=== PATIENT | female | born 1945 | race Caucasian/White ===

== ENCOUNTER 2016-10-13 15:09 | Outpatient (CLI) | payer MEDICARE, OTHER | END 2016-10-13 15:10 | disposition home or self-care (01) | DX: I71.4 Abdominal aortic aneurysm, without rupture (principal) ==

== ENCOUNTER 2017-02-21 06:29 | Outpatient (CLI) | payer MEDICARE, OTHER ==
[2017-02-21 19:03] LABS: EOSINOPHILS # (AUTO) 0.1 10^3/uL (0.0-0.7); EOSINOPHILS % (AUTO) 2.8 %; HCT - HEMATOCRIT 43.4 % (37.0-47.0); HGB - HEMOGLOBIN 14.2 g/dL (12.0-16.0); LYMPHOCYTES # (AUTO) 1.5 10^3/uL (1.5-3.5); LYMPHOCYTES % (AUTO) 31.5 %; MEAN CORPUSCULAR HEMOGLOBIN 29.9 pg (27.0-31.0); MEAN CORPUSCULAR HGB CONC 32.8 g/dL (32.0-36.0); MEAN CORPUSCULAR VOLUME 91.3 fL (81.0-99.0); MEAN PLATELET VOLUME 7.8 fL (7.9-10.8); MONOCYTES # (AUTO) 0.5 10^3/uL (0.0-1.0); MONOCYTES % (AUTO) 9.6 %; NEUTROPHILS # (AUTO) 2.7 10^3/uL (1.5-6.6); NEUTROPHILS % (AUTO) 55.1 %; RED BLOOD COUNT 4.75 10^6/uL (4.20-5.40); RED CELL DISTRIBUTION WIDTH 15.7 % (12.0-15.0); UNCORRECTED WHITE BLOOD COUNT 4.9 x10^3/uL; WHITE BLOOD COUNT 4.9 x10^3/uL (4.8-10.8)
[2017-02-21 19:32] LABS: ALBUMIN/GLOBULIN RATIO 1.6 (1.0-2.2); BILIRUBIN,TOTAL 0.6 mg/dL (0.2-1.0); BUN - BLOOD UREA NITROGEN 17 mg/dL (6-20); CALCIUM 9.2 mg/dL (8.5-10.3); CARBON DIOXIDE - CO2 28 mmol/L (21-32); CHLORIDE 107 mmol/L (101-111); CHOL/HDL RATIO 4.1 (<4.4); CHOLESTEROL 253 mg/dL; CREATININE 0.8 mg/dL (0.4-1.0); GFR - MDRD 71 (>89); GLUCOSE 91 mg/dL (70-100); HDL CHOLESTEROL 61 mg/dL; LDL/HDL RATIO 2.6 (<4.4); POTASSIUM 4.2 mmol/L (3.5-5.0); SODIUM 142 mmol/L (135-145); TOTAL PROTEIN 7.6 g/dL (6.7-8.2); TRIGLYCERIDES 168 mg/dL; VLDL CHOLESTEROL 34 mg/dL
[2017-02-21 19:41] LABS: HEMOGLOBIN A1C 0.55 g/dL
== END 2017-02-21 06:30 | disposition home or self-care (01) ==
LOC: LAB.WCP 06:29
PROVIDERS: ATTEND Family Medicine
DX: Z79.899 Other long term (current) drug therapy (principal); E78.5 Hyperlipidemia, unspecified; R73.01 Impaired fasting glucose
CPT/HCPCS: 36415; 80053; 80061; 83036; 85025

== ENCOUNTER 2017-07-06 13:09 | Outpatient (CLI) | payer MEDICARE, OTHER | END 2017-07-06 13:10 | disposition home or self-care (01) | LOC: LAB.WCP 13:09 | PROVIDERS: ATTEND Family Medicine | DX: G25.81 Restless legs syndrome (principal) | CPT/HCPCS: 36415; 82728 ==

== ENCOUNTER 2017-08-02 11:22 | Outpatient (CLI) | payer MEDICARE, OTHER | END 2017-08-02 11:23 | disposition home or self-care (01) | LOC: LAB 11:22 | PROVIDERS: ATTEND Family Medicine | DX: R22.0 Localized swelling, mass and lump, head (principal) | CPT/HCPCS: 36415; 86161 ==

== ENCOUNTER 2017-09-21 12:08 | Outpatient (CLI) | payer MEDICARE, OTHER ==
[2017-09-21 12:30] LABS: CALCIUM 9.1 mg/dL (8.5-10.3); CREATININE 0.9 mg/dL (0.4-1.0)
[2017-09-21] MEDS ORDERED: IOPAMIDOL-300 100 ML VIAL ONE (13:35)
--- NOTE | 2017-09-22 11:48 | CT Report ---
DATE OF SERVICE: 09/21/2017 CT OF CHEST: 09/21/2017 COMPARISON: CT 01/31/2016. INDICATION: COPD, dyspnea, and hypoxia. TECHNIQUE: Timed bolus imaging of the pulmonary arteries was performed using 70 mL Isovue 300. Imaging was performed through the chest with coronal and sagittal reformats. FINDINGS There is dependent bibasilar atelectasis. There is scattered random ground glass opacity of the lungs, a nonspecific finding. No focal consolidation is seen. There is no evidence of pulmonary embolism. There is an abdominal aortic aneurysm. It measures 3.3 cm AP x 3.5 cm transverse. It was not imaged on the previous CT. No mediastinal or hilar adenopathy is seen. There are calcifications at the coronary arteries. No pericardial effusion. No bone lesions. Soft tissues appear unremarkable. Cholecystectomy is noted. IMPRESSION: 1. NO EVIDENCE OF PULMONARY EMBOLISM. 2. THERE ARE SCATTERED GROUND GLASS OPACITIES AT THE LUNGS WHICH ARE NONSPECIFIC. FINDINGS COULD REPRESENT EDEMA, INFECTION, OR OTHER INFLAMMATORY PROCESS. FOLLOWUP IS AVAILABLE. In accordance with CT protocol optimization, one or more of the following dose reduction techniques were utilized for this exam: automated exposure control, adjustment of mA and/or KV based on patient size, or use of iterative reconstructive technique. TD: 09/21/2017 16:17 ADAL
[2017-09-26] MEDS ORDERED: IOPAMIDOL-300 100 ML VIAL IVP ONE (07:31)
== END 2017-09-21 12:09 | disposition home or self-care (01) ==
LOC: LAB 12:08 → DI 12:09
PROVIDERS: ATTEND Family Medicine
DX: R91.8 Other nonspecific abnormal finding of lung field (principal)
CPT/HCPCS: 36415; 71275; 80048; Q9967

== ENCOUNTER 2017-10-03 08:04 | Outpatient (CLI) | payer MEDICARE, OTHER ==
--- NOTE | 2017-10-03 15:46 | Ultrasound Report ---
DATE OF SERVICE: 10/03/2017 LIMITED RETROPERITONEAL ULTRASOUND: 10/03/2017 CLINICAL INDICATION: Followup aneurysm. COMPARISON: 10/13/2016. TECHNIQUE: Real-time sonographic vascular imaging was performed by the weigher and crusher through the aorta utilizing both color-flow and Doppler spectral analysis. Multiple customer account representative static images were saved for review. FINDINGS: The abdominal aorta measures 2.7 cm proximally, and 2.6 cm in the mid portion. Distal aneurysmal dilatation is again seen, now measuring 3.7 x 3.3 cm. The iliacs remain normal in caliber. No free fluid is present. IMPRESSION: SLIGHT INTERVAL INCREASE IN SIZE OF DISTAL ABDOMINAL AORTIC ANEURYSM, NOW MEASURING 3.7 X 3.3 CM. TD: 10/03/2017 16:45
== END 2017-10-03 08:05 | disposition home or self-care (01) ==
LOC: DI 08:04
PROVIDERS: ATTEND Family Medicine
DX: I71.4 Abdominal aortic aneurysm, without rupture (principal)
CPT/HCPCS: 76775

== ENCOUNTER 2017-10-06 12:01 | Outpatient (CLI) | payer MEDICARE, OTHER ==
[2017-10-06 19:53] LABS: BUN - BLOOD UREA NITROGEN 18 mg/dL (6-20); CALCIUM 8.6 mg/dL (8.5-10.3); CARBON DIOXIDE - CO2 27 mmol/L (21-32); CHLORIDE 106 mmol/L (101-111); CHOL/HDL RATIO 3.5 (<4.4); CHOLESTEROL 260 mg/dL; CREATININE 0.9 mg/dL (0.4-1.0); GFR - MDRD 61 (>89); GLUCOSE 91 mg/dL (70-100); HDL CHOLESTEROL 75 mg/dL; LDL CHOLESTEROL,CALCULATED 155 mg/dL; LDL/HDL RATIO 2.1 (<4.4); SODIUM 138 mmol/L (135-145); VLDL CHOLESTEROL 30 mg/dL
== END 2017-10-06 12:02 | disposition home or self-care (01) ==
LOC: LAB.WCP 12:01
PROVIDERS: ATTEND Family Medicine
DX: R06.00 Dyspnea, unspecified (principal); E78.5 Hyperlipidemia, unspecified; J44.1 Chronic obstructive pulmonary disease with (acute) exacerbation
CPT/HCPCS: 36415; 80048; 80061; 83721

== ENCOUNTER 2018-04-17 15:35 | Emergency (ER) | payer MEDICARE, OTHER ==
[2018-04-17 16:33] LABS: BASOPHILS % (AUTO) 0.6 %; EOSINOPHILS # (AUTO) 0.2 10^3/uL (0.0-0.7); EOSINOPHILS % (AUTO) 2.9 %; HGB - HEMOGLOBIN 14.9 g/dL (12.0-16.0); LYMPHOCYTES # (AUTO) 1.8 10^3/uL (1.5-3.5); LYMPHOCYTES % (AUTO) 30.3 %; MEAN CORPUSCULAR HEMOGLOBIN 33.3 pg (27.0-31.0); MEAN CORPUSCULAR HGB CONC 34.2 g/dL (32.0-36.0); MEAN CORPUSCULAR VOLUME 97.5 fL (81.0-99.0); MEAN PLATELET VOLUME 6.6 fL (7.9-10.8); MONOCYTES # (AUTO) 0.7 10^3/uL (0.0-1.0); MONOCYTES % (AUTO) 11.4 %; NEUTROPHILS # (AUTO) 3.3 10^3/uL (1.5-6.6); NEUTROPHILS % (AUTO) 54.8 %; PLT - PLATELET COUNT 181 10^3/uL (130-450); RED BLOOD COUNT 4.45 10^6/uL (4.20-5.40); RED CELL DISTRIBUTION WIDTH 13.6 % (12.0-15.0)
[2018-04-17 16:47] LABS: ALBUMIN 4.2 g/dL (3.2-5.5); ALBUMIN/GLOBULIN RATIO 1.3 (1.0-2.2); CALCIUM 9.4 mg/dL (8.5-10.3); CREATININE 0.7 mg/dL (0.4-1.0); TOTAL PROTEIN 7.5 g/dL (6.7-8.2)
[2018-04-17 17:23] VITALS: BP 115/75
--- NOTE | 2018-04-17 17:40 | ED Physician Documentation ---
History of Present Illness - Stated complaint Stated Complaint: RT SIDE PX - Chief complaint Chief Complaint: Abd Pain - History obtained from History obtained from: Patient, Family - History of Present Illness Timing: Today Pain level max: 7 Pain level now: 6 Improved by: nothing Worsened by: palpation - Additonal information Additional information: Patient is a 72-year-old female who complains of a burning sensation to the right upper quadrant and right back starting today. Does not recall having similar symptoms in the past. Has had a cholecystectomy in the past. No fevers. No vomiting. No diarrhea. Review of Systems Ten Systems: 10 systems reviewed and negative Constitutional: denies: Fever, Chills Ears: denies: Ear pain Nose: denies: Rhinorrhea / runny nose, Congestion Throat: denies: Sore throat Cardiac: denies: Chest pain / pressure Respiratory: denies: Cough, Wheezing GI: denies: Nausea, Vomiting, Diarrhea : denies: Dysuria Skin: denies: Rash Musculoskeletal: denies: Neck pain, Back pain Neurologic: denies: Focal weakness, Numbness, Confused PD PAST MEDICAL HISTORY - Past Medical History Past Medical History: Yes Cardiovascular: None Respiratory: COPD, Other Neuro: None Endocrine/Autoimmune: None GI: GERD 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) : Other HEENT: Other Psych: None Musculoskeletal: Osteoarthritis Derm: Herpes zoster Other Past Medical History: Amnioitc membranes R eye x2 - Past Surgical History Past Surgical History: Yes General: Cholecystectomy, Appendectomy, EGD Ortho: Knee replacement, Rotator cuff repair /ANALYTIC PROGRAMMER: Hysterectomy HEENT: Cataracts - Present Medications Home Medications: Ambulatory Orders Medication Instructions Recorded Confirmed Acyclovir 200 mg PO BID 11/19/13 01/30/16 Albuterol [Ventolin Hfa] 1 inhaler INH Q6HR PRN 11/19/13 01/30/16 traZODone [Desyrel] 100 mg PO HS 11/19/13 01/12/15 Sertraline [Zoloft] 50 mg PO DAILY 11/20/13 04/17/18 prednisoLONE 1% OPHTH DROPS [Pred 1 drops OPTH QID 11/20/13 01/12/15 Forte] Omeprazole [Prilosec] 40 mg PO BID 02/27/14 01/12/15 Cholecalciferol (Vitamin D3) 1,000 unit PO BID 02/28/14 01/12/15 [Vitamin D] Antibiotic 01/30/16 Albuterol Sulfate [Proair Hfa PRN PRN 04/17/18 Inhaler] Oxycodone HCl/Acetaminophen 1 - 2 each PO Q6H PRN #14 tablet 04/17/18 [Percocet 5-325 mg Tablet] Ropinirole HCl 04/17/18 Valacyclovir HCl [Valtrex] 1,000 mg PO TID #21 tablet 04/17/18 - Allergies Allergies/Adverse Reactions: Allergies Allergy/AdvReac Type Severity Reaction Status Date / Time Sulfa (Sulfonamide Allergy Mild Rash Verified 04/17/18 15:58 Antibiotics) - Social History Does the pt smoke?: No Smoking Status: Former smoker Does the pt drink ETOH?: No Does the pt have substance abuse?: No - Immunizations Immunizations are current?: Yes - POLST Patient has POLST: No PD ED PE NORMAL - Vitals Vital signs reviewed: Yes - General General: Alert and oriented X 3, No acute distress - HEENT HEENT: Moist mucous membranes - Neck Neck: Supple, no meningeal sign - Cardiac Cardiac: RRR - Respiratory Respiratory: No respiratory distress, Clear bilaterally - Abdomen Abdomen: Soft, Non tender, Non distended - Back Back: No CVA TTP - Derm Derm: Warm and dry, Other (Rash on the dermal tunnel distribution from approximately T10. This is erythematous and mildly raised. Tender to palpation. No vesicles or pustules) - Neuro Neuro: Alert and oriented X 3 Results - Vitals Vitals: Vital Signs - 24 hr 04/17/18 04/17/18 15:41 17:22 Temperature 36.9 C 36.4 C L Heart Rate 73 67 Respiratory 18 16 Rate Blood Pressure 133/81 H 115/75 O2 Saturation 94 97 Oxygen O2 Source [With Activity] Nasal cannula O2 Source Room air - Labs Labs: Laboratory Tests 04/17/18 04/17/18 16:15 16:15 WBC 6.0 RBC 4.45 Hgb 14.9 Hct 43.4 MCV 97.5 MCH 33.3 H MCHC 34.2 RDW 13.6 Plt Count 181 MPV 6.6 L Neut # (Auto) 3.3 Lymph # (Auto) 1.8 [place] # (Auto) 0.7 Eos # (Auto) 0.2 Baso # (Auto) 0.0 Absolute Nucleated RBC 0.00 Nucleated RBC % 0.0 Sodium 137 Potassium 3.9 Chloride 101 Carbon Dioxide 29 Anion Gap 7.0 BUN 18 Creatinine 0.7 Estimated GFR (MDRD) 82 L Glucose 99 Calcium 9.4 Total Bilirubin 1.0 AST 31 ALT 33 Alkaline Phosphatase 92 Total Protein 7.5 Albumin 4.2 Globulin 3.3 Albumin/Globulin Ratio 1.3 Lipase 28 PD MEDICAL DECISION MAKING - ED course Complexity details: considered differential, d/w patient, d/w family ED course: Patient is a 72-year-old female who presents to the emergency department with what appears to be shingles. Has a burning sensation across her skin has been now followed by the appearance of a rash. Will place on valacyclovir and follow -up with her doctor for further care. Patient counseled regarding signs and symptoms for which I believe and urgent re-evaluation would be necessary. Patient with good understanding of and agreement to plan and is comfortable going home at this time This document was made in part using voice recognition software. While efforts are made to proofread this document, sound alike and grammatical errors may occur. - Sepsis Event Vital Signs: Vital Signs - 24 hr 04/17/18 04/17/18 15:41 17:22 Temperature 36.9 C 36.4 C L Heart Rate 73 67 Respiratory 18 16 Rate Blood Pressure 133/81 H 115/75 O2 Saturation 94 97 Oxygen O2 Source [With Activity] Nasal cannula O2 Source Room air Departure - Departure Disposition: 01 Home, Self Care Clinical Impression: Shingles Qualifiers: Herpes zoster complications: without complications Qualified Code(s): B02.9 - Zoster without complications Condition: Good Instructions: ED Shingles Follow-Up: Janis Burns MD [Primary Care Provider] - Within 1 week Prescriptions: Oxycodone HCl/Acetaminophen [Percocet 5-325 mg Tablet] 1 - 2 each PO Q6H PRN # 14 tablet PRN Reason: pain Valacyclovir HCl [Valtrex] 1,000 mg PO TID #21 tablet Comments: Take the medications as prescribed. Return if you worsen. Do not drink alcohol or drive while on narcotic pain medicine. Note that many narcotic pain relievers also contain tylenol/acetaminophen. Please ensure that your total dose of acetaminophen from all sources does not exceed 3 grams (3000mg) per day. You may constipated on this medication, take a stool softener such as "Colace" twice a day while you are on it. Also recommend a eueg-[id number] laxative such as senna or MiraLAX any day that you do not have a bowel movement. If you received narcotic pain medication in the emergency department, do not drive or operate machinery for the next 24 hours. Discharge Date/Time: 04/17/18 17:52
== END 2018-04-17 17:52 | disposition home or self-care (01) ==
LOC: ED 15:35
DX: B02.9 Zoster without complications (principal); Z87.891 Personal history of nicotine dependence
CPT/HCPCS: 36415; 80053; 83690; 85025; 99283

== ENCOUNTER 2018-06-08 10:03 | Outpatient (CLI) | payer MEDICARE, OTHER ==
[2018-06-08 13:05] LABS: BASOPHILS % (AUTO) 0.7 %; EOSINOPHILS # (AUTO) 0.3 10^3/uL (0.0-0.7); EOSINOPHILS % (AUTO) 4.5 %; HGB - HEMOGLOBIN 14.8 g/dL (12.0-16.0); LYMPHOCYTES # (AUTO) 1.7 10^3/uL (1.5-3.5); LYMPHOCYTES % (AUTO) 28.8 %; MEAN CORPUSCULAR HEMOGLOBIN 33.7 pg (27.0-31.0); MEAN CORPUSCULAR HGB CONC 34.3 g/dL (32.0-36.0); MEAN CORPUSCULAR VOLUME 98.4 fL (81.0-99.0); MEAN PLATELET VOLUME 7.3 fL (7.9-10.8); MONOCYTES # (AUTO) 0.6 10^3/uL (0.0-1.0); MONOCYTES % (AUTO) 9.6 %; NEUTROPHILS # (AUTO) 3.3 10^3/uL (1.5-6.6); NEUTROPHILS % (AUTO) 56.4 %; PLT - PLATELET COUNT 185 10^3/uL (130-450); RED BLOOD COUNT 4.39 10^6/uL (4.20-5.40); RED CELL DISTRIBUTION WIDTH 14.2 % (12.0-15.0); WHITE BLOOD COUNT 5.8 x10^3/uL (4.8-10.8)
[2018-06-08 13:22] LABS: ALBUMIN 4.4 g/dL (3.2-5.5); ALBUMIN/GLOBULIN RATIO 1.5 (1.0-2.2); ALKALINE PHOSPHATASE 100 IU/L (42-121); ALT ALANINE AMINOTRANSFERASE 34 IU/L (10-60); AST ASPARTATE AMINOTRANSFERASE 31 IU/L (10-42); BILIRUBIN,TOTAL 0.8 mg/dL (0.2-1.0); BUN - BLOOD UREA NITROGEN 21 mg/dL (6-20); CALCIUM 9.3 mg/dL (8.5-10.3); CARBON DIOXIDE - CO2 25 mmol/L (21-32); CHLORIDE 106 mmol/L (101-111); CHOL/HDL RATIO 3.7 (<4.4); CHOLESTEROL 221 mg/dL; CREATININE 0.8 mg/dL (0.4-1.0); GFR - MDRD 70 (>89); GLUCOSE 94 mg/dL (70-100); HDL CHOLESTEROL 59 mg/dL; LDL CHOLESTEROL,CALCULATED 130 mg/dL; LDL/HDL RATIO 2.2 (<4.4); SODIUM 139 mmol/L (135-145); TOTAL PROTEIN 7.4 g/dL (6.7-8.2); VLDL CHOLESTEROL 32 mg/dL
[2018-06-08 14:01] LABS: HB2 TOTAL 15.7 g/dL; HEMOGLOBIN A1C 0.56 g/dL; HEMOGLOBIN A1C % 5.4 % (4.6-6.2)
== END 2018-06-08 10:04 | disposition home or self-care (01) ==
LOC: LAB.WCP 10:03
PROVIDERS: ATTEND Family Medicine
DX: E78.5 Hyperlipidemia, unspecified (principal); R73.01 Impaired fasting glucose; R03.0 Elevated blood-pressure reading, without diagnosis of hypertension; K21.9 Gastro-esophageal reflux disease without esophagitis; M35.00 Sjogren syndrome, unspecified; J44.9 Chronic obstructive pulmonary disease, unspecified; I73.9 Peripheral vascular disease, unspecified; F32.9 Major depressive disorder, single episode, unspecified; G47.00 Insomnia, unspecified
CPT/HCPCS: 36415; 80053; 80061; 83036; 83721; 84443; 85025

== ENCOUNTER 2018-10-07 08:38 | Outpatient (CLI) | payer MEDICARE, OTHER ==
--- NOTE | 2018-10-07 23:06 | CT Report ---
Reason: SYNCOPE,MEMORY LOSS Procedure Date: 10/07/2018 Accession Number: [id number] / [id number] Procedure: CT - Head W/O CPT Code: FULL RESULT: EXAM: CT HEAD EXAM DATE: 10/07/2018 08:53 AM. CLINICAL HISTORY: Syncope, memory loss. COMPARISON: HEAD W/O 07/22/2017 1:35 PM. TECHNIQUE: Multiaxial CT images were obtained from the foramen magnum to the vertex. Reformats: Sagittal and coronal. IV contrast: None. In accordance with CT protocol optimization, one or more of the following dose reduction techniques were utilized for this exam: automated exposure control, adjustment of mA and/or KV based on patient size, or use of iterative reconstructive technique. FINDINGS: Parenchyma: No intraparenchymal hemorrhage. No evidence of mass, midline shift or CT findings of acute infarction. Joaquin-white differentiation is distinct. No significant chronic microangiopathic white matter changes are evident. Extraaxial Spaces: Normal for age. No subdural or epidural collections identified. Ventricles: The ventricles and cortical sulci are enlarged, consistent with age-related tissue loss. Sinuses: Imaged paranasal sinuses, orbits, and mastoids show no significant abnormality. Bones: No evidence of fracture or calvarial defect. Other: None. IMPRESSION: Stable exam without evidence of acute intracranial abnormality. RADIA
== END 2018-10-07 08:39 | disposition home or self-care (01) ==
LOC: DI 08:38
PROVIDERS: ATTEND Family Medicine
DX: R55 Syncope and collapse (principal); R41.3 Other amnesia
CPT/HCPCS: 70450

== ENCOUNTER 2018-10-17 19:57 | Outpatient (CLI) | payer MEDICARE, OTHER ==
--- NOTE | 2018-10-17 22:18 | Ultrasound Report ---
Reason: SYNCOPE,MEMORY LOSS Procedure Date: 10/17/2018 Accession Number: [id number] / [id number] Procedure: US - Carotid Doppler Complete CPT Code: FULL RESULT: EXAM: BILATERAL CAROTID AND VERTEBRAL ARTERY DUPLEX DOPPLER ULTRASOUND: EXAM DATE: 10/17/2018 08:25 PM CLINICAL HISTORY: SYNCOPE,MEMORY LOSS. COMPARISON: None. TECHNIQUE: Grayscale imaging, color Doppler, and duplex spectral Doppler were used to evaluate the carotid and vertebral arteries bilaterally. Static images were obtained. FINDINGS: Minimal calcified plaque of the bilateral carotid bulbs. Normal antegrade flow is present in bilateral vertebral arteries. VELOCITIES (cm/sec): Right CCA mid: PSV 56.2 cm/sec CCA dist: PSV 49.1 cm/sec ICA prox: PSV 43.6 cm/sec ICA mid: PSV 48.1 cm/sec ICA dist: PSV 40.2 cm/sec ECA: PSV 93.2 cm/sec Vert: PSV 33.5 cm/sec ICA/CCA: 0.86 Left CCA mid: PSV 48.4 cm/sec CCA dist: PSV 50.6 cm/sec ICA prox: PSV 41.9 cm/sec ICA mid: PSV 43.1 cm/sec ICA dist: PSV 41.5 cm/sec ECA: PSV 76.2 cm/sec Vert: PSV 17.1 cm/sec ICA/CCA: 0.85 ICA diameter stenosis: Right: <50% by velocity and <70% by NASCET criteria. Left: <50% by velocity and <70% by NASCET criteria. IMPRESSION: No evidence for 50% or greater stenosis. General Recommendations: Stenosis =50% ICA - Follow-up ultrasound 6-12 months Stenosis <50% ICA - High Risk Patient with plaque - Follow-up ultrasound 1-2 years Normal Study but High Risk Patient - Follow-up ultrasound 3-5 years Management recommendations and diagnostic criteria are based on current IAC endorsed standards in Carotid Artery Stenosis: Grayscale and Doppler Ultrasound Diagnosis. Validated velocity measurements with angiographic measurements and velocity criteria are extrapolated from diameter data as defined by the Society of Radiologists in Ultrasound Consensus Conference Radiology 2003; 229;340-346. RADIA
== END 2018-10-17 19:58 | disposition home or self-care (01) ==
LOC: DI 19:57
PROVIDERS: ATTEND Family Medicine
DX: R55 Syncope and collapse (principal); R41.3 Other amnesia
CPT/HCPCS: 93880

== ENCOUNTER 2018-10-20 08:00 | Outpatient (CLI) | payer MEDICARE, OTHER ==
[2018-10-22 16:17] LABS: B. PARAPERTUSSIS DNA NOT DETECTED; B. PERTUSSIS DNA NOT DETECTED; SOURCE SWAB
== END 2018-10-20 23:59 | disposition home or self-care (01) ==
LOC: LAB.R 08:00
PROVIDERS: ATTEND Nurse Practitioner
DX: R05 Cough (principal)
CPT/HCPCS: 87801

== ENCOUNTER 2018-11-03 16:39 | Outpatient (CLI) | payer MEDICARE, OTHER | END 2018-11-03 23:59 | disposition home or self-care (01) | LOC: LAB.R 16:39 | PROVIDERS: ATTEND Family Medicine | DX: R31.9 Hematuria, unspecified (principal) | CPT/HCPCS: 87077; 87086; 87181 ==

== ENCOUNTER 2018-11-16 11:25 | Outpatient (CLI) | payer MEDICARE, OTHER ==
--- NOTE | 2018-11-16 13:44 | Ultrasound Report ---
Reason: POSTMENOPAUSAL BLEEDING Procedure Date: 11/16/2018 Accession Number: [id number] / [id number] Procedure: US - Pelvic w/Transvaginal CPT Code: FULL RESULT: EXAM: PELVIC ULTRASOUND EXAM DATE: 11/16/2018 11:36 AM. CLINICAL HISTORY: Postmenopausal bleeding. COMPARISON: None. TECHNIQUE: Realtime transabdominal pelvic scan performed to identify the uterus and adnexa and as an overview of other pelvic structures, followed by transvaginal scan to provide greater detail of the uterus and adnexa, with static image documentation. FINDINGS: Uterus: Not seen, reportedly surgically absent. The upper vaginal cuff is normal in appearance by transvaginal examination. Right Ovary: Not seen. Left Ovary: Not seen. Free Fluid: None. Other: None. IMPRESSION: Status post hysterectomy with no overt mass seen near the distal vaginal canal. RADIA
== END 2018-11-16 11:26 | disposition home or self-care (01) ==
LOC: DI 11:25
PROVIDERS: ATTEND Family Medicine
DX: N95.0 Postmenopausal bleeding (principal); Z90.710 Acquired absence of both cervix and uterus
CPT/HCPCS: 76830; 76856

== ENCOUNTER 2018-11-24 15:16 | Outpatient (CLI) | payer MEDICARE, OTHER | END 2018-11-24 15:17 | disposition critical access hospital (66) | LOC: EMS 15:16 | PROVIDERS: ATTEND Surgery | DX: R06.02 Shortness of breath (principal); R05 Cough; R68.83 Chills (without fever); R07.9 Chest pain, unspecified | CPT/HCPCS: A0425; A0427 ==

== ENCOUNTER 2018-11-24 15:28 | Emergency (ER) | payer MEDICARE, OTHER ==
[2018-11-24] MEDS ORDERED: IPRATROPIUM/ALBUTEROL 3 ML NEB INH STA (15:41)
[2018-11-24] MEDS ORDERED: LEVALBUTEROL 1.25 MG/3 ML NEB INH STA (15:44)
[2018-11-24 16:03] LABS: BASOPHILS % (AUTO) 0.6 %; HGB - HEMOGLOBIN 13.9 g/dL (12.0-16.0); LYMPHOCYTES # (AUTO) 0.8 10^3/uL (1.5-3.5); MEAN CORPUSCULAR HEMOGLOBIN 32.6 pg (27.0-31.0); MEAN CORPUSCULAR HGB CONC 33.6 g/dL (32.0-36.0); MEAN CORPUSCULAR VOLUME 97.1 fL (81.0-99.0); MEAN PLATELET VOLUME 6.8 fL (7.9-10.8); MONOCYTES # (AUTO) 0.7 10^3/uL (0.0-1.0); MONOCYTES % (AUTO) 15.5 %; NEUTROPHILS % (AUTO) 64.9 %; PLT - PLATELET COUNT 154 10^3/uL (130-450); RED BLOOD COUNT 4.27 10^6/uL (4.20-5.40); RED CELL DISTRIBUTION WIDTH 13.7 % (12.0-15.0); WHITE BLOOD COUNT 4.6 x10^3/uL (4.8-10.8)
[2018-11-24 16:16] LABS: ALBUMIN 4.4 g/dL (3.2-5.5); ALBUMIN/GLOBULIN RATIO 1.6 (1.0-2.2); BILIRUBIN,TOTAL 0.6 mg/dL (0.2-1.0); CALCIUM 9.1 mg/dL (8.5-10.3); TOTAL PROTEIN 7.2 g/dL (6.7-8.2)
--- NOTE | 2018-11-24 16:31 | XRAY Report ---
Reason: dyspnea Procedure Date: 11/24/2018 Accession Number: [id number] / [id number] Procedure: XR - Chest 1 View X-Ray CPT Code: 63470 FULL RESULT: EXAM: CHEST RADIOGRAPHY EXAM DATE: 11/24/2018 04:17 PM. CLINICAL HISTORY: Dyspnea. COMPARISON: CHEST 2 VIEW PA/LAT 10/16/2018 11:02 AM. TECHNIQUE: 1 view. FINDINGS: Lungs/Pleura: No focal opacities evident. No pleural effusion. No pneumothorax. There is relative right hemidiaphragm elevation. Mediastinum: Borderline cardiomegaly. There is thoracic aortic calcification. Other: There is bilateral shoulder degenerative disease. IMPRESSION: No acute intrathoracic plain film abnormality. RADIA
--- NOTE | 2018-11-24 16:45 | ED Physician Documentation ---
PD HPI DYSPNEA - Stated complaint Stated Complaint: SOA - Chief complaint Chief Complaint: Resp - History obtained from History obtained from: Patient - History of Present Illness Timing - onset: Last night Timing - details: Still present Associated symptoms: Cough Similar symptoms before: Diagnosis (copd) - Treatment prior to arrival Treatment prior to arrival: DuoNeb - Additional information Additional information: The patient is a 73-year-old female with history of COPD, who presents via ambulance with dyspnea. She began with cough last night, and has become short of breath with coughing today. She has used her nebulizer twice at home, and once enroute by medics, without relief. She denies chest pain or fever. She does have soreness in her throat with coughing. She denies headache, nausea, vomiting, or dysuria. 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 HEENT: Other Psych: None Musculoskeletal: Osteoarthritis Derm: Herpes zoster - Past Surgical History Past Surgical History: Yes General: Cholecystectomy, Appendectomy, EGD Ortho: Knee replacement, Rotator cuff repair /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 HEENT: Cataracts - Present Medications Home Medications: Ambulatory Orders Medication Instructions Recorded Confirmed Acyclovir 200 mg PO BID 11/19/13 01/30/16 Albuterol [Ventolin Hfa] 1 inhaler INH Q6HR PRN 11/19/13 01/30/16 traZODone [Desyrel] 100 mg PO HS 11/19/13 01/12/15 Sertraline [Zoloft] 50 mg PO DAILY 11/20/13 04/17/18 prednisoLONE 1% OPHTH DROPS [Pred 1 drops OPTH QID 11/20/13 01/12/15 Forte] Omeprazole [Prilosec] 40 mg PO BID 02/27/14 01/12/15 Cholecalciferol (Vitamin D3) 1,000 unit PO BID 02/28/14 01/12/15 [Vitamin D] Albuterol Sulfate [Proair Hfa PRN PRN 04/17/18 Inhaler] Ropinirole HCl 04/17/18 Benzonatate [Tessalon Perle] 100 - 200 mg PO TID PRN #30 capsule 11/24/18 Felodipine [Felodipine ER] 0 mg 11/24/18 Gemfibrozil 0 mg 11/24/18 Levalbuterol [Xopenex] 1.25 mg INH RTQ4H #30 neb 11/24/18 Losartan [Cozaar] 0 mg 11/24/18 predniSONE [Prednisone] 40 mg PO DAILY #10 tablet 11/24/18 - Allergies Allergies/Adverse Reactions: Allergies Allergy/AdvReac Type Severity Reaction Status Date / Time Sulfa (Sulfonamide Allergy Mild Rash Verified 04/17/18 15:58 Antibiotics) doxycycline Allergy Unknown Verified 11/24/18 15:51 - Social History Does the pt smoke?: No Smoking Status: Never smoker Does the pt drink ETOH?: No Does the pt have substance abuse?: No - Immunizations Immunizations are current?: Yes - POLST Patient has POLST: No PD ED PE NORMAL - Vitals Vital signs reviewed: Yes (borderline systolic hypertension initially) - General General: Alert and oriented X 3, Well developed/nourished, Other (Appears in respiratory distress, coughing and speaking in bursts of 2-3 words.) - HEENT HEENT: Atraumatic, Pharynx benign - Neck Neck: Supple, no meningeal sign, No adenopathy, No JVD - Cardiac Cardiac: RRR - Respiratory Respiratory: Other (Faint expiratory wheezing bilaterally.) - Abdomen Abdomen: Soft, Non tender, Other (Rotund abdomen.) - Back Back: No CVA TTP - Derm Derm: No rash - Extremities Extremities: No edema, No calf tenderness / cord - Neuro Neuro: Alert and oriented X 3, No motor deficit, No sensory deficit Results - Vitals Vitals: Oxygen O2 Source [] Nasal cannula O2 Source Room air Oxygen Flow Rate 2 - EKG (time done) 16:44 Rate: Rate (enter#) (87) Rhythm: NSR [place]: Normal Intervals: Normal IA QRS: Normal Ischemia: Normal ST segments Compare to prior EKG: Unchanged from prior EKG Computer interpretation: Agree with computer - Labs Labs: Laboratory Tests 11/24/18 11/24/18 11/24/18 15:56 15:56 15:56 WBC 4.6 L RBC 4.27 Hgb 13.9 Hct 41.5 MCV 97.1 MCH 32.6 H MCHC 33.6 RDW 13.7 Plt Count 154 MPV 6.8 L Neut # (Auto) 3.0 Lymph # (Auto) 0.8 L [place] # (Auto) 0.7 Eos # (Auto) 0.0 Baso # (Auto) 0.0 Absolute Nucleated RBC 0.00 Nucleated RBC % 0.1 Sodium 139 Potassium 3.6 Chloride 103 Carbon Dioxide 22 Anion Gap 14.0 H BUN 19 Creatinine 1.0 Estimated GFR (MDRD) 54 L Glucose 97 Calcium 9.1 Total Bilirubin 0.6 AST 49 H ALT 46 Alkaline Phosphatase 86 Troponin I < 0.04 B-Natriuretic Peptide Total Protein 7.2 Albumin 4.4 Globulin 2.8 Albumin/Globulin Ratio 1.6 Lipase 26 11/24/18 16:00 WBC RBC Hgb Hct MCV MCH MCHC RDW Plt Count MPV Neut # (Auto) Lymph # (Auto) [place] # (Auto) Eos # (Auto) Baso # (Auto) Absolute Nucleated RBC Nucleated RBC % Sodium Potassium Chloride Carbon Dioxide Anion Gap BUN Creatinine Estimated GFR (MDRD) Glucose Calcium Total Bilirubin AST ALT Alkaline Phosphatase Troponin I B-Natriuretic Peptide 14 Total Protein Albumin Globulin Albumin/Globulin Ratio Lipase - Rads (name of study) 1-view C Radiology: Prelim report reviewed, EMP read contemporaneously, See rad report (No acute intrathoracic plain film abnormality.) PD MEDICAL DECISION MAKING - ED course Complexity details: reviewed old records, reviewed results, re-evaluated patient, considered differential, d/w patient, d/w family ED course: The patient's presentation is most consistent with acute exacerbation of COPD. Her dyspnea seems to be associated with coughing. There is no evidence of pneumonia, with no fever, normal white blood cell count of 4.6, and negative chest x-ray. Her presentation does not suggest congestive heart failure, with no pulmonary edema on chest x-ray, and a normal BNP. Electrocardiogram does not reveal evidence of ischemic changes. Her troponin is negative. Treatment in the emergency department included administration of Xopenex nebulizer and dexamethasone 10 mg orally. Her coughing and shortness of breath improved with this treatment. Tessalon 100 mg is administered orally. She is being discharged with prescriptions for Xopenex nebulizer solution, prednisone, and Tessalon Perles. I discussed with her and her daughter the diagnosis, outpatient treatment and follow-up, as well as potentially worrisome signs or symptoms that should prompt reevaluation in the emergency department. Departure - Departure Disposition: 01 Home, Self Care Clinical Impression: COPD exacerbation Condition: Stable Instructions: ED COPD Flare Follow-Up: Janis Burns MD [Primary Care Provider] - Prescriptions: Benzonatate [Tessalon Perle] 100 - 200 mg PO TID PRN #30 capsule PRN Reason: Cough Levalbuterol [Xopenex] 1.25 mg INH RTQ4H #30 neb predniSONE [Prednisone] 40 mg PO DAILY #10 tablet Comments: Continue albuterol as previously prescribed. Take prednisone daily as prescribed. You can use Xopenex if albuterol is not resulting in improved breathing. Follow-up with your primary physician within 1 week. Call to schedule appointment. Return to the emergency department if you develop increasing difficulty breathing, or otherwise worsening symptoms. Discharge Date/Time: 11/24/18 18:34
[2018-11-24] MEDS ORDERED: DEXAMETHASONE 10 MG/ML VIAL PO STA (17:07)
[2018-11-24] MEDS ORDERED: BENZONATATE 100 MG CAPSULE PO STA (18:19)
[2018-11-24 18:36] VITALS: BP 121/97
== END 2018-11-24 18:34 | disposition home or self-care (01) ==
LOC: EDUNIT# → ED 15:28
DX: J44.1 Chronic obstructive pulmonary disease with (acute) exacerbation (principal); Z96.659 Presence of unspecified artificial knee joint
CPT/HCPCS: 36415; 71045; 80053; 83690; 83880; 84484; 85025; 93005; 94640; 99283; 99284; A9270

== ENCOUNTER 2018-12-04 10:01 | Outpatient (CLI) | payer MEDICARE, OTHER ==
--- NOTE | 2018-12-04 13:03 | XRAY Report ---
Reason: COPD, ACUTE EXACERBATION/COUGH Procedure Date: 12/04/2018 Accession Number: [id number] / [id number] Procedure: WCP - Chest 2 View X-Ray CPT Code: 61188 FULL RESULT: EXAM: CHEST RADIOGRAPHY EXAM DATE: 12/04/2018 10:20 AM. CLINICAL HISTORY: COPD, acute exacerbation/cough. COMPARISON: CHEST 1 VIEW 11/24/2018 3:59 PM. CHEST 2 VIEW PA/LAT 10/16/2018 11:02 AM. TECHNIQUE: 2 views. FINDINGS: Lungs/Pleura: Since the most recent exam of 10 days ago, patient has developed a 2.5 cm triangular opacity/contour prominence overlying the region of the right azygous vein. Presumably this represents subsegmental atelectasis. Short interval follow-up in 4 weeks is recommended to ensure resolution. Remaining lungs are clear. No effusion or extra ventilatory air. Mediastinum: Heart size is normal. Hilar contours are within normal limits. Other: None. IMPRESSION: New 2.5 cm contour prominence overlies the right mediastinum likely indicating focal subsegmental atelectasis. Recommend follow-up in 4 weeks to ensure expected resolution. If finding persists, would then proceed with CT to look for causes of postobstructive atelectasis. RADIA
== END 2018-12-04 10:02 | disposition home or self-care (01) ==
LOC: DI.WCP 10:01
PROVIDERS: ATTEND Physician Assistant
DX: J44.1 Chronic obstructive pulmonary disease with (acute) exacerbation (principal); R05 Cough
CPT/HCPCS: 71046

== ENCOUNTER 2018-12-07 11:35 | Outpatient (CLI) | payer MEDICARE, OTHER ==
[2018-12-07 18:49] LABS: BASOPHILS % (AUTO) 0.2 %; EOSINOPHILS # (AUTO) 0.1 10^3/uL (0.0-0.7); EOSINOPHILS % (AUTO) 1.3 %; HGB - HEMOGLOBIN 14.7 g/dL (12.0-16.0); LYMPHOCYTES # (AUTO) 3.9 10^3/uL (1.5-3.5); LYMPHOCYTES % (AUTO) 34.8 %; MEAN CORPUSCULAR HGB CONC 32.2 g/dL (32.0-36.0); MEAN CORPUSCULAR VOLUME 99.3 fL (81.0-99.0); MONOCYTES # (AUTO) 0.8 10^3/uL (0.0-1.0); NEUTROPHILS # (AUTO) 6.4 10^3/uL (1.5-6.6); NEUTROPHILS % (AUTO) 56.7 %; PLT - PLATELET COUNT 209 10^3/uL (130-450); RED BLOOD COUNT 4.61 10^6/uL (4.20-5.40); RED CELL DISTRIBUTION WIDTH 14.1 % (12.0-15.0); WHITE BLOOD COUNT 11.3 x10^3/uL (4.8-10.8)
[2018-12-07 19:17] LABS: ALBUMIN 4.1 g/dL (3.2-5.5); ALBUMIN/GLOBULIN RATIO 1.4 (1.0-2.2); BILIRUBIN,TOTAL 0.6 mg/dL (0.2-1.0); CALCIUM 9.1 mg/dL (8.5-10.3); CREATININE 0.9 mg/dL (0.4-1.0)
== END 2018-12-07 11:36 | disposition home or self-care (01) ==
LOC: LAB.WCP 11:35
PROVIDERS: ATTEND Nurse Practitioner
DX: J18.9 Pneumonia, unspecified organism (principal)
CPT/HCPCS: 36415; 80053; 85025

== ENCOUNTER 2018-12-13 13:21 | Outpatient (CLI) | payer MEDICARE, OTHER ==
[2018-12-13] MEDS ORDERED: IOPAMIDOL-300 100 ML VIAL ONE (13:40)
[2018-12-13] MEDS ORDERED: IOPAMIDOL-300 100 ML VIAL IVP ONE (15:40)
--- NOTE | 2018-12-13 16:15 | CT Report ---
Reason: PNEUMONIA,COUGH,COPD,ACUTE EXACERBATION Procedure Date: 12/13/2018 Accession Number: [id number] / [id number] Procedure: CT - CHEST W CPT Code: FULL RESULT: EXAM: CT CHEST EXAM DATE: 12/13/2018 01:58 PM. CLINICAL HISTORY: PNEUMONIA, COUGH, COPD, ACUTE EXACERBATION. COMPARISONS: CHEST ANGIO 09/21/2017 2:39 PM. TECHNIQUE: Routine helical CT imaging was performed through the chest. IV contrast: 80 mL Isovue-300. Reconstructions: Coronal and sagittal. In accordance with CT protocol optimization, one or more of the following dose reduction techniques were utilized for this exam: automated exposure control, adjustment of mA and/or KV based on patient size, or use of iterative reconstructive technique. FINDINGS: Lungs/Pleura: There is a small amount of right basilar consolidation. Previously seen scattered groundglass is no longer appreciated. There are no suspicious pulmonary nodules. No pleural effusion or pneumothorax. Mediastinum: The coronary arteries as well as the aorta are at least moderately calcified. No lymphadenopathy is detected. Right pulmonary artery measures up to 2.1 cm and left pulmonary artery measures up to 2.5 cm, suggestive of the possibility of pulmonary hypertension. Bones: No aggressive osseous lesions detected. Visualized Abdomen: Status post cholecystectomy and hypodense liver suggestive of steatosis. Mild splenomegaly. Known infrarenal abdominal aortic aneurysm measures up to 3.5 cm, similar to prior. Other: None. IMPRESSION: Small amount of right basilar consolidation, similar to the previous examination. Intra-abdominal findings including aortic aneurysm as described above. RADIA
== END 2018-12-13 13:22 | disposition home or self-care (01) ==
LOC: DI 13:21
PROVIDERS: ATTEND Family Medicine
DX: J18.9 Pneumonia, unspecified organism (principal); J44.1 Chronic obstructive pulmonary disease with (acute) exacerbation; I71.4 Abdominal aortic aneurysm, without rupture
CPT/HCPCS: 71260; Q9967

== ENCOUNTER 2019-01-09 12:13 | Day surgery (SDC) | payer MEDICARE, OTHER ==
[2019-01-09] MEDS ORDERED: LACTATED RINGERS 1,000 ML IV ONE ×2 (12:29→14:05)
--- NOTE | 2019-01-09 13:40 | ANESTHESIA ---
Pre-Anesthesia VS, & Labs - Diagnosis rectal bleeding, screening exam - Procedure colonoscopy with possible biopsies/polypectomy Vital Signs: Temp Pulse Resp BP Pulse Ox 36.6 C 75 16 153/80 H 93 01/09/19 12:29 01/09/19 12:29 01/09/19 12:29 01/09/19 12:29 01/09/19 12:29 Height 5 ft 3 in Weight (kg) 86.18 kg Body Mass Index 33.6 - NPO >8 hours - Is Patient ?: No Home Medications and Allergies Home Medications: Ambulatory Orders Benzonatate [Tessalon Perle] 100 mg PO TID PRN 12/28/18 Ferrous Sulfate 325 mg PO ONCE 12/28/18 Fluticasone/Salmeterol [Advair 250-50 Diskus] 1 each IH BID 12/28/18 Genteal Pm 1 applic TP QPM 12/28/18 Hydrocortisone Valerate 1 applic TP DAILY 12/28/18 Ibuprofen 800 mg PO DAILY 12/28/18 Magnesium 250 mg PO DAILY 12/28/18 Nystatin 5 ml PO QID 12/28/18 [place]-3/Dha/Epa/Fish Oil [Fish Oil 1,000 mg Softgel] 1 each PO DAILY 12/28/18 Tiotropium [place] [Spiriva] 1 cap IH DAILY 12/28/18 Acyclovir 200 mg PO BID 11/19/13 Albuterol [Ventolin Hfa] 2 inhaler INH Q4HR PRN 11/19/13 traZODone [Desyrel] 3 - 4 tab PO HS 11/19/13 Sertraline [Zoloft] 50 - 100 mg PO DAILY 11/20/13 prednisoLONE 1% OPHTH DROPS [Pred Forte] 1 drops OPTH QID 11/20/13 Omeprazole [Prilosec] 40 mg PO BID 02/27/14 Ropinirole HCl 3 mg PO QPM 04/17/18 Benzonatate [Tessalon Perle] 100 mg PO TID PRN 12/28/18 Ferrous Sulfate 325 mg PO ONCE 12/28/18 Fluticasone/Salmeterol [Advair 250-50 Diskus] 1 each IH BID 12/28/18 Genteal Pm 1 applic TP QPM 12/28/18 Hydrocortisone Valerate 1 applic TP DAILY 12/28/18 Ibuprofen 800 mg PO DAILY 12/28/18 Magnesium 250 mg PO DAILY 12/28/18 Nystatin 5 ml PO QID 12/28/18 [place]-3/Dha/Epa/Fish Oil [Fish Oil 1,000 mg Softgel] 1 each PO DAILY 12/28/18 Tiotropium [place] [Spiriva] 1 cap IH DAILY 12/28/18 Allergies/Adverse Reactions: Allergies Allergy/AdvReac Type Severity Reaction Status Date / Time Sulfa (Sulfonamide Allergy Mild Rash Verified 01/09/19 12:44 Antibiotics) diphenhydramine Allergy has no Verified 01/09/19 12:44 [From Benadryl] effect doxycycline Allergy Unknown Verified 01/09/19 12:44 Anes History & Medical History - Anesthetic History Anesthesia Complications: reports: No previous complications - Medical History Cardiovascular: reports: Other (history of AAA) Pulmonary: reports: COPD, Pneumonia, Shortness of breath, Other Gastrointestinal: reports: GERD, Other Urinary: reports: Incontinence Neuro: reports: None Musculoskeletal: reports: Osteoarthritis Endocrine/Autoimmune: reports: None Blood Disorders: reports: None Skin: reports: Herpes zoster, Other Smoking Status: Never smoker Psychosocial: reports: No issues indicated - Surgical History General: Cholecystectomy, Appendectomy, EGD Eyes Ears Nose Throat (EENT): Cataracts Gynecologic: Hysterectomy Orthopedic: Knee replacement, Rotator cuff repair Exam General: Alert, Oriented x3, Cooperative, No acute distress Dental: WNL Mouth Openin Fingerbreadth Neck Mobility: Normal Mallampati classification: II Thyromental Distance: 4-6 cm Respiratory: Lungs clear, Normal breath sounds, No respiratory distress, No accessory muscle use Cardiovascular: Regular rate, Normal S1, Normal S2, No murmurs Mental/Cognitive Status: Alert/Oriented X3, Normal for patient Plan Anesthesia Type: MAC Consent for Procedure(s) Verified and Reviewed: Yes Code Status: Attempt Resuscitation ASA classification: 3-Severe systemic disease Is this case an emergency?: No
[2019-01-09] MEDS ORDERED: MIDAZOLAM 2 MG/2 ML VIAL IVP ONE (14:37)
[2019-01-09] MEDS ORDERED: PROPOFOL 200 MG/20 ML VIAL IVP ONE (14:37)
[2019-01-09] MEDS ORDERED: fentaNYL 100 MCG/2 ML VIAL IVP ONE (14:37)
[2019-01-09 15:11] VITALS: BP 143/75
--- NOTE | 2019-01-09 16:08 | PROCEDURE REPORT ---
DATE OF SERVICE: 01/09/2019 Physician: Lit Bee MD PREOPERATIVE DIAGNOSIS: Bright red blood per rectum. 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 INDICATIONS FOR PROCEDURE: Patient is a 73-year-old woman with extensive medical problems who noticed bright red blood per rectum. Additionally, it had been 12 years since her last colonoscopy, requesting screening. PROCEDURE IN DETAIL: The risks and benefits were explained to patient. She agreed to the procedure. She was taken to the operating room, given sedation. A well-lubricated colonoscope was advanced through the anus to the cecum without much difficulty. Prep was marginal, but adequate. The ileocecal valve and appendiceal orifice were identified. The cecum was distended with carbon dioxide and scope slowly withdrawn. What appeared to be small vascular ectasia was seen and a photograph was taken in the cecum. There was no active bleeding from it at this time. The scope was withdrawn further and a small hyperplastic- type polyp was seen in the cecum, and that was removed with cold forceps with no residual bleeding. The scope was then withdrawn further. Portions of the colon had a somewhat nodular appearance; however, there were no further polyps seen or masses. Pictures were taken of a couple of the nodules seen, but altogether they had a benign appearance. The scope was then completely withdrawn with retroflexion at the anal verge with no further abnormalities, except for scattered diverticula throughout the colon. The procedure was then terminated. Patient was taken to recovery in stable condition. COMPLICATIONS: None. SPECIMEN: Cecal polyp. PLAN: Call her with pathology results. TD: 01/09/2019 14:46 [email or web address]
== END 2019-01-09 12:14 | disposition home or self-care (01) ==
LOC: SDS 12:13
PROVIDERS: ATTEND Surgery
PROC: 0DBH8ZZ Excision of Cecum, Via Natural or Artificial Opening Endoscopic (ICD-10-PCS; principal; 2019-01-09 13:45)
DX: D12.0 Benign neoplasm of cecum (principal); K57.30 Diverticulosis of large intestine without perforation or abscess without bleeding; J44.9 Chronic obstructive pulmonary disease, unspecified; J45.909 Unspecified asthma, uncomplicated; K21.9 Gastro-esophageal reflux disease without esophagitis; R32 Unspecified urinary incontinence; M19.90 Unspecified osteoarthritis, unspecified site; Z79.51 Long term (current) use of inhaled steroids; Z79.1 Long term (current) use of non-steroidal anti-inflammatories (NSAID); Z87.01 Personal history of pneumonia (recurrent)
CPT/HCPCS: 45380; J7120

== ENCOUNTER 2019-01-15 11:57 | Outpatient (CLI) | payer MEDICARE, OTHER ==
[2019-01-15 18:36] LABS: BASOPHILS % (AUTO) 0.6 %; EOSINOPHILS # (AUTO) 0.2 10^3/uL (0.0-0.7); EOSINOPHILS % (AUTO) 3.9 %; HGB - HEMOGLOBIN 14.7 g/dL (12.0-16.0); LYMPHOCYTES # (AUTO) 1.7 10^3/uL (1.5-3.5); LYMPHOCYTES % (AUTO) 35.9 %; MEAN CORPUSCULAR HGB CONC 33.3 g/dL (32.0-36.0); MEAN CORPUSCULAR VOLUME 99.1 fL (81.0-99.0); MEAN PLATELET VOLUME 7.4 fL (7.9-10.8); MONOCYTES # (AUTO) 0.4 10^3/uL (0.0-1.0); MONOCYTES % (AUTO) 9.3 %; NEUTROPHILS # (AUTO) 2.4 10^3/uL (1.5-6.6); NEUTROPHILS % (AUTO) 50.3 %; PLT - PLATELET COUNT 169 10^3/uL (130-450); RED BLOOD COUNT 4.45 10^6/uL (4.20-5.40); RED CELL DISTRIBUTION WIDTH 14.9 % (12.0-15.0); WHITE BLOOD COUNT 4.8 x10^3/uL (4.8-10.8)
== END 2019-01-15 23:59 | disposition home or self-care (01) ==
LOC: LAB.WCP 11:57
PROVIDERS: ATTEND Family Medicine
DX: R61 Generalized hyperhidrosis (principal)
CPT/HCPCS: 36415; 84443; 85025

== ENCOUNTER 2019-04-20 12:37 | Emergency (ER) | payer MEDICARE, OTHER ==
[2019-04-20] MEDS ORDERED: ACETAMINOPHEN 325 MG TABLET PO STA (13:20)
[2019-04-20 13:50] LABS: BASOPHILS % (AUTO) 0.6 %; EOSINOPHILS # (AUTO) 0.2 10^3/uL (0.0-0.7); EOSINOPHILS % (AUTO) 2.7 %; HGB - HEMOGLOBIN 14.9 g/dL (12.0-16.0); LYMPHOCYTES # (AUTO) 1.4 10^3/uL (1.5-3.5); LYMPHOCYTES % (AUTO) 21.3 %; MEAN CORPUSCULAR HEMOGLOBIN 32.9 pg (27.0-31.0); MEAN CORPUSCULAR VOLUME 99.8 fL (81.0-99.0); MEAN PLATELET VOLUME 8.9 fL (7.9-10.8); MONOCYTES # (AUTO) 0.6 10^3/uL (0.0-1.0); MONOCYTES % (AUTO) 9.1 %; NEUTROPHILS # (AUTO) 4.3 10^3/uL (1.5-6.6); NEUTROPHILS % (AUTO) 65.7 %; PLT - PLATELET COUNT 156 10^3/uL (130-450); RED BLOOD COUNT 4.53 10^6/uL (4.20-5.40); RED CELL DISTRIBUTION WIDTH 12.7 % (12.0-15.0); WHITE BLOOD COUNT 6.6 x10^3/uL (4.8-10.8)
[2019-04-20 14:00] LABS: ALBUMIN 4.4 g/dL (3.2-5.5); ALBUMIN/GLOBULIN RATIO 1.6 (1.0-2.2); BILIRUBIN,TOTAL 0.8 mg/dL (0.2-1.0); CALCIUM 9.5 mg/dL (8.5-10.3); CREATININE 0.8 mg/dL (0.4-1.0); TOTAL PROTEIN 7.2 g/dL (6.7-8.2)
--- NOTE | 2019-04-20 14:05 | CT Report ---
Reason: fell in shower; struck head; not on blood thinners Procedure Date: 04/20/2019 Accession Number: [id number] / [id number] Procedure: CT - HEAD WO CPT Code: FULL RESULT: EXAM: HEAD WO EXAM DATE: 04/20/2019 01:56 PM CLINICAL HISTORY: Fell in shower; struck head; not on blood thinners. COMPARISON: HEAD W/O 10/07/2018 8:44 AM. TECHNIQUE: Multiaxial CT images were obtained from the foramen magnum to the vertex. Reformats: Sagittal and coronal. IV contrast: None. In accordance with CT protocol optimization, one or more of the following dose reduction techniques were utilized for this exam: automated exposure control, adjustment of mA and/or KV based on patient size, or use of iterative reconstructive technique. FINDINGS: Parenchyma: No acute intraparenchymal hemorrhage. No evidence of mass, midline shift. Joaquin-white differentiation is distinct. Extraaxial Spaces: Basal cisterns are preserved. No subdural or epidural collections identified. Ventricles: Normal in size and position. Sinuses and Orbits: Imaged paranasal sinuses, orbits, and mastoids show no significant abnormality. Bones: No evidence of fracture or calvarial defect. Other: None. IMPRESSION: No acute intracranial abnormality. RADIA
[2019-04-20 15:29] LABS: BILIRUBIN,URINE NEGATIVE (NEGATIVE); GLUCOSE, URINE (UA) NEGATIVE (NEGATIVE); KETONES,URINE (UA) NEGATIVE (NEGATIVE); LEUKOCYTE ESTERASE, URINE NEGATIVE (NEGATIVE); NITRITE,URINE POSITIVE (NEGATIVE); OCCULT BLOOD,URINE NEGATIVE (NEGATIVE); PROTEIN,URINE NEGATIVE (NEGATIVE); UROBILINOGEN,URINE 0.2 (NORMAL) E.U./dL (NORMAL)
--- NOTE | 2019-04-20 15:29 | ED Physician Documentation ---
History of Present Illness - Stated complaint Stated Complaint: GLF - Chief complaint Chief Complaint: Trauma Ch/Bk - History obtained from History obtained from: Patient, Family - History of Present Illness Timing: Today - Additonal information Additional information: This is a 73-year-old female With a history of HSV, asthma, depression, Sjogren's disease, Chronic incontinence with InterStim icon implant, who presents after a fall in the shower. Patient states that she was about step into the shower today and she does not remember exactly what happened but she thinks she tripped. She woke up after falling and she did hit the front right of her head as well as her right flank. She has a implant for incontinence control over her right flank where she fell and she feels like it is possibly out of place or damaged and she has some bruising over the area. She states that the implant has not been functioning for 5 years and in fact that she is scheduled to get it taken out relatively soon with Dr. Jensen in [place]. She denies any chest pain, shortness of breath, fever. She does have urinary frequency and urgency, but states that this is chronic for her. Pain over her right flank is 7 out of 10 at rest, 10 out of 10 with palpation. 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 HEENT: Other Psych: None Musculoskeletal: Osteoarthritis Derm: Herpes zoster - Past Surgical History Past Surgical History: Yes General: Cholecystectomy, Appendectomy, EGD 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: Knee replacement, 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 HEENT: Cataracts - Present Medications Home Medications: Ambulatory Orders Medication Instructions Recorded Confirmed Acyclovir 200 mg PO BID 11/19/13 01/09/19 Albuterol [Ventolin Hfa] 2 inhaler INH Q4HR PRN 11/19/13 01/09/19 traZODone [Desyrel] 3 - 4 tab PO HS 11/19/13 01/09/19 Sertraline [Zoloft] 50 - 100 mg PO DAILY 11/20/13 01/09/19 prednisoLONE 1% OPHTH DROPS [Pred 1 drops OPTH QID 11/20/13 01/09/19 Forte] Omeprazole [Prilosec] 40 mg PO BID 02/27/14 01/09/19 Ropinirole HCl 3 mg PO QPM 04/17/18 01/09/19 Benzonatate [Tessalon Perle] 100 mg PO TID PRN 12/28/18 01/09/19 Ferrous Sulfate 325 mg PO ONCE 12/28/18 01/09/19 Fluticasone/Salmeterol [Advair 1 each IH BID 12/28/18 01/09/19 250-50 Diskus] Genteal Pm 1 applic TP QPM 12/28/18 01/09/19 Hydrocortisone Valerate 1 applic TP DAILY 12/28/18 01/09/19 Ibuprofen 800 mg PO DAILY 12/28/18 01/09/19 Magnesium 250 mg PO DAILY 12/28/18 01/09/19 Nystatin 5 ml PO QID 12/28/18 01/09/19 [place]-3/Dha/Epa/Fish Oil [Fish Oil 1 each PO DAILY 12/28/18 01/09/19 1,000 mg Softgel] Tiotropium [place] [Spiriva] 1 cap IH DAILY 12/28/18 01/09/19 Acetaminophen [Tylenol] 650 mg PO Q6H PRN #30 tablet 04/20/19 Nitrofurantoin Monohyd/M-Cryst 100 mg PO BID #10 capsule 04/20/19 [Macrobid 100 mg Capsule] - Allergies Allergies/Adverse Reactions: Allergies Allergy/AdvReac Type Severity Reaction Status Date / Time Sulfa (Sulfonamide Allergy Mild Rash Verified 04/20/19 12:44 Antibiotics) diphenhydramine Allergy has no Verified 04/20/19 12:44 [From Benadryl] effect doxycycline Allergy Unknown Verified 04/20/19 12:44 - Social History Does the pt smoke?: No Smoking Status: Never smoker Does the pt drink ETOH?: No Does the pt have substance abuse?: No - Immunizations Immunizations are current?: Yes - POLST Patient has POLST: No PD ED PE NORMAL - Vitals Vital signs reviewed: Yes - General General: Alert and oriented X 3, No acute distress - HEENT HEENT: PERRL, Other (Contusion to right frontal scalp, no laceration) - Neck Neck: Other (No midline tenderness, atraumic) - Cardiac Cardiac: RRR - Respiratory Respiratory: Clear bilaterally - Abdomen Abdomen: Soft, Non tender, Non distended - Derm Derm: Warm and dry - Extremities Extremities: No deformity - Neuro Neuro: Alert and oriented X 3, syrup maker 2-12 intact, No motor deficit, No sensory deficit, Normal speech - Psych Psych: Normal mood, Normal affect Results - Vitals Vitals: Oxygen O2 Source [] Nasal cannula O2 Source Room air - EKG (time done) 16:31 Other comments: Other comments (EKG, my interpretation: Time 16: 31, rhythm sinus, there is a prolonged GA interval. No ST segment elevation or depression. QTc 412.) - Labs Labs: Laboratory Tests 04/20/19 04/20/19 04/20/19 13:42 13:42 15:24 WBC 6.6 RBC 4.53 Hgb 14.9 Hct 45.2 MCV 99.8 H MCH 32.9 H MCHC 33.0 RDW 12.7 Plt Count 156 MPV 8.9 Neut # (Auto) 4.3 Lymph # (Auto) 1.4 L [place] # (Auto) 0.6 Eos # (Auto) 0.2 Baso # (Auto) 0.0 Absolute Nucleated RBC 0.00 Nucleated RBC % 0.0 Sodium 143 Potassium 4.2 Chloride 106 Carbon Dioxide 26 Anion Gap 11.0 BUN 15 Creatinine 0.8 Estimated GFR (MDRD) 70 L Glucose 97 Calcium 9.5 Total Bilirubin 0.8 AST 33 ALT 37 Alkaline Phosphatase 113 Total Protein 7.2 Albumin 4.4 Globulin 2.8 Albumin/Globulin Ratio 1.6 Lipase 26 Urine Color YELLOW Urine Clarity HAZY Urine pH 7.0 Ur Specific [place] 1.020 Urine Protein NEGATIVE Urine Glucose (UA) NEGATIVE Urine Ketones NEGATIVE Urine Occult Blood NEGATIVE Urine Nitrite POSITIVE H Urine Bilirubin NEGATIVE Urine Urobilinogen 0.2 (NORMAL) Ur Leukocyte Esterase NEGATIVE Urine RBC None Seen Urine WBC 0-3 Ur Squamous Epith Cells MOD Squamous H Urine Bacteria Many H Ur Microscopic Review INDICATED Urine Culture Comments NOT INDICATED - Rads (name of study) CT HEAD Radiology: Final report received (No acute intracranial abnormality) PD MEDICAL DECISION MAKING - ED course Complexity details: considered differential (Concussion, head injury, intracranial bleed, fracture, dysrhythmia, electrolyte abnormality, syncope, implanted device malfunction, contusion.) ED course: On exam patient is in no acute distress, and is neurologically intact. She does have a contusion over her right scalp, CT of the head was obtained and shows no acute intracranial abnormality. CBC is unremarkable with no anemia or leukocytosis, CMP unremarkable. Urinalysis is negative for infection. Patient denies any chest pain, abdominal pain, shortness of breath. Her EKG shows no signs of dysrhythmia or ischemia, I highly doubt a cardiac cause of her fall. It sounds like she most likely tripped and hit her head, losing consciousness. Regarding the bruising over the area of Implanted incontinence control device, this area is tender, but there is no bony tenderness/hip or pelvis pain. There is no laceration. She states the device has not worked in years and she is going to get it removed shortly. I called the urologist on-call for the group of Dr. Jensen, and discussed the case with him, he stated that There is no specific work-up he recommends supportive care and she will have the device removed in the future. Patient has ambulatory, tolerating p.o., feels well, and has unremarkable vital signs. I discussed the results of our work-up and recommend that she follow-up closely with her primary care provider. Also recommend that she return to emergency department if she has any syncope, chest pain, shortness of breath, or any other concerning symptoms. Patient agrees with this plan and was discharged home in the care of family. Departure - Departure Disposition: 01 Home, Self Care Clinical Impression: Head contusion Qualifiers: Encounter type: initial encounter Contusion of head detail: scalp Qualified Code(s): S00.03XA - Contusion of scalp, initial encounter UTI (urinary tract infection) Qualifiers: Urinary tract infection type: acute cystitis Hematuria presence: without hematuria Qualified Code(s): N30.00 - Acute cystitis without hematuria Condition: Good Instructions: ED Head Injury Closed Follow-Up: Janis Burns MD [Primary Care Provider] - Within 1 week (For follow up on falls and hematoma) Prescriptions: Acetaminophen [Tylenol] 650 mg PO Q6H PRN #30 tablet PRN Reason: PRN PAIN &/OR FEVER Nitrofurantoin Monohyd/M-Cryst [Macrobid 100 mg Capsule] 100 mg PO BID #10 capsule Comments: You were seen today for a fall,We do not see signs of a bleed within your head, or other serious injury at this time. Please ice sore areas of your body, take Tylenol for pain, and return to the emergency department if you have confusion, weakness, or worsening pain. Follow Up with your urologist for removal of your InterStim implant device Discharge Date/Time: 04/20/19 18:28
[2019-04-20 15:30] LABS: CLARITY,URINE HAZY (CLEAR)
[2019-04-20 15:46] LABS: BACTERIA,URINE Many /HPF (None Seen); RBC,URINE None Seen /HPF (0-5); SQUAMOUS EPITHELIAL CELL,UR MOD Squamous (<= Few)
[2019-04-20 18:24] VITALS: BP 159/83
== END 2019-04-20 18:28 | disposition home or self-care (01) ==
LOC: ED 12:37
DX: S00.03XA Contusion of scalp, initial encounter (principal); S30.1XXA Contusion of abdominal wall, initial encounter; W18.30XA Fall on same level, unspecified, initial encounter; Y93.E1 Activity, personal bathing and showering; Y92.002 Bathroom of unspecified non-institutional (private) residence as the place of occurrence of the external cause; N30.00 Acute cystitis without hematuria; Z96.0 Presence of urogenital implants
CPT/HCPCS: 36415; 70450; 80053; 81001; 83690; 85025; 93005; 99284; A9270; 81003; 87086

== ENCOUNTER 2019-05-17 08:00 | Outpatient (CLI) | payer MEDICARE, OTHER ==
[2019-05-17 19:51] LABS: THYROID STIMULATING HORMONE 3.51 uIU/mL (0.34-5.60)
[2019-05-17 20:19] LABS: FOLLICLE STIMULATING HORMONE 60.66 mIU/mL
[2019-05-17 20:20] LABS: LUTEINIZING HORMONE 25.66 mIU/mL
== END 2019-05-17 23:59 | disposition home or self-care (01) ==
LOC: LAB.WCP 08:00
PROVIDERS: ATTEND Family Medicine
DX: N95.8 Other specified menopausal and perimenopausal disorders (principal); R41.3 Other amnesia
CPT/HCPCS: 36415; 82670; 83001; 83002; 84443

== ENCOUNTER 2019-07-24 10:20 | Outpatient (CLI) | payer MEDICARE, OTHER ==
--- NOTE | 2019-07-25 08:48 | XRAY Report ---
Reason: RIGHT 5TH FINGER PAIN Procedure Date: 07/24/2019 Accession Number: [id number] / [id number] Procedure: WCP - Finger(s) RT CPT Code: Final Report FULL RESULT: EXAM: RIGHT FIFTH DIGIT RADIOGRAPHY EXAM DATE: 07/24/2019 10:20 AM. CLINICAL HISTORY: Right 5th finger pain. Pain for 1 week. No known injury. COMPARISON: Fifth. TECHNIQUE: 3 views. FINDINGS: Bones: Normal. No fracture or bone lesion. Joints: Degenerative disease demonstrated. There is mild to moderate involvement of the fifth digit PIP joint and very mild involvement of the DIP joint. Osteoarthritis demonstrated elsewhere within the visualized hand and wrist, most severe at the first carpometacarpal joint. Soft Tissues: Normal. No soft tissue swelling. IMPRESSION: 1. No acute abnormality. 2. Degenerative disease. RADIA
== END 2019-07-24 23:59 | disposition home or self-care (01) ==
LOC: DI.WCP 10:20
PROVIDERS: ATTEND Physician Assistant
DX: M19.041 Primary osteoarthritis, right hand (principal)
CPT/HCPCS: 73140

== ENCOUNTER 2019-08-02 18:05 | Outpatient (CLI) | payer MEDICARE, OTHER ==
--- NOTE | 2019-08-03 08:58 | MRI Report ---
Reason: OSTEOARTHRITIS LUMBAR, LOW BACK PAIN Procedure Date: 08/02/2019 Accession Number: [id number] / [id number] Procedure: MRI - Lumbar Spine W/O CPT Code: Final Report FULL RESULT: EXAM: MRI LUMBAR SPINE WITHOUT CONTRAST EXAM DATE: 08/02/2019 07:00 PM. CLINICAL HISTORY: Osteoarthritis lumbar, low back pain. COMPARISON: ABDOMEN/PELVIS W/ 01/31/2016 12:47 AM. TECHNIQUE: Multiplanar, multisequence T1-weighted and fluid-sensitive sequences of the lumbar spine from T12 to S1 without contrast. Other: None. FINDINGS: The images are degraded by motion. There is a mild degree of straightening of the normal lumbar lordosis. There is a grade 1 anterolisthesis of L4 on L5. There is desiccation of the disk spaces throughout the lumbar spine. There is dilatation of the abdominal aorta from approximately the L2-L3 levels measuring 3.3 x 3.3 x 7.1 cm (3, 301). This would be consistent with a small abdominal aortic aneurysm. This has minimally progressed when compared to the 2016 CT of the abdomen and pelvis which at that time the anterior to posterior and transverse dimensions of the abdominal aorta measured approximately 3.0 cm. There is no significant atrophy of the paraspinal musculature or the psoas musculature. The kidneys are without evidence of hydronephrosis. The images of the liver and the spleen that are within the provided field of view exhibit normal signal intensities. There is a mild to moderate decrease in the height of the disk at T10-T11, moderate at T11-T12, mild at T12-L1, mild at L2-L3, mild to moderate at L3-L4, L4-L5, and L5-S1. T10-T11: There is a small disk bulge with superimposed central protrusion of the disk producing a mild central canal stenosis. There is no significant foraminal stenosis. T11-T12: There is a small disk osteophyte complex with superimposed central extrusion of the disk producing a mild to moderate central canal stenosis. There is mild right foraminal stenosis. T12-L1: There is a small disk bulge producing a minimal central canal stenosis. There is no significant foraminal stenosis. There is mild to moderate right facet arthropathy. There is mild ligamentum flavum hypertrophy. L1-L2: There is no significant disk bulge, central or foraminal stenosis. The facets are normal. L2-L3: There is mild ligamentum flavum hypertrophy. There is no significant disk bulge or central canal stenosis. There is mild to moderate right and left foraminal stenoses. There is minimal left facet arthropathy. L3-L4: There is a broad-based disk bulge producing a mild central canal stenosis. There is mild to moderate narrowing of the bilateral neural foramina. There is mild to moderate ligamentum flavum hypertrophy. There is moderate left facet arthropathy. L4-L5: There is a grade 1 anterolisthesis of L4 on L5. There is a small disk bulge abutting the sac without significant central canal stenosis. There is severe left and right facet arthropathy. There is mild ligamentum flavum hypertrophy. There is no significant central canal stenosis. There is mild to moderate narrowing of the neural foramina bilaterally. L5-S1: There is a small disk bulge producing minimal central canal stenosis. There is mild to moderate bilateral facet arthropathy. There is mild to moderate right and left foraminal stenoses. IMPRESSION: 1. The images are degraded by motion. 2. There is a mild to moderate central canal stenosis from a small disk osteophyte complex at T11-T12. 3. There is a broad-based disk bulge producing a mild central canal stenosis at L3-L4. There is mild to moderate bilateral foraminal stenoses. 4. There is a grade 1 anterolisthesis of L4 on L5. There is a small disk bulge without significant central canal stenosis. There is severe bilateral facet arthropathy. There is mild to moderate bilateral foraminal stenoses. 5. There is a mild central canal stenosis at T10-T11 from small disk bulge. 6. There has been slight progression of the patient's small abdominal aortic aneurysm which now measures 3.3 x 3.3 x 7.1 cm. Previously measured up to 3.0 cm and the anterior to posterior and transverse dimensions. Comment: The following findings are so common in adults without low back pain that while we report their presence, they must be interpreted with caution and in the context of the clinical situation. (Reference Félix et al, Spine 2001) Prevalence of findings in patients without low back pain: Disk degeneration (any evidence): 92% Disk desiccation/T2 signal loss: 83% Disk height loss: 56% Disk bulge: 64% Disk protrusion: 32% Annular tear/high intensity zone: 38% RADIA
== END 2019-08-02 18:06 | disposition home or self-care (01) ==
LOC: DI 18:05
PROVIDERS: ATTEND Physician Assistant
DX: M51.36 Other intervertebral disc degeneration, lumbar region (principal); M48.061 Spinal stenosis, lumbar region without neurogenic claudication; M51.24 Other intervertebral disc displacement, thoracic region; M51.34 Other intervertebral disc degeneration, thoracic region; M48.04 Spinal stenosis, thoracic region; M47.816 Spondylosis without myelopathy or radiculopathy, lumbar region; M43.16 Spondylolisthesis, lumbar region; M47.817 Spondylosis without myelopathy or radiculopathy, lumbosacral region; M48.07 Spinal stenosis, lumbosacral region; I71.4 Abdominal aortic aneurysm, without rupture
CPT/HCPCS: 72148

== ENCOUNTER 2019-09-07 12:02 | Outpatient (CLI) | payer MEDICARE, OTHER ==
--- NOTE | 2019-09-08 09:27 | XRAY Report ---
Reason: RESPIRATORY CRACKLES Procedure Date: 09/07/2019 Accession Number: [id number] / [id number] Procedure: WCP - Chest 2 View X-Ray CPT Code: 88862 Final Report FULL RESULT: EXAM: CHEST RADIOGRAPHY EXAM DATE: 09/07/2019 12:02 PM HISTORY: RESPIRATORY CRACKLES COMPARISON: CHEST 2 VIEW 12/04/2018 10:00 AM TECHNIQUE: Two Views FINDINGS: Lungs/Pleura: The previously seen curvilinear opacity over the right hilar region has resolved, likely a focus of subsegmental atelectasis. There appears to be some minimal scarring at the lingula. No new pulmonary abnormality. No acute consolidation, edema or pleural effusion. Cardiomediastinal silhouette: Unremarkable accounting for technique. Other: Moderate osteophytosis of the thoracic spine. IMPRESSION: No acute disease. RADIA
== END 2019-09-07 23:59 | disposition home or self-care (01) ==
LOC: DI.WCP 12:02
PROVIDERS: ATTEND Nurse Practitioner Family
DX: R09.89 Other specified symptoms and signs involving the circulatory and respiratory systems (principal)
CPT/HCPCS: 71046

== ENCOUNTER 2019-09-17 07:00 | Outpatient (CLI) | payer MEDICARE, OTHER | END 2019-09-17 23:59 | disposition home or self-care (01) | LOC: LAB.R 07:00 | PROVIDERS: ATTEND Nurse Practitioner Family | DX: R50.9 Fever, unspecified (principal) | CPT/HCPCS: 87275; 87276 ==

== ENCOUNTER 2019-09-17 17:20 | Outpatient (CLI) | payer MEDICARE, OTHER ==
--- NOTE | 2019-09-18 09:50 | XRAY Report ---
Reason: COUGH Procedure Date: 09/17/2019 Accession Number: [id number] / [id number] Procedure: XR - Chest 2 View X-Ray CPT Code: 12660 Final Report FULL RESULT: EXAM: CHEST RADIOGRAPHY EXAM DATE: 09/17/2019 05:31 PM. CLINICAL HISTORY: Cough. COMPARISON: CHEST 2 VIEW 09/07/2019 11:41 AM. TECHNIQUE: 2 views. FINDINGS: Lungs/Pleura: No focal opacities evident. No pleural effusion. No pneumothorax. Normal volumes. Mediastinum: Mild elevation right hemidiaphragm, stable. Cardiomediastinal silhouette otherwise unremarkable. Other: Chronic elevated right humeral head consistent with rotator cuff atrophy. Old distal right clavicle resection, stable. IMPRESSION: 1. Lungs clear. Stable elevated right hemidiaphragm. RADIA
== END 2019-09-17 17:21 | disposition home or self-care (01) ==
LOC: DI 17:20
PROVIDERS: ATTEND Nurse Practitioner Family
DX: R05 Cough (principal); J98.6 Disorders of diaphragm
CPT/HCPCS: 71046; 87275; 87276

== ENCOUNTER 2019-10-03 12:30 | Outpatient (CLI) | payer MEDICARE, OTHER ==
--- NOTE | 2019-10-03 15:35 | XRAY Report ---
Reason: COUGH Procedure Date: 10/03/2019 Accession Number: [id number] / [id number] Procedure: XR - Chest 2 View X-Ray CPT Code: 88985 Final Report FULL RESULT: EXAM: CHEST RADIOGRAPHY EXAM DATE: 10/03/2019 01:16 PM. CLINICAL HISTORY: Cough. COMPARISON: CHEST 2 VIEW 09/17/2019 5:25 PM. TECHNIQUE: 2 views. FINDINGS: Lungs/Pleura: No focal opacities evident. No pleural effusion. No pneumothorax. Normal volumes. Mediastinum: Stable cardiomediastinal silhouette including calcifications of the aortic arch, not enlarged. Other: None. IMPRESSION: No acute cardiopulmonary abnormality. RADIA
== END 2019-10-03 12:31 | disposition home or self-care (01) ==
LOC: LAB 12:30
PROVIDERS: ATTEND Physician Assistant
DX: R04.2 Hemoptysis (principal)
CPT/HCPCS: 36415; 71046; 85379

== ENCOUNTER 2020-01-15 12:33 | Outpatient (CLI) | payer MEDICARE, OTHER ==
[2020-01-15 12:56] LABS: CREATININE 0.9 mg/dL (0.4-1.0)
[2020-01-15] MEDS ORDERED: IOVERSOL 320 100 ML VIAL IVP ONE ×2 (13:13→15:23)
--- NOTE | 2020-01-15 20:47 | CT Report ---
Reason: CERVICAL LYMPHADENOPATHY Procedure Date: 01/15/2020 Accession Number: [id number] / [id number] Procedure: CT - SOFT TISSUE NECK W CPT Code: Final Report FULL RESULT: EXAM: CT SOFT TISSUE NECK WITH CONTRAST. EXAM DATE: 01/15/2020 01:51 PM. HISTORY: Cervical lymphadenopathy. COMPARISONS: HEAD W/O 04/20/2019 1:49 PM. TECHNIQUE: Routine soft tissue neck CT protocol with contrast. Reconstructions: Coronal and sagittal. IV contrast: 80 cc Optiray 320. In accordance with CT protocol optimization, one or more of the following dose reduction techniques were utilized for this exam: automated exposure control, adjustment of mA and/or KV based on patient size, or use of iterative reconstructive technique. FINDINGS: Visualized Intracranial Contents: Unremarkable. Orbits: Unremarkable. Note is made of bilateral lens removal. Sinuses: Visualized paranasal sinuses and mastoid air cells are clear. Oral cavity: Mild metallic artifact is seen partially obscuring the oral cavity. The floor of the mouth is symmetric. Pharynx: Pharyngeal mucosa is unremarkable. The education rn spaces and pterygopalatine fossa are unremarkable. The infratemporal fossa, parapharyngeal spaces, and retropharyngeal space are unremarkable. The base of the tongue is symmetric and unremarkable. The airway is patent. Larynx: Larynx and supraglottic airway are patent without mass lesion. Vocal cords are symmetric. The visualized trachea is unremarkable. Parotid and Submandibular Glands: Symmetric and unremarkable. Note is made of a few scattered punctate calcifications in the superficial lobe of the right parotid gland. There are also a few punctate calcifications inferiorly in the superficial lobe of the left parotid gland. No abnormal ductal dilatation. Lymph Nodes: No enlarged lymph nodes are identified in the cervical, supraclavicular, and visualized superior mediastinal regions. Soft tissues: Soft tissues are unremarkable. No mass lesion or abnormal enhancement. Vascular Structures: Patent and unremarkable. Mild to moderate atherosclerotic calcifications are seen at the aortic arch and great vessels off the arch. Atherosclerotic calcification is seen at the carotid bifurcation in the neck bilaterally. Thyroid Gland: Normal. Lung: Mild interstitial prominence is seen in the lung apices. No consolidation. Mild gaseous distention of the mid thoracic esophagus is evident. Bones: Straightening of the cervical spine is noted. Spondylosis is present. C2-C3: Marked right-sided hypertrophic degenerative facet change. C3-C4: Marked right-sided hypertrophic degenerative facet change. Mild left-sided degenerative facet change. Mild spondylolisthesis. Spondylosis with osteophyte formation is seen from C5-C6 through the visualized upper thoracic spine at T3-T4. Other: None. IMPRESSION: 1. Unremarkable CT scan of the neck. No mass or adenopathy. No abnormal inflammation or fluid collection. 2. Spondylosis noted throughout the visualized cervical and upper thoracic spine. RADIA
== END 2020-01-15 12:34 | disposition home or self-care (01) ==
LOC: LAB 12:33
PROVIDERS: ATTEND Family Medicine
DX: R59.0 Localized enlarged lymph nodes (principal)
CPT/HCPCS: 36415; 70491; 82565; Q9967

== ENCOUNTER 2020-01-24 07:14 | Outpatient (CLI) | payer MEDICARE, OTHER ==
--- NOTE | 2020-01-24 09:25 | MRI Report ---
Reason: GAIT ABNORMALITY Procedure Date: 01/24/2020 Accession Number: [id number] / [id number] Procedure: MRI - Brain W/O CPT Code: Final Report FULL RESULT: EXAM: MRI BRAIN WITHOUT CONTRAST EXAM DATE: 01/24/2020 08:18 AM. CLINICAL HISTORY: Gait abnormality. Symptoms have been present since last summer after hitting her head. COMPARISON: HEAD W/O 04/20/2019 1:49 PM HEAD W/O 10/07/2018 8:44 AM. TECHNIQUE: Multiplanar, multisequence T1-weighted and fluid-sensitive MR sequences of the brain were performed. Sequences optimized for routine evaluation. Other: None. IV Contrast: None. FINDINGS: Brain Volume: Mild age-related volume loss. Parenchyma/Dura: No definite mass, acute infarct or hemorrhage. There are several scattered foci of subcortical white matter T2/FLAIR bright signal with T1 hypointense signal seen peripherally in the cerebral hemispheres. This involves peripheral frontal and parietal convexities bilaterally, slightly greater on the left. Additionally, there are a few punctate foci of deep white matter T2/FLAIR bright signal seen in the centrum semiovale. Ventricles/Cisterns: No hydrocephalus. No abnormal extra-axial fluid collection or hemorrhage. Orbits: Unremarkable. Note is made of bilateral lens removal. Sella Turc[place]: The pituitary gland, cavernous sinuses, suprasellar cistern and optic chiasm are unremarkable. IAC: Symmetric and unremarkable. Vasculature: Normal signal flow void is seen in the major arterial structures at the skull base. The vertebrobasilar system is small in caliber. There is origin or near origin of bilateral RADIOLOGY TECHNICIAN as continuation of the P-comm. Sinuses: No acute appearing sinus disease. Bones: No focal pathologic appearing marrow signal changes. Other: The visualized nasopharynx and infratemporal fossa are unremarkable. IMPRESSION: 1. Unusual appearance of multiple peripheral/subcortical foci of white matter signal abnormalities scattered throughout the cerebral hemispheres bilaterally. Findings are not typical for small vessel ischemic change. Further evaluation with postcontrast MRI of the brain would be of value to assess for abnormal enhancement. Inflammatory or less likely neoplastic process is not excludable. Vasculopathy including CADASIL (cerebral autosomal dominant arteriopathy with subcortical infarcts and leukoencephalopathy) would be a consideration but typically presents in patients of age in the early 50s. RADIA
== END 2020-01-24 07:15 | disposition home or self-care (01) ==
LOC: DI 07:14
PROVIDERS: ATTEND Psychiatry & Neurology Neurology
DX: R26.9 Unspecified abnormalities of gait and mobility (principal)
CPT/HCPCS: 70551

== ENCOUNTER 2020-02-22 07:00 | Outpatient (CLI) | payer MEDICARE, OTHER ==
[2020-02-22 15:15] LABS: BASOPHILS % (AUTO) 0.7 %; EOSINOPHILS # (AUTO) 0.2 10^3/uL (0.0-0.7); EOSINOPHILS % (AUTO) 3.7 %; HGB - HEMOGLOBIN 15.4 g/dL (12.0-16.0); LYMPHOCYTES % (AUTO) 34.6 %; MEAN CORPUSCULAR HEMOGLOBIN 33.2 pg (27.0-31.0); MEAN CORPUSCULAR VOLUME 100.6 fL (81.0-99.0); MEAN PLATELET VOLUME 9.2 fL (7.9-10.8); MONOCYTES # (AUTO) 0.6 10^3/uL (0.0-1.0); MONOCYTES % (AUTO) 9.9 %; NEUTROPHILS # (AUTO) 2.9 10^3/uL (1.5-6.6); NEUTROPHILS % (AUTO) 50.6 %; PLT - PLATELET COUNT 166 10^3/uL (130-450); RED BLOOD COUNT 4.64 10^6/uL (4.20-5.40); RED CELL DISTRIBUTION WIDTH 12.4 % (12.0-15.0); WHITE BLOOD COUNT 5.6 x10^3/uL (4.8-10.8)
== END 2020-02-22 23:59 | disposition home or self-care (01) ==
LOC: LAB.S 07:00
PROVIDERS: ATTEND Physician Assistant Medical
DX: R59.0 Localized enlarged lymph nodes (principal)
CPT/HCPCS: 36415; 85025; 85651

== ENCOUNTER 2020-02-26 10:03 | Outpatient (CLI) | payer MEDICARE, OTHER | END 2020-02-26 23:59 | disposition home or self-care (01) | LOC: LAB.WCP 10:03 | PROVIDERS: ATTEND Family Medicine | DX: K11.9 Disease of salivary gland, unspecified (principal) | CPT/HCPCS: 36415; 81599 ==

== ENCOUNTER 2020-02-26 17:58 | Outpatient (CLI) | payer MEDICARE, OTHER ==
[2020-02-26] MEDS ORDERED: IOVERSOL 320 100 ML VIAL IVP ONE ×2 (18:17→19:38)
[2020-02-26 18:39] LABS: CREATININE 0.7 mg/dL (0.4-1.0)
--- NOTE | 2020-02-26 20:13 | CT Report ---
Reason: NECK SWELLING Procedure Date: 02/26/2020 Accession Number: [id number] / [id number] Procedure: CT - SOFT TISSUE NECK W CPT Code: Final Report FULL RESULT: PROCEDURE: SOFT TISSUE NECK W INDICATIONS: NECK SWELLING CONTRAST: IV CONTRAST: Optiray 320 ml: 100 PO CONTRAST: *NO PO CONTRAST TECHNIQUE: After the administration of intravenous contrast, 3.0 mm axial sections acquired from the sella to the aortic arch. Additional oblique axial 3.0 mm sections acquired through the pharynx. 3 mm thick coronal reformats were generated. For radiation dose reduction, the following was used: automated exposure control, adjustment of mA and/or kV according to patient size. COMPARISON: 01/15/2020. FINDINGS: Image quality: Excellent. Lymph nodes: No enlarged lymph nodes seen throughout the neck. Vessels: Visualized vasculature appears patent. There are scattered atherosclerotic calcifications of the visualized neck carotid vasculature without high-grade stenosis identified. No evidence for dissection. Neck spaces: The oropharynx, nasopharynx, and pharynx demonstrate no mucosal lesions. The vocal cords, false vocal cords, pyriform sinuses, epiglottis, vallecula, and tongue base all appear normal. Extramucosal spaces appear unremarkable. Glands: The parotid and submandibular glands appear unremarkable with scattered punctate calcifications in the bilateral parotid glands. These are likely related to prior infection/inflammation. The thyroid is normal in size. Miscellaneous: Visualized brain and orbits appear normal. Lung apices appear clear. Superficial soft tissues appear normal. Bones: No suspicious bony lesions. No acute compression fractures of the cervical spine. Straightening of cervical lordosis likely related to positioning and/or concur muscle spasms. Moderate multilevel cervical spondylitic changes are again seen most pronounced from C5-6 through C7-T1. There are variable degrees of moderate to severe neural foraminal narrowing of the cervical spine as well as mild spinal stenosis at these levels. Visualized sinuses and mastoids appear unremarkable. IMPRESSION: 1. CT soft tissue neck without acute abnormalities. No acute fracture or malalignment. No suspicious mass lesions, adenopathy, or fluid collection. No significant change since December 2019 CT. 2. Moderate multilevel cervical spondylosis most pronounced from C5-6 through C7-T1. 3. Scattered atherosclerotic vascular disease without evidence for high-grade stenosis. Reviewed by: Mat Narayan MD on 02/26/2020 8:12 PM PDT Approved by: Mat Narayan MD on 02/26/2020 8:12 PM PDT Station ID: [id number]
== END 2020-02-26 17:59 | disposition home or self-care (01) ==
LOC: LAB 17:58
PROVIDERS: ATTEND Dentist Oral and Maxillofacial Surgery
DX: R22.1 Localized swelling, mass and lump, neck (principal); M47.812 Spondylosis without myelopathy or radiculopathy, cervical region; I70.90 Unspecified atherosclerosis
CPT/HCPCS: 36415; 70491; 82565; 86235; Q9967; 81599

== ENCOUNTER 2020-03-13 17:47 | Outpatient (CLI) | payer MEDICARE, OTHER ==
[2020-03-13 18:06] LABS: BASOPHILS # (AUTO) 0.1 10^3/uL (0.0-0.1); BASOPHILS % (AUTO) 0.8 %; EOSINOPHILS # (AUTO) 0.3 10^3/uL (0.0-0.7); EOSINOPHILS % (AUTO) 3.9 %; HGB - HEMOGLOBIN 15.7 g/dL (12.0-16.0); LYMPHOCYTES # (AUTO) 2.7 10^3/uL (1.5-3.5); LYMPHOCYTES % (AUTO) 36.5 %; MEAN CORPUSCULAR HGB CONC 32.9 g/dL (32.0-36.0); MEAN CORPUSCULAR VOLUME 100.2 fL (81.0-99.0); MEAN PLATELET VOLUME 8.3 fL (7.9-10.8); MONOCYTES # (AUTO) 0.5 10^3/uL (0.0-1.0); MONOCYTES % (AUTO) 6.6 %; NEUTROPHILS # (AUTO) 3.8 10^3/uL (1.5-6.6); NEUTROPHILS % (AUTO) 51.5 %; PLT - PLATELET COUNT 142 10^3/uL (130-450); RED BLOOD COUNT 4.76 10^6/uL (4.20-5.40); RED CELL DISTRIBUTION WIDTH 12.7 % (12.0-15.0); WHITE BLOOD COUNT 7.4 x10^3/uL (4.8-10.8)
== END 2020-03-13 17:48 | disposition home or self-care (01) ==
LOC: LAB 17:47
PROVIDERS: ATTEND Internal Medicine Pulmonary Disease
DX: J84.9 Interstitial pulmonary disease, unspecified (principal)
CPT/HCPCS: 36415; 82784; 82785; 85025; 85651; 86140

== ENCOUNTER 2020-03-24 13:32 | Emergency (ER) | payer MEDICARE, OTHER ==
--- NOTE | 2020-03-24 15:20 | ED Physician Documentation ---
PD HPI SKIN - Stated complaint Stated Complaint: LT LEG WOUND - BIOPSY SITE - Chief complaint Chief Complaint: General - History obtained from History obtained from: Patient - History of Present Illness Timing - onset: How many days ago (had skin biopsies on gluteal, thigh and lower leg 2 weeks ago and noted lower leg wound open with some drainage and redness a few days ago. Tried to get into Derm office today, but they are not there, and PCP would not take care of it since Derm office had done biopsy. 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) : Other HEENT: Other Psych: None Musculoskeletal: Osteoarthritis Derm: Herpes zoster - Past Surgical History Past Surgical History: Yes General: Cholecystectomy, Appendectomy, EGD Ortho: Knee replacement, Rotator cuff repair /MACHINE HOSE CUTTER: Hysterectomy HEENT: Cataracts - Present Medications Home Medications: Ambulatory Orders Medication Instructions Recorded Confirmed Acyclovir 200 mg PO BID 11/19/13 01/09/19 Albuterol [Ventolin Hfa] 2 inhaler INH Q4HR PRN 11/19/13 01/09/19 traZODone [Desyrel] 3 - 4 tab PO HS 11/19/13 01/09/19 Sertraline [Zoloft] 50 - 100 mg PO DAILY 11/20/13 01/09/19 prednisoLONE 1% OPHTH DROPS [Pred 1 drops OPTH QID 11/20/13 01/09/19 Forte] Omeprazole [Prilosec] 40 mg PO BID 02/27/14 01/09/19 Ropinirole HCl 3 mg PO QPM 04/17/18 01/09/19 Benzonatate [Tessalon Perle] 100 mg PO TID PRN 12/28/18 01/09/19 Ferrous Sulfate 325 mg PO ONCE 12/28/18 01/09/19 Fluticasone/Salmeterol [Advair 1 each IH BID 12/28/18 01/09/19 250-50 Diskus] Genteal Pm 1 applic TP QPM 12/28/18 01/09/19 Hydrocortisone Valerate 1 applic TP DAILY 12/28/18 01/09/19 Ibuprofen 800 mg PO DAILY 12/28/18 01/09/19 Magnesium 250 mg PO DAILY 12/28/18 01/09/19 Nystatin 5 ml PO QID 12/28/18 01/09/19 [place]-3/Dha/Epa/Fish Oil [Fish Oil 1 each PO DAILY 12/28/18 01/09/19 1,000 mg Softgel] Tiotropium [place] [Spiriva] 1 cap IH DAILY 12/28/18 01/09/19 Acetaminophen [Tylenol] 650 mg PO Q6H PRN #30 tablet 04/20/19 Nitrofurantoin Monohyd/M-Cryst 100 mg PO BID #10 capsule 04/20/19 [Macrobid 100 mg Capsule] Clindamycin HCl [Clindamycin 300MG 300 mg PO TID #15 capsule 03/24/20 CAP] - Allergies Allergies/Adverse Reactions: Allergies Allergy/AdvReac Type Severity Reaction Status Date / Time Sulfa (Sulfonamide Allergy Mild Rash Verified 03/24/20 13:39 Antibiotics) diphenhydramine Allergy has no Verified 03/24/20 13:39 [From Benadryl] effect doxycycline Allergy Unknown Verified 03/24/20 13:39 - Social History Does the pt smoke?: No Smoking Status: Never smoker Does the pt drink ETOH?: No Does the pt have substance abuse?: No - Immunizations Immunizations are current?: Yes - POLST Patient has POLST: No PD ED PE NORMAL - Vitals Vital signs reviewed: Yes - General General: Alert and oriented X 3, No acute distress, Well developed/nourished - Derm Derm: Normal color, Warm and dry - Extremities Extremities: Other (sutured biopsy sites on thigh and gluteal are okay without signs of infection. Left lower leg with 1 cm open wound (appears dehisced) with sutures still attached on one side of edge, with surrounding redness. Faint discharge at surface. No fluctuance underneath. ) Results - Vitals Vitals: Vital Signs - 24 hr 03/24/20 03/24/20 13:34 15:49 Temperature 36.8 C 36.8 C Heart Rate 92 88 Respiratory 18 16 Rate Blood Pressure 134/80 H 130/80 O2 Saturation 95 96 Oxygen O2 Source [With Activity] Nasal cannula O2 Source Room air - Labs Labs: Microbiology 03/24/20 15:37 Wound Culture - Preliminary Leg - Left PD MEDICAL DECISION MAKING - ED course Complexity details: considered differential (sutures removed at that site, and culture from moist fluid at surface, but will treat for likely staph. ), d/w patient Departure - Departure Disposition: 01 Home, Self Care Clinical Impression: Wound infection following procedure Condition: Stable Record reviewed to determine appropriate education?: Yes Follow-Up: Yumiko Farris DO [Primary Care Provider] - Bladimir Luo PA-C [Physician No Access] - Prescriptions: Clindamycin HCl [Clindamycin 300MG CAP] 300 mg PO TID #15 capsule Comments: Clean the area 3-4 times a day with soap and water and apply ointment. Clindamycin as directed for wound infection. Follow-up with your grease packer in a couple of days for reevaluation. Discharge Date/Time: 03/24/20 15:51
[2020-03-24] MEDS ORDERED: CLINDAMYCIN 150 MG CAPSULE PO STA (15:41)
[2020-03-24 15:50] VITALS: BP 130/80
== END 2020-03-24 15:51 | disposition home or self-care (01) ==
LOC: ED 13:32
DX: T81.41XA Infection following a procedure, superficial incisional surgical site, initial encounter (principal); L08.9 Local infection of the skin and subcutaneous tissue, unspecified; S81.802A Unspecified open wound, left lower leg, initial encounter; Y83.8 Other surgical procedures as the cause of abnormal reaction of the patient, or of later complication, without mention of misadventure at the time of the procedure
CPT/HCPCS: 87070; 87077; 87181; 87205; 99283; A9270

== ENCOUNTER 2020-04-07 11:54 | Emergency (ER) | payer MEDICARE, OTHER ==
--- NOTE | 2020-04-07 13:10 | ED Physician Documentation ---
PD HPI SKIN - Stated complaint Stated Complaint: LT LEG REDNESS/SWELLING AT BIOPSY SITE - Chief complaint Chief Complaint: Wound - History obtained from History obtained from: Patient - Additional information Additional information: She had a biopsy of the left leg a few weeks ago at a item repair manager office. Subsequently developed an infection. Was seen here and put on clindamycin but switched to levofloxacin after culture results showed Stenotrophomonas maltophilia. She finished the course of levofloxacin but still has some persistent redness and drainage around the wound. No fevers or chills. No systemic symptoms. 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) : Other HEENT: Other Psych: None Musculoskeletal: Osteoarthritis Derm: Herpes zoster - Past Surgical History Past Surgical History: Yes General: Cholecystectomy, Appendectomy, EGD Ortho: Knee replacement, Rotator cuff repair /MANUFACTURER'S REPRESENTATIVE: Hysterectomy HEENT: Cataracts - Present Medications Home Medications: Ambulatory Orders Medication Instructions Recorded Confirmed Acyclovir 200 mg PO BID 11/19/13 01/09/19 Albuterol [Ventolin Hfa] 2 inhaler INH Q4HR PRN 11/19/13 01/09/19 traZODone [Desyrel] 3 - 4 tab PO HS 11/19/13 01/09/19 Sertraline [Zoloft] 50 - 100 mg PO DAILY 11/20/13 01/09/19 prednisoLONE 1% OPHTH DROPS [Pred 1 drops OPTH QID 11/20/13 01/09/19 Forte] Omeprazole [Prilosec] 40 mg PO BID 02/27/14 01/09/19 Ropinirole HCl 3 mg PO QPM 04/17/18 01/09/19 Benzonatate [Tessalon Perle] 100 mg PO TID PRN 12/28/18 01/09/19 Ferrous Sulfate 325 mg PO ONCE 12/28/18 01/09/19 Fluticasone/Salmeterol [Advair 1 each IH BID 12/28/18 01/09/19 250-50 Diskus] Genteal Pm 1 applic TP QPM 12/28/18 01/09/19 Hydrocortisone Valerate 1 applic TP DAILY 12/28/18 01/09/19 Ibuprofen 800 mg PO DAILY 12/28/18 01/09/19 Magnesium 250 mg PO DAILY 12/28/18 01/09/19 Nystatin 5 ml PO QID 12/28/18 01/09/19 [place]-3/Dha/Epa/Fish Oil [Fish Oil 1 each PO DAILY 12/28/18 01/09/19 1,000 mg Softgel] Tiotropium [place] [Spiriva] 1 cap IH DAILY 12/28/18 01/09/19 Acetaminophen [Tylenol] 650 mg PO Q6H PRN #30 tablet 04/20/19 Nitrofurantoin Monohyd/M-Cryst 100 mg PO BID #10 capsule 04/20/19 [Macrobid 100 mg Capsule] Clindamycin HCl [Clindamycin 300MG 300 mg PO TID #15 capsule 03/24/20 CAP] Levofloxacin [Levaquin] 500 mg PO DAILY #10 tablet 04/07/20 - Allergies Allergies/Adverse Reactions: Allergies Allergy/AdvReac Type Severity Reaction Status Date / Time Sulfa (Sulfonamide Allergy Mild Rash Verified 04/07/20 12:12 Antibiotics) diphenhydramine Allergy has no Verified 04/07/20 12:12 [From Benadryl] effect doxycycline Allergy Unknown Verified 04/07/20 12:12 - Social History Does the pt smoke?: No Smoking Status: Never smoker Does the pt drink ETOH?: No Does the pt have substance abuse?: No - Immunizations Immunizations are current?: Yes - POLST Patient has POLST: No PD ED PE NORMAL - Vitals Vital signs reviewed: Yes - General General: Alert and oriented X 3, No acute distress - Extremities Extremities: Other (There appears to be what looks like a punch biopsy site with mild infection of the left lateral calf. About a centimeter of surrounding cellulitis.) - Neuro Neuro: Alert and oriented X 3, Normal speech Results - Vitals Vitals: Vital Signs - 24 hr 04/07/20 12:09 Temperature 36.5 C Heart Rate 76 Respiratory 16 Rate Blood Pressure 126/81 H O2 Saturation 96 Oxygen O2 Source [With Activity] Nasal cannula O2 Source Room air PD MEDICAL DECISION MAKING - ED course Complexity details: reviewed old records (Stenotrophomonas maltophilia only sensitive to levofloxacin and Bactrim noting Bactrim allergy.) Departure - Departure Disposition: 01 Home, Self Care Clinical Impression: Wound infection following procedure Condition: Good Record reviewed to determine appropriate education?: Yes Instructions: ED Wound Care Prescriptions: Levofloxacin [Levaquin] 500 mg PO DAILY #10 tablet Comments: Follow-up with the item repair manager on Tuesday as scheduled. Return for new or worsening symptoms. Take all the antibiotics until gone. Take the culture results that I printed out for you to that appointment.
[2020-04-07 13:18] VITALS: BP 127/77
== END 2020-04-07 13:17 | disposition home or self-care (01) ==
LOC: ED 11:54
DX: T81.49XA Infection following a procedure, other surgical site, initial encounter (principal); L03.116 Cellulitis of left lower limb; B96.89 Other specified bacterial agents as the cause of diseases classified elsewhere; Y83.8 Other surgical procedures as the cause of abnormal reaction of the patient, or of later complication, without mention of misadventure at the time of the procedure; Z88.1 Allergy status to other antibiotic agents
CPT/HCPCS: 99282; 99283

== ENCOUNTER 2020-06-19 18:08 | Outpatient (CLI) | payer MEDICARE, OTHER ==
--- NOTE | 2020-06-19 18:48 | CT Report ---
PROCEDURE: HEAD WO INDICATIONS: GAIT ABNORMALITY TECHNIQUE: Noncontrast 4.5 mm thick angled axial sections acquired from the foramen magnum to the vertex. For r adiation dose reduction, the following was used: automated exposure control, adjustment of mA and/or kV according to patient size. COMPARISON: 04/20/2019 FINDINGS: Image quality: Excellent. CSF spaces: Basal cisterns are patent. No extra-axial fluid collections. The ventricles are symmet nataliya in size and shape. Brain: No intracranial bleeds or masses. There is cerebral volume loss for age, with resultant vent ricular and sulcal prominence. There are periventricular and deep white matter chronic small vessel ischemic changes. There is intracranial internal carotid artery atherosclerosis. Skull and face: Calvarium and visualized facial bones appear intact, without suspicious lesions. Sinuses: Visualized sinuses and mastoids are clear. IMPRESSION: No CT evidence of acute intracranial pathology. No significant changes from previous study. Reviewed by: Chai Dickens MD on 06/19/2020 5:47 PM AKDT Approved by: Chai Dickens MD on 06/19/2020 5:47 PM AKDT Station ID: [id number]
== END 2020-06-19 18:09 | disposition home or self-care (01) ==
LOC: DI 18:08
PROVIDERS: ATTEND Psychiatry & Neurology Neurology
DX: R26.9 Unspecified abnormalities of gait and mobility (principal)
CPT/HCPCS: 70450

== ENCOUNTER 2020-06-24 08:25 | Outpatient (CLI) | payer MEDICARE, OTHER ==
[2020-06-24 09:21] VITALS: BP 138/74
--- NOTE | 2020-06-24 09:21 | SLEEP CARE CONSULTATION ---
Information from patient questionnaire entered by Maggie Silvestre. I have reviewed and concur with the information entered by Maggie Silvestre. This document represents the service I personally performed and the decisions made by me, Clau Jeronimo ARNP. History of Present Illness Service Date and Time: 06/24/2020824 Reason for Visit: New patient Chief Complaint: reports: Unrefreshed sleep, Snoring, Excessive daytime sleepiness, Fatigue, Other (Overnight oximetry with mean 84%). denies: Insomnia, Observed pauses in breathing, Frequent awakenings at night Date of Onset: 49 years Usual bedtime: 10 pm Time it takes to fall asleep: 5-10 minutes Snores at night: Yes Observed to quit breathing while asleep: No Sleeps alone due to snoring: No Number of times waking at night: 0 Reasons for waking at night: reports: Choking, Gasping for air, Bathroom (occa sionally). denies: Snoring Toss, Turn, or Twitch while sleeping: Yes Recalls having dreams: Yes (sometimes) Usually gets out of bed at: 7 am, more like 6 am Feels refreshed in the morning: No Morning headache: No Sleepy or fatigued during the day: Yes Ever fallen asleep while driving: No (but had 2 mini black outs while driving, no drowsy driving) Takes day naps: No Dreams during day naps: No Prior sleep studies: No Additional HPI information: I had the pleasure of seeing SHERRI SCHMID today regarding the possibility of her having a sleep disorder. Her current complaints are unrefreshed sleep, snoring, daytime sleepiness and fatigue. She has a history of COPD and had an overnight oximetry that showed a low saturation of 84%. Her lung doctor recommended she have a sleep study. - Parasomnia Symptoms Ever been unable to move upon waking from sleep: No Walks in sleep: Yes Talks in sleep: Yes Ever acted out dreams in sleep: No Ever felt weak in the knees when startled or emotional: Yes Bothered by creepy, crawly, restless sensations in legs: Yes (generally at night, sugar "sets it off") Problems with memory or concentration: Yes (both) Subjective Initial [place] Sleepiness Scale score: 11 (in 2019) Past Medical History Past Medical History: reports: Claustrophobia, Arthritis, Anxiety, Asthma, Depression, Mood disorder, GERD, Attention deficit, Other (COPD). denies: Hypertension, Congestive Heart Failure, Diabetes, Coronary Heart Disease, Arrythmia, Hypothyroidism, Anemia Social History The patient's occupation is a Retired. Patient is and lives in [place]. Have you smoked in the past 12 months: Yes Cigarettes per day (20/pack): 20 Years of smokin Quit date: January 2000 Smoking Pack Years: 41.0 Alcohol use: Yes Alcohol amount and frequency: occasional to none Caffeine use: Yes Caffeine amount and frequency: 1 cup coffee daily Family History Family history of sleep disordered breathing: No Allergies and Home Medications Drug allergies reviewed: Yes (Sulfa, diphenhydramine, doxycycline) Home medication list reviewed: Yes Allergy and home medication list: Omeprazole 40 mg Trazadone Albuterol Nebulizer Venlafaxine 37.5 mg Ropinirole Acyclovir Ibuprofen, prn Review of Systems Cardiovascular: denies: high blood pressure, palpitations, chest pain, irregular heart rate or pulse, leg or foot swelling Respiratory: reports: shortness of breath, wheeze, sputum production, chronic cough Gastrointestinal: reports: difficulty swallowing, nausea, abdominal pain. denies: heartburn Urinary: reports: incontinence Neurological: reports: head trauma, disorientation (occasional), gait or balance problems, fainting or unconsciousness. denies: headaches, seizure Psychiatric: reports: Attention Deficit Hyperactivity, anxiety, depression, mood disorder, claustrophobia Ear/Nose/Throat: reports: nasal congestion, dry mouth/throat, hoarseness, wisdom teeth removed. denies: sinus problems, nose bleeds, injury to nose, tonsillectomy Endocrine: reports: sluggishness, too hot or cold, excessive thirst, unexplained weakness Musculoskeletal: reports: joint pain, neck pain, back pain, joint swelling, muscle pain or cramping, mobility problems Immunologic: reports: itching. denies: allergies to food or environment Physical Exam Blood Pressure: 138/74 Cuff size: wrist Heart Rate: 73 O2 Saturation: 98 Height: 5 ft 3 in Weight: 193 lb Body Mass Index: 34.2 BMI Classification: Obese Neck circumference: 16 (inches) HEENT: No craniofacial malformation Nostrils: patent to airflow Turbinates: normal Septum: midline Mouth and throat: normal Soft palate: normal Hard palate: normal Uvula: normal Uvula visualization: 100% Mallampati Class I Tongue: normal in size Tonsils: 1+ Chin and jaw: normal size and position Neck: normal w/o lymphadenopathy or thyromegaly Heart: regular rate and rhythm Lungs: clear bilaterally Impression and Plan 1. Suspected Obstructive Sleep Apnea-Hypopnea Syndrome, as suggested by a history of loud and irregular snoring, gasping or choking in sleep, unrefreshed sleep, cognitive impairment, and excessive daytime sleepiness. I reviewed with patient that a narrow oropharynx and obesity are common predisposing factors for obstructive sleep apnea-hypopnea syndrome. I recommend proceeding to polysomnography to confirm the diagnosis and to assess severity. If the patient has significant sleep disordered breathing, a manual CPAP titration study will also be performed to find the optimal treatment pressure. I informed the patient of what the sleep studies involve and after some discussion, obtained agreement to proceed. The pathophysiology of obstructive sleep apnea-hypopnea syndrome was discussed with the patient and health risks of cardiovascular and cerebrovascular disease if not treated. AAS brochure for obstructive sleep apnea-hypopnea syndrome given and reviewed. Risks of drowsy driving discussed in detail and patient advised to avoid long distance driving and to hook puller at the first sign of drowsiness. Patient agreed to plan. * Schedule polysomnography +- manual CPAP titration study. * Avoid long distance driving or driving when feeling sleepy. * Avoid alcohol, sedative and muscle relaxant around bedtime. * Attempt to lose weight. * Review instructions provided by trained office staff on how to prepare for the sleep study. * Return for follow-up after sleep study completed. Counseling Topics: Weight loss health impact Visit Type: In Office Time Spent with Patient (minutes): 30 Provider Statement: I spent 100% of the Face to Face Visit with the patient with greater than 50% spent counseling the patient and coordination of care.
== END 2020-06-24 08:26 | disposition home or self-care (01) ==
LOC: SC 08:25
PROVIDERS: ATTEND Nurse Practitioner Family
DX: G47.10 Hypersomnia, unspecified (principal); R41.89 Other symptoms and signs involving cognitive functions and awareness; G47.8 Other sleep disorders; R06.83 Snoring; E66.9 Obesity, unspecified; Z68.34 Body mass index [BMI] 34.0-34.9, adult
CPT/HCPCS: 99203; G0463; 99212

== ENCOUNTER 2020-07-27 20:33 | Outpatient (CLI) | payer MEDICARE, OTHER | END 2020-07-27 20:34 | disposition home or self-care (01) | LOC: SC 20:33 | PROVIDERS: ATTEND Nurse Practitioner Family | DX: G47.33 Obstructive sleep apnea (adult) (pediatric) (principal); R09.02 Hypoxemia; E66.9 Obesity, unspecified; Z68.34 Body mass index [BMI] 34.0-34.9, adult | CPT/HCPCS: 95810 ==

== ENCOUNTER 2020-08-13 09:10 | Outpatient (CLI) | payer MEDICARE, OTHER ==
--- NOTE | 2020-08-13 09:47 | SLEEP CARE CONSULTATION ---
Information from patient questionnaire entered by Maggie Silvestre. I have reviewed and concur with the information entered by Maggie Silvestre. This document represents the service I personally performed and the decisions made by , Clau Jeronimo ARNP. History of Present Illness Service Date and Time: 08/13/2020 09 Initial [place] Sleepiness Scale score: 11 (in 2019) Current [place] Sleepiness Scale score: 15 Additional HPI information: SHERRI SCHMID returns with spouse for follow up and results of the recently performed polysomnography. I explained the pathophysiology behind obstructive sleep apnea. We then spent quite a bit of time discussing different treatment options. For mild obstructive sleep apnea, surgery and oral appliance are alternatives to nasal CPAP therapy but in moderate or severe cases, nasal CPAP is the most effective and reliable treatment. After some discussion, the patient opted to go with the nasal CPAP therapy. Nasal autoCPAP set at 4-15 cmH20 will be ordered with rationale explained. A manual titration study will be ordered if unable to find optimal pressure with office adjustments. I explained how CPAP machine works with sample devices [employer] Dreamstation and Pressable [id number] and what to expect when using the machine. Using CPAP every night in order to get used to it was emphasized. Patient advised to put CPAP mask on before getting into bed so as not to fall asleep without CPAP. To assist acclimation to CPAP use, it could also be used for a short time during day while reading or watching TV. The patient was instructed to call the CPAP supplier to discuss any mechanical problem that may occur. If the mask given is uncomfortable or is difficult to keep on through the night even with adjustment, contact the CPAP supplier as many will replace with another mask style if notified before 30 days. If snoring or perceives is not getting enough air or too much air from the machine, notify this office. AASM patient education PAP tips reviewed and given to patient. Patient counseled not drink alcohol less than 4 hours before bedtime as it can increase snoring and apnea. Patient was cautioned about risks of drowsy driving until sleepiness symptoms resolve. Sleep Study - Results Type of Sleep Study: Polysomnography Prior sleep studies: No Polysomnography/Home Sleep Study results: IMPRESSION: The quality of the study is good. The patient had normal sleep efficiency. The sleep architecture was abnormal for sleep fragmentation and reduced amount of time spent in REM and slow wave sleep (N3).. Respiratory monitoring showed very severe obstructive sleep apnea-hypopnea (AHI = 77.7) associated with frequent arousals, oxyhemoglobin desaturation and moderate hypoxia (samantha oxygen saturation of 75%). Baseline oxygen saturation is also low. The respiratory events occurred more frequently during supine sleep (supine AHI = 89.9; non-supine = 37.42). Snore was moderate to loud in intensity. There was no significant periodic leg movement of sleep. Cardiac rhythm was normal sinus rhythm without significant arrhythmia. No abnormal behavior (parasomnia) observed during the night. Allergies and Home Medications Drug allergies reviewed: Yes (sulfa, diphenhydramine, doxycycline) Home medication list reviewed: Yes (no changes) Review of Systems Review of systems same as previous: Yes (no changes) Psychiatric: reports: claustrophobia Physical Exam Heart Rate: 78 O2 Saturation: 93 Height: 5 ft 3 in Weight: 193 lb Body Mass Index: 34.2 BMI Classification: Obese Impression and Plan 1. Obstructive Sleep Apnea-Hypopnea Syndrome, very severe, with lowest oxygen saturation of 75%. Obviously this is the cause of the patients symptoms of unrefreshed sleep, and excessive daytime sleepiness. Positive pressure therapy could benefit her COPD, GERD, anxiety, depression, learning difficulties and mood disorder. As mentioned above, the patient will be started on nasal autoCPAP therapy with pressure set at 4-15 cmH2O. A manual titration study will be completed if unable to find optimal treatment pressure with office adjustments. Compliance guidelines also reviewed. A copy of compliance guideline s will be given for reference at check out. Because the apnea is more severe supine, I instructed to avoid sleeping supine using pillow positioning until able to start CPAP use. * Nasal auto CPAP therapy, pressure at 4-15 cm H2O. * Attempt to lose weight. * Avoid alcohol consumption near bedtime. * Avoid supine sleep until using CPAP. * The patient is again cautioned about driving until sleepiness completely resolves. * Return one month after CPAP obtained. I will assess response to therapy and compliance at that time. Counseling Topics: Weight loss health impact Visit Type: In Office Time Spent with Patient (minutes): 22 Provider Statement: I spent 100% of the Face to Face Visit with the patient with greater than 50% spent counseling the patient and coordination of care.
== END 2020-08-13 09:11 | disposition home or self-care (01) ==
LOC: SC 09:10
PROVIDERS: ATTEND Nurse Practitioner Family
DX: G47.33 Obstructive sleep apnea (adult) (pediatric) (principal); E66.9 Obesity, unspecified; Z68.34 Body mass index [BMI] 34.0-34.9, adult
CPT/HCPCS: 99213; G0463; 99212

== ENCOUNTER 2020-09-02 17:06 | Emergency (ER) | payer MEDICARE, OTHER ==
--- NOTE | 2020-09-02 17:48 | ED Physician Documentation ---
History of Present Illness - Stated complaint Stated Complaint: LT SIDE FACE SWOLLEN - Chief complaint Chief Complaint: Heent - History obtained from History obtained from: Patient - History of Present Illness Timing: Prior to arrival - Additonal information Additional information: 74-year-old female presents emergency department for evaluation of acute onset left sided preauricular facial swelling. History is most consistent with a parotiditis. She had similar about 1 year ago and was treated with Decadron and Augmentin. She has no fevers tongue lip swelling, dysphonia shortness of breath or chest pain. Review of Systems Constitutional: reports: Reviewed and negative Eyes: reports: Other (left facial swelling) Ears: reports: Reviewed and negative Nose: reports: Reviewed and negative Throat: reports: Reviewed and negative Cardiac: reports: Reviewed and negative Respiratory: reports: Reviewed and negative GI: reports: Reviewed and negative : reports: Reviewed and negative Skin: reports: Reviewed and negative Musculoskeletal: reports: Reviewed and negative PD PAST MEDICAL HISTORY - Past Medical History Past Medical History: Yes Cardiovascular: None Respiratory: COPD, Other Neuro: None Endocrine/Autoimmune: None GI: GERD RECONNAISSANCE MAN: Miscarriage(s) : Other HEENT: Other Psych: None Musculoskeletal: Osteoarthritis Derm: Herpes zoster - Past Surgical History Past Surgical History: Yes General: Cholecystectomy, Appendectomy, EGD Ortho: Knee replacement, Rotator cuff repair /RECONNAISSANCE MAN: Hysterectomy HEENT: Cataracts - Present Medications Home Medications: Ambulatory Orders Medication Instructions Recorded Confirmed Acyclovir 200 mg PO BID 11/19/13 01/09/19 Albuterol [Ventolin Hfa] 2 inhaler INH Q4HR PRN 11/19/13 01/09/19 traZODone [Desyrel] 3 - 4 tab PO HS 11/19/13 01/09/19 Sertraline [Zoloft] 50 - 100 mg PO DAILY 11/20/13 01/09/19 prednisoLONE 1% OPHTH DROPS [Pred 1 drops OPTH QID 11/20/13 01/09/19 Forte] Omeprazole [Prilosec] 40 mg PO BID 02/27/14 01/09/19 Ropinirole HCl 3 mg PO QPM 04/17/18 01/09/19 Benzonatate [Tessalon Perle] 100 mg PO TID PRN 12/28/18 01/09/19 Ferrous Sulfate 325 mg PO ONCE 12/28/18 01/09/19 Fluticasone/Salmeterol [Advair 1 each IH BID 12/28/18 01/09/19 250-50 Diskus] Genteal Pm 1 applic TP QPM 12/28/18 01/09/19 Hydrocortisone Valerate 1 applic TP DAILY 12/28/18 01/09/19 Ibuprofen 800 mg PO DAILY 12/28/18 01/09/19 Magnesium 250 mg PO DAILY 12/28/18 01/09/19 Nystatin 5 ml PO QID 12/28/18 01/09/19 [place]-3/Dha/Epa/Fish Oil [Fish Oil 1 each PO DAILY 12/28/18 01/09/19 1,000 mg Softgel] Tiotropium [place] [Spiriva] 1 cap IH DAILY 12/28/18 01/09/19 Acetaminophen [Tylenol] 650 mg PO Q6H PRN #30 tablet 04/20/19 Nitrofurantoin Monohyd/M-Cryst 100 mg PO BID #10 capsule 04/20/19 [Macrobid 100 mg Capsule] Clindamycin HCl [Clindamycin 300MG 300 mg PO TID #15 capsule 03/24/20 CAP] Levofloxacin [Levaquin] 500 mg PO DAILY #10 tablet 04/07/20 Amox/Clav 875/125 [Augmentin] 1 each PO Q12H #20 tablet 09/02/20 - Allergies Allergies/Adverse Reactions: Allergies Allergy/AdvReac Type Severity Reaction Status Date / Time Sulfa (Sulfonamide Allergy Mild Rash Verified 09/02/20 17:14 Antibiotics) diphenhydramine Allergy has no Verified 09/02/20 17:14 [From Benadryl] effect doxycycline Allergy Unknown Verified 09/02/20 17:14 - Social History Does the pt smoke?: No Smoking Status: Never smoker Does the pt drink ETOH?: No Does the pt have substance abuse?: No - Immunizations Immunizations are current?: Yes - POLST Patient has POLST: No PD ED PE EXPANDED - General General: Alert, No acute distress - HEENT HEENT: Atraumatic, PERRL, Ears normal, Other (Mild left preauricular facial swelling without erythema. Full opening of the mouth and jaw. Normal posterior oropharynx. No swelling on floor of mouth.) - Cardiac Cardiac: Regular Rate, Radial strong equal, Pedal strong equal, Cap refill < 2 sec - Respiratory Respiratory: Clear to ausultation elana. No: Distress, Labored - Abdomen Abdomen: Normal Bowel sounds. No: Tender to palpation Results - Vitals Vitals: Vital Signs - 24 hr 09/02/20 09/02/20 17:14 18:21 Temperature 36.9 C 37.1 C Heart Rate 80 84 Respiratory 18 16 Rate Blood Pressure 150/78 H 136/80 H O2 Saturation 97 98 Oxygen O2 Source [With Activity] Nasal cannula O2 Source Room air PD MEDICAL DECISION MAKING - ED course Complexity details: reviewed results, considered differential, d/w patient ED course: 74-year-old female presents the emergency department for evaluation of acute onset left preauricular facial swelling that does superficially extend to just below the mandible. She has no trismus tongue lip swelling or swelling on the floor the mouth. History and exam is not consistent with a Rick's angina. However I am most suspicious that she has parotid tightness. She was given Augmentin as well as Decadron here in the emergency department. Will defer imaging at this time. Advised to suck on sour candy. Emergent return precautions discussed Departure - Departure Disposition: Home, Self Care Clinical Impression: Parotiditis Condition: Stable Instructions: ED Sublingual Gland Swelling [facility] Follow-Up: Yumiko Farris DO [Primary Care Provider] - Prescriptions: Amox/Clav 875/125 [Augmentin] 1 each PO Q12H #20 tablet Comments: Raegan as we discussed I suspect that your parotid gland is inflamed. Today in the emergency department you are given a one-time dose of a steroid and I would like you to fill the prescription for the antibiotics and begin taking as directed. Please continue to massage your face as shown in the ED and suck on a sour lemon drop two to three times a day. This can help open the gland up and reduce swelling If at any point you have worsening facial swelling cannot swallow normally cannot open your jaw fully or develop any fevers please return immediately to the ER. Discharge Date/Time: 09/02/20 18:21
[2020-09-02] MEDS ORDERED: CHERRY SYRUP 10 ML UDC PO ONE (17:49)
[2020-09-02] MEDS ORDERED: DEXAMETHASONE 10 MG/ML VIAL PO STA (17:49)
[2020-09-02] MEDS ORDERED: AMOX/CLAV 875 MG/125 MG TABLET PO STA (17:49)
--- NOTE | 2020-09-02 18:01 | ED Physician Documentation ---
History of Present Illness - Stated complaint Stated Complaint: LT SIDE FACE SWOLLEN - Chief complaint Chief Complaint: Heent - History obtained from History obtained from: Patient - Additonal information Additional information: 74-year-old female presents emergency department for evaluation of acute onset left preauricular facial swelling that extends down below the level of the mandible. She reports that she had something similar in February 2019. It resolved with a course of antibiotics and steroid. She denies any dental pain, no trismus no fevers. No recent falls or trauma. Swelling was noted this afternoon when she woke up from a nap. Was not present this a.m. when she woke up Review of Systems Constitutional: reports: Other (left sided preauriclar facial swelling) Eyes: reports: Reviewed and negative Ears: reports: Reviewed and negative Nose: reports: Reviewed and negative Throat: reports: Reviewed and negative Cardiac: reports: Reviewed and negative Respiratory: reports: Reviewed and negative GI: reports: Reviewed and negative : reports: Reviewed and negative Skin: reports: Reviewed and negative Musculoskeletal: reports: Reviewed and negative PD PAST MEDICAL HISTORY - Past Medical History Past Medical History: Yes Cardiovascular: None Respiratory: COPD, Other Neuro: None Endocrine/Autoimmune: None GI: GERD 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(s) : Other HEENT: Other Psych: None Musculoskeletal: Osteoarthritis Derm: Herpes zoster - Past Surgical History Past Surgical History: Yes General: Cholecystectomy, Appendectomy, EGD Ortho: Knee replacement, Rotator cuff repair /STUDENT UNION CONSULTANT: Hysterectomy HEENT: Cataracts - Present Medications Home Medications: Ambulatory Orders Medication Instructions Recorded Confirmed Acyclovir 200 mg PO BID 11/19/13 01/09/19 Albuterol [Ventolin Hfa] 2 inhaler INH Q4HR PRN 11/19/13 01/09/19 traZODone [Desyrel] 3 - 4 tab PO HS 11/19/13 01/09/19 Sertraline [Zoloft] 50 - 100 mg PO DAILY 11/20/13 01/09/19 prednisoLONE 1% OPHTH DROPS [Pred 1 drops OPTH QID 11/20/13 01/09/19 Forte] Omeprazole [Prilosec] 40 mg PO BID 02/27/14 01/09/19 Ropinirole HCl 3 mg PO QPM 04/17/18 01/09/19 Benzonatate [Tessalon Perle] 100 mg PO TID PRN 12/28/18 01/09/19 Ferrous Sulfate 325 mg PO ONCE 12/28/18 01/09/19 Fluticasone/Salmeterol [Advair 1 each IH BID 12/28/18 01/09/19 250-50 Diskus] Genteal Pm 1 applic TP QPM 12/28/18 01/09/19 Hydrocortisone Valerate 1 applic TP DAILY 12/28/18 01/09/19 Ibuprofen 800 mg PO DAILY 12/28/18 01/09/19 Magnesium 250 mg PO DAILY 12/28/18 01/09/19 Nystatin 5 ml PO QID 12/28/18 01/09/19 [place]-3/Dha/Epa/Fish Oil [Fish Oil 1 each PO DAILY 12/28/18 01/09/19 1,000 mg Softgel] Tiotropium [place] [Spiriva] 1 cap IH DAILY 12/28/18 01/09/19 Acetaminophen [Tylenol] 650 mg PO Q6H PRN #30 tablet 04/20/19 Nitrofurantoin Monohyd/M-Cryst 100 mg PO BID #10 capsule 04/20/19 [Macrobid 100 mg Capsule] Clindamycin HCl [Clindamycin 300MG 300 mg PO TID #15 capsule 03/24/20 CAP] Levofloxacin [Levaquin] 500 mg PO DAILY #10 tablet 04/07/20 Amox/Clav 875/125 [Augmentin] 1 each PO Q12H #20 tablet 09/02/20 - Allergies Allergies/Adverse Reactions: Allergies Allergy/AdvReac Type Severity Reaction Status Date / Time Sulfa (Sulfonamide Allergy Mild Rash Verified 09/02/20 17:14 Antibiotics) diphenhydramine Allergy has no Verified 09/02/20 17:14 [From Benadryl] effect doxycycline Allergy Unknown Verified 09/02/20 17:14 - Social History Does the pt smoke?: No Smoking Status: Never smoker Does the pt drink ETOH?: No Does the pt have substance abuse?: No - Immunizations Immunizations are current?: Yes - POLST Patient has POLST: No PD ED PE EXPANDED - General General: Alert, No acute distress, Well developed/nourished - HEENT HEENT: PERRL, EOMI, Ears normal, Moist mucous membranes, Pharynx normal, Other ( Mild left preauricular facial swelling without erythema. The swelling extends to just below the angle of the mandible. Mild tenderness. No trismus. No dental pain.). No: Dental decay, Dental abscess - Neck Neck: Supple w/out meningeal sx, No tenderness. No: Adenopathy - Cardiac Cardiac: Regular Rate, Regular Rhythm, Radial strong equal, Pedal strong equal, Cap refill < 2 sec - Respiratory Respiratory: Clear to ausultation elana. No: Distress, Labored - Abdomen Abdomen: Normal Bowel sounds. No: Tender to palpation - Neuro Neuro: Alert and Oriented X 3, CNII-XII intact, Normal gait, Normal finger nose, Normal speech - GCS Eye Opening: Spontaneous Motor: Obeys Commands Verbal: Oriented Total: 15 Results - Vitals Vitals: Vital Signs - 24 hr 09/02/20 17:14 Temperature 36.9 C Heart Rate 80 Respiratory 18 Rate Blood Pressure 150/78 H O2 Saturation 97 Oxygen O2 Source [With Activity] Nasal cannula O2 Source Room air PD MEDICAL DECISION MAKING - ED course Complexity details: reviewed results, re-evaluated patient, considered differential, d/w patient ED course: 74-year-old female presents emergency department for evaluation of acute onset left preauricular facial swelling that began this afternoon. She has no trismus. Facial swelling is mild though it is present. History and exam is most consistent with parotitiditis. Pt Was given 10 mg of Decadron orally here in the emergency department as well as her first dose of Augmentin. We discussed gentle massage of the parotid gland as well as to suck on lemon drops. Reassuringly she has no dysphonia or trismus. No signs of airway involvement swelling of the tongue floor the mouth or lips. Emergent return precautions discussed Departure - Departure Disposition: Home, Self Care Clinical Impression: Parotiditis Condition: Stable Record reviewed to determine appropriate education?: Yes Instructions: ED Sublingual Gland Swelling [facility] Follow-Up: Yumiko Farris DO [Primary Care Provider] - Prescriptions: Amox/Clav 875/125 [Augmentin] 1 each PO Q12H #20 tablet Comments: Raegan as we discussed I suspect that your parotid gland is inflamed. Today in the emergency department you are given a one-time dose of a steroid and I would like you to fill the prescription for the antibiotics and begin taking as directed. Please continue to massage your face as shown in the ED and suck on a sour lemon drop two to three times a day. This can help open the gland up and reduce swelling If at any point you have worsening facial swelling cannot swallow normally cannot open your jaw fully or develop any fevers please return immediately to the ER.
[2020-09-02 18:22] VITALS: BP 136/80
== END 2020-09-02 18:21 | disposition home or self-care (01) ==
LOC: ED 17:06
DX: K11.20 Sialoadenitis, unspecified (principal)
CPT/HCPCS: 99282; 99284; A9270

== ENCOUNTER 2020-11-27 09:20 | Outpatient (CLI) | payer MEDICARE, OTHER ==
[2020-11-27 13:56] LABS: BASOPHILS % (AUTO) 0.6 %; EOSINOPHILS # (AUTO) 0.2 10^3/uL (0.0-0.7); EOSINOPHILS % (AUTO) 3.1 %; HCT - HEMATOCRIT 43.9 % (37.0-47.0); HGB - HEMOGLOBIN 14.1 g/dL (12.0-16.0); LYMPHOCYTES # (AUTO) 1.5 10^3/uL (1.5-3.5); LYMPHOCYTES % (AUTO) 31.2 %; MEAN CORPUSCULAR HEMOGLOBIN 31.9 pg (27.0-31.0); MEAN CORPUSCULAR HGB CONC 32.1 g/dL (32.0-36.0); MEAN CORPUSCULAR VOLUME 99.3 fL (81.0-99.0); MEAN PLATELET VOLUME 9.2 fL (7.9-10.8); MONOCYTES # (AUTO) 0.5 10^3/uL (0.0-1.0); MONOCYTES % (AUTO) 10.3 %; NEUTROPHILS # (AUTO) 2.6 10^3/uL (1.5-6.6); NEUTROPHILS % (AUTO) 54.6 %; PLT - PLATELET COUNT 152 10^3/uL (130-450); RED BLOOD COUNT 4.42 10^6/uL (4.20-5.40); RED CELL DISTRIBUTION WIDTH 12.6 % (12.0-15.0); WHITE BLOOD COUNT 4.8 x10^3/uL (4.8-10.8)
[2020-11-27 14:17] LABS: ALBUMIN 4.1 g/dL (3.2-5.5); ALBUMIN/GLOBULIN RATIO 1.4 (1.0-2.2); ALKALINE PHOSPHATASE 155 IU/L (42-121); ALT ALANINE AMINOTRANSFERASE 36 IU/L (10-60); AST ASPARTATE AMINOTRANSFERASE 35 IU/L (10-42); BILIRUBIN,TOTAL 0.4 mg/dL (0.2-1.0); BUN - BLOOD UREA NITROGEN 15 mg/dL (6-20); CALCIUM 8.9 mg/dL (8.5-10.3); CARBON DIOXIDE - CO2 25 mmol/L (21-32); CHLORIDE 104 mmol/L (101-111); CHOL/HDL RATIO 3.7 (<4.4); CHOLESTEROL 233 mg/dL; CREATININE 0.7 mg/dL (0.4-1.0); GFR - MDRD 81 (>89); GLUCOSE 98 mg/dL (70-100); HDL CHOLESTEROL 63 mg/dL; LDL CHOLESTEROL,CALCULATED 143 mg/dL; LDL/HDL RATIO 2.3 (<4.4); POTASSIUM 3.9 mmol/L (3.5-5.0); SODIUM 139 mmol/L (135-145); TRIGLYCERIDES 133 mg/dL; VLDL CHOLESTEROL 27 mg/dL
[2020-11-27 14:28] LABS: ESTIMATED AVERAGE GLUCOSE 117 mg/dL (70-100); HEMOGLOBIN A1c% 5.7 % (4.27-6.07)
== END 2020-11-27 23:59 | disposition home or self-care (01) ==
LOC: LAB.WCP 09:20
PROVIDERS: ATTEND Family Medicine
DX: E78.5 Hyperlipidemia, unspecified (principal); R73.01 Impaired fasting glucose; J84.9 Interstitial pulmonary disease, unspecified
CPT/HCPCS: 36415; 80053; 80061; 83036; 83721; 85025

== ENCOUNTER 2020-12-05 09:44 | Outpatient (CLI) | payer MEDICARE, OTHER ==
--- NOTE | 2020-12-05 10:28 | SLEEP CARE CONSULTATION ---
Information from patient questionnaire entered by Miguel Hare. I have reviewed and concur with the information entered by Miguel Hare. This document represents the service I personally performed and the decisions made by me, Clau Jeronimo ARNP. History of Present Illness Service Date and Time: 12/05/2020 0944 Previous diagnosis: Very Severe, Obstructive Sleep Apnea-Hypopnea Syndrome AHI: 77.7 Reason for follow up: first compliance (09/06/20) Equipment type: CPAP Equipment obtained from: [employer] ([place]; not happy with service; using a [facility]) Mask style: Full face Backup mask available: Yes (other) Last cushion change: 2-3 weeks Prior sleep studies: Yes Year and Where: 2019 [facility] Type of Sleep Study: Polysomnography HPI additional information: SHERRI SCHMID was diagnosed to have very severe, AHI 77.7, obstructive sleep apnea- hypopnea syndrome and returned today for CPAP therapy first compliance follow- up. CPAP Compliance Data - Data Reviewed with Patient Average duration of nightly device use: 5 h 52 min Compliance rate %: 66.7 Current pressure setting (cmH2O): 4-10 Humidity settin Heated hose settin Average residual AHI: 10.8 Average large leak: 18 sec Subjective Missed days of use due to: reports: mask issues Patient concerns: reports: mask discomfort (trying to come off face with pressure and she has to tighten to face), air blowing in eyes, dry mouth, nose, throat (has Sjogrens, chronic dry mouth), epistaxis (3-4 times), other (headache). denies: aerophagia, mask leak noise, condensation in mask/hose, nasal congestion Current pressure setting perceived as: comfortable On therapy, patient: reports: sleeping better. denies: awakening more refreshed, being more awake and alert during the day, more rested overall, drowsiness while driving Initial [place] Sleepiness Scale score: 11 (in 2020) Current [place] Sleepiness Scale score: 17 Allergies and Home Medications Home medication list reviewed: Yes (no changes) Review of Systems Review of systems same as previous: Yes (no changes) Physical Exam Heart Rate: 75 O2 Saturation: 96 Height: 5 ft 3 in Weight: 195 lb Body Mass Index: 34.5 BMI Classification: Obese Impression and Plan 1. Obstructive Sleep Apnea-Hypopnea Syndrome, very severe, with fair treatment compliance and fair apnea control. On CPAP therapy, the patient has better sleep quality but does not feel more rested overall. She continues to have mask issues, she likes the [employer] full face mask the best so far but still has trouble with the pressure feeling like it is pushing the mask off. She tries to tighten it but not too much to hurt her face. She has increased her compliance but is at 66.7% with 3 days to reach compliance for insurance. I discussed with and patient is agreeable to come back in 3 days on Tuesday to recheck compliance. Her residual AHI is still elevated which may be why she is not feeling rested but possibly also due to not getting uninterrupted sleep due to mask issues. She has been having some nasal dryness and 4 bloody noses in the last month. Nasal dryness can be reduced with increasing the CPAP humidity as shown on sample device and the heated hose can be increased if condensation. In addition, I gave the patient a few samples of Shankar Ease nasal cream to be used 4 times a day for 7-10 days and then as needed. Because of mask issues and need to find best pressure for apnea control I discussed and patient agreed to have a titration study. We will continue pressure at the 4-10 cmH2O until her study and its followup. Patient's apnea severity and rationale for treatment to reduce apnea, improve sleep quality and reduce cardiovascular and cerebrovascular events was reviewed. I also reviewed the benefit of consistent device use of CPAP for COPD, gastric reflux, depression/anxiety, and mood disorder. * Continue auto CPAP pressure at 4-10 cmH2O * Titration study * Notify me if snoring with mask or feeling that the pressure is too much or too little * Attempt to lose weight * Call this office if any problems using CPAP * Return for follow up in 3 days for compliance recheck, then follow up after titration study complete Counseling Topics: Spare mask, Weight loss health impact Visit Type: In Office Time Spent with Patient (minutes): 29 Provider Statement: I spent 100% of the Face to Face Visit with the patient with greater than 50% spent counseling the patient and coordination of care.
== END 2020-12-05 09:45 | disposition home or self-care (01) ==
LOC: SC 09:44
PROVIDERS: ATTEND Nurse Practitioner Family
DX: G47.33 Obstructive sleep apnea (adult) (pediatric) (principal); E66.9 Obesity, unspecified; Z68.34 Body mass index [BMI] 34.0-34.9, adult
CPT/HCPCS: 99213; G0463; 99212

== ENCOUNTER 2020-12-08 11:30 | Outpatient (CLI) | payer MEDICARE, OTHER ==
--- NOTE | 2020-12-08 13:07 | SLEEP CARE CONSULTATION ---
Information from patient questionnaire entered by Maggie Silvestre. I have reviewed and concur with the information entered by Maggie Silvestre. This document represents the service I personally performed and the decisions made by me, Diana Siu MD, [facility]. History of Present Illness Service Date and Time: 12/08/2020 1130 Previous diagnosis: Very Severe, Obstructive Sleep Apnea-Hypopnea Syndrome AHI: 77.7 Reason for follow up: other (compliance visit) Equipment type: CPAP Equipment obtained from: [employer] Mask style: Full face Prior sleep studies: Yes Year and Where: 2019 - [facility] Type of Sleep Study: Polysomnography HPI additional information: HPI: Ms. Orourke was diagnosed to have very severe obstructive sleep apnea- hypopnea syndrome and prescribed with a CPAP device. She returned today for follow up of CPAP therapy. The patient purchased the device from [employer] and was fitted with ResMed F30 full face mask. She uses the device almost nightly and all through the night. The compliance data show usage in 27 out of the past 30 nights, averaging 5.8 hours a night. The > 4 hour compliance rate for the past 30 days is 76.7%. She complains of no particular problem such as dry throat, facial soreness, aerophagia, sinus pain, or nasal congestion. She thinks that the current pressure of 4 - 10 cmH2O seems alright (the pressure was lowered because of mask leak) Since she started using the CPAP device she noticed improvement in her sleep quality, and that she wakes up feeling fresher in the morning and more awake/alert during the day. The residual AHI is 11.5. Average time in large leak per day is 18 seconds. CPAP Compliance Data - Data Reviewed with Patient Average duration of nightly device use: 6 hr 29 min Compliance rate %: 76.7 Current pressure setting (cmH2O): 4-10 Humidity settin Heated hose settin Average residual AHI: 11.5 Average large leak: 18 sec Subjective Patient concerns: reports: mask discomfort, air blowing in eyes, mask leak noise, nasal congestion, dry mouth, nose, throat, epistaxis, other (headache) Current pressure setting perceived as: comfortable Initial [place] Sleepiness Scale score: 11 (in 2020) Current [place] Sleepiness Scale score: 18 Allergies and Home Medications Drug allergies reviewed: Yes Home medication list reviewed: Yes Review of Systems Review of systems same as previous: Yes Physical Exam Height: 5 ft 3 in Weight: 195 lb Body Mass Index: 34.5 BMI Classification: Obese Impression and Plan IMPRESSION: 1. Obstructive Sleep Apnea-Hypopnea Syndrome, very severe, with the patient having good treatment compliance. The pressure setting appears inadequate. I will raise it to 6 12 cmH2O and recheck the residual AHI in 2 months. PLAN: 1. Prescription made to increase pressure range to 6 - 12 cm H2O. 2. Try to lose weight. 3. Return in two months for follow up. Counseling Topics: Weight control Visit Type: In Office Provider Statement: I spent 100% of the Face to Face Visit with the patient with greater than 50% spent counseling the patient and coordination of care.
== END 2020-12-08 11:31 | disposition home or self-care (01) ==
LOC: SC 11:30
PROVIDERS: ATTEND Internal Medicine Pulmonary Disease
DX: G47.33 Obstructive sleep apnea (adult) (pediatric) (principal); E66.9 Obesity, unspecified; Z68.34 Body mass index [BMI] 34.0-34.9, adult
CPT/HCPCS: 99213; G0463; 99212

== ENCOUNTER 2021-01-14 14:31 | Emergency (ER) | payer MEDICARE, OTHER ==
[2021-01-14 15:06] VITALS: BP 142/76
--- NOTE | 2021-01-14 15:16 | ED Physician Documentation ---
PD HPI UPPER EXT INJURY - Stated complaint Stated Complaint: right wrist px - Chief complaint Chief Complaint: Ext Problem - History obtained from History obtained from: Patient (Tripped over her dog's toy this morning and landed on an outstretched right wrist with moderate pain there but declines pain medication on initial evaluation. 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) : Other HEENT: Other Psych: None Musculoskeletal: Osteoarthritis Derm: Herpes zoster - Past Surgical History Past Surgical History: Yes General: Cholecystectomy, Appendectomy, EGD Ortho: Knee replacement, Rotator cuff repair /VAULT INSTALLER: Hysterectomy HEENT: Cataracts - Present Medications Home Medications: Ambulatory Orders Medication Instructions Recorded Confirmed Acyclovir 200 mg PO BID 11/19/13 01/09/19 Albuterol [Ventolin Hfa] 2 inhaler INH Q4HR PRN 11/19/13 01/09/19 traZODone [Desyrel] 3 - 4 tab PO HS 11/19/13 01/09/19 Sertraline [Zoloft] 50 - 100 mg PO DAILY 11/20/13 01/09/19 prednisoLONE 1% OPHTH DROPS [Pred 1 drops OPTH QID 11/20/13 01/09/19 Forte] Omeprazole [Prilosec] 40 mg PO BID 02/27/14 01/09/19 Ropinirole HCl 3 mg PO QPM 04/17/18 01/09/19 Benzonatate [Tessalon Perle] 100 mg PO TID PRN 12/28/18 01/09/19 Ferrous Sulfate 325 mg PO ONCE 12/28/18 01/09/19 Fluticasone/Salmeterol [Advair 1 each IH BID 12/28/18 01/09/19 250-50 Diskus] Genteal Pm 1 applic TP QPM 12/28/18 01/09/19 Hydrocortisone Valerate 1 applic TP DAILY 12/28/18 01/09/19 Ibuprofen 800 mg PO DAILY 12/28/18 01/09/19 Magnesium 250 mg PO DAILY 12/28/18 01/09/19 Nystatin 5 ml PO QID 12/28/18 01/09/19 Colman-3/Dha/Epa/Fish Oil [Fish Oil 1 each PO DAILY 12/28/18 01/09/19 1,000 mg Softgel] Tiotropium Morrow [Spiriva] 1 cap IH DAILY 12/28/18 01/09/19 Acetaminophen [Tylenol] 650 mg PO Q6H PRN #30 tablet 04/20/19 Nitrofurantoin Monohyd/M-Cryst 100 mg PO BID #10 capsule 04/20/19 [Macrobid 100 mg Capsule] Clindamycin HCl [Clindamycin 300MG 300 mg PO TID #15 capsule 03/24/20 CAP] Levofloxacin [Levaquin] 500 mg PO DAILY #10 tablet 04/07/20 Amox/Clav 875/125 [Augmentin] 1 each PO Q12H #20 tablet 09/02/20 - Allergies Allergies/Adverse Reactions: Allergies Allergy/AdvReac Type Severity Reaction Status Date / Time Sulfa (Sulfonamide Allergy Mild Rash Verified 01/14/21 15:06 Antibiotics) diphenhydramine Allergy has no Verified 01/14/21 15:06 [From Benadryl] effect doxycycline Allergy Unknown Verified 01/14/21 15:06 NSAIDS (Non-Steroidal Allergy Unknown Verified 01/14/21 15:06 Anti-Inflamma - Social History Does the pt smoke?: No Smoking Status: Former smoker Does the pt drink ETOH?: No Does the pt have substance abuse?: No - Immunizations Immunizations are current?: Yes - POLST Patient has POLST: No PD ED PE NORMAL - Vitals Vital signs reviewed: Yes - General General: Alert and oriented X 3, No acute distress - Neck Neck: No bony TTP - Extremities Extremities: Other (Tender over the dorsal wrist with limited range of motion. No distal neurovascular compromise.) - Neuro Neuro: Alert and oriented X 3, Normal speech Results - Vitals Vitals: Vital Signs - 24 hr 01/14/21 15:01 Temperature 36.7 C Heart Rate 77 Respiratory 19 Rate Blood Pressure 142/76 H O2 Saturation 100 Oxygen O2 Source [With Activity] Nasal cannula O2 Source Room air - Rads (name of study) R wrist XR Radiology: EMP read contemporaneously (NAD) Departure - Departure Disposition: 01 Home, Self Care Clinical Impression: Right wrist sprain Qualifiers: Encounter type: initial encounter Qualified Code(s): S63.501A - Unspecified sprain of right wrist, initial encounter Condition: Good Record reviewed to determine appropriate education?: Yes Instructions: ED Sprain Wrist Comments: Followup with your physician in 1 week if not better.
--- NOTE | 2021-01-14 15:44 | XRAY Report ---
PROCEDURE: Wrist 3 View RT INDICATIONS: GLF, FOOSH right wrist x 10 hours TECHNIQUE: 3 views of the wrist were acquired. COMPARISON: None FINDINGS: Bones: No fractures or dislocations. No suspicious bony lesions. First CMC joint and triscaphe join t osteoarthritis. Soft tissues: No suspicious soft tissue calcifications. IMPRESSION: No fracture. No acute osseous lesion. If there are persistent symptoms or continued clinical concern for pathology, then repeat plain film radiographs (7-10 days) or advanced imaging (CT, MR, bone scan) should be considered for further evaluation. Reviewed by: Michelle Hamilton MD, PhD on 01/14/2021 3:43 PM PDT Approved by: Michelle Hamilton MD, PhD on 01/14/2021 3:43 PM PDT Station ID: [id number]
== END 2021-01-14 16:20 | disposition home or self-care (01) ==
LOC: ED 14:31
DX: S63.501A Unspecified sprain of right wrist, initial encounter (principal); W18.09XA Striking against other object with subsequent fall, initial encounter; Z87.891 Personal history of nicotine dependence
CPT/HCPCS: 99282; 99283

== ENCOUNTER 2021-01-21 07:00 | Outpatient (CLI) | payer MEDICARE, OTHER ==
--- NOTE | 2021-01-21 12:36 | XRAY Report ---
PROCEDURE: Wrist 3 View RT INDICATIONS: R WRIST FOLLOW UP FROM FOOSH INJURY TECHNIQUE: 3 views of the wrist were acquired. COMPARISON: Prior right wrist plain films 01/14/2021. FINDINGS: Bones: No fractures or dislocations. No suspicious bony lesions. There is prominent degenerative os teoarthritis at the trapezium-first metacarpal articulation. Scaphoid view: No trauma to the scaphoid is found. Soft tissues: No suspicious soft tissue calcifications. IMPRESSION: No trauma found but there is near severe degenerative osteoarthritis with [id number] articulation a t the base of the thumb as it articulates against the trapezium. Reviewed by: Bennett Jung MD on 01/21/2021 12:35 PM PDT Approved by: Bennett Jung MD on 01/21/2021 12:35 PM PDT Station ID: [id number]
== END 2021-01-21 23:59 | disposition home or self-care (01) ==
LOC: DI.N 07:00
PROVIDERS: ATTEND Physician Assistant Medical
DX: M19.031 Primary osteoarthritis, right wrist (principal)

== ENCOUNTER 2021-02-02 15:10 | Outpatient (CLI) | payer MEDICARE, OTHER ==
--- NOTE | 2021-02-02 21:49 | SLEEP CARE CONSULTATION ---
Information from patient questionnaire entered by Maggie Silvestre. I have reviewed and concur with the information entered by Maggie Silvestre. This document represents the service I personally performed and the decisions made by me, Diana Siu MD, [facility]. History of Present Illness Service Date and Time: 02/02/2021 1510 Previous diagnosis: Very Severe, Obstructive Sleep Apnea-Hypopnea Syndrome AHI: 77.7 (in 2019) Reason for follow up: other (2 month with pressure change) Equipment type: CPAP Equipment obtained from: [employer] Mask style: Full face Prior sleep studies: Yes Year and Where: 2019 - [facility] Type of Sleep Study: Polysomnography HPI additional information: HPI: Ms. Orourke was diagnosed to have very severe obstructive sleep apnea- hypopnea syndrome and prescribed with a CPAP device. She returned today for follow up of CPAP therapy after pressure change two months ago. The patient purchased the device from [employer] and was fitted with ResMed F30 full face mask. She uses the device almost nightly and all through the night. The compliance data show usage in 35 out of the past 60 nights, averaging 5.5 hours a night. The > 4 hour compliance rate for the past 60 days is 58.3%. She complains of no particular problem such as dry throat, facial soreness, aerophagia, sinus pain, or nasal congestion. She thinks that the current pressure of 6 - 12 cmH2O seems too high (the pressure was raised from 4 10 cmH2O for elevated residual AHI). The residual AHI is 7.6 (was 11.5). Average time in large leak per day is 5 minutes (was 18 seconds). CPAP Compliance Data - Data Reviewed with Patient Average duration of nightly device use: 5 hr 27 min Compliance rate %: 35 (60 days) Current pressure setting (cmH2O): 6-12 Humidity settin Heated hose settin Average residual AHI: 7.6 Average large leak: 5 min 46 sec Subjective Patient concerns: reports: air blowing in eyes, mask leak noise, nasal congestion, dry mouth, nose, throat, other (snore while using device) Current pressure setting perceived as: too high Initial [place] Sleepiness Scale score: 11 (in 2019) Current [place] Sleepiness Scale score: 16 Allergies and Home Medications Drug allergies reviewed: Yes Home medication list reviewed: Yes Review of Systems Review of systems same as previous: Yes Physical Exam Height: 5 ft 3 in Weight: 193 lb Body Mass Index: 34.2 BMI Classification: Obese Impression and Plan IMPRESSION: 1. Obstructive Sleep Apnea-Hypopnea Syndrome, very severe, with the patient having [id number] treatment compliance. The pressure setting appears more effective but less comfortable. I will lower it to 5 - 10 cmH2O and recheck the residual AHI in August. PLAN: 1. AutoCPAP set to 5 - 10 cm H2O. 2. Try to lose weight. 3. Return for a follow up in August. She would like to switch from [employer] at that time. Follow up with Sleep Care in: 6 months Follow up recommended for: Weight management Visit Type: In Office Time Spent with Patient (minutes): 15 Provider Statement: I spent 100% of the Face to Face Visit with the patient with greater than 50% spent counseling the patient and coordination of care.
== END 2021-02-02 15:11 | disposition home or self-care (01) ==
LOC: SC 15:10
PROVIDERS: ATTEND Internal Medicine Pulmonary Disease
DX: G47.33 Obstructive sleep apnea (adult) (pediatric) (principal); E66.9 Obesity, unspecified; Z68.34 Body mass index [BMI] 34.0-34.9, adult
CPT/HCPCS: 99213; G0463; 99212

== ENCOUNTER 2021-02-23 08:17 | Outpatient (CLI) | payer MEDICARE, OTHER ==
--- NOTE | 2021-02-23 11:29 | XRAY Report ---
PROCEDURE: Wrist 3 View RT INDICATIONS: FRACTURE OF RIGHT RADIUS TECHNIQUE: 3 views of the wrist were acquired. COMPARISON: Plain films dated 01/21/2021 FINDINGS: Bones: Ill-defined lucency traverses the distal radius, new since the prior examination. There is art icular surface extension to the radiocarpal joint.. No suspicious bony lesions. Scaphoid view: None Soft tissues: No suspicious soft tissue calcifications. IMPRESSION: Mildly displaced distal radial fracture. Reviewed by: Rip Silva MD on 02/23/2021 11:27 AM PDT Approved by: Rip Silva MD on 02/23/2021 11:27 AM PDT Station ID: [id number]
== END 2021-02-23 23:59 | disposition home or self-care (01) ==
LOC: DI.N 08:17
PROVIDERS: ATTEND Orthopaedic Surgery
DX: S52.531A Colles' fracture of right radius, initial encounter for closed fracture (principal)

== ENCOUNTER 2021-06-03 08:00 | Outpatient (CLI) | payer MEDICARE, OTHER ==
[2021-06-03 17:56] LABS: BASOPHILS % (AUTO) 0.8 %; EOSINOPHILS # (AUTO) 0.2 10^3/uL (0.0-0.7); EOSINOPHILS % (AUTO) 4.3 %; HCT - HEMATOCRIT 47.2 % (37.0-47.0); LYMPHOCYTES # (AUTO) 1.6 10^3/uL (1.5-3.5); LYMPHOCYTES % (AUTO) 31.4 %; MEAN CORPUSCULAR HEMOGLOBIN 32.4 pg (27.0-31.0); MEAN CORPUSCULAR HGB CONC 31.8 g/dL (32.0-36.0); MEAN CORPUSCULAR VOLUME 101.9 fL (81.0-99.0); MEAN PLATELET VOLUME 9.9 fL (7.9-10.8); MONOCYTES # (AUTO) 0.6 10^3/uL (0.0-1.0); MONOCYTES % (AUTO) 10.8 %; NEUTROPHILS # (AUTO) 2.7 10^3/uL (1.5-6.6); NEUTROPHILS % (AUTO) 52.1 %; PLT - PLATELET COUNT 167 10^3/uL (130-450); RED BLOOD COUNT 4.63 10^6/uL (4.20-5.40); RED CELL DISTRIBUTION WIDTH 13.3 % (12.0-15.0); WHITE BLOOD COUNT 5.1 x10^3/uL (4.8-10.8)
[2021-06-03 18:02] LABS: ALBUMIN 4.6 g/dL (3.2-5.5); ALBUMIN/GLOBULIN RATIO 1.6 (1.0-2.2); BILIRUBIN,TOTAL 0.9 mg/dL (0.2-1.0); CALCIUM 9.4 mg/dL (8.5-10.3); CREATININE 0.8 mg/dL (0.4-1.0); POTASSIUM 4.7 mmol/L (3.5-5.0); TOTAL PROTEIN 7.4 g/dL (6.7-8.2)
== END 2021-06-03 23:59 | disposition home or self-care (01) ==
LOC: LAB.WCP 08:00
PROVIDERS: ATTEND Family Medicine
DX: D80.1 Nonfamilial hypogammaglobulinemia (principal)
CPT/HCPCS: 36415; 80053; 81599; 82784; 84155; 84165; 85025; 86334

== ENCOUNTER 2021-06-29 11:21 | Outpatient (CLI) | payer MEDICARE, OTHER ==
--- NOTE | 2021-06-29 13:12 | SLEEP CARE CONSULTATION ---
Information from patient questionnaire entered by Agatha Hong. I have reviewed and concur with the information entered by Agatha Hong. This document represents the service I personally performed and the decisions made by me, Diana Siu MD, [facility]. History of Present Illness Service Date and Time: 06/29/2021 1121 Previous diagnosis: Very Severe, Obstructive Sleep Apnea-Hypopnea Syndrome AHI: 77.7 (in 2019) Reason for follow up: other (5 months, questions about the CPAP recall) Equipment type: CPAP Equipment obtained from: [employer] Mask style: Full face Prior sleep studies: Yes [facility] and Where: [facility] Type of Sleep Study: Polysomnography HPI additional information: Ms. Orourke was diagnosed to have very severe obstructive sleep apnea-hypopnea syndrome and prescribed with a CPAP device. She returned today for follow up of CPAP therapy after pressure change 5 months ago. The patient purchased the device from [employer] and was fitted with ResMed F30 full face mask. She used the device almost nightly and all through the night until 05/02 when she learned of the [employer] recall. The compliance data show usage in 23 out of the past 30 nights, averaging 4.9 hours a night. The > 4 hour compliance rate for the past 30 days is 46.7%. She complains of no particular problem such as dry throat, facial soreness, aerophagia, sinus pain, or nasal congestion. She thinks that the current pressure of 5 - 10 cmH2O seems comfortable. The residual AHI is 5.8 (was 7.6 before the pressure adjustment). Average time in large leak per day is 1.5 minutes (was 18 seconds). Sleep Study - Results Type of Sleep Study: Polysomnography Prior sleep studies: Yes Year and Where: 2019 - [facility] Subjective Initial [place] Sleepiness Scale score: 11 (in 2019) Allergies and Home Medications Drug allergies reviewed: Yes Home medication list reviewed: Yes Review of Systems Review of systems same as previous: Yes Physical Exam Blood Pressure: 126/60 Heart Rate: 77 O2 Saturation: 92 Height: 5 ft 3 in Weight: 181 lb Body Mass Index: 32.1 BMI Classification: Obese Neck circumference: 15.5 Impression and Plan IMPRESSION: 1. Obstructive Sleep Apnea-Hypopnea Syndrome, very severe, with the patient stopped using her CPAP. She reports not sleeping as well. She will wait for the replacement [facility]. The patient is now also interested the Inspire therapy (hypoglossal nerve stimulation). I explained to her how the treatment works and what involves. PLAN: 1. Restart the treatment when the replacement machine arrives. 2. Try to lose weight. 3. The patient was advised to contact ENT Dr. Diomedes Dejessu in [place] to further discuss the Inspire Therapy. 4. Return for a follow up after a month of using the new machine. Follow up with Sleep Care in: 1 year Visit Type: In Office Time Spent with Patient (minutes): 15 Provider Statement: I spent 100% of the Face to Face Visit with the patient with greater than 50% spent counseling the patient and coordination of care.
[2021-06-29 13:13] VITALS: BP 126/60
== END 2021-06-29 11:22 | disposition home or self-care (01) ==
LOC: SC 11:21
PROVIDERS: ATTEND Internal Medicine Pulmonary Disease
DX: G47.33 Obstructive sleep apnea (adult) (pediatric) (principal); E66.9 Obesity, unspecified; Z68.32 Body mass index [BMI] 32.0-32.9, adult
CPT/HCPCS: 99212; G0463

== ENCOUNTER 2021-07-17 08:00 | Outpatient (CLI) | payer MEDICARE, OTHER ==
[2021-07-17 18:02] LABS: BASOPHILS # (AUTO) 0.1 10^3/uL (0.0-0.1); EOSINOPHILS # (AUTO) 0.2 10^3/uL (0.0-0.7); EOSINOPHILS % (AUTO) 4.3 %; HCT - HEMATOCRIT 47.1 % (37.0-47.0); LYMPHOCYTES # (AUTO) 1.7 10^3/uL (1.5-3.5); LYMPHOCYTES % (AUTO) 32.4 %; MEAN CORPUSCULAR HEMOGLOBIN 32.5 pg (27.0-31.0); MEAN CORPUSCULAR HGB CONC 31.8 g/dL (32.0-36.0); MEAN CORPUSCULAR VOLUME 102.2 fL (81.0-99.0); MEAN PLATELET VOLUME 9.8 fL (7.9-10.8); MONOCYTES # (AUTO) 0.5 10^3/uL (0.0-1.0); MONOCYTES % (AUTO) 10.5 %; NEUTROPHILS # (AUTO) 2.6 10^3/uL (1.5-6.6); NEUTROPHILS % (AUTO) 51.2 %; PLT - PLATELET COUNT 163 10^3/uL (130-450); RED BLOOD COUNT 4.61 10^6/uL (4.20-5.40); RED CELL DISTRIBUTION WIDTH 13.3 % (12.0-15.0); WHITE BLOOD COUNT 5.1 x10^3/uL (4.8-10.8)
[2021-07-17 18:18] LABS: ALBUMIN 4.5 g/dL (3.2-5.5); ALBUMIN/GLOBULIN RATIO 1.5 (1.0-2.2); BILIRUBIN,TOTAL 0.6 mg/dL (0.2-1.0); CALCIUM 9.3 mg/dL (8.5-10.3); CREATININE 0.8 mg/dL (0.4-1.0); POTASSIUM 4.4 mmol/L (3.5-5.0); TOTAL PROTEIN 7.5 g/dL (6.7-8.2)
[2021-07-22 22:31] LABS: ALBUMIN 4.3 g/dL (3.8-4.8); ALPHA 1 GLOBULIN 0.3 g/dL (0.2-0.3); ALPHA 2 GLOBULIN 1.1 g/dL (0.5-0.9); BETA 1 GLOBULIN 0.6 g/dL (0.4-0.6); BETA 2 GLOBULIN 0.2 g/dL (0.2-0.5); GAMMA GLOBULIN 0.5 g/dL (0.8-1.7)
== END 2021-07-17 23:59 | disposition home or self-care (01) ==
LOC: LAB.WCP 08:00
PROVIDERS: ATTEND Family Medicine
DX: D80.1 Nonfamilial hypogammaglobulinemia (principal)
CPT/HCPCS: 36415; 80053; 81599; 82784; 84155; 84165; 85025; 86334

== ENCOUNTER 2021-08-10 13:08 | Outpatient (CLI) | payer MEDICARE, OTHER | END 2021-08-10 13:09 | disposition home or self-care (01) | LOC: LAB 13:08 | PROVIDERS: ATTEND Internal Medicine Hematology & Oncology | DX: D80.1 Nonfamilial hypogammaglobulinemia (principal) | CPT/HCPCS: 81599; 82570; 84156; 84166 ==

== ENCOUNTER 2021-08-19 10:52 | Outpatient (CLI) | payer MEDICARE, OTHER ==
[2021-08-19 11:08] LABS: BASOPHILS % (AUTO) 0.8 %; EOSINOPHILS # (AUTO) 0.2 10^3/uL (0.0-0.7); EOSINOPHILS % (AUTO) 4.2 %; HCT - HEMATOCRIT 44.5 % (37.0-47.0); HGB - HEMOGLOBIN 14.7 g/dL (12.0-16.0); LYMPHOCYTES # (AUTO) 1.9 10^3/uL (1.5-3.5); LYMPHOCYTES % (AUTO) 35.4 %; MEAN CORPUSCULAR HEMOGLOBIN 32.7 pg (27.0-31.0); MEAN CORPUSCULAR VOLUME 98.9 fL (81.0-99.0); MONOCYTES # (AUTO) 0.5 10^3/uL (0.0-1.0); MONOCYTES % (AUTO) 10.2 %; NEUTROPHILS # (AUTO) 2.6 10^3/uL (1.5-6.6); NEUTROPHILS % (AUTO) 49.2 %; PLT - PLATELET COUNT 158 10^3/uL (130-450); RED CELL DISTRIBUTION WIDTH 12.9 % (12.0-15.0); WHITE BLOOD COUNT 5.2 x10^3/uL (4.8-10.8)
== END 2021-08-19 10:53 | disposition home or self-care (01) ==
LOC: LAB 10:52
PROVIDERS: ATTEND Internal Medicine Hematology & Oncology
DX: D80.1 Nonfamilial hypogammaglobulinemia (principal)
CPT/HCPCS: 36415; 85025

== ENCOUNTER 2021-08-31 11:00 | Outpatient (CLI) | payer MEDICARE, OTHER | END 2021-08-31 23:59 | disposition home or self-care (01) | LOC: LAB.WCP 11:00 | PROVIDERS: ATTEND Family Medicine | DX: J44.1 Chronic obstructive pulmonary disease with (acute) exacerbation (principal); Z20.822 Contact with and (suspected) exposure to COVID-19 ==

== ENCOUNTER 2021-09-13 17:05 | Emergency (ER) | payer MEDICARE, OTHER ==
[2021-09-13 17:17] VITALS: BP 127/66
[2021-09-13] MEDS ORDERED: LOPERAMIDE 2 MG CAPSULE PO STA (17:26)
[2021-09-13] MEDS ORDERED: ONDANSETRON 4 MG/2 ML VIAL IVP STA (17:26)
[2021-09-13] MEDS ORDERED: SODIUM CHLORIDE 0.9% 1,000 ML IV STA (17:26)
--- NOTE | 2021-09-13 17:27 | ED Physician Documentation ---
PD HPI ABD PAIN - Stated complaint Stated Complaint: VOMITING,DIARRHEA,LEG CRAMPS - Chief complaint Chief Complaint: Abd Pain - History obtained from History obtained from: Patient (She developed onset of diarrhea and vomiting 3 AM this morning. There is minimal epigastric pain. No sick contacts, recent travel or fevers.) Review of Systems Constitutional: denies: Fever, Chills Cardiac: denies: Chest pain / pressure, Palpitations Respiratory: denies: Dyspnea, Cough PD PAST MEDICAL HISTORY - Past Medical History Cardiovascular: None Respiratory: COPD, Other Neuro: None Endocrine/Autoimmune: None GI: GERD RANGE AID: Miscarriage(s) : Other HEENT: Other Psych: None Musculoskeletal: Osteoarthritis Derm: Herpes zoster - Past Surgical History Past Surgical History: Yes General: Cholecystectomy, Appendectomy, EGD Ortho: Knee replacement, Rotator cuff repair /RANGE AID: Hysterectomy HEENT: Cataracts - Present Medications Home Medications: Ambulatory Orders Medication Instructions Recorded Confirmed Acyclovir 200 mg PO BID 11/19/13 08/07/21 Albuterol [Ventolin Hfa] 2 inhaler INH Q4HR PRN 11/19/13 08/07/21 traZODone [Desyrel] 3 - 4 tab PO HS 11/19/13 08/07/21 Sertraline [Zoloft] 50 - 100 mg PO DAILY 11/20/13 01/09/19 prednisoLONE 1% OPHTH DROPS [Pred 1 drops OPTH QID 11/20/13 01/09/19 Forte] Omeprazole [Prilosec] 40 mg PO BID 02/27/14 08/07/21 Ropinirole HCl 3 mg PO QPM 04/17/18 08/07/21 Benzonatate [Tessalon Perle] 100 mg PO TID PRN 12/28/18 01/09/19 Ferrous Sulfate 325 mg PO ONCE 12/28/18 01/09/19 Fluticasone/Salmeterol [Advair 1 each IH BID 12/28/18 01/09/19 250-50 Diskus] Genteal Pm 1 applic TP QPM 12/28/18 01/09/19 Hydrocortisone Valerate 1 applic TP DAILY 12/28/18 01/09/19 Ibuprofen 800 mg PO DAILY 12/28/18 08/07/21 Magnesium 250 mg PO DAILY 12/28/18 01/09/19 Nystatin 5 ml PO QID 12/28/18 01/09/19 [place]-3/Dha/Epa/Fish Oil [Fish Oil 1 each PO DAILY 12/28/18 01/09/19 1,000 mg Softgel] Tiotropium [place] [Spiriva] 1 cap IH DAILY 12/28/18 01/09/19 Acetaminophen [Tylenol] 650 mg PO Q6H PRN #30 tablet 04/20/19 Nitrofurantoin Monohyd/M-Cryst 100 mg PO BID #10 capsule 04/20/19 [Macrobid 100 mg Capsule] Clindamycin HCl [Clindamycin 300MG 300 mg PO TID #15 capsule 03/24/20 CAP] levoFLOXacin [Levaquin] 500 mg PO DAILY #10 tablet 04/07/20 Amox/Clav 875/125 [Augmentin] 1 each PO Q12H #20 tablet 09/02/20 Ondansetron Odt [Zofran] 4 mg TL Q6H PRN #10 tablet 09/13/21 - Allergies Allergies/Adverse Reactions: Allergies Allergy/AdvReac Type Severity Reaction Status Date / Time Sulfa (Sulfonamide Allergy Mild Rash Verified 01/14/21 15:06 Antibiotics) diphenhydramine Allergy has no Verified 01/14/21 15:06 [From Benadryl] effect doxycycline Allergy Unknown Verified 01/14/21 15:06 NSAIDS (Non-Steroidal Allergy Unknown Verified 01/14/21 15:06 Anti-Inflamma - Social History Does the pt smoke?: No Smoking Status: Former smoker Does the pt drink ETOH?: No Does the pt have substance abuse?: No - Immunizations Immunizations are current?: Yes - POLST Patient has POLST: No PD ED PE NORMAL - Vitals Vital signs reviewed: Yes - General General: Alert and oriented X 3, Other (She appears uncomfortable) - Cardiac Cardiac: RRR, No murmur - Respiratory Respiratory: No respiratory distress, Clear bilaterally - Abdomen Abdomen: Normal bowel sounds, Soft, Non tender - Back Back: No CVA TTP, No spinal TTP - Derm Derm: Normal color, Warm and dry - Extremities Extremities: No edema, No calf tenderness / cord - Neuro Neuro: Alert and oriented X 3, Normal speech Results - Vitals Vitals: Vital Signs - 24 hr 09/13/21 17:11 Temperature 36.7 C Heart Rate 99 Respiratory 18 Rate Blood Pressure 127/66 O2 Saturation 97 Oxygen O2 Source [With Activity] Nasal cannula O2 Source Room air - Labs Labs: Laboratory Tests 09/13/21 17:32 Sodium 134 L Potassium 4.1 Chloride 99 L Carbon Dioxide 22 Anion Gap 13.0 BUN 23 H Creatinine 0.9 Estimated GFR (MDRD) 61 L Glucose 113 H Calcium 9.3 Total Bilirubin 1.4 H AST 30 ALT 36 Alkaline Phosphatase 93 Total Protein 8.1 Albumin 4.6 Globulin 3.5 Albumin/Globulin Ratio 1.3 Lipase 23 PD MEDICAL DECISION MAKING - ED course ED course: 75-year-old woman with vomiting and diarrhea since this morning, benign examination. Seems like simple gastroenteritis. After some IV fluids, Zofran and Imodium she was feeling much better passed an oral challenge and remained nontender. Departure - Departure Disposition: 01 Home, Self Care Clinical Impression: Vomiting Qualifiers: Vomiting type: unspecified Nausea presence: with nausea Qualified Code(s): R11.2 - Nausea with vomiting, unspecified Diarrhea Qualifiers: Diarrhea type: presumed infectious Qualified Code(s): R19.7 - Diarrhea, unspecified Condition: Good Record reviewed to determine appropriate education?: Yes Instructions: ED Nausea Vomiting Prescriptions: Ondansetron Odt [Zofran] 4 mg TL Q6H PRN #10 tablet PRN Reason: Nausea / Vomiting Comments: Return tomorrow by noon if not better, anytime if worsening. Usually this type of syndrome is from a viral illness, consider yourself to be contagious for the next couple of days and wash your hands well.
[2021-09-13 17:49] LABS: ALBUMIN 4.6 g/dL (3.2-5.5); ALBUMIN/GLOBULIN RATIO 1.3 (1.0-2.2); BILIRUBIN,TOTAL 1.4 mg/dL (0.2-1.0); CALCIUM 9.3 mg/dL (8.5-10.3); CREATININE 0.9 mg/dL (0.4-1.0); POTASSIUM 4.1 mmol/L (3.5-5.0); TOTAL PROTEIN 8.1 g/dL (6.7-8.2)
[2021-09-13] MEDS ORDERED: ONDANSETRON ODT 4 MG Prepack 2 TL STA (18:18)
== END 2021-09-13 18:51 | disposition home or self-care (01) ==
LOC: ED 17:05
DX: R11.2 Nausea with vomiting, unspecified (principal); R19.7 Diarrhea, unspecified; Z87.891 Personal history of nicotine dependence
CPT/HCPCS: 36415; 80053; 83690; 96374; 99283; A9270

== ENCOUNTER 2021-09-24 09:14 | Outpatient (CLI) | payer MEDICARE, OTHER ==
[2021-09-24 11:59] LABS: BASOPHILS % (AUTO) 0.5 %; EOSINOPHILS # (AUTO) 0.1 10^3/uL (0.0-0.7); EOSINOPHILS % (AUTO) 1.3 %; HCT - HEMATOCRIT 43.6 % (37.0-47.0); HGB - HEMOGLOBIN 14.5 g/dL (12.0-16.0); LYMPHOCYTES # (AUTO) 1.1 10^3/uL (1.5-3.5); LYMPHOCYTES % (AUTO) 28.4 %; MEAN CORPUSCULAR HEMOGLOBIN 32.6 pg (27.0-31.0); MEAN CORPUSCULAR HGB CONC 33.3 g/dL (32.0-36.0); MEAN PLATELET VOLUME 9.3 fL (7.9-10.8); MONOCYTES # (AUTO) 0.6 10^3/uL (0.0-1.0); MONOCYTES % (AUTO) 15.3 %; NEUTROPHILS # (AUTO) 2.1 10^3/uL (1.5-6.6); NEUTROPHILS % (AUTO) 54.5 %; PLT - PLATELET COUNT 133 10^3/uL (130-450); RED BLOOD COUNT 4.45 10^6/uL (4.20-5.40); RED CELL DISTRIBUTION WIDTH 13.3 % (12.0-15.0); WHITE BLOOD COUNT 3.9 x10^3/uL (4.8-10.8)
[2021-09-24 12:19] LABS: ALBUMIN/GLOBULIN RATIO 1.3 (1.0-2.2); BILIRUBIN,TOTAL 0.6 mg/dL (0.2-1.0); CALCIUM 9.1 mg/dL (8.5-10.3); CREATININE 0.8 mg/dL (0.4-1.0); TOTAL PROTEIN 7.2 g/dL (6.7-8.2)
== END 2021-09-24 23:59 | disposition home or self-care (01) ==
LOC: LAB.WCP 09:14
PROVIDERS: ATTEND Family Medicine
DX: U07.1 COVID-19 (principal); K29.70 Gastritis, unspecified, without bleeding; J44.1 Chronic obstructive pulmonary disease with (acute) exacerbation
CPT/HCPCS: 36415; 80053; 83690; 85025; U0004

== ENCOUNTER 2021-10-01 16:53 | Emergency (ER) | payer MEDICARE, OTHER | END 2021-10-01 18:27 | disposition home or self-care (01) | LOC: ED 16:53 | DX: Z53.21 Procedure and treatment not carried out due to patient leaving prior to being seen by health care provider (principal) ==

== ENCOUNTER 2021-12-09 11:41 | Outpatient (CLI) | payer MEDICARE, OTHER | END 2021-12-09 23:59 | disposition left against medical advice (07) | LOC: EMS 11:41 | DX: S00.81XA Abrasion of other part of head, initial encounter (principal); W18.30XA Fall on same level, unspecified, initial encounter; Y92.002 Bathroom of unspecified non-institutional (private) residence as the place of occurrence of the external cause ==

== ENCOUNTER 2021-12-10 18:01 | Outpatient (CLI) | payer MEDICARE, OTHER ==
--- NOTE | 2021-12-10 18:50 | XRAY Report ---
PROCEDURE: Cervical Spine 2 View INDICATIONS: NECK PAIN,ACUTE TECHNIQUE: 4 view(s) of the cervical spine were acquired. COMPARISON: None. FINDINGS: Bones: No acute fractures or dislocations to the T1 level. The lateral masses of C1 appear intact o n the odontoid view. No suspicious bony lesions. Multilevel disc space narrowing and degenerative e ndplate changes are seen as well as facet and uncovertebral joint hypertrophy. Soft tissues: No prevertebral soft tissue swelling. IMPRESSION: No acute osseous abnormality. Moderate multilevel spondylosis. Reviewed by: Jaswinder Horn MD on 12/10/2021 5:49 PM [facility] Approved by: Jaswinder Horn MD on 12/10/2021 5:49 PM [facility] Station ID: [id number]
== END 2021-12-10 18:02 | disposition home or self-care (01) ==
LOC: DI 18:01
PROVIDERS: ATTEND Family Medicine
DX: M47.812 Spondylosis without myelopathy or radiculopathy, cervical region (principal); M50.30 Other cervical disc degeneration, unspecified cervical region; S06.0X0A Concussion without loss of consciousness, initial encounter; Z91.81 History of falling

== ENCOUNTER 2021-12-10 18:02 | Outpatient (CLI) | payer MEDICARE, OTHER ==
--- NOTE | 2021-12-10 18:40 | CT Report ---
PROCEDURE: HEAD WO INDICATIONS: CONCUSSION WITHOUT LOC TECHNIQUE: Noncontrast 4.5 mm thick angled axial sections acquired from the foramen magnum to the vertex. For r adiation dose reduction, the following was used: automated exposure control, adjustment of mA and/or kV according to patient size. COMPARISON: None. FINDINGS: Image quality: Excellent. CSF spaces: Basal cisterns are patent. No extra-axial fluid collections. Ventricles are normal in size and shape. Brain: No midline shift. No intracranial masses or hemorrhage. No area of hypodensity in a vascula r distribution to suggest acute infarction. There is periventricular hypodensity consistent with chronic manager janet microvascular ischemic disease. Age-related parenchymal loss. Skull and face: Calvarium and visualized facial bones are intact, without suspicious lesions. Small contusion at the left paramedian forehead is suspected. Sinuses: Visualized sinuses and mastoids are clear. IMPRESSION: No acute intracranial abnormality. Reviewed by: Kb Keys MD on 12/10/2021 6:39 PM PDT Approved by: Kb Keys MD on 12/10/2021 6:39 PM PDT Station ID: [id number]
== END 2021-12-10 18:03 | disposition home or self-care (01) ==
LOC: DI 18:02
PROVIDERS: ATTEND Family Medicine
DX: S06.0X0A Concussion without loss of consciousness, initial encounter (principal); Z91.81 History of falling

== ENCOUNTER 2021-12-29 17:38 | Outpatient (CLI) | payer MEDICARE, OTHER ==
--- NOTE | 2021-12-30 12:34 | XRAY Report ---
PROCEDURE: Chest 2 View X-Ray INDICATIONS: CHEST PAIN TECHNIQUE: 2 view(s) of the chest. COMPARISON: Chest x-ray 10/03/2019 FINDINGS: Surgical changes and devices: None. Lungs and pleura: No pleural effusions or pneumothorax. Lungs are clear. Mediastinum: Mediastinal contours are normal. Heart size is normal. Bones and chest wall: No suspicious bony abnormalities. Soft tissues appear unremarkable. IMPRESSION: No acute pulmonary process. Reviewed by: Penelope Brooks MD on 12/30/2021 12:32 PM PDT Approved by: Penelope Brooks MD on 12/30/2021 12:32 PM PDT Station ID: [id number]
== END 2021-12-29 17:39 | disposition home or self-care (01) ==
LOC: DI 17:38
PROVIDERS: ATTEND Family Medicine
DX: R07.9 Chest pain, unspecified (principal)

== ENCOUNTER 2022-01-12 08:46 | Outpatient (CLI) | payer MEDICARE, OTHER ==
[2022-01-12] MEDS ORDERED: REGADENOSON 0.4 MG/5 ML SYRINGE IVP ONE (11:04)
--- NOTE | 2022-01-12 11:15 | CARDIAC PROCEDURE NOTE ---
Stress Test Report Service Date: 01/12/22 Service Time: 09:00 Ordering Provider: Yumiko Farris DO Indication for Test: Assess chest discomfort. Significant Medical History: Raegan is referred for a walking Lexiscan stress MPS today to evaluate episodic chest discomfort. She comments that on a couple of occasions remotely she awakened from different surgical procedures with chest pressure and she did have an exercise stress imaging study approximately 12 years ago that was unremarkable. More recently she reports 2 episodes of awakening in the middle of the night feeling "like I was hit in the chest with a fist". On one of these occasions she experienced an episode of severe vertigo with nausea and diarrhea, which has been a separate and progressive issue, for which she was recently evaluated by an ENT physician who diagnosed this condition as BPPV; she awaits a "Canalith repositioning procedure" in the near future. She is unable to tell me how long the chest pain lasted during these 2 occasions, but she does not believe that she had significant diaphoresis or increased work of breathing. She has some exertional limitation due to the vertigo episodes and general imbalance for which she uses a cane, but she does not feel that she has had a superimposed decrement in exercise tolerance, nor has she experienced any recent chest discomfort during the daytime hours, nor with physical activity. She is scheduled to see a card fixer (Dr Joaquin) at the [facility] on January 21. As she understands it, this visit was scheduled prior to the ENT visit and was intended to address a possible cardiac basis for both her dizziness and chest discomfort. Cardiac Risk Factors: Positive for untreated hyperlipidemia; has 40 pack year tobacco smoking history but quit 20 yrs ago. Negative for hypertension, diabetes and known family history of CAD. Type of Stress Test: Pharmacologic Stress Test with MPI Pharmacologic Agent: Lexiscan Procedure: -Pharmacologic Stress Test- After signing informed consent, the patient underwent rest SPECT imaging and then performed a walking Lexiscan pharmacologic stress test. After obtaining resting vital signs and EKG (resting), the patient walked for 2 minutes (without elevation) at 1.0 mph ("baseline") followed by injection of Lexiscan and high dose 99Tc-Myoview with an additional 2 minutes of walking ("peak" reassessment) followed by monitoring for an additional 4 minutes ("recovery"). The test was terminated due to completing the protocol. Resting HR: 62 Baseline HR: 75 Peak HR: 90 Normal HR response to walking/Lexiscan. Resting BP: 129/70 Baseline BP: 122/66 Peak BP: 171/59 Exaggerated systolic BP increase with Lexiscan and continued walking. Rhythm during testing: Sinus rhythm throughout. Symptoms: Following Lexiscan injection she described chest heaviness, that was reminiscent of the feeling she described upon awakening from surgery/anesthesia in the past, with full resolution in 4-5 minutes EKG at rest showed normal sinus rhythm, normal in all aspects. EKG at peak stress showed no ischemia by EKG criteria. In Recovery HR and BP normally returned to baseline levels at 4:00. Nuclear imaging was performed at rest and with stress. The image interpretation will be reported separately. IFredrick MD, was present throughout this walking Lexiscan stress study and supervised it in its entirety. Summary: 1) Normal resting EKG. 2) Adequate stress was likely achieved. 3) Exaggerated systolic BP response to Lexiscan with continued walking. 4) No ischemic changes by EKG criteria were seen at peak stress. 5) Analysis of gated nuclear images reveals normal left ventricular size and systolic function; SPECT analysis reveals a small anteroapical defect, that appears qualitatively similar on supine stress, prone stress and rest images. Most likely this represents an attenuation artifact, though a small infarct cannot be definitively excluded; there is no inducible ischemia. See separate report for more detail. CONCLUSIONS: 1) Patient experienced chest heaviness that was different from recent episodes that prompted the study; rapid resolution in early Recovery and lack of ST changes are consistent with symptoms representing an adverse Lexiscan reaction. 2) Low risk myocardial perfusion images, with a small defect that likely is due to an attenuation artifact. 3) We discussed that, given her recent diagnosis of BPPV by her ENT physician and planned upcoming treatment, should the MPS images be low risk/not showing ischemia, then it may be reasonable to defer the upcoming card fixer visit.
[2022-01-12] MEDS: REGADENOSON 0.4 MG/5 ML SYRINGE IVP ONE (11:25)
--- NOTE | 2022-01-12 14:58 | Nuclear Medicine Report ---
PROCEDURE: Rest and exercise myocardial perfusion SPECT with gated imaging and ejection fraction INDICATIONS: CHEST PAIN/ LEXISCAN RADIOPHARMACEUTICAL: 11.8 mCi Tc-99m Myoview IV at rest and 28.5 mCi Tc-99m Myoview IV at peak exerc ise. [id number] was performed. TECHNIQUE: Radiopharmaceutical was injected at peak stress test, and also at rest. SPECT images wer e obtained. SPECT myocardial perfusion images were displayed in short axis, horizontal long axis, an d vertical long axis views. Gated images were reviewed using Auto[employer] software. COMPARISON: Report, Myocardial perfusion scan, 05/08/2009. FINDINGS: Raw data: There is good myocardial labeling by radiotracer. No significant motion artifacts. Lung- to-heart ratio is 0.31 (normal is less than 0.46 for tetrafosmin tracer). Left ventricle function: Gated images demonstrate normal left ventricle wall thickening. No segment al wall motion abnormality. No transient ischemic dilation; TID is 0.98 (normal less than 1.30). Th e left ventricle resting end-diastolic volume is 59 mL. Left ventricle stress ejection fraction is > 70%; normal values are above 45%. Myocardial perfusion: There is a small, mild, fixed defect in the anteroseptal apex, most likely cau sed by attenuation artifact. There is otherwise normal distribution of activity in the left and right ventricular myocardium. No reversible perfusion defects to suggest myocardial ischemia. IMPRESSION: 1. Probably normal myocardial perfusion images. A small, mild, fixed defect in the anteroseptal apex is present, most likely caused by attenuation artifact. A small myocardial infarctions felt less like ly but not completely excluded. 2. No perfusion defect to suggest myocardial ischemia or infarct. 3. Normal left ventricular volume and systolic function. 4. Please correlate with stress EKG report. PQRS ATTESTATIONS: Measure 322 - Is this imaging test primarily performed on a low-risk surgery patient for preoperative evaluation within 30 days preceding their low-risk non-cardiac surgery? Low-risk surgery is defined as cardiac or myocardial infarction less than 1%, including (but not limited to) endoscopic pr ocedures, superficial procedures, cataract surgery, and excisional breast surgery: Answer: No Measure 323 - Is this imaging test performed primarily for the monitoring of an asymptomatic patient who had percutaneous coronary intervention on the visit date or within 2 years of the visit date? An swer: No Measure 324 - Is this imaging test performed primarily for the initial detection and risk assessment on an asymptomatic, low coronary heart disease patient? Low CHD risk definition = clinicians should consider the maximum number of available patient factors used to estimate risk based on Muir (A TP III criteria), typically age, gender, diabetes, smoking status, and use of blood pressure medicati on, and integrate age appropriate estimates for missing elements, such as LDL or standard blood press ure. Answer: No Reviewed by: Alisha Pascual MD on 01/12/2022 2:56 PM PDT Approved by: Alisha Pascual MD on 01/12/2022 2:56 PM PDT Station ID: [id number]
== END 2022-01-12 08:47 | disposition home or self-care (01) ==
LOC: DI 08:46
PROVIDERS: ATTEND Family Medicine
DX: R07.9 Chest pain, unspecified (principal); E78.5 Hyperlipidemia, unspecified; Z87.891 Personal history of nicotine dependence
CPT/HCPCS: 78452; 93016; 93017; 93018; A9500; J2785

== ENCOUNTER 2022-09-20 15:32 | Outpatient (CLI) | payer MEDICARE, OTHER ==
--- NOTE | 2022-09-20 19:05 | XRAY Report ---
PROCEDURE: Chest 2 View X-Ray INDICATIONS: ACUTE UPPER RESPIRATORY INFECTION,UNSPECIFIED TECHNIQUE: 2 views of the chest were acquired. COMPARISON: 12/29/2021 FINDINGS: Surgical changes and devices: Cholecystectomy clips are seen. Lungs and pleura: No pleural effusions or pneumothorax. Lungs are clear. Mediastinum: The aorta is prominent and tortuous. The cardiac contours are within normal limits. Bones and chest wall: No suspicious bony abnormalities. Age-appropriate degenerative changes are see n. Soft tissues appear unremarkable. IMPRESSION: No focal infiltrates are seen. Postoperative and degenerative changes are seen. Reviewed by: Devyn Louis MD on 09/20/2022 6:03 PM [facility] [[email or web address]] Approved by: Devyn Louis MD on 09/20/2022 6:03 PM [facility] [[email or web address]] Station ID: [id number]
== END 2022-09-20 15:33 | disposition home or self-care (01) ==
LOC: DI 15:32
PROVIDERS: ATTEND Nurse Practitioner
DX: J06.9 Acute upper respiratory infection, unspecified (principal); M19.09 Primary osteoarthritis, other specified site

== ENCOUNTER 2022-10-04 08:50 | Outpatient (CLI) | payer MEDICARE, OTHER ==
--- NOTE | 2022-10-05 11:52 | Mammography Report ---
BILATERAL DIGITAL SCREENING MAMMOGRAM 3D/2D: 10/04/2022 CLINICAL: Routine screening. Comparison is made to exams dated: 01/06/2015 mammogram, 07/22/2016 mammogram, and 01/04/2014 mammogram - [facility]. Both breasts are heterogeneously dense, which may obscure small masses (category c / 51-75% glandular tissue). No significant masses, calcifications, or other findings are seen in either breast. There has been no significant interval change. IMPRESSION: NEGATIVE There is no mammographic evidence of malignancy. A 1 year screening mammogram is recommended. Based on the Tyrer Cuzick model (a risk assessment model) the patients lifetime risk is 3.2% and her 10 year risk is 0.0%. According to the ACR, ACS, and NCCN guidelines, an annual breast MRI exam kel g with mammogram is recommended if the patients lifetime risk is 20% or greater. This exam was interpreted at Station ID: [id number]. NOTE: For mammograms, a report in lay terms will be sent to the patient. Approximately 15% of breast malignancies will not be visualized mammographically. In the management of a palpable breast mass, a negative mammogram must not discourage biopsy of a clinically suspicious lesion. Electronically Signed By: Jaswinder hall/natasha:10/04/2022 15:57:57 ACR BI-RADS Category 1: Negative 3341F PARENCHYMAL PATTERN: (D) - The breast(s) demonstrate(s) heterogeneously dense fibroglandular yaz arellano. BI-RADS CATEGORY: (1) - 1 RECOMMENDATION: (ANNUAL) - Recommend routine annual screening mammography. [id number] 1 year screening LATERALITY: (B)
== END 2022-10-04 08:51 | disposition home or self-care (01) ==
LOC: DI 08:50
DX: Z12.31 Encounter for screening mammogram for malignant neoplasm of breast (principal)

== ENCOUNTER 2022-12-23 10:58 | Outpatient (CLI) | payer MEDICARE, OTHER | END 2022-12-23 23:59 | disposition critical access hospital (66) | LOC: EMS 10:58 | DX: R55 Syncope and collapse (principal); R42 Dizziness and giddiness; R11.0 Nausea | CPT/HCPCS: A0425; A0427 ==

== ENCOUNTER 2022-12-23 11:04 | Emergency (ER) | payer MEDICARE, OTHER ==
--- NOTE | 2022-12-23 11:15 | ED Physician Documentation ---
PD HPI SYNCOPE - Stated complaint Stated Complaint: SYNCOPAL EPISODE - History obtained from History obtained from: Patient, Family, EMS - History of Present Illness Witnessed: Witnessed Timing - onset: Today (she was gettin PT on neck for vertigo and was lying. when session done, she sat up and severe vertigo and also lightheaded/pale and had LOC for perhaps few seconds per . No headahce.) Duration: Seconds Preceding symptoms: Nausea / vomiting (nuases markedly with vertigo from position change.), Light headed. No: Headache, Abdominal pain Associated symptoms: No: Headache, Vision changes Contributing factors: Noxious stimulae, Just stood up (not stood but went from flat lying for the prior 30 minutes, to sitting up abruptly.). No: Recent med change, Decreased PO intake Similar symptoms before: No diagnosis (had had vertigo for weeks/months and being eval by ENT. Has had Vikas maneuvers tried without success. Was on brief steroid dosing without improvement. No current motion sickness meds though.) Recently seen: Emergency Dept (she states seen couple weeks ago at [facility] (I believe) for vertigo/confusion and had CT/MRI/labs and was told she had small from CVA (unclear if acute or prior, might have been incidental finding in eval of vertigo/cerebellar process).) Review of Systems Constitutional: denies: Fever, Chills Nose: denies: Rhinorrhea / runny nose, Congestion Throat: denies: Sore throat Respiratory: denies: Cough GI: reports: Nausea. 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: Hysterectomy HEENT: Cataracts - Present Medications Home Medications: Ambulatory Orders Medication Instructions Recorded Confirmed Acyclovir 200 mg PO BID 11/19/13 11/13/21 Albuterol [Ventolin Hfa] 2 inhaler INH Q4HR PRN 11/19/13 11/13/21 traZODone [Desyrel] 3 - 4 tab PO HS 11/19/13 11/13/21 Sertraline [Zoloft] 50 - 100 mg PO DAILY 11/20/13 11/13/21 prednisoLONE 1% OPHTH DROPS [Pred 1 drops OPTH QID 11/20/13 11/13/21 Forte] Omeprazole [Prilosec] 40 mg PO BID 02/27/14 11/13/21 Ropinirole HCl 3 mg PO QPM 04/17/18 11/13/21 Benzonatate [Tessalon Perle] 100 mg PO TID PRN 12/28/18 11/13/21 Ferrous Sulfate 325 mg PO ONCE 12/28/18 11/13/21 Fluticasone/Salmeterol [Advair 1 each IH BID 12/28/18 11/13/21 250-50 Diskus] Genteal Pm 1 applic TP QPM 12/28/18 11/13/21 Hydrocortisone Valerate 1 applic TP DAILY 12/28/18 11/13/21 Ibuprofen 800 mg PO DAILY 12/28/18 11/13/21 Magnesium 250 mg PO DAILY 12/28/18 11/13/21 Nystatin 5 ml PO QID 12/28/18 11/13/21 [place]-3/Dha/Epa/Fish Oil [Fish Oil 1 each PO DAILY 12/28/18 11/13/21 1,000 mg Softgel] Tiotropium [place] [Spiriva] 1 cap IH DAILY 12/28/18 11/13/21 Acetaminophen [Tylenol] 650 mg PO Q6H PRN #30 tablet 04/20/19 11/13/21 Nitrofurantoin Monohyd/M-Cryst 100 mg PO BID #10 capsule 04/20/19 11/13/21 [Macrobid 100 mg Capsule] Clindamycin HCl [Clindamycin 300MG 300 mg PO TID #15 capsule 03/24/20 11/13/21 CAP] levoFLOXacin [Levaquin] 500 mg PO DAILY #10 tablet 04/07/20 11/13/21 Amox/Clav 875/125 [Augmentin] 1 each PO Q12H #20 tablet 09/02/20 11/13/21 Ondansetron Odt [Zofran] 4 mg TL Q6H PRN #10 tablet 09/13/21 11/13/21 Meclizine HCl [Motion Sickness] 25 mg PO Q6H PRN #30 tablet 12/23/22 diazePAM [Valium] 5 mg PO BID PRN #20 tablet 12/23/22 - Allergies Allergies/Adverse Reactions: Allergies Allergy/AdvReac Type Severity Reaction Status Date / Time Sulfa (Sulfonamide Allergy Mild Rash Verified 01/14/21 15:06 Antibiotics) diphenhydramine Allergy has no Verified 01/14/21 15:06 [From Benadryl] effect doxycycline Allergy Unknown Verified 01/14/21 15:06 NSAIDS (Non-Steroidal Allergy Unknown Verified 01/14/21 15:06 Anti-Inflamma - Social History Does the pt smoke?: No Smoking Status: Former smoker Does the pt drink ETOH?: No Does the pt have substance abuse?: No - Immunizations Immunizations are current?: Yes - POLST Patient has POLST: No PD ED PE NORMAL - Vitals Vital signs reviewed: Yes - General General: Alert and oriented X 3, No acute distress, Well developed/nourished - HEENT HEENT: Atraumatic, PERRL, EOMI (but with some nystagmus to right with head movement. Improves rested. 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, No motor deficit, No sensory deficit, Normal speech Results - Vitals Vitals: Vital Signs - 24 hr 12/23/22 12/23/22 12/23/22 13:06 14:01 15:34 Heart Rate 60 56 L Heart Rate [ 59 L Supine] Respiratory 27 H 21 Rate Blood Pressure 141/70 H 124/67 Blood Pressure 135/72 H [Supine] O2 Saturation 94 97 12/23/22 12/23/22 15:35 18:09 Heart Rate 58 L Heart Rate [ 60 Supine] Respiratory 16 Rate Blood Pressure 151/82 H Blood Pressure 136/70 H [Supine] O2 Saturation 97 Oxygen O2 Source [With Activity] Nasal cannula O2 Source Room air - EKG (time done) 11:16 EKG releavant findings:: EKG personally interpreted by author of this note. Relevant findings are: Rate: Rate (enter#) (60) Rhythm: NSR [place]: Normal Intervals: Normal ND QRS: Normal Ischemia: Normal ST segments. No: ST elevation c/w ischemia, ST depression - Labs Labs: Laboratory Tests 12/23/22 12/23/22 12/23/22 12:01 12:01 12:01 WBC 4.6 L RBC 4.27 Hgb 13.9 Hct 43.3 MCV 101.4 H MCH 32.6 H MCHC 32.1 RDW 12.9 Plt Count 132 MPV 9.3 Neut # (Auto) 1.9 Lymph # (Auto) 1.6 [place] # (Auto) 0.7 Eos # (Auto) 0.4 Baso # (Auto) 0.0 Absolute Nucleated RBC 0.00 Nucleated RBC % 0.0 Sodium 142 Potassium 4.0 Chloride 108 Carbon Dioxide 28 Anion Gap 6.0 BUN 17 Creatinine 0.7 Estimated GFR (MDRD) 81 L Glucose 89 Calcium 9.0 Magnesium 2.3 Total Bilirubin 1.3 H AST 44 H ALT 59 Alkaline Phosphatase 225 H Troponin I High Sens 4.0 Total Protein 6.9 Albumin 3.7 Globulin 3.2 Albumin/Globulin Ratio 1.2 Lipase 36 PD Medical Decision Making - ED course Complexity details: reviewed results, considered differential (has had vertigo and is seeing pt for that, also appt with [facility] for eval. Had TIA symptoms 2 weeks ago with eval by CT/A and MRI per patient/. Small "minim-stroke" per them with some MRI finding frontal area. Has had worse vertigo since. had severe vertigo/ brief syncope postural today.), d/w patient Reviewed Lab Results: ECG done here is normal. Labs are okay without electrolyte problems, and glucose is normal range. Negative troponin. recent CVA eval done at [facility] and I don't have access to those CT/MRI reports, taking the info from patient and . She has had vertigo for weeks/months, and is getting PT and ENT eval for those. Was getting PT today with neck muscle work (not getting Vikas maneuvers) but was not forceul. She was flat. When got up to sitting, was abruptly severely vertigo but also felt lightheaded and had altered mentation per . brief LOC for few seconds possible. Now with severe vertigo on head movement and trying to sit up. I considered imiaging but did not in lieu of having cta and MRI just recently with verbal result from patient/. they state she had frontal small "mini- stroke". Had pre-existing vertigo to that and no cerebellar changes per patient. I felt repeat imiaging not needed at this point, as most c/w peripheral vertigo Did ECG, labs, vitals for eval of apparent brief syncope. No acute process. Drug Therapy Requiring Monitoring for Toxicity: she is still having marked vertigo with sitting up. I inclined head of bed some and with symptoms too. Given IV valium and PO meclizine for this and was only mildly better after time for it to work. Repeat dose of diazepam given. She is more sleepy but still conversant and with good vitals/resp effort. The vertigo did dissipate enough for her to get up slowly and she/ headed home. Wheelchair assisted out to car but able to tolerate sitting position well enough. Departure - Departure Disposition: 01 Home, Self Care Clinical Impression: Postural syncope, Positional vertigo Condition: Stable Instructions: ED Syncope Vasovagal, ED Vertigo Unspecified Follow-Up: [facility] [Provider Group] Enoc Leonard MD [Primary Care Provider] - Prescriptions: Meclizine HCl [Motion Sickness] 25 mg PO Q6H PRN #30 tablet PRN Reason: Vertigo diazePAM [Valium] 5 mg PO BID PRN #20 tablet PRN Reason: Vertigo Comments: You can use a combination of meclizine and diazepam to help with the vertigo. Moves slowly and get up slowly. Follow-up with [facility] as planned regarding this. Continue your other usual medicines. I sent your prescription to your preferred pharmacy. Discharge Date/Time: 12/23/22 18:10
[2022-12-23] MEDS ORDERED: SODIUM CHLORIDE 0.9% 500 ML IV STA (11:43)
[2022-12-23 12:07] LABS: BASOPHILS % (AUTO) 0.9 %; EOSINOPHILS # (AUTO) 0.4 10^3/uL (0.0-0.7); EOSINOPHILS % (AUTO) 8.2 %; HCT - HEMATOCRIT 43.3 % (37.0-47.0); HGB - HEMOGLOBIN 13.9 g/dL (12.0-16.0); LYMPHOCYTES # (AUTO) 1.6 10^3/uL (1.5-3.5); LYMPHOCYTES % (AUTO) 35.3 %; MEAN CORPUSCULAR HEMOGLOBIN 32.6 pg (27.0-31.0); MEAN CORPUSCULAR HGB CONC 32.1 g/dL (32.0-36.0); MEAN CORPUSCULAR VOLUME 101.4 fL (81.0-99.0); MEAN PLATELET VOLUME 9.3 fL (7.9-10.8); MONOCYTES # (AUTO) 0.7 10^3/uL (0.0-1.0); MONOCYTES % (AUTO) 14.7 %; NEUTROPHILS # (AUTO) 1.9 10^3/uL (1.5-6.6); PLT - PLATELET COUNT 132 10^3/uL (130-450); RED BLOOD COUNT 4.27 10^6/uL (4.20-5.40); RED CELL DISTRIBUTION WIDTH 12.9 % (12.0-15.0); WHITE BLOOD COUNT 4.6 x10^3/uL (4.8-10.8)
[2022-12-23 12:19] LABS: ALBUMIN 3.7 g/dL (3.2-5.5); ALBUMIN/GLOBULIN RATIO 1.2 (1.0-2.2); BILIRUBIN,TOTAL 1.3 mg/dL (0.2-1.0); CREATININE 0.7 mg/dL (0.4-1.0); MAGNESIUM 2.3 mg/dL (1.7-2.8); TOTAL PROTEIN 6.9 g/dL (6.7-8.2)
--- OUTSIDE RECORDS SUMMARY | 2022-12-23 13:12 | EXTERNAL MEDICAL SUMMARY RPT | Continuity of Care Document ---
:1945 Author Organization [place] Address [address] [place] [address] Phone Care Team Providers Name Role Phone Unavailable Unavailable Unavailable Yumiko Farris Unavailable Unavailable Allergies and Intolerances date description facility type (no date) Sulf[facility] Encounters No information. Functional Status No information. Immunizations No information. Medications date description facility 2022-12-03 00:00 Aspirin [facility] 2022-12-03 00:00 Cephalexin [facility] 2022-12-03 00:00 Atorvastatin [facility] 2022-12-03 00[facility] Problems date description facility 2022-12-02 00:00 Cerebrovascular accident (CVA) [facility] 2022-12-02 00:00 Vertigo [facility] 2022-12-02 10:17 Unspecified lack of coordination [facility] 2022-12-02 10:17 Concussion without loss of consciousnes [facility] initial encounter 2022-12-03 15:46 Cerebral infarction, unspecified [facility] 2022-12-03 16:10 Cerebral infarction, unspecified [facility] 2022-12-03 17:31 Cerebral infarction, unspecified [facility] 2022-12-03 17:41 Cerebral infarction, unspecified [facility] 2022-12-06 07:29 Cerebral infarction, unspecified [facility] 2022-12-06 13:17 Cerebral infarction, unspecified [facility] Procedures date description facility 2022-12-02 00:00 Magnetic resonance imaging of head with out [facility] contrast 2022-12-02 00:00 X-ray of chest, single view [facility] 2022-12-03 00:00 Complete echocardiography with Def[facility] contrast 2022-12-02 00:00 Computed tomography angiography of head and [facility] neck vessels with contrast Results/Labs test date author facility value unit interpret ation Result panel 1 (unknown[facility]no [facility]) Result panel 2 (unknown) (no date) (unknown[facility] Result panel 3 (unknown) (no date) (unknown[facility] Result panel 4 (unknown) (no date) (unknown[facility] Result panel 5 (unknown) (no date) (unknown[facility] Result panel 6 (unknown) (no date) (unknown[facility] Result panel 7 (unknown) (no date) (unknown[facility] Result panel 8 (unknown) (no date) (unknown[facility] Result panel 9 (unknown) (no date) (unknown[facility] Result panel 10 (unknown) (no date) (unknown[facility] Result panel 11 (unknown) (no date) (unknown[facility] Result panel 12 (unknown) (no date) (unknown[facility] Result panel 13 (unknown) (no date) (unknown[facility] Result panel 14 (unknown) (no date) (unknown[facility] Result panel 15 (unknown) (no date) (unknown[facility] Result panel 16 (unknown) (no date) (unknown[facility] Result panel 17 (unknown) (no date) (unknown[facility] Result panel 18 (unknown) (no date) (unknown[facility] Result panel 19 (unknown) (no date) (unknown[facility] Result panel 20 (unknown) (no date) (unknown[facility] Result panel 21 (unknown) (no date) (unknown[facility] Result panel 22 (unknown) (no date) (unknown[facility] Result panel 23 (unknown) (no date) (unknown[facility] Result panel 24 (unknown) (no date) (unknown[facility]) Result panel 25 (unknown) (no date) (unknown[facility] Result panel 26 (unknown) (no date) (unknown[facility] Result panel 27 (unknown) (no date) (unknown[facility] Result panel 28 (unknown) (no date) (unknown[facility] Result panel 29 (unknown) (no date) (unknown[facility] Result panel 30 (unknown) (no date) (unknown[facility] Result panel 31 (unknown) (no date) (unknown[facility] Result panel 32 (unknown) (no date) (unknown[facility] Result panel 33 (unknown) (no date) (unknown[facility] Result panel 34 (unknown) (no date) (unknown[facility]) Result panel 35 (unknown) (no date) (unknown[facility] Result panel 36 (unknown) (no date) (unknown[facility] Result panel 37 (unknown) (no date) (unknown[facility] Result panel 38 (unknown) (no date) (unknown[facility] Result panel 39 (unknown) (no date) (unknown[facility] Result panel 40 (unknown) (no date) (unknown[facility] Result panel 41 (unknown) (no date) (unknown[facility] Result panel 42 (unknown) (no date) (unknown[facility] Result panel 43 (unknown) (no date) (unknown[facility] Result panel 44 (unknown) (no date) (unknown[facility] Result panel 45 (unknown) (no date) (unknown[facility] Result panel 46 (unknown) (no date) (unknown[facility] Result panel 47 (unknown) (no date) (unknown[facility] Result panel 48 (unknown) (no date) (unknown[facility] Result panel 49 (unknown) (no date) (unknown[facility] Result panel 50 (unknown) (no date) (unknown[facility] Result panel 51 (unknown) (no date) (unknown[facility] Result panel 52 (unknown) (no date) (unknown[facility] Result panel 53 (unknown) (no date) (unknown[facility] Result panel 54 (unknown) (no date) (unknown[facility] Result panel 55 (unknown) (no date) (unknown[facility] Result panel 56 (unknown) (no date) (unknown[facility] Result panel 57 (unknown) (no date) (unknown[facility] Result panel 58 (unknown) (no date) (unknown[facility] Result panel 59 (unknown) (no date) (unknown[facility] Result panel 60 (unknown) (no date) (unknown[facility] Result panel 61 (unknown) (no date) (unknown[facility] Result panel 62 (unknown) (no date) (unknown[facility] Result panel 63 (unknown) (no date) (unknown[facility] Result panel 64 (unknown) (no date) (unknown[facility]) Result panel 65 (unknown) (no date) (unknown[facility] Result panel 66 (unknown) (no date) (unknown[facility] Result panel 67 (unknown) (no date) (unknown[facility] Result panel 68 (unknown) (no date) (unknown[facility]) Result panel 69 (unknown) (no date) (unknown[facility] Result panel 70 (unknown) (no date) (unknown[facility] Result panel 71 (unknown) (no date) (unknown[facility]) Result panel 72 (unknown) (no date) (unknown[facility] Result panel 73 (unknown) (no date) (unknown[facility] Result panel 74 (unknown) (no date) (unknown[facility]) Result panel 75 (unknown) (no date) (unknown[facility] Result panel 76 (unknown) (no date) (unknown[facility] Result panel 77 (unknown) (no date) (unknown[facility] Result panel 78 (unknown) (no date) (unknown[facility] Result panel 79 (unknown) (no date) (unknown[facility] Result panel 80 (unknown) (no date) (unknown[facility] Result panel 81 (unknown) (no date) (unknown[facility]) Result panel 82 (unknown) (no date) (unknown[facility] Result panel 83 (unknown) (no date) (unknown[facility] Result panel 84 (unknown) (no date) (unknown[facility] Result panel 85 (unknown) (no date) (unknown[facility] Result panel 86 (unknown) (no date) (unknown[facility] Result panel 87 (unknown) (no date) (unknown[facility] Result panel 88 (unknown) (no date) (unknown[facility] Result panel 89 (unknown) (no date) (unknown[facility]) Result panel 90 (unknown) (no date) (unknown[facility] Result panel 91 (unknown) (no date) (unknown[facility]) Result panel 92 (unknown) (no date) (unknown[facility] Result panel 93 (unknown) (no date) (unknown[facility] Result panel 94 (unknown) (no date) (unknown[facility] Result panel 95 (unknown) (no date) (unknown[facility] Result panel 96 (unknown) (no date) (unknown[facility] Result panel 97 (unknown) (no date) (unknown[facility] Result panel 98 (unknown) (no date) (unknown[facility] Result panel 99 (unknown) (no date) (unknown[facility] Result panel 100 (unknown) (no date) (unknown[facility] Result panel 101 (unknown) (no date) (unknown[facility]) Result panel 102 (unknown) (no date) (unknown[facility] Result panel 103 (unknown) (no date) (unknown[facility] Result panel 104 (unknown) (no date) (unknown[facility] Result panel 105 (unknown) (no date) (unknown[facility]) Result panel 106 (unknown) (no date) (unknown[facility] Result panel 107 (unknown) (no date) (unknown[facility]) Result panel 108 (unknown) (no date) (unknown[facility] Result panel 109 (unknown) (no date) (unknown[facility]) Result panel 110 (unknown) (no date) (unknown[facility]) Result panel 111 (unknown) (no date) (unknown[facility]) Result panel 112 (unknown) (no date) (unknown[facility] Result panel 113 (unknown) (no date) (unknown[facility] Result panel 114 (unknown) (no date) (unknown[facility] Result panel 115 (unknown) (no date) (unknown[facility]) Result panel 116 (unknown) (no date) (unknown[facility] Result panel 117 (unknown) (no date) (unknown[facility]) Result panel 118 (unknown) (no date) (unknown[facility] Result panel 119 (unknown) (no date) (unknown[facility]) Result panel 120 (unknown) (no date) (unknown[facility] Result panel 121 (unknown) (no date) (unknown[facility]) Result panel 122 (unknown) (no date) (unknown[facility] Result panel 123 (unknown) (no date) (unknown[facility] Result panel 124 (unknown) (no date) (unknown[facility]) Result panel 125 (unknown) (no date) (unknown[facility] Result panel 126 (unknown) (no date) (unknown[facility] Result panel 127 (unknown) (no date) (unknown[facility]) Result panel 128 (unknown) (no date) (unknown[facility] Result panel 129 (unknown) (no date) (unknown[facility]) Result panel 130 (unknown) (no date) (unknown[facility] Result panel 131 (unknown) (no date) (unknown[facility] Result panel 132 (unknown) (no date) (unknown[facility] Result panel 133 (unknown) (no date) (unknown[facility] Result panel 134 (unknown) (no date) (unknown[facility]) Result panel 135 (unknown) (no date) (unknown[facility] Result panel 136 (unknown) (no date) (unknown[facility]) Result panel 137 (unknown) (no date) (unknown[facility] Result panel 138 (unknown) (no date) (unknown[facility]) Result panel 139 (unknown) (no date) (unknown[facility] Result panel 140 (unknown) (no date) (unknown[facility]) Result panel 141 (unknown) (no date) (unknown[facility] Result panel 142 (unknown) (no date) (unknown[facility]) Result panel 143 (unknown) (no date) (unknown[facility] Result panel 144 (unknown) (no date) (unknown[facility] Result panel 145 (unknown) (no date) (unknown[facility] Result panel 146 (unknown) (no date) (unknown[facility]) Result panel 147 (unknown) (no date) (unknown[facility] Result panel 148 (unknown) (no date) (unknown[facility]) Result panel 149 (unknown) (no date) (unknown[facility] Result panel 150 (unknown) (no date) (unknown[facility]) Result panel 151 (unknown) (no date) (unknown) [facility]) Result panel 152 (unknown) (no date) (unknown[facility]) Result panel 153 (unknown) (no date) (unknown[facility] Result panel 154 (unknown) (no date) (unknown[facility]) Result panel 155 (unknown) (no date) (unknown[facility] Result panel 156 (unknown) (no date) (unknown[facility]) Result panel 157 (unknown) (no date) (unknown[facility]) Result panel 158 (unknown) (no date) (unknown) [facility] Result panel 159 (unknown) (no date) (unknown) [facility]) Result panel 160 (unknown) (no date) (unknown) [facility] Result panel 161 (unknown) (no date) (unknown) [facility]) Result panel 162 (unknown) (no date) (unknown) [facility]) Result panel 163 (unknown) (no date) (unknown) [facility] Result panel 164 (unknown) (no date) (unknown) [facility]) Result panel 165 (unknown) (no date) (unknown) [facility] Result panel 166 (unknown) (no date) (unknown) [facility] Result panel 167 (unknown) (no date) (unknown) [facility]) Result panel 168 (unknown) (no date) (unknown[facility] Result panel 169 (unknown) (no date) (unknown) [facility]) Result panel 170 (unknown) (no date) (unknown[facility] Result panel 171 (unknown) (no date) (unknown[facility] Result panel 172 (unknown) (no date) (unknown[facility] Result panel 173 (unknown) (no date) (unknown[facility] Result panel 174 (unknown) (no date) (unknown[facility] Result panel 175 (unknown) (no date) (unknown[facility] Result panel 176 (unknown) (no date) (unknown[facility] Result panel 177 (unknown) (no date) (unknown[facility]) Result panel 178 (unknown) (no date) (unknown[facility] Result panel 179 (unknown) (no date) (unknown[facility] Result panel 180 (unknown) (no date) (unknown[facility] Result panel 181 (unknown) (no date) (unknown[facility] Result panel 182 (unknown) (no date) (unknown[facility] Result panel 183 (unknown) (no date) (unknown[facility] Result panel 184 (unknown) (no date) (unknown[facility]) Result panel 185 (unknown) (no date) (unknown[facility] Result panel 186 (unknown) (no date) (unknown[facility]) Result panel 187 (unknown) (no date) (unknown[facility] Result panel 188 (unknown) (no date) (unknown[facility] Result panel 189 (unknown) (no date) (unknown[facility] Result panel 190 (unknown) (no date) (unknown[facility] Result panel 191 (unknown) (no date) (unknown) [facility] Result panel 192 (unknown) (no date) (unknown[facility] Result panel 193 (unknown) (no date) (unknown[facility] Result panel 194 (unknown) (no date) (unknown[facility] Result panel 195 (unknown) (no date) (unknown[facility] Result panel 196 (unknown) (no date) (unknown[facility] Result panel 197 (unknown) (no date) (unknown[facility] Result panel 198 (unknown) (no date) (unknown[facility] Result panel 199 (unknown) (no date) (unknown[facility] Result panel 200 (unknown) (no date) (unknown[facility] Result panel 201 (unknown) (no date) (unknown[facility] Result panel 202 (unknown) (no date) (unknown[facility] Result panel 203 (unknown) (no date) (unknown[facility] Result panel 204 (unknown) (no date) (unknown[facility] Result panel 205 (unknown) (no date) (unknown[facility] Result panel 206 (unknown) (no date) (unknown[facility] Result panel 207 (unknown) (no date) (unknown[facility] Result panel 208 (unknown) (no date) (unknown[facility] Result panel 209 (unknown) (no date) (unknown[facility] Result panel 210 (unknown) (no date) (unknown[facility] Result panel 211 (unknown) (no date) (unknown[facility] Result panel 212 (unknown) (no date) (unknown[facility] Result panel 213 (unknown) (no date) (unknown[facility] Result panel 214 (unknown) (no date) (unknown[facility]) Result panel 215 (unknown) (no date) (unknown[facility] Result panel 216 (unknown) (no date) (unknown[facility] Result panel 217 (unknown) (no date) (unknown[facility] Result panel 218 (unknown) (no date) (unknown) [facility] Result panel 219 (unknown) (no date) (unknown) [facility]) Result panel 220 (unknown) (no date) (unknown) [facility]) Result panel 221 (unknown) (no date) (unknown) [facility]) Result panel 222 (unknown) (no date) (unknown) [facility]) Result panel 223 (unknown) (no date) (unknown) [facility]) Result panel 224 (unknown) (no date) (unknown) [facility]) Result panel 225 (unknown) (no date) (unknown) [facility]) Result panel 226 (unknown) (no date) (unknown) [facility]) Result panel 227 (unknown) (no date) (unknown) [facility]) Result panel 228 (unknown) (no date) (unknown) [facility]) Result panel 229 (unknown) (no date) (unknown) [facility]) Result panel 230 (unknown) (no date) (unknown) [facility]) Result panel 231 (unknown) (no date) (unknown) [facility]) Result panel 232 (unknown) (no date) (unknown) [facility]) Result panel 233 (unknown) (no date) (unknown) [facility]) Result panel 234 (unknown) (no date) (unknown) [facility]) Result panel 235 (unknown) (no date) (unknown) [facility]) Result panel 236 (unknown) (no date) (unknown) [facility]) Result panel 237 (unknown) (no date) (unknown) [facility]) Result panel 238 (unknown) (no date) (unknown) [facility]) Result panel 239 (unknown) (no date) (unknown) [facility]) Result panel 240 (unknown) (no date) (unknown) [facility]) Result panel 241 (unknown) (no date) (unknown) [facility]) Result panel 242 (unknown) (no date) (unknown) [facility]) Result panel 243 (unknown) (no date) (unknown) [facility]) Result panel 244 (unknown) (no date) (unknown) [facility]) Result panel 245 (unknown) (no date) (unknown) [facility]) Result panel 246 (unknown) (no date) (unknown) [facility]) Result panel 247 (unknown) (no date) (unknown) [facility]) Result panel 248 (unknown) (no date) (unknown) [facility]) Result panel 249 (unknown) (no date) (unknown) [facility]) Result panel 250 (unknown) (no date) (unknown) [facility]) Result panel 251 (unknown) (no date) (unknown) [facility]) Result panel 252 (unknown) (no date) (unknown) [facility]) Result panel 253 (unknown) (no date) (unknown) [facility]) Result panel 254 (unknown) (no date) (unknown) [facility]) Result panel 255 (unknown) (no date) (unknown) [facility]) Result panel 256 (unknown) (no date) (unknown) [facility]) Result panel 257 (unknown) (no date) (unknown) [facility]) Result panel 258 (unknown) (no date) (unknown) [facility]) Result panel 259 (unknown) (no date) (unknown) [facility]) Result panel 260 (unknown) (no date) (unknown) [facility]) Result panel 261 (unknown) (no date) (unknown) [facility]) Result panel 262 (unknown) (no date) (unknown) [facility]) Result panel 263 (unknown) (no date) (unknown) [facility]) Result panel 264 (unknown) (no date) (unknown) [facility]) Result panel 265 (unknown) (no date) (unknown) [facility]) Result panel 266 (unknown) (no date) (unknown) [facility]) Result panel 267 (unknown) (no date) (unknown) [facility]) Result panel 268 (unknown) (no date) (unknown) [facility]) Result panel 269 (unknown) (no date) (unknown) [facility]) Result panel 270 (unknown) (no date) (unknown) [facility]) Result panel 271 (unknown) (no date) (unknown) [facility]) Result panel 272 (unknown) (no date) (unknown) [facility]) Result panel 273 (unknown) (no date) (unknown) [facility]) Result panel 274 (unknown) (no date) (unknown) [facility]) Result panel 275 (unknown) (no date) (unknown) [facility]) Result panel 276 (unknown) (no date) (unknown) [facility]) Result panel 277 (unknown) (no date) (unknown) [facility]) Result panel 278 (unknown) (no date) (unknown) [facility]) Result panel 279 (unknown) (no date) (unknown) [facility]) Result panel 280 (unknown) (no date) (unknown) [facility]) Result panel 281 (unknown) (no date) (unknown) [facility]) Result panel 282 (unknown) (no date) (unknown) [facility]) Result panel 283 (unknown) (no date) (unknown) [facility]) Result panel 284 (unknown) (no date) (unknown) [facility]) Result panel 285 (unknown) (no date) (unknown) [facility]) Result panel 286 (unknown) (no date) (unknown) [facility]) Result panel 287 (unknown) (no date) (unknown) [facility]) Result panel 288 (unknown) (no date) (unknown) [facility]) Result panel 289 (unknown) (no date) (unknown) [facility]) Result panel 290 (unknown) (no date) (unknown) [facility]) Result panel 291 (unknown) (no date) (unknown) [facility]) Result panel 292 (unknown) (no date) (unknown) [facility]) Result panel 293 (unknown) (no date) (unknown) [facility]) Result panel 294 (unknown) (no date) (unknown) [facility]) Result panel 295 (unknown) (no date) (unknown) [facility]) Result panel 296 (unknown) (no date) (unknown) [facility]) Result panel 297 (unknown) (no date) (unknown) [facility]) Result panel 298 (unknown) (no date) (unknown) [facility]) Result panel 299 (unknown) (no date) (unknown) [facility]) Result panel 300 (unknown) (no date) (unknown) [facility]) Result panel 301 (unknown) (no date) (unknown) [facility]) Result panel 302 (unknown) (no date) (unknown) [facility]) Result panel 303 (unknown) (no date) (unknown) [facility]) Result panel 304 (unknown) (no date) (unknown) [facility]) Result panel 305 (unknown) (no date) (unknown) [facility]) Result panel 306 (unknown) (no date) (unknown) [facility]) Result panel 307 (unknown) (no date) (unknown) [facility]) Result panel 308 (unknown) (no date) (unknown) [facility]) Result panel 309 (unknown) (no date) (unknown) [facility]) Result panel 310 (unknown) (no date) (unknown) [facility]) Result panel 311 (unknown) (no date) (unknown) [facility]) Result panel 312 (unknown) (no date) (unknown) [facility]) Result panel 313 (unknown) (no date) (unknown) [facility]) Result panel 314 (unknown) (no date) (unknown) [facility]) Result panel 315 (unknown) (no date) (unknown) [facility]) Result panel 316 (unknown) (no date) (unknown) [facility]) Result panel 317 (unknown) (no date) (unknown) [facility]) Result panel 318 (unknown) (no date) (unknown) [facility]) Result panel 319 (unknown) (no date) (unknown) [facility]) Result panel 320 (unknown) (no date) (unknown) [facility]) Result panel 321 (unknown) (no date) (unknown) [facility]) Result panel 322 (unknown) (no date) (unknown) [facility]) Result panel 323 (unknown) (no date) (unknown) [facility]) Result panel 324 (unknown) (no date) (unknown) [facility]) Result panel 325 (unknown) (no date) (unknown) [facility]) Result panel 326 (unknown) (no date) (unknown) [facility]) Result panel 327 (unknown) (no date) (unknown) [facility]) Result panel 328 (unknown) (no date) (unknown) [facility]) Result panel 329 (unknown) (no date) (unknown) [facility]) Result panel 330 (unknown) (no date) (unknown) [facility]) Result panel 331 (unknown) (no date) (unknown) [facility]) Result panel 332 (unknown) (no date) (unknown) [facility]) Result panel 333 (unknown) (no date) (unknown) [facility]) Result panel 334 (unknown) (no date) (unknown) [facility]) Result panel 335 (unknown) (no date) (unknown) [facility]) Result panel 336 (unknown) (no date) (unknown) [facility]) Result panel 337 (unknown) (no date) (unknown) [facility]) Result panel 338 (unknown) (no date) (unknown) [facility]) Result panel 339 (unknown) (no date) (unknown) [facility]) Result panel 340 (unknown) (no date) (unknown) [facility]) Result panel 341 (unknown) (no date) (unknown) [facility]) Result panel 342 (unknown) (no date) (unknown) [facility]) Result panel 343 (unknown) (no date) (unknown) [facility]) Result panel 344 (unknown) (no date) (unknown) [facility]) Result panel 345 (unknown) (no date) (unknown) [facility]) Result panel 346 (unknown) (no date) (unknown) [facility]) Result panel 347 (unknown) (no date) (unknown) [facility]) Result panel 348 (unknown) (no date) (unknown) [facility]) Result panel 349 (unknown) (no date) (unknown) [facility]) Result panel 350 (unknown) (no date) (unknown) [facility]) Result panel 351 (unknown) (no date) (unknown) [facility]) Result panel 352 (unknown) (no date) (unknown) [facility]) Result panel 353 (unknown) (no date) (unknown) [facility]) Result panel 354 (unknown) (no date) (unknown) [facility]) Result panel 355 (unknown) (no date) (unknown) [facility]) Result panel 356 (unknown) (no date) (unknown) [facility]) Result panel 357 (unknown) (no date) (unknown) [facility]) Result panel 358 (unknown) (no date) (unknown) [facility]) Result panel 359 (unknown) (no date) (unknown) [facility]) Result panel 360 (unknown) (no date) (unknown) [facility]) Result panel 361 (unknown) (no date) (unknown) [facility]) Result panel 362 (unknown) (no date) (unknown) [facility]) Result panel 363 (unknown) (no date) (unknown) [facility]) Result panel 364 (unknown) (no date) (unknown) [facility]) Result panel 365 (unknown) (no date) (unknown) [facility]) Result panel 366 (unknown) (no date) (unknown) [facility]) Result panel 367 (unknown) (no (unknown) (unknown) (no value) (units (unk nown) date) unknown) (unknown) (no (unknown) (unknown) 12/02/22 (units (unkno wn) date) unknown) (unknown) (no (unknown) (unknown) [address] [place] [address] (units (unknown) date) unknown) (unknown) (no (unknown) (unknown) 5230 (units (unkno wn) date) unknown) (unknown) (no (unknown) (unknown) ACAs: Normal and (units (unknown) date) symmetric unknown) (unknown) (no (unknown) (unknown) AComm: No (units (unkn own) date) aneurysm unknown) (unknown) (no (unknown) (unknown) Accession Number: (units (unknown) date) [id number] unknown) (unknown) (no (unknown) (unknown) Age/Sex: 77 / F (units (unknown) date) Date of Service: unknown) (unknown) (no (unknown) (unknown) [place], [place] (units ( unknown) date) [address] unknown) (unknown) (no (unknown) (unknown) Anterior (units (unkno wn) date) circulation: unknown) (unknown) (no (unknown) (unknown) Any quantitative (units (unknown) date) measurements of unknown) stenosis were performed using NASCET criteria. (unknown) (no (unknown) (unknown) Aortic arch and (units (unknown) date) subclavian unknown) arteries: Mild atherosclerotic disease (unknown) (no (unknown) (unknown) Approved by: (units (u nknown) date) Wilber Shelton M.D. on unknown) 12/02/2022 at 11:49 (unknown) (no (unknown) (unknown) Basilar artery: (units (unknown) date) Diminutive unknown) appearing basilar artery, particularly near the tip. (unknown) (no (unknown) (unknown) Bones: (units (unkno wn) date) Degenerative unknown) changes. (unknown) (no (unknown) (unknown) Brain: No (units (unkn own) date) intracranial unknown) hemorrhage. Joaquin-white differentiation is grossly (unknown) (no (unknown) (unknown) CCAs: No (units (unkno wn) date) stenosis, unknown) occlusion, or aneurysm. (unknown) (no (unknown) (unknown) COMPARISON: None. (units (unknown) date) unknown) (unknown) (no (unknown) (unknown) CSF spaces: Basal (units (unknown) date) cisterns are unknown) patent. Lateral ventricles are symmetric. (unknown) (no (unknown) (unknown) CT Scan Report (units (unknown) date) unknown) (unknown) (no (unknown) (unknown) CTA without large (units (unknown) date) vessel occlusion unknown) or high-grade stenosis. Suspected chronic (unknown) (no (unknown) (unknown) Craniofacial (units (u nknown) date) structures: No unknown) displaced fracture. Sinuses are clear. Orbits are (unknown) (no (unknown) (unknown) : 1945 (units (unknown) date) Acct:[id number] unknown) (unknown) (no (unknown) (unknown) Dictated by: (units (u nknown) date) Wilber Shelton M.D. on unknown) 12/02/2022 at 11:40 (unknown) (no (unknown) (unknown) Dominance: (units (unk nown) date) Slightly left unknown) dominant (unknown) (no (unknown) (unknown) ECAs: Origins are (units (unknown) date) patent. unknown) (unknown) (no (unknown) (unknown) FINDINGS: (units (unkn own) date) unknown) (unknown) (no (unknown) (unknown) HEAD ANGIOGRAPHY (units (unknown) date) unknown) (unknown) (no (unknown) (unknown) ICA origins (by (units (unknown) date) NASCET criteria): unknown) Mild bilateral ICA origin calcifications (unknown) (no (unknown) (unknown) ICAs: Mild (units (unk nown) date) calcifications of unknown) the cavernous and supraclinoid carotid arteries. (unknown) (no (unknown) (unknown) ICAs: No (units (unkno wn) date) stenosis, unknown) occlusion or aneurysm. (unknown) (no (unknown) (unknown) IMPRESSION: No (units (unknown) date) acute intracranial unknown) abnormality on non-contrast head CT. (unknown) (no (unknown) (unknown) INDICATIONS: (units (u nknown) date) dizziness unknown) (unknown) (no (unknown) (unknown) If there is high (units (unknown) date) concern for unknown) infarct, recommend MRI. (unknown) (no (unknown) (unknown) Image quality: (units (unknown) date) Good unknown) (unknown) (no (unknown) (unknown) [facility] (units (unknown) date) unknown) (unknown) (no (unknown) (unknown) Loc: ED (units (unkno wn) date) unknown) (unknown) (no (unknown) (unknown) Lung apices: No (units (unknown) date) pneumothorax unknown) (unknown) (no (unknown) (unknown) MCAs: Normal and (units (unknown) date) symmetric unknown) (unknown) (no (unknown) (unknown) [id number] (units (unknown) date) atherosclerotic unknown) disease. Moderate narrowing of the left (unknown) (no (unknown) (unknown) NECK ANGIOGRAPHY (units (unknown) date) unknown) (unknown) (no (unknown) (unknown) Ordering (units (unkno wn) date) Provider: unknown) Lit Winn MD (unknown) (no (unknown) (unknown) coordinator of rehabilitation services: (units (unkno wn) date) Unremarkable unknown) (unknown) (no (unknown) (unknown) PComms: Supplied (units (unknown) date) primarily by unknown) posterior communicating arteries. (unknown) (no (unknown) (unknown) PROCEDURE: CT (units ( unknown) date) ANGIO HEAD AND unknown) NECK (unknown) (no (unknown) (unknown) Patient: (units (unkno wn) date) Raegan Orourke MR#: unknown) [id number] (unknown) (no (unknown) (unknown) Posterior (units (unkn own) date) circulation: unknown) (unknown) (no (unknown) (unknown) Pre-contrast 4.5 (units (unknown) date) mm thick sections unknown) acquired from the foramen magnum to the (unknown) (no (unknown) (unknown) Procedure: CT (units ( unknown) date) angio head and unknown) neck (unknown) (no (unknown) (unknown) Signed (units (unkno wn) date) unknown) (unknown) (no (unknown) (unknown) Soft tissues: (units ( unknown) date) There is a unknown) prominent lymph node adjacent to the right upper (unknown) (no (unknown) (unknown) TECHNIQUE: (units (unk nown) date) unknown) (unknown) (no (unknown) (unknown) There is also (units ( unknown) date) mild nonspecific unknown) esophageal wall thickening partially seen. There (unknown) (no (unknown) (unknown) There (units (unkno wn) date) unknown) (unknown) (no (unknown) (unknown) Venous sinuses: (units (unknown) date) patent unknown) (unknown) (no (unknown) (unknown) Vertebral (units (unkn own) date) arteries: Moderate unknown) narrowing at the left vertebral artery origin. (unknown) (no (unknown) (unknown) Vertebral (units (unkn own) date) arteries: No unknown) stenosis or occlusion. No aneurysm. (unknown) (no (unknown) (unknown) Volume: Vascular (units (unknown) date) calcifications. unknown) Periventricular white matter disease is (unknown) (no (unknown) (unknown) acquired (units (unkno wn) date) unknown) (unknown) (no (unknown) (unknown) and neck (units (unkno wn) date) separately. For unknown) radiation dose reduction, the following was used: (unknown) (no (unknown) (unknown) and/or volume (units ( unknown) date) rendering unknown) reformats were acquired of the central intracranial (unknown) (no (unknown) (unknown) appearance of the (units (unknown) date) distal basilar unknown) artery secondary to predominant supply of (unknown) (no (unknown) (unknown) arch through the (units (unknown) date) [place]. unknown) Post-contrast 4.5 mm thick sections then re (unknown) (no (unknown) (unknown) are (units (unkno wn) date) unknown) (unknown) (no (unknown) (unknown) artery origin. (units (unknown) date) unknown) (unknown) (no (unknown) (unknown) automated (units (unkn own) date) unknown) (unknown) (no (unknown) (unknown) bilateral coordinator of rehabilitation services. (units (unknown) date) This was seen in unknown) 2021 imaging. (unknown) (no (unknown) (unknown) commonly seen (units ( unknown) date) unknown) (unknown) (no (unknown) (unknown) diminutive (units (unk nown) date) unknown) (unknown) (no (unknown) (unknown) esophagus. (units (unk nown) date) unknown) (unknown) (no (unknown) (unknown) exposure control, (units (unknown) date) adjustment of mA unknown) and/or kV according to patient size. (unknown) (no (unknown) (unknown) from the foramen (units (unknown) date) magnum to the unknown) vertex. 3-dimensional (unknown) (no (unknown) (unknown) intact. (units (unkno wn) date) unknown) (unknown) (no (unknown) (unknown) is minimal flow (units (unknown) date) present. This was unknown) seen on prior imaging. (unknown) (no (unknown) (unknown) maintained. (units (un known) date) unknown) (unknown) (no (unknown) (unknown) maximum-intensity (units (unknown) date) -projection (MIP) unknown) (unknown) (no (unknown) (unknown) [id number] (units (unknown) date) unknown) (unknown) (no (unknown) (unknown) parotid (units (unkno wn) date) calcifications of unknown) uncertain etiology. (unknown) (no (unknown) (unknown) significant (units (un known) date) narrowing (less unknown) than 50%) (unknown) (no (unknown) (unknown) the (units (unkno wn) date) administration of unknown) intravenous contrast, 1 mm thick sections acquired from (unknown) (no (unknown) (unknown) the aortic (units (unk nown) date) unknown) (unknown) (no (unknown) (unknown) the (units (unkno wn) date) unknown) (unknown) (no (unknown) (unknown) vasculature (units (un known) date) unknown) (unknown) (no (unknown) (unknown) vertebral (units (unkn own) date) unknown) (unknown) (no (unknown) (unknown) vertex. After (units ( unknown) date) unknown) (unknown) (no (unknown) (unknown) with chronic (units (u nknown) date) microangiopathy. unknown) Volume loss is present. These findings are (unknown) (no (unknown) (unknown) without (units (unkno wn) date) unknown) Result panel 368 (unknown) (no date) (unknown) (unknown) 0 /ul (unkn own) (unknown) (no date) (unknown) (unknown) 0.5 % (unkn own) (unknown) (no date) (unknown) (unknown) 107 x10 3/ul (unkn own) (unknown) (no date) (unknown) (unknown) 12.9 % (unkn own) (unknown) (no date) (unknown) (unknown) 1300 /ul (unkn own) (unknown) (no date) (unknown) (unknown) 15.0 g/dl (unkn own) (unknown) (no date) (unknown) (unknown) 22.5 % (unkn own) (unknown) (no date) (unknown) (unknown) 300 /ul (unkn own) (unknown) (no date) (unknown) (unknown) 32.7 pg (unkn own) (unknown) (no date) (unknown) (unknown) 33.9 % (unkn own) (unknown) (no date) (unknown) (unknown) 3800 /ul (unkn own) (unknown) (no date) (unknown) (unknown) 4.57 x10 6/ul (unkn own) (unknown) (no date) (unknown) (unknown) 4.8 % (unkn own) (unknown) (no date) (unknown) (unknown) 400 /ul (unkn own) (unknown) (no date) (unknown) (unknown) 44.1 % (unkn own) (unknown) (no date) (unknown) (unknown) 5.9 x10 3/ul (unkn own) (unknown) (no date) (unknown) (unknown) 6.9 % (unkn own) (unknown) (no date) (unknown) (unknown) 65.3 % (unkn own) (unknown) (no date) (unknown) (unknown) 96.5 fl (unkn own) Result panel 369 (unknown) (no date) (unknown) (unknown) 0.9 (units unknown) (unknown) (unknown) (no date) (unknown) (unknown) 10.7 seconds (unkn own) Result panel 370 (unknown) (no (unknown) (unknown) (no value) (units (unk nown) date) unknown) (unknown) (no (unknown) (unknown) 0.09 mg IH PRN (units (unknown) date) Qty: 0 unknown) (unknown) (no (unknown) (unknown) 0.9 (units (unkno wn) date) unknown) (unknown) (no (unknown) (unknown) 12/02/22 10:32 (units (unknown) date) unknown) (unknown) (no (unknown) (unknown) 12/02/22 10:48 (units (unknown) date) unknown) (unknown) (no (unknown) (unknown) 12/02/22 10:49 (units (unknown) date) unknown) (unknown) (no (unknown) (unknown) 12/02/22 (units (unkno wn) date) unknown) (unknown) (no (unknown) (unknown) 1 puff INH PRN (units (unknown) date) Qty: 0 unknown) (unknown) (no (unknown) (unknown) 10.7 seconds (unkno wn) date) (unknown) (no (unknown) (unknown) 100 mg PO HS (units (u nknown) date) Qty: 0 unknown) (unknown) (no (unknown) (unknown) 100 mg PO Q12H (units (unknown) date) Qty: 0 unknown) (unknown) (no (unknown) (unknown) 10:18 (units (unkno wn) date) unknown) (unknown) (no (unknown) (unknown) 2,000 iu PO QDAY (units (unknown) date) Qty: 0 unknown) (unknown) (no (unknown) (unknown) 200 mg PO BID (units ( unknown) date) Qty: 0 unknown) (unknown) (no (unknown) (unknown) 230 (units (unkno wn) date) unknown) (unknown) (no (unknown) (unknown) 3,000 mg PO QDAY (units (unknown) date) Qty: 0 unknown) (unknown) (no (unknown) (unknown) 30 seconds (unkno wn) date) (unknown) (no (unknown) (unknown) 30 seconds (unkno wn) date) (unknown) (no (unknown) (unknown) 50 mg PO HS Qty: (units (unknown) date) 0 unknown) (unknown) (no (unknown) (unknown) 800 mg PO PRN (units ( unknown) date) Qty: 0 unknown) (unknown) (no (unknown) (unknown) ?from her body. (units (unknown) date) There is not been unknown) any complaints of slurred speech facial droop (unknown) (no (unknown) (unknown) ALBUTEROL (units (unkn own) date) (PROVENTIL unknown) INHALER) 0.09 mg IH PRN ##0 12/06/11 (unknown) (no (unknown) (unknown) ALBUTEROL (units (unkn own) date) (PROVENTIL unknown) INHALER) (unknown) (no (unknown) (unknown) After history (units ( unknown) date) and exam CBC CMP unknown) troponin EKG CT angiogram head and neck ordered. (unknown) (no (unknown) (unknown) Age/Sex: 77 / F (units (unknown) date) unknown) (unknown) (no (unknown) (unknown) Allergies (units (unkn own) date) unknown) (unknown) (no (unknown) (unknown) Allergy/AdvReac (units (unknown) date) Type Severity unknown) Reaction Status Date / Time (unknown) (no (unknown) (unknown) Antibiotics) (units (u nknown) date) unknown) (unknown) (no (unknown) (unknown) Ask month/age: (units (unknown) date) Answers both unknown) questions correctly. (unknown) (no (unknown) (unknown) BACK: No flank (units (unknown) date) tenderness. unknown) (unknown) (no (unknown) (unknown) Best gaze (units (unkn own) date) horizontal: unknown) Normal (unknown) (no (unknown) (unknown) Best language: (units (unknown) date) No aphasia, unknown) normal (unknown) (no (unknown) (unknown) Blood Pressure (units (unknown) date) 191/86 H 12/02/22 unknown) 10:18 (unknown) (no (unknown) (unknown) Blood Pressure (units (unknown) date) 191/86 H unknown) (unknown) (no (unknown) (unknown) CARDIOVASCULAR: (units (unknown) date) Regular rate and unknown) rhythm without murmurs (unknown) (no (unknown) (unknown) CARDIOVASCULAR: (units (unknown) date) negative chest unknown) pain, palpitations (unknown) (no (unknown) (unknown) CC: Dizziness (units ( unknown) date) unknown) (unknown) (no (unknown) (unknown) CT angio head (units ( unknown) date) and neck Stat unknown) (unknown) (no (unknown) (unknown) Chief Complaint: (units (unknown) date) Dizziness unknown) (unknown) (no (unknown) (unknown) Complete Blood (units (unknown) date) Count AUTO DIFF unknown) Stat (unknown) (no (unknown) (unknown) Complicating (units (u nknown) date) co-morbidities: unknown) History of vertigo (unknown) (no (unknown) (unknown) Comprehensive (units ( unknown) date) Metabolic Panel unknown) Stat (unknown) (no (unknown) (unknown) Consultations: (units (unknown) date) unknown) (unknown) (no (unknown) (unknown) Course (units (unkno wn) date) unknown) (unknown) (no (unknown) (unknown) : 1945 (units (unknown) date) Acct:[id number] unknown) (unknown) (no (unknown) (unknown) DOXYCYCLINE (units (un known) date) HYCLATE unknown) (Doxycycline 100 mg PO Q12H ##0 12/08/11 (unknown) (no (unknown) (unknown) DOXYCYCLINE (units (un known) date) HYCLATE unknown) (Doxycycline Hyclate) (unknown) (no (unknown) (unknown) Data collected (units (unknown) date) from: Patient unknown) (unknown) (no (unknown) (unknown) Date of Service: (units (unknown) date) 12/02/22 unknown) (unknown) (no (unknown) (unknown) Departure (units (unkn own) date) unknown) (unknown) (no (unknown) (unknown) Diagnosis: (units (unk nown) date) unknown) (unknown) (no (unknown) (unknown) Differential (units (u nknown) date) considered: unknown) Includes but not limited to stroke/TIA/cerebe llar (unknown) (no (unknown) (unknown) Discharge Plan (units (unknown) date) unknown) (unknown) (no (unknown) (unknown) Discussion: (units (un known) date) unknown) (unknown) (no (unknown) (unknown) Dysarthria: (units (un known) date) Normal unknown) (unknown) (no (unknown) (unknown) ED Orders (units (unkn own) date) unknown) (unknown) (no (unknown) (unknown) EKG-12 Lead (units (un known) date) Routine unknown) (unknown) (no (unknown) (unknown) ENT: Mucous (units (un known) date) membranes moist. unknown) (unknown) (no (unknown) (unknown) ER Physician: (units ( unknown) date) Lit Winn MD unknown) (unknown) (no (unknown) (unknown) EXTREMITIES: No (units (unknown) date) gross unknown) deformities. (unknown) (no (unknown) (unknown) EYES: Pupils (units (u nknown) date) equal round there unknown) is horizontal nystagmus (unknown) (no (unknown) (unknown) Emergency Report (units (unknown) date) unknown) (unknown) (no (unknown) (unknown) Exam Narrative: (units (unknown) date) unknown) (unknown) (no (unknown) (unknown) Exam documented (units (unknown) date) above, pertinent unknown) findings include: Horizontal nystagmus (unknown) (no (unknown) (unknown) Exam (units (unkno wn) date) unknown) (unknown) (no (unknown) (unknown) Extinction or (units ( unknown) date) inattention: No unknown) abnormality (unknown) (no (unknown) (unknown) Facial palsy: (units ( unknown) date) Normal symetrical unknown) movement (unknown) (no (unknown) (unknown) GASTROINTESTINAL (units (unknown) date) : Abdomen soft, unknown) non-tender (unknown) (no (unknown) (unknown) GASTROINTESTINAL (units (unknown) date) : negative unknown) nausea, vomiting, abdominal pain (unknown) (no (unknown) (unknown) GENERAL: in no (units (unknown) date) distress, not unknown) toxic not dyspneic (unknown) (no (unknown) (unknown) GENERAL: (units (unkno wn) date) negative chills, unknown) fatigue, malaise, fever, sweats. (unknown) (no (unknown) (unknown) : negative (units (u nknown) date) dysuria, unknown) frequency, hematuria (unknown) (no (unknown) (unknown) General (units (unkno wn) date) unknown) (unknown) (no (unknown) (unknown) HEAD: (units (unkno wn) date) Normocephalic. unknown) (unknown) (no (unknown) (unknown) HEENT: negative (units (unknown) date) sinus pain, ear unknown) pain, sore throat, positive hearing changes (unknown) (no (unknown) (unknown) HPI - Dizziness (units (unknown) date) unknown) (unknown) (no (unknown) (unknown) HPI Narrative: (units (unknown) date) unknown) (unknown) (no (unknown) (unknown) History of (units (unk nown) date) Present Illness unknown) (unknown) (no (unknown) (unknown) Home Medications (units (unknown) date) unknown) (unknown) (no (unknown) (unknown) Hyclate) (units (unkno wn) date) unknown) (unknown) (no (unknown) (unknown) INH BID Qty: 0 (units (unknown) date) unknown) (unknown) (no (unknown) (unknown) Imaging studies (units (unknown) date) independently unknown) reviewed: (unknown) (no (unknown) (unknown) Independently (units (u nknown) date) reviewed EKG as unknown) above sinus bradycardia rate [address] elevation or (unknown) (no (unknown) (unknown) Initial Vital (units ( unknown) date) Signs unknown) (unknown) (no (unknown) (unknown) Initial Vital (units ( unknown) date) Signs: unknown) (unknown) (no (unknown) (unknown) [facility] (units (unknown) date) [address] unknown) [place] [address] (unknown) (no (unknown) (unknown) Lab Test results (units (unknown) date) independently unknown) reviewed as above. Pertinent findings: (unknown) (no (unknown) (unknown) Left arm drift: (units (unknown) date) No drift for full unknown) 10 sec (unknown) (no (unknown) (unknown) Left leg drift: (units (unknown) date) No drift for full unknown) 5 sec (unknown) (no (unknown) (unknown) Level of (units (unkno wn) date) Conciousness: unknown) Alert, keenly responsive (unknown) (no (unknown) (unknown) Limb ataxia: (units (u nknown) date) Absent unknown) (unknown) (no (unknown) (unknown) MDM - Dizziness (units (unknown) date) unknown) (unknown) (no (unknown) (unknown) MDM Narrative (units ( unknown) date) unknown) (unknown) (no (unknown) (unknown) MDM (units (unkno wn) date) unknown) (unknown) (no (unknown) (unknown) MUSCULOSKELETAL: (units (unknown) date) negative muscle unknown) or bony pain (unknown) (no (unknown) (unknown) Medical decision (units (unknown) date) making narrative: unknown) (unknown) (no (unknown) (unknown) Medical records (units (unknown) date) reviewed: Patient unknown) not seen here before for this complaint (unknown) (no (unknown) (unknown) Medication (units (unk nown) date) Instructions unknown) Recorded Confirmed (unknown) (no (unknown) (unknown) Mode of arrival: (units (unknown) date) EMS unknown) (unknown) (no (unknown) (unknown) NECK: Trachea (units ( unknown) date) midline. unknown) (unknown) (no (unknown) (unknown) NEURO: AOx4. (units (u nknown) date) Fast exam is unknown) negative. Clear speech no facial droop light touch (unknown) (no (unknown) (unknown) NEUROLOGIC: (units (un known) date) negative unknown) weakness, numbness, positive dizziness negative slurred (unknown) (no (unknown) (unknown) NIH Stroke Scale (units (unknown) date) unknown) (unknown) (no (unknown) (unknown) Narrative (units (unkn own) date) unknown) (unknown) (no (unknown) (unknown) Narrative: (units (unk nown) date) unknown) (unknown) (no (unknown) (unknown) No Action (units (unkn own) date) unknown) (unknown) (no (unknown) (unknown) Normal saline (units ( unknown) date) unknown) (unknown) (no (unknown) (unknown) OU HS Qty: 0 (units (u nknown) date) unknown) (unknown) (no (unknown) (unknown) OU QID Qty: 0 (units ( unknown) date) unknown) (unknown) (no (unknown) (unknown) Open/close eyes, (units (unknown) date) close hand: unknown) Performs both tasks correctly (unknown) (no (unknown) (unknown) Ordered: (units (unkno wn) date) unknown) (unknown) (no (unknown) (unknown) Orders (units (unkno wn) date) unknown) (unknown) (no (unknown) (unknown) Oxygen Delivery (units (unknown) date) Method Room Air unknown) 12/02/22 10:18 (unknown) (no (unknown) (unknown) Oxygen Delivery (units (unknown) date) Method Room Air unknown) (unknown) (no (unknown) (unknown) PSYCH: Not (units (unk nown) date) anxious, is unknown) cooperative (unknown) (no (unknown) (unknown) PTT Partial (units (un known) date) Thromboplastin unknown) Shane Stat (unknown) (no (unknown) (unknown) Patient History (units (unknown) date) unknown) (unknown) (no (unknown) (unknown) Patient brought (units (unknown) date) in by ambulance unknown) from otolaryngology office of Dr. Eric Hong. (unknown) (no (unknown) (unknown) Patient has (units (un known) date) history of unknown) vertigo. Has had dizziness for the past month daily. (unknown) (no (unknown) (unknown) Patient: (units (unkno wn) date) Raegan Orourke MR#: unknown) [id number] (unknown) (no (unknown) (unknown) Prescriptions: (units (unknown) date) unknown) (unknown) (no (unknown) (unknown) Prothrombin Time (units (unknown) date) INR Stat unknown) (unknown) (no (unknown) (unknown) Pulse Oximetry (units (unknown) date) 98 12/02/22 10:18 unknown) (unknown) (no (unknown) (unknown) Pulse Oximetry (units (unknown) date) 98 unknown) (unknown) (no (unknown) (unknown) Pulse Rate 61 (units ( unknown) date) 12/02/22 10:18 unknown) (unknown) (no (unknown) (unknown) Pulse Rate 61 (units ( unknown) date) unknown) (unknown) (no (unknown) (unknown) RESPIRATORY: (units (un known) date) Clear to unknown) auscultation. Breath sounds equal bilaterally. No wheezes, (unknown) (no (unknown) (unknown) RESPIRATORY: (units (u nknown) date) negative dyspnea, unknown) cough (unknown) (no (unknown) (unknown) ROS Unobtainable: (units (unknown) date) All systems unknown) reviewed + are unremarkable except as noted in HPI (unknown) (no (unknown) (unknown) Re-evaluations: (units (unknown) date) unknown) (unknown) (no (unknown) (unknown) Referrals: (units (unk nown) date) unknown) (unknown) (no (unknown) (unknown) Related Data (units (u nknown) date) unknown) (unknown) (no (unknown) (unknown) Respiratory Rate (units (unknown) date) 14 12/02/22 10:18 unknown) (unknown) (no (unknown) (unknown) Respiratory Rate (units (unknown) date) 14 unknown) (unknown) (no (unknown) (unknown) Review of (units (unkn own) date) Systems unknown) (unknown) (no (unknown) (unknown) Right arm drift: (units (unknown) date) No drift for full unknown) 10 sec (unknown) (no (unknown) (unknown) Right leg drift: (units (unknown) date) No drift for full unknown) 5 sec (unknown) (no (unknown) (unknown) SKIN: Warm and (units (unknown) date) dry unknown) (unknown) (no (unknown) (unknown) SKIN: negative (units (unknown) date) rash, skin unknown) lesions (unknown) (no (unknown) (unknown) Yumiko Farris, (units (unknown) date) DO [Primary Care unknown) Provider] (unknown) (no (unknown) (unknown) Scores (units (unkno wn) date) unknown) (unknown) (no (unknown) (unknown) Sensory on (units (unk nown) date) face/arms/legs: unknown) Normal, no sensory loss (unknown) (no (unknown) (unknown) She sees him for (units (unknown) date) this complaint. unknown) However she went to bed last night with her (unknown) (no (unknown) (unknown) Signed By: (units (unk nown) date) unknown) (unknown) (no (unknown) (unknown) Smoking Status: (units (unknown) date) Never smoker unknown) (unknown) (no (unknown) (unknown) Social History (units (unknown) date) (Reviewed unknown) 12/02/22 @ 10:52 by Lit Winn MD) (unknown) (no (unknown) (unknown) Source: patient (units (unknown) date) and EMS unknown) (unknown) (no (unknown) (unknown) Stated (units (unkno wn) date) Complaint: unknown) Vertigo (unknown) (no (unknown) (unknown) Substance Use (units ( unknown) date) Type: does not unknown) use (unknown) (no (unknown) (unknown) Sulfa (units (unkno wn) date) (Sulfonamide unknown) Allergy Verified 12/02/22 10:17 (unknown) (no (unknown) (unknown) Temperature 97.6 (units (unknown) date) F 12/02/22 10:18 unknown) (unknown) (no (unknown) (unknown) Temperature 97.6 (units (unknown) date) F unknown) (unknown) (no (unknown) (unknown) Time Seen by (units (u nknown) date) Provider: unknown) 12/02/22 10:48 (unknown) (no (unknown) (unknown) Total NIH Stroke (units (unknown) date) scale score: 0 unknown) (unknown) (no (unknown) (unknown) Treatments: (units (un known) date) unknown) (unknown) (no (unknown) (unknown) Troponin + CK (units ( unknown) date) Cardiac Panel unknown) Stat (unknown) (no (unknown) (unknown) Urinalysis and (units (unknown) date) Microscopic Stat unknown) (unknown) (no (unknown) (unknown) Visual cowan: (units (unknown) date) No visual loss unknown) (unknown) (no (unknown) (unknown) Vital Signs - 8 (units (unknown) date) hr unknown) (unknown) (no (unknown) (unknown) Vital Signs (units (un known) date) unknown) (unknown) (no (unknown) (unknown) Vital signs: (units (u nknown) date) unknown) (unknown) (no (unknown) (unknown) [ASTHMACORT] INH (units (unknown) date) BID ##0 11/10/12 unknown) (unknown) (no (unknown) (unknown) [ASTHMACORT] (units (u nknown) date) unknown) (unknown) (no (unknown) (unknown) [C-SERUM] gtt OU (units (unknown) date) QID ##0 11/10/12 unknown) (unknown) (no (unknown) (unknown) [C-SERUM] (units (unkn own) date) unknown) (unknown) (no (unknown) (unknown) [FLAXSEED] 3,000 (units (unknown) date) mg PO QDAY ##0 unknown) 12/08/11 (unknown) (no (unknown) (unknown) [FLAXSEED] (units (unk nown) date) unknown) (unknown) (no (unknown) (unknown) [GENTEAL] ophth (units (unknown) date) OU HS ##0 unknown) 11/10/12 (unknown) (no (unknown) (unknown) [GENTEAL] (units (unkn own) date) unknown) (unknown) (no (unknown) (unknown) [PREDNISOLONE] (units (unknown) date) gtt OU QID ##0 unknown) 11/10/12 (unknown) (no (unknown) (unknown) [PREDNISOLONE] (units (unknown) date) unknown) (unknown) (no (unknown) (unknown) [VITAMIN D ] (units (u nknown) date) 2,000 iu PO QDAY unknown) ##0 11/10/12 (unknown) (no (unknown) (unknown) [VITAMIN D ] (units (u nknown) date) unknown) (unknown) (no (unknown) (unknown) acyclovir 200 mg (units (unknown) date) capsule (Zovirax) unknown) 200 mg PO BID ##0 11/10/12 (unknown) (no (unknown) (unknown) acyclovir (units (unkn own) date) [Zovirax] 200 MG unknown) capsule (unknown) (no (unknown) (unknown) alcohol intake (units (unknown) date) frequency: 0-2 unknown) drinks per day (unknown) (no (unknown) (unknown) and below (units (unkn own) date) unknown) (unknown) (no (unknown) (unknown) at this time. (units ( unknown) date) Fast exam is unknown) negative (unknown) (no (unknown) (unknown) budesonide-formo (units (unknown) date) terol HFA 160 1 unknown) puff INH PRN ##0 12/06/11 (unknown) (no (unknown) (unknown) budesonide-formo (units (unknown) date) terol [Symbicort] unknown) 160 MCG/4.5 MCG HFA aerosol inhaler (unknown) (no (unknown) (unknown) depression (units (unk nown) date) unknown) (unknown) (no (unknown) (unknown) drift. (units (unkno wn) date) Finger-nose unknown) intact. Elevate each leg independently off the bed (unknown) (no (unknown) (unknown) ibuprofen 800 MG (units (unknown) date) tablet unknown) (unknown) (no (unknown) (unknown) ibuprofen 800 mg (units (unknown) date) tablet 800 mg PO unknown) PRN ##0 11/10/12 (unknown) (no (unknown) (unknown) infarct/vertigo/ (units (unknown) date) labyrinthitis unknown) (unknown) (no (unknown) (unknown) inhaler (units (unkno wn) date) (Symbicort) unknown) (unknown) (no (unknown) (unknown) intact bilateral (units (unknown) date) face hands and unknown) feet. Strong equal bag bundler. Negative pronator (unknown) (no (unknown) (unknown) mcg-4.5 (units (unkno wn) date) mcg/actuation unknown) aerosol (unknown) (no (unknown) (unknown) month or last (units ( unknown) date) night or today. unknown) Prior history of stroke. Patient in no distress (unknown) (no (unknown) (unknown) or limb numbness (units (unknown) date) tingling or unknown) weakness from herself or her . In the past (unknown) (no (unknown) (unknown) rales, or (units (unkn own) date) rhonchi. unknown) (unknown) (no (unknown) (unknown) sertraline 50 mg (units (unknown) date) tablet (Zoloft) unknown) 50 mg PO HS ##0 11/10/12 (unknown) (no (unknown) (unknown) sertraline (units (unk nown) date) [Zoloft] 50 MG unknown) tablet (unknown) (no (unknown) (unknown) speech negative (units (unknown) date) facial droop unknown) (unknown) (no (unknown) (unknown) trazodone 100 MG (units (unknown) date) tablet unknown) (unknown) (no (unknown) (unknown) trazodone 100 mg (units (unknown) date) tablet 100 mg PO unknown) HS ##0 12/08/11 (unknown) (no (unknown) (unknown) usual vertigo (units ( unknown) date) dizziness. This unknown) morning however she felt like she was ?detached Result panel 371 (unknown) (no date) (unknown) (unknown) > 60 ml/min (unkn own) (unknown) (no date) (unknown) (unknown) > 60 ml/min (unkn own) (unknown) (no date) (unknown) (unknown) 0.65 mg/dl (unkn own) (unknown) (no date) (unknown) (unknown) 0.7 mg/dl (unkn own) (unknown) (no date) (unknown) (unknown) 1.6 (units (unkn own) unknown) (unknown) (no date) (unknown) (unknown) 100 mmol/l (unkn own) (unknown) (no date) (unknown) (unknown) 13 mg/dl (unkn own) (unknown) (no date) (unknown) (unknown) 136 mmol/l (unkn own) (unknown) (no date) (unknown) (unknown) 158 u/l (unkn own) (unknown) (no date) (unknown) (unknown) 2.7 g/dl (unkn own) (unknown) (no date) (unknown) (unknown) 20.0 (units (unkn own) unknown) (unknown) (no date) (unknown) (unknown) 31 mmol/l (unkn own) (unknown) (no date) (unknown) (unknown) 37 iu/l (unkn own) (unknown) (no date) (unknown) (unknown) 38 u/l (unkn own) (unknown) (no date) (unknown) (unknown) 4.0 mmol/l (unkn own) (unknown) (no date) (unknown) (unknown) 4.2 g/dl (unkn own) (unknown) (no date) (unknown) (unknown) 41 iu/l (unkn own) (unknown) (no date) (unknown) (unknown) 6.9 g/dl (unkn own) (unknown) (no date) (unknown) (unknown) 8.9 mg/dl (unkn own) (unknown) (no date) (unknown) (unknown) 92 mg/dl (unkn own) (unknown) (no date) (unknown) (unknown) 92 mg/dl (unkn own) (unknown) (no date) (unknown) (unknown) Test not % (unkn own) performed (unknown) (no date) (unknown) (unknown) Test not % (unkn own) performed (unknown) (no date) (unknown) (unknown) Test not ng/ml (unkn own) performed (unknown) (no date) (unknown) (unknown) Test not ng/ml (unkn own) performed Result panel 372 (unknown) (no date) (unknown) (unknown) > 60 ml/min (unkn own) (unknown) (no date) (unknown) (unknown) > 60 ml/min (unkn own) (unknown) (no date) (unknown) (unknown) < 0.012 ng/ml (unkn own) (unknown) (no date) (unknown) (unknown) < 0.012 ng/ml (unkn own) (unknown) (no date) (unknown) (unknown) 0.65 mg/dl (unkn own) (unknown) (no date) (unknown) (unknown) 0.7 mg/dl (unkn own) (unknown) (no date) (unknown) (unknown) 1.6 (units (unkn own) unknown) (unknown) (no date) (unknown) (unknown) 100 mmol/l (unkn own) (unknown) (no date) (unknown) (unknown) 13 mg/dl (unkn own) (unknown) (no date) (unknown) (unknown) 136 mmol/l (unkn own) (unknown) (no date) (unknown) (unknown) 158 u/l (unkn own) (unknown) (no date) (unknown) (unknown) 2.7 g/dl (unkn own) (unknown) (no date) (unknown) (unknown) 20.0 (units (unkn own) unknown) (unknown) (no date) (unknown) (unknown) 31 mmol/l (unkn own) (unknown) (no date) (unknown) (unknown) 37 iu/l (unkn own) (unknown) (no date) (unknown) (unknown) 38 u/l (unkn own) (unknown) (no date) (unknown) (unknown) 4.0 mmol/l (unkn own) (unknown) (no date) (unknown) (unknown) 4.2 g/dl (unkn own) (unknown) (no date) (unknown) (unknown) 41 iu/l (unkn own) (unknown) (no date) (unknown) (unknown) 6.9 g/dl (unkn own) (unknown) (no date) (unknown) (unknown) 8.9 mg/dl (unkn own) (unknown) (no date) (unknown) (unknown) 92 mg/dl (unkn own) (unknown) (no date) (unknown) (unknown) 92 mg/dl (unkn own) (unknown) (no date) (unknown) (unknown) Test not % (unkn own) performed (unknown) (no date) (unknown) (unknown) Test not % (unkn own) performed (unknown) (no date) (unknown) (unknown) Test not ng/ml (unkn own) performed (unknown) (no date) (unknown) (unknown) Test not ng/ml (unkn own) performed Result panel 373 (unknown) (no (unknown) (unknown) (no value) (units (unk nown) date) unknown) (unknown) (no (unknown) (unknown) (). No (units (un known) date) unknown) (unknown) (no (unknown) (unknown) 12/02/22 (units (unkno wn) date) unknown) (unknown) (no (unknown) (unknown) [address] [place] [address] (units (unknown) date) unknown) (unknown) (no (unknown) (unknown) 5230 (units (unkno wn) date) unknown) (unknown) (no (unknown) (unknown) Accession Number: (units (unknown) date) [id number] unknown) (unknown) (no (unknown) (unknown) Age/Sex: 77 / F (units (unknown) date) Date of Service: unknown) (unknown) (no (unknown) (unknown) [place] (units ( unknown) date) [id number] unknown) (unknown) (no (unknown) (unknown) Approved by: (units (u nknown) date) Wilber Shelton M.D. on unknown) 12/02/2022 at 15:41 (unknown) (no (unknown) (unknown) Brain: Punctate (units (unknown) date) infarct in the unknown) right frontal lobe in the subcortical region (unknown) (no (unknown) (unknown) COMPARISON: (units (un known) date) [facility], unknown) MR, MR HEAD/BRAIN WO/W CON, 12/22/2021, 12:20. (unknown) (no (unknown) (unknown) CSF spaces: Basal (units (unknown) date) cisterns are unknown) patent. Lateral ventricles are symmetric. (unknown) (no (unknown) (unknown) Chronic findings (units (unknown) date) as above. unknown) (unknown) (no (unknown) (unknown) Correlate (units (unkn own) date) clinically for a unknown) possible source. If the patient has any personal (unknown) (no (unknown) (unknown) Craniofacial (units (u nknown) date) structures: No unknown) displaced fracture. Sinuses are clear. Orbits are (unknown) (no (unknown) (unknown) : 1945 (units (unknown) date) Acct:[id number] unknown) (unknown) (no (unknown) (unknown) Dictated by: (units (u nknown) date) Wilber Shelton M.D. on unknown) 12/02/2022 at 15:36 (unknown) (no (unknown) (unknown) FINDINGS: (units (unkn own) date) unknown) (unknown) (no (unknown) (unknown) FLAIR, (units (unkno wn) date) unknown) (unknown) (no (unknown) (unknown) Hospital, CT, CT (units (unknown) date) ANGIO HEAD AND unknown) NECK, 12/02/2022, 11:18. (unknown) (no (unknown) (unknown) IMPRESSION: A (units ( unknown) date) punctate infarct unknown) is seen in the right frontal lobe subcortical (unknown) (no (unknown) (unknown) INDICATIONS: (units (u nknown) date) Dizziness unknown) (unknown) (no (unknown) (unknown) Image quality: (units (unknown) date) Excellent unknown) (unknown) (no (unknown) (unknown) [facility] (units (unknown) date) unknown) (unknown) (no (unknown) (unknown) [place] (units (unkno wn) date) unknown) (unknown) (no (unknown) (unknown) Loc: ED (units (unkno wn) date) unknown) (unknown) (no (unknown) (unknown) Magnetic (units (unkno wn) date) Resonance Report unknown) (unknown) (no (unknown) (unknown) Noncontrast axial (units (unknown) date) T1 spin echo, unknown) axial T2 fast spin echo, sagittal and axial (unknown) (no (unknown) (unknown) Ordering (units (unkno wn) date) Provider: unknown) Lit Winn MD (unknown) (no (unknown) (unknown) PROCEDURE: MR (units ( unknown) date) HEAD/BRAIN WO CON unknown) (unknown) (no (unknown) (unknown) Patient: (units (unkno wn) date) Raegan Orourke MR#: unknown) [id number] (unknown) (no (unknown) (unknown) Procedure: MR (units ( unknown) date) head/brain wo con unknown) (unknown) (no (unknown) (unknown) Signed (units (unkno wn) date) unknown) (unknown) (no (unknown) (unknown) TECHNIQUE: (units (unk nown) date) unknown) (unknown) (no (unknown) (unknown) Volume: Volume (units (unknown) date) loss. unknown) Periventricular white matter signal abnormality most (unknown) (no (unknown) (unknown) acute hemorrhage. (units (unknown) date) unknown) (unknown) (no (unknown) (unknown) brain. (units (unkno wn) date) unknown) (unknown) (no (unknown) (unknown) commonly seen (units ( unknown) date) unknown) (unknown) (no (unknown) (unknown) coronal T2 fast (units (unknown) date) spin echo, axial unknown) gradient echo, axial diffusion and ADC through (unknown) (no (unknown) (unknown) history of (units (unk nown) date) unknown) (unknown) (no (unknown) (unknown) intact. (units (unkno wn) date) unknown) (unknown) (no (unknown) (unknown) involvement of (units (unknown) date) subcortical U unknown) fibers. (unknown) (no (unknown) (unknown) malignancy, (units (un known) date) consider also unknown) follow-up imaging. (unknown) (no (unknown) (unknown) possibly micro (units (unknown) date) embolic. 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 These unknown) findings are [id number]. There is some Result panel 374 (unknown) (no date) (unknown) (unknown) 0.2 e.u./dl (unkn own) (unknown) (no date) (unknown) (unknown) 1.010 (units (unkn own) unknown) (unknown) (no date) (unknown) (unknown) 7.5 (units (unkn own) unknown) (unknown) (no date) (unknown) (unknown) CLEAR (units (unkn own) unknown) (unknown) (no date) (unknown) (unknown) NEGATIVE (units (unkn own) unknown) (unknown) (no date) (unknown) (unknown) NEGATIVE g/dl (unkn own) (unknown) (no date) (unknown) (unknown) POSITIVE (units (unkn own) unknown) (unknown) (no date) (unknown) (unknown) YELLOW (units (unkn own) unknown) (unknown) (no date) (unknown) (unknown) YELLOW (units (unkn own) unknown) Result panel 375 (unknown) (no date) (unknown) (unknown) 0.2 e.u./dl (unkn own) (unknown) (no date) (unknown) (unknown) 1.010 (units (unkn own) unknown) (unknown) (no date) (unknown) (unknown) 7.5 (units (unkn own) unknown) (unknown) (no date) (unknown) (unknown) CLEAR (units (unkn own) unknown) (unknown) (no date) (unknown) (unknown) Many (>30) (units (un known) unknown) (unknown) (no date) (unknown) (unknown) NEGATIVE (units (unkn own) unknown) (unknown) (no date) (unknown) (unknown) NEGATIVE g/dl (unkn own) (unknown) (no date) (unknown) (unknown) None Seen (units (unk nown) unknown) (unknown) (no date) (unknown) (unknown) POSITIVE (units (unkn own) unknown) (unknown) (no date) (unknown) (unknown) Specimen (units (unkn own) Cultured unknown) (unknown) (no date) (unknown) (unknown) YELLOW (units (unkn own) unknown) (unknown) (no date) (unknown) (unknown) YELLOW (units (unkn own) unknown) Result panel 376 (unknown) (no date) (unknown) (unknown) Flu A (units (unkn own) NEGATIVE unknown) (unknown) (no date) (unknown) (unknown) Flu B (units (unkn own) NEGATIVE unknown) (unknown) (no date) (unknown) (unknown) Negative (units (unkn own) unknown) (unknown) (no date) (unknown) (unknown) Negative (units (unkn own) unknown) Result panel 377 (unknown) (no (unknown) (unknown) (no value) (units (unk nown) date) unknown) (unknown) (no (unknown) (unknown) ().? No (units (u nknown) date) unknown) (unknown) (no (unknown) (unknown) 0.09 mg IH PRN (units (unknown) date) Qty: 0 unknown) (unknown) (no (unknown) (unknown) 12/02/22 12/02/22 (units (unknown) date) 12/02/22 unknown) Range/Units (unknown) (no (unknown) (unknown) 12/02/22 12/02/22 (units (unknown) date) Range/Units unknown) (unknown) (no (unknown) (unknown) 12/02/22 10:28 (units (unknown) date) unknown) (unknown) (no (unknown) (unknown) 12/02/22 10:32 (units (unknown) date) unknown) (unknown) (no (unknown) (unknown) 12/02/22 10:49 (units (unknown) date) unknown) (unknown) (no (unknown) (unknown) 12/02/22 11:40 (units (unknown) date) unknown) (unknown) (no (unknown) (unknown) 12/02/22 11:56 (units (unknown) date) unknown) (unknown) (no (unknown) (unknown) 12/02/22 12:30 (units (unknown) date) unknown) (unknown) (no (unknown) (unknown) 12/02/22 (units (unkno wn) date) unknown) (unknown) (no (unknown) (unknown) 1 puff INH PRN (units (unknown) date) Qty: 0 unknown) (unknown) (no (unknown) (unknown) 100 mg PO HS Qty: (units (unknown) date) 0 unknown) (unknown) (no (unknown) (unknown) 100 mg PO Q12H (units (unknown) date) Qty: 0 unknown) (unknown) (no (unknown) (unknown) 10:18 12/02/22 (units (unknown) date) unknown) (unknown) (no (unknown) (unknown) 10:20 12/02/22 (units (unknown) date) unknown) (unknown) (no (unknown) (unknown) 10:21 12/02/22 (units (unknown) date) unknown) (unknown) (no (unknown) (unknown) 10:21 (units (unkno wn) date) unknown) (unknown) (no (unknown) (unknown) 10:28 10:28 10:28 (units (unknown) date) unknown) (unknown) (no (unknown) (unknown) 10:30 12/02/22 (units (unknown) date) unknown) (unknown) (no (unknown) (unknown) 11:00 (units (unkno wn) date) unknown) (unknown) (no (unknown) (unknown) 11:03 12/02/22 (units (unknown) date) unknown) (unknown) (no (unknown) (unknown) 11:10 12/02/22 (units (unknown) date) unknown) (unknown) (no (unknown) (unknown) 11:10 (units (unkno wn) date) unknown) (unknown) (no (unknown) (unknown) 11:30 12/02/22 (units (unknown) date) unknown) (unknown) (no (unknown) (unknown) 11:56 12:30 (units (un known) date) unknown) (unknown) (no (unknown) (unknown) 12:00 (units (unkno wn) date) unknown) (unknown) (no (unknown) (unknown) 12:30 12/02/22 (units (unknown) date) unknown) (unknown) (no (unknown) (unknown) 13:00 12/02/22 (units (unknown) date) unknown) (unknown) (no (unknown) (unknown) 13:30 (units (unkno wn) date) unknown) (unknown) (no (unknown) (unknown) 14:00 12/02/22 (units (unknown) date) unknown) (unknown) (no (unknown) (unknown) 14:17 12/02/22 (units (unknown) date) unknown) (unknown) (no (unknown) (unknown) 14:17 (units (unkno wn) date) unknown) (unknown) (no (unknown) (unknown) 2,000 iu PO QDAY (units (unknown) date) Qty: 0 unknown) (unknown) (no (unknown) (unknown) 200 mg PO BID (units ( unknown) date) Qty: 0 unknown) (unknown) (no (unknown) (unknown) 230 (units (unkno wn) date) unknown) (unknown) (no (unknown) (unknown) 3,000 mg PO QDAY (units (unknown) date) Qty: 0 unknown) (unknown) (no (unknown) (unknown) 50 mg PO HS Qty: (units (unknown) date) 0 unknown) (unknown) (no (unknown) (unknown) 800 mg PO PRN (units ( unknown) date) Qty: 0 unknown) (unknown) (no (unknown) (unknown) ? (units (unkno wn) date) unknown) (unknown) (no (unknown) (unknown) ?from her body. (units (unknown) date) There is not been unknown) any complaints of slurred speech facial droop (unknown) (no (unknown) (unknown) ACAs: Normal and (units (unknown) date) symmetric unknown) (unknown) (no (unknown) (unknown) AComm: No (units (unkn own) date) aneurysm unknown) (unknown) (no (unknown) (unknown) ALBUTEROL (units (unkn own) date) (PROVENTIL unknown) INHALER) 0.09 mg IH PRN ##0 12/06/11 (unknown) (no (unknown) (unknown) ALBUTEROL (units (unkn own) date) (PROVENTIL unknown) INHALER) (unknown) (no (unknown) (unknown) ALT (<35) IU/L (units (unknown) date) unknown) (unknown) (no (unknown) (unknown) ALT 37 H (<35) (units (unknown) date) IU/L unknown) (unknown) (no (unknown) (unknown) APTT (26-36) (units (u nknown) date) SECONDS unknown) (unknown) (no (unknown) (unknown) APTT 30 (26-36) (units (unknown) date) SECONDS unknown) (unknown) (no (unknown) (unknown) AST (14-36) IU/L (units (unknown) date) unknown) (unknown) (no (unknown) (unknown) AST 41 H (14-36) (units (unknown) date) IU/L unknown) (unknown) (no (unknown) (unknown) Admit Date/Time: (units (unknown) date) 12/02/22 15:56 unknown) (unknown) (no (unknown) (unknown) After history and (units (unknown) date) exam CBC CMP unknown) troponin EKG CT angiogram head and neck ordered. (unknown) (no (unknown) (unknown) Age/Sex: 77 / F (units (unknown) date) unknown) (unknown) (no (unknown) (unknown) Albumin (3.5-5.0) (units (unknown) date) g/dL unknown) (unknown) (no (unknown) (unknown) Albumin 4.2 (units (un known) date) (3.5-5.0) g/dL unknown) (unknown) (no (unknown) (unknown) Albumin/Globulin (units (unknown) date) Ratio (1.0-2.8) unknown) (unknown) (no (unknown) (unknown) Albumin/Globulin (units (unknown) date) Ratio 1.6 unknown) (1.0-2.8) (unknown) (no (unknown) (unknown) Alkaline (units (unkno wn) date) Phosphatase unknown) (38-126) U/L (unknown) (no (unknown) (unknown) Alkaline (units (unkno wn) date) Phosphatase 158 H unknown) (38-126) U/L (unknown) (no (unknown) (unknown) Allergies (units (unkn own) date) unknown) (unknown) (no (unknown) (unknown) Allergy/AdvReac (units (unknown) date) Type Severity unknown) Reaction Status Date / Time (unknown) (no (unknown) (unknown) Anterior (units (unkno wn) date) circulation: unknown) (unknown) (no (unknown) (unknown) Antibiotics) (units (u nknown) date) unknown) (unknown) (no (unknown) (unknown) Any quantitative (units (unknown) date) measurements of unknown) stenosis were performed using NASCET criteria.? (unknown) (no (unknown) (unknown) Aortic arch and (units (unknown) date) subclavian unknown) arteries:? Mild atherosclerotic disease (unknown) (no (unknown) (unknown) Approved by: (units (u nknown) date) Wilber Shelton M.D. on unknown) 12/02/2022 at 11:49 ? (unknown) (no (unknown) (unknown) Approved by: (units (u nknown) date) Wilber Shelton M.D. on unknown) 12/02/2022 at 15:41 ? (unknown) (no (unknown) (unknown) Ask month/age: (units (unknown) date) Answers both unknown) questions correctly. (unknown) (no (unknown) (unknown) BACK: No flank (units (unknown) date) tenderness. unknown) (unknown) (no (unknown) (unknown) BUN (7-17) mg/dL (units (unknown) date) unknown) (unknown) (no (unknown) (unknown) BUN 13 (7-17) (units ( unknown) date) mg/dL unknown) (unknown) (no (unknown) (unknown) BUN/Creatinine (units (unknown) date) Ratio (6-22) unknown) (unknown) (no (unknown) (unknown) BUN/Creatinine (units (unknown) date) Ratio 20.0 (6-22) unknown) (unknown) (no (unknown) (unknown) Basilar artery:? (units (unknown) date) Diminutive unknown) appearing basilar artery, particularly near the (unknown) (no (unknown) (unknown) Baso # (Auto) (units ( unknown) date) (0-100) /uL unknown) (unknown) (no (unknown) (unknown) Baso # (Auto) 0 (units (unknown) date) (0-100) /uL unknown) (unknown) (no (unknown) (unknown) Baso % (Auto) (units ( unknown) date) (0-2) % unknown) (unknown) (no (unknown) (unknown) Baso % (Auto) 0.5 (units (unknown) date) (0-2) % unknown) (unknown) (no (unknown) (unknown) Best gaze (units (unkn own) date) horizontal: Normal unknown) (unknown) (no (unknown) (unknown) Best language: No (units (unknown) date) aphasia, normal unknown) (unknown) (no (unknown) (unknown) Blood Pressure (units (unknown) date) 141/73 H unknown) (unknown) (no (unknown) (unknown) Blood Pressure (units (unknown) date) 148/67 H unknown) (unknown) (no (unknown) (unknown) Blood Pressure (units (unknown) date) 172/77 H unknown) (unknown) (no (unknown) (unknown) Blood Pressure (units (unknown) date) 191/86 H 12/02/22 unknown) 10:18 (unknown) (no (unknown) (unknown) Blood Pressure (units (unknown) date) 191/86 H unknown) (unknown) (no (unknown) (unknown) Blood Pressure (units (unknown) date) unknown) (unknown) (no (unknown) (unknown) Bones:? (units (unkno wn) date) Degenerative unknown) changes. (unknown) (no (unknown) (unknown) Brain: No (units (unkn own) date) intracranial unknown) hemorrhage. Joaquin-white differentiation is grossly (unknown) (no (unknown) (unknown) Brain:? Punctate (units (unknown) date) infarct in the unknown) right frontal lobe in the subcortical region (unknown) (no (unknown) (unknown) CARDIOVASCULAR: (units (unknown) date) Regular rate and unknown) rhythm without murmurs (unknown) (no (unknown) (unknown) CARDIOVASCULAR: (units (unknown) date) negative chest unknown) pain, palpitations (unknown) (no (unknown) (unknown) CC: Dizziness (units ( unknown) date) unknown) (unknown) (no (unknown) (unknown) CCAs: No (units (unkno wn) date) stenosis, unknown) occlusion, or aneurysm. (unknown) (no (unknown) (unknown) CK-MB (CK-2) Rel (units (unknown) date) Index TNP unknown) (unknown) (no (unknown) (unknown) CK-MB (CK-2) Rel (units (unknown) date) Index unknown) (unknown) (no (unknown) (unknown) CK-MB (CK-2) TNP (units (unknown) date) unknown) (unknown) (no (unknown) (unknown) CK-MB (CK-2) (units (u nknown) date) unknown) (unknown) (no (unknown) (unknown) COMPARISON:? (units (u nknown) date) [facility], unknown) MR, MR HEAD/BRAIN WO/W CON, 12/22/2021, 12:20.? (unknown) (no (unknown) (unknown) COMPARISON:? (units (u nknown) date) None. unknown) (unknown) (no (unknown) (unknown) CSF spaces: Basal (units (unknown) date) cisterns are unknown) patent. Lateral ventricles are symmetric. (unknown) (no (unknown) (unknown) CT angio head and (units (unknown) date) neck Stat unknown) (unknown) (no (unknown) (unknown) CTA - brain/neck: (units (unknown) date) unknown) (unknown) (no (unknown) (unknown) CTA without large (units (unknown) date) vessel occlusion unknown) or high-grade stenosis.? Suspected chronic (unknown) (no (unknown) (unknown) Calcium (units (unkno wn) date) (8.4-10.2) mg/dL unknown) (unknown) (no (unknown) (unknown) Calcium 8.9 (units (un known) date) (8.4-10.2) mg/dL unknown) (unknown) (no (unknown) (unknown) Carbon Dioxide (units (unknown) date) (22-32) mmol/L unknown) (unknown) (no (unknown) (unknown) Carbon Dioxide 31 (units (unknown) date) (22-32) mmol/L unknown) (unknown) (no (unknown) (unknown) Cephalexin HCl (units (unknown) date) (Cephalexin 250 Mg unknown) Capsule) 500 mg PO NOW ONE (unknown) (no (unknown) (unknown) Chief Complaint: (units (unknown) date) Dizziness unknown) (unknown) (no (unknown) (unknown) Chloride (98-107) (units (unknown) date) mmol/L unknown) (unknown) (no (unknown) (unknown) Chloride 100 (units (u nknown) date) (98-107) mmol/L unknown) (unknown) (no (unknown) (unknown) Chronic findings (units (unknown) date) as above.? unknown) (unknown) (no (unknown) (unknown) Complete Blood (units (unknown) date) Count AUTO DIFF unknown) Stat (unknown) (no (unknown) (unknown) Complicating (units (u nknown) date) co-morbidities: unknown) History of vertigo (unknown) (no (unknown) (unknown) Comprehensive (units ( unknown) date) Metabolic Panel unknown) Stat (unknown) (no (unknown) (unknown) Consultations: (units (unknown) date) Spoke with unknown) hospitalist, Dr. Lane, he will admit. (unknown) (no (unknown) (unknown) Correlate (units (unkn own) date) clinically for a unknown) possible source.? If the patient has any personal (unknown) (no (unknown) (unknown) Course (units (unkno wn) date) unknown) (unknown) (no (unknown) (unknown) Covid-19 + FLU (units (unknown) date) A/B + RSV - PCR unknown) Stat (unknown) (no (unknown) (unknown) Craniofacial (units (u nknown) date) structures: No unknown) displaced fracture. Sinuses are clear. Orbits are (unknown) (no (unknown) (unknown) Creatinine (units (unk nown) date) (0.52-1.04) mg/dL unknown) (unknown) (no (unknown) (unknown) Creatinine 0.65 (units (unknown) date) (0.52-1.04) mg/dL unknown) (unknown) (no (unknown) (unknown) : 1945 (units (unknown) date) Acct:[id number] unknown) (unknown) (no (unknown) (unknown) DOXYCYCLINE (units (un known) date) HYCLATE unknown) (Doxycycline 100 mg PO Q12H ##0 12/08/11 (unknown) (no (unknown) (unknown) DOXYCYCLINE (units (un known) date) HYCLATE unknown) (Doxycycline Hyclate) (unknown) (no (unknown) (unknown) Data collected (units (unknown) date) from: Patient unknown) (unknown) (no (unknown) (unknown) Date of Service: (units (unknown) date) 12/02/22 unknown) (unknown) (no (unknown) (unknown) Departure (units (unkn own) date) unknown) (unknown) (no (unknown) (unknown) Diagnosis: (units (unk nown) date) Subacute stroke unknown) (unknown) (no (unknown) (unknown) Dictated by: (units (u nknown) date) Wilber Shelton M.D. on unknown) 12/02/2022 at 11:40 ? ? (unknown) (no (unknown) (unknown) Dictated by: (units (u nknown) date) Wilber Shelton M.D. on unknown) 12/02/2022 at 15:36 ? ? (unknown) (no (unknown) (unknown) Differential (units (u nknown) date) considered: unknown) Includes but not limited to stroke/TIA/cerebel lar (unknown) (no (unknown) (unknown) Discharge Plan (units (unknown) date) unknown) (unknown) (no (unknown) (unknown) Discontinued (units (u nknown) date) Medications unknown) (unknown) (no (unknown) (unknown) Discussion: (units (un known) date) Appropriate for unknown) admission. No tPA at this time. Patient outside (unknown) (no (unknown) (unknown) Documented By: (units (unknown) date) KLS unknown) (unknown) (no (unknown) (unknown) Documented By: NR (units (unknown) date) unknown) (unknown) (no (unknown) (unknown) Dominance:? (units (un known) date) Slightly left unknown) dominant (unknown) (no (unknown) (unknown) Dysarthria: (units (un known) date) Normal unknown) (unknown) (no (unknown) (unknown) ECAs: Origins are (units (unknown) date) patent. unknown) (unknown) (no (unknown) (unknown) ED Orders (units (unkn own) date) unknown) (unknown) (no (unknown) (unknown) EKG-12 Lead (units (un known) date) Routine unknown) (unknown) (no (unknown) (unknown) ENT: Mucous (units (un known) date) membranes moist. unknown) (unknown) (no (unknown) (unknown) ER Physician: (units ( unknown) date) Lit Winn MD unknown) (unknown) (no (unknown) (unknown) EXTREMITIES: No (units (unknown) date) gross deformities. unknown) (unknown) (no (unknown) (unknown) EYES: Pupils (units (u nknown) date) equal round there unknown) is horizontal nystagmus (unknown) (no (unknown) (unknown) Emergency Report (units (unknown) date) unknown) (unknown) (no (unknown) (unknown) Eos # (Auto) (units (u nknown) date) (0-450) /uL unknown) (unknown) (no (unknown) (unknown) Eos # (Auto) 300 (units (unknown) date) (0-450) /uL unknown) (unknown) (no (unknown) (unknown) Eos % (Auto) (units (u nknown) date) (2-4) % unknown) (unknown) (no (unknown) (unknown) Eos % (Auto) 4.8 (units (unknown) date) H (2-4) % unknown) (unknown) (no (unknown) (unknown) Estimated GFR > (units (unknown) date) 60 (>60) mL/min unknown) (unknown) (no (unknown) (unknown) Estimated GFR (units ( unknown) date) (>60) mL/min unknown) (unknown) (no (unknown) (unknown) Exam Narrative: (units (unknown) date) unknown) (unknown) (no (unknown) (unknown) Exam documented (units (unknown) date) above, pertinent unknown) findings include: Horizontal nystagmus (unknown) (no (unknown) (unknown) Exam (units (unkno wn) date) unknown) (unknown) (no (unknown) (unknown) Extinction or (units ( unknown) date) inattention: No unknown) abnormality (unknown) (no (unknown) (unknown) FINDINGS:? (units (unk nown) date) unknown) (unknown) (no (unknown) (unknown) FLAIR, (units (unkno wn) date) unknown) (unknown) (no (unknown) (unknown) Facial palsy: (units ( unknown) date) Normal symetrical unknown) movement (unknown) (no (unknown) (unknown) GASTROINTESTINAL: (units (unknown) date) Abdomen soft, unknown) non-tender (unknown) (no (unknown) (unknown) GASTROINTESTINAL: (units (unknown) date) negative nausea, unknown) vomiting, abdominal pain (unknown) (no (unknown) (unknown) GENERAL: in no (units (unknown) date) distress, not unknown) toxic not dyspneic (unknown) (no (unknown) (unknown) GENERAL: negative (units (unknown) date) chills, fatigue, unknown) malaise, fever, sweats. (unknown) (no (unknown) (unknown) : negative (units (u nknown) date) dysuria, unknown) frequency, hematuria (unknown) (no (unknown) (unknown) General (units (unkno wn) date) unknown) (unknown) (no (unknown) (unknown) Globulin (units (unkno wn) date) (1.7-4.1) g/dL unknown) (unknown) (no (unknown) (unknown) Globulin 2.7 (units (u nknown) date) (1.7-4.1) g/dL unknown) (unknown) (no (unknown) (unknown) Glucose (80-110) (units (unknown) date) mg/dL unknown) (unknown) (no (unknown) (unknown) Glucose 92 (units (unk nown) date) (80-110) mg/dL unknown) (unknown) (no (unknown) (unknown) HEAD ANGIOGRAPHY (units (unknown) date) unknown) (unknown) (no (unknown) (unknown) HEAD: (units (unkno wn) date) Normocephalic. unknown) (unknown) (no (unknown) (unknown) HEENT: negative (units (unknown) date) sinus pain, ear unknown) pain, sore throat, positive hearing changes (unknown) (no (unknown) (unknown) HPI - Dizziness (units (unknown) date) unknown) (unknown) (no (unknown) (unknown) HPI Narrative: (units (unknown) date) unknown) (unknown) (no (unknown) (unknown) Hct (36-46) % (units ( unknown) date) unknown) (unknown) (no (unknown) (unknown) Hct 44.1 (36-46) (units (unknown) date) % unknown) (unknown) (no (unknown) (unknown) Hgb (12.0-16.0) (units (unknown) date) g/dL unknown) (unknown) (no (unknown) (unknown) Hgb 15.0 (units (unkno wn) date) (12.0-16.0) g/dL unknown) (unknown) (no (unknown) (unknown) History of (units (unk nown) date) Present Illness unknown) (unknown) (no (unknown) (unknown) Home Medications (units (unknown) date) unknown) (unknown) (no (unknown) (unknown) Hospital, CT, CT (units (unknown) date) ANGIO HEAD AND unknown) NECK, 12/02/2022, 11:18. (unknown) (no (unknown) (unknown) Hyclate) (units (unkno wn) date) unknown) (unknown) (no (unknown) (unknown) ICA origins (by (units (unknown) date) NASCET criteria):? unknown) Mild bilateral ICA origin calcifications (unknown) (no (unknown) (unknown) ICAs: No (units (unkno wn) date) stenosis, unknown) occlusion or aneurysm. (unknown) (no (unknown) (unknown) ICAs:? Mild (units (un known) date) calcifications of unknown) the cavernous and supraclinoid carotid arteries. (unknown) (no (unknown) (unknown) IMPRESSION:? 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 No (units (unknown) date) acute intracranial unknown) abnormality on non-contrast head CT. (unknown) (no (unknown) (unknown) INDICATIONS:? (units ( unknown) date) Dizziness unknown) (unknown) (no (unknown) (unknown) INDICATIONS:? (units ( unknown) date) dizziness unknown) (unknown) (no (unknown) (unknown) INH BID Qty: 0 (units (unknown) date) unknown) (unknown) (no (unknown) (unknown) INR (0.9-1.3) (units ( unknown) date) unknown) (unknown) (no (unknown) (unknown) INR 0.9 (0.9-1.3) (units (unknown) date) unknown) (unknown) (no (unknown) (unknown) If there is high (units (unknown) date) concern for unknown) infarct, recommend MRI. (unknown) (no (unknown) (unknown) Image quality: (units (unknown) date) Excellent unknown) (unknown) (no (unknown) (unknown) Image quality:? (units (unknown) date) Good unknown) (unknown) (no (unknown) (unknown) Imaging Data (units (u nknown) date) unknown) (unknown) (no (unknown) (unknown) Imaging studies (units (unknown) date) independently unknown) reviewed: CT angio head and neck no acute process (unknown) (no (unknown) (unknown) Independently (units (u nknown) date) reviewed EKG as unknown) above sinus bradycardia rate [address] elevation or (unknown) (no (unknown) (unknown) Influenza A (units (un known) date) (RT-PCR) unknown) (NEGATIVE) (unknown) (no (unknown) (unknown) Influenza A (units (un known) date) (RT-PCR) Flu a unknown) negative (NEGATIVE) (unknown) (no (unknown) (unknown) Influenza B (units (un known) date) (RT-PCR) unknown) (NEGATIVE) (unknown) (no (unknown) (unknown) Influenza B (units (un known) date) (RT-PCR) Flu b unknown) negative (NEGATIVE) (unknown) (no (unknown) (unknown) Initial Vital (units ( unknown) date) Signs unknown) (unknown) (no (unknown) (unknown) Initial Vital (units ( unknown) date) Signs: unknown) (unknown) (no (unknown) (unknown) [facility] (units (unknown) date) [address] unknown) [place] [address] (unknown) (no (unknown) (unknown) [place] (units (unkno wn) date) unknown) (unknown) (no (unknown) (unknown) Lab Data (units (unkno wn) date) unknown) (unknown) (no (unknown) (unknown) Lab Results (units (un known) date) unknown) (unknown) (no (unknown) (unknown) Lab Test results (units (unknown) date) independently unknown) reviewed as above. Pertinent findings: (unknown) (no (unknown) (unknown) Labs: (units (unkno wn) date) unknown) (unknown) (no (unknown) (unknown) Last Admin: (units (un known) date) 12/02/22 11:09 unknown) Dose: 4 mg (unknown) (no (unknown) (unknown) Last Admin: (units (un known) date) 12/02/22 14:21 unknown) Dose: 1 mg (unknown) (no (unknown) (unknown) Last Admin: (units (un known) date) 12/02/22 15:15 unknown) Dose: 500 mg (unknown) (no (unknown) (unknown) Left arm drift: (units (unknown) date) No drift for full unknown) 10 sec (unknown) (no (unknown) (unknown) Left leg drift: (units (unknown) date) No drift for full unknown) 5 sec (unknown) (no (unknown) (unknown) Level of (units (unkno wn) date) Conciousness: unknown) Alert, keenly responsive (unknown) (no (unknown) (unknown) Limb ataxia: (units (u nknown) date) Absent unknown) (unknown) (no (unknown) (unknown) Lorazepam (units (unkn own) date) (Lorazepam 2 Mg/Ml unknown) Inj) 1 mg IV NOW ONE (unknown) (no (unknown) (unknown) Lung apices: No (units (unknown) date) pneumothorax unknown) (unknown) (no (unknown) (unknown) Lymph # (Auto) (units (unknown) date) (3293-6414) /uL unknown) (unknown) (no (unknown) (unknown) Lymph # (Auto) (units (unknown) date) 1300 (8557-5019) unknown) /uL (unknown) (no (unknown) (unknown) Lymph % (Auto) (units (unknown) date) (25-40) % unknown) (unknown) (no (unknown) (unknown) Lymph % (Auto) (units (unknown) date) 22.5 L (25-40) % unknown) (unknown) (no (unknown) (unknown) MCAs: Normal and (units (unknown) date) symmetric unknown) (unknown) (no (unknown) (unknown) MCH (26-34) PG (units (unknown) date) unknown) (unknown) (no (unknown) (unknown) MCH 32.7 (26-34) (units (unknown) date) PG unknown) (unknown) (no (unknown) (unknown) MCHC (30-36) % (units (unknown) date) unknown) (unknown) (no (unknown) (unknown) MCHC 33.9 (30-36) (units (unknown) date) % unknown) (unknown) (no (unknown) (unknown) MCV (80-100) fL (units (unknown) date) unknown) (unknown) (no (unknown) (unknown) MCV 96.5 (80-100) (units (unknown) date) fL unknown) (unknown) (no (unknown) (unknown) MDM - Dizziness (units (unknown) date) unknown) (unknown) (no (unknown) (unknown) MDM Narrative (units ( unknown) date) unknown) (unknown) (no (unknown) (unknown) MDM (units (unkno wn) date) unknown) (unknown) (no (unknown) (unknown) MR head/brain wo (units (unknown) date) con Stat unknown) (unknown) (no (unknown) (unknown) MRI, 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 (unknown) (no (unknown) (unknown) MUSCULOSKELETAL: (units (unknown) date) negative muscle or unknown) bony pain (unknown) (no (unknown) (unknown) Medical decision (units (unknown) date) making narrative: unknown) (unknown) (no (unknown) (unknown) Medical records (units (unknown) date) reviewed: Patient unknown) not seen here before for this complaint (unknown) (no (unknown) (unknown) Medication (units (unk nown) date) Instructions unknown) Recorded Confirmed (unknown) (no (unknown) (unknown) [id number] (units (unknown) date) atherosclerotic unknown) disease.? Moderate narrowing of the left (unknown) (no (unknown) (unknown) Mode of arrival: (units (unknown) date) EMS unknown) (unknown) (no (unknown) (unknown) [place] # (Auto) (units ( unknown) date) (0-900) /uL unknown) (unknown) (no (unknown) (unknown) [place] # (Auto) 400 (units (unknown) date) (0-900) /uL unknown) (unknown) (no (unknown) (unknown) [place] % (Auto) (units ( unknown) date) (3-14) % unknown) (unknown) (no (unknown) (unknown) [place] % (Auto) 6.9 (units (unknown) date) (3-14) % unknown) (unknown) (no (unknown) (unknown) NECK ANGIOGRAPHY (units (unknown) date) unknown) (unknown) (no (unknown) (unknown) NECK: Trachea (units ( unknown) date) midline. unknown) (unknown) (no (unknown) (unknown) NEURO: AOx4. Fast (units (unknown) date) exam is negative. unknown) Clear speech no facial droop light touch (unknown) (no (unknown) (unknown) NEUROLOGIC: (units (un known) date) negative weakness, unknown) numbness, positive dizziness negative slurred (unknown) (no (unknown) (unknown) NIH Stroke Scale (units (unknown) date) unknown) (unknown) (no (unknown) (unknown) Narrative (units (unkn own) date) unknown) (unknown) (no (unknown) (unknown) Narrative: (units (unk nown) date) unknown) (unknown) (no (unknown) (unknown) Neut # (Auto) (units ( unknown) date) (8410-0902) /uL unknown) (unknown) (no (unknown) (unknown) Neut # (Auto) (units ( unknown) date) 3800 (5367-1259) unknown) /uL (unknown) (no (unknown) (unknown) Neut % (Auto) (units ( unknown) date) (50-75) % unknown) (unknown) (no (unknown) (unknown) Neut % (Auto) (units ( unknown) date) 65.3 (50-75) % unknown) (unknown) (no (unknown) (unknown) No Action (units (unkn own) date) unknown) (unknown) (no (unknown) (unknown) Noncontrast axial (units (unknown) date) T1 spin echo, unknown) axial T2 fast spin echo, sagittal and axial (unknown) (no (unknown) (unknown) Normal saline (units ( unknown) date) unknown) (unknown) (no (unknown) (unknown) OU HS Qty: 0 (units (u nknown) date) unknown) (unknown) (no (unknown) (unknown) OU QID Qty: 0 (units ( unknown) date) unknown) (unknown) (no (unknown) (unknown) Ondansetron HCl (units (unknown) date) (Ondansetron 4 unknown) Mg/2 Ml Inj) 4 mg IV NOW ONE (unknown) (no (unknown) (unknown) Open/close eyes, (units (unknown) date) close hand: unknown) Performs both tasks correctly (unknown) (no (unknown) (unknown) Ordered: (units (unkno wn) date) unknown) (unknown) (no (unknown) (unknown) Orders (units (unkno wn) date) unknown) (unknown) (no (unknown) (unknown) Oxygen Delivery (units (unknown) date) Method Room Air unknown) 12/02/22 10:18 (unknown) (no (unknown) (unknown) Oxygen Delivery (units (unknown) date) Method Room Air unknown) (unknown) (no (unknown) (unknown) Oxygen Delivery (units (unknown) date) Method unknown) (unknown) (no (unknown) (unknown) coordinator of rehabilitation services: (units (unkno wn) date) Unremarkable unknown) (unknown) (no (unknown) (unknown) PComms:? Supplied (units (unknown) date) primarily by unknown) posterior communicating arteries. (unknown) (no (unknown) (unknown) PROCEDURE:? CT (units (unknown) date) ANGIO HEAD AND unknown) NECK (unknown) (no (unknown) (unknown) PROCEDURE:? MR (units (unknown) date) HEAD/BRAIN WO CON unknown) (unknown) (no (unknown) (unknown) PSYCH: Not (units (unk nown) date) anxious, is unknown) cooperative (unknown) (no (unknown) (unknown) PT (10.1-12.7) (units (unknown) date) SECONDS unknown) (unknown) (no (unknown) (unknown) PT 10.7 (units (unkno wn) date) (10.1-12.7) unknown) SECONDS (unknown) (no (unknown) (unknown) PTT Partial (units (un known) date) Thromboplastin Shane unknown) Stat (unknown) (no (unknown) (unknown) Patient (units (unkno wn) date) Disposition: unknown) Admitted as Observation (unknown) (no (unknown) (unknown) Patient History (units (unknown) date) unknown) (unknown) (no (unknown) (unknown) Patient brought (units (unknown) date) in by ambulance unknown) from otolaryngology office of Dr. Eric Hong. (unknown) (no (unknown) (unknown) Patient has (units (un known) date) history of unknown) vertigo. Has had dizziness for the past month daily. (unknown) (no (unknown) (unknown) Patient: (units (unkno wn) date) Raegan Orourke MR#: unknown) [id number] (unknown) (no (unknown) (unknown) Plt Count (units (unkn own) date) (150-400) X103/uL unknown) (unknown) (no (unknown) (unknown) Plt Count 107 L (units (unknown) date) (150-400) X103/uL unknown) (unknown) (no (unknown) (unknown) Posterior (units (unkn own) date) circulation: unknown) (unknown) (no (unknown) (unknown) Potassium (units (unkn own) date) (3.4-5.1) mmol/L unknown) (unknown) (no (unknown) (unknown) Potassium 4.0 (units ( unknown) date) (3.4-5.1) mmol/L unknown) (unknown) (no (unknown) (unknown) Pre-contrast 4.5 (units (unknown) date) mm thick sections unknown) acquired from the foramen magnum to the (unknown) (no (unknown) (unknown) Prescriptions: (units (unknown) date) unknown) (unknown) (no (unknown) (unknown) Prothrombin Time (units (unknown) date) INR Stat unknown) (unknown) (no (unknown) (unknown) Pulse Oximetry 96 (units (unknown) date) 96 unknown) (unknown) (no (unknown) (unknown) Pulse Oximetry 97 (units (unknown) date) unknown) (unknown) (no (unknown) (unknown) Pulse Oximetry 98 (units (unknown) date) 12/02/22 10:18 unknown) (unknown) (no (unknown) (unknown) Pulse Oximetry 98 (units (unknown) date) 91 unknown) (unknown) (no (unknown) (unknown) Pulse Oximetry 98 (units (unknown) date) 98 97 unknown) (unknown) (no (unknown) (unknown) Pulse Oximetry (units (unknown) date) unknown) (unknown) (no (unknown) (unknown) Pulse Rate 60 64 (units (unknown) date) unknown) (unknown) (no (unknown) (unknown) Pulse Rate 61 (units ( unknown) date) 12/02/22 10:18 unknown) (unknown) (no (unknown) (unknown) Pulse Rate 61 59 (units (unknown) date) L unknown) (unknown) (no (unknown) (unknown) Pulse Rate 61 60 (units (unknown) date) unknown) (unknown) (no (unknown) (unknown) Pulse Rate 61 61 (units (unknown) date) unknown) (unknown) (no (unknown) (unknown) Pulse Rate 62 59 (units (unknown) date) L unknown) (unknown) (no (unknown) (unknown) Pulse Rate 63 57 (units (unknown) date) L 59 L unknown) (unknown) (no (unknown) (unknown) RBC (4.0-5.2) (units ( unknown) date) X106/uL unknown) (unknown) (no (unknown) (unknown) RBC 4.57 (units (unkno wn) date) (4.0-5.2) X106/uL unknown) (unknown) (no (unknown) (unknown) RDW (11.6-14.8) % (units (unknown) date) unknown) (unknown) (no (unknown) (unknown) RDW 12.9 (units (unkno wn) date) (11.6-14.8) % unknown) (unknown) (no (unknown) (unknown) RESPIRATORY: Clear (units (unknown) date) to auscultation. unknown) Breath sounds equal bilaterally. No wheezes, (unknown) (no (unknown) (unknown) RESPIRATORY: (units (u nknown) date) negative dyspnea, unknown) cough (unknown) (no (unknown) (unknown) ROS Unobtainable: (units (unknown) date) All systems unknown) reviewed + are unremarkable except as noted in HPI (unknown) (no (unknown) (unknown) RSV (PCR) (units (unkn own) date) (Negative) unknown) (unknown) (no (unknown) (unknown) RSV (PCR) (units (unkn own) date) Negative unknown) (Negative) (unknown) (no (unknown) (unknown) Radiologist's (units ( unknown) date) Impression: unknown) (unknown) (no (unknown) (unknown) Re-evaluations: (units (unknown) date) 3:58 p.m.. unknown) Reviewed with patient and results of MRI, (unknown) (no (unknown) (unknown) Referrals: (units (unk nown) date) unknown) (unknown) (no (unknown) (unknown) Related Data (units (u nknown) date) unknown) (unknown) (no (unknown) (unknown) Respiratory Rate (units (unknown) date) 14 12/02/22 10:18 unknown) (unknown) (no (unknown) (unknown) Respiratory Rate (units (unknown) date) 14 11 L unknown) (unknown) (no (unknown) (unknown) Respiratory Rate (units (unknown) date) 16 19 unknown) (unknown) (no (unknown) (unknown) Respiratory Rate (units (unknown) date) 17 15 unknown) (unknown) (no (unknown) (unknown) Respiratory Rate (units (unknown) date) 18 19 unknown) (unknown) (no (unknown) (unknown) Respiratory Rate (units (unknown) date) 18 26 H unknown) (unknown) (no (unknown) (unknown) Respiratory Rate (units (unknown) date) 8 L 14 unknown) (unknown) (no (unknown) (unknown) Review of Systems (units (unknown) date) unknown) (unknown) (no (unknown) (unknown) Right arm drift: (units (unknown) date) No drift for full unknown) 10 sec (unknown) (no (unknown) (unknown) Right leg drift: (units (unknown) date) No drift for full unknown) 5 sec (unknown) (no (unknown) (unknown) SARS-CoV-2 (PCR) (units (unknown) date) (Negative) unknown) (unknown) (no (unknown) (unknown) SARS-CoV-2 (PCR) (units (unknown) date) Negative unknown) (Negative) (unknown) (no (unknown) (unknown) SKIN: Warm and (units (unknown) date) dry unknown) (unknown) (no (unknown) (unknown) SKIN: negative (units (unknown) date) rash, skin lesions unknown) (unknown) (no (unknown) (unknown) Yumiko Farris DO (units (unknown) date) [Primary Care unknown) Provider] (unknown) (no (unknown) (unknown) Scores (units (unkno wn) date) unknown) (unknown) (no (unknown) (unknown) Sensory on (units (unk nown) date) face/arms/legs: unknown) Normal, no sensory loss (unknown) (no (unknown) (unknown) She sees him for (units (unknown) date) this complaint. unknown) However she went to bed last night with her (unknown) (no (unknown) (unknown) Signed By: (units (unk nown) date) unknown) (unknown) (no (unknown) (unknown) Smoking Status: (units (unknown) date) Never smoker unknown) (unknown) (no (unknown) (unknown) Social History (units (unknown) date) (Reviewed 12/02/22 unknown) @ 10:52 by Lit Winn MD) (unknown) (no (unknown) (unknown) Sodium (137-145) (units (unknown) date) mmol/L unknown) (unknown) (no (unknown) (unknown) Sodium 136 L (units (u nknown) date) (137-145) mmol/L unknown) (unknown) (no (unknown) (unknown) Soft tissues:? (units (unknown) date) There is a unknown) prominent lymph node adjacent to the right upper (unknown) (no (unknown) (unknown) Source: patient (units (unknown) date) and EMS unknown) (unknown) (no (unknown) (unknown) Stated Complaint: (units (unknown) date) Vertigo unknown) (unknown) (no (unknown) (unknown) Stop: 12/02/22 (units (unknown) date) 10:49 unknown) (unknown) (no (unknown) (unknown) Stop: 12/02/22 (units (unknown) date) 12:27 unknown) (unknown) (no (unknown) (unknown) Stop: 12/02/22 (units (unknown) date) 13:45 unknown) (unknown) (no (unknown) (unknown) Substance Use (units ( unknown) date) Type: does not use unknown) (unknown) (no (unknown) (unknown) Sulfa (units (unkno wn) date) (Sulfonamide unknown) Allergy Verified 12/02/22 10:17 (unknown) (no (unknown) (unknown) TECHNIQUE:? (units (un known) date) unknown) (unknown) (no (unknown) (unknown) Temperature 97.6 (units (unknown) date) F 12/02/22 10:18 unknown) (unknown) (no (unknown) (unknown) Temperature 97.6 (units (unknown) date) F unknown) (unknown) (no (unknown) (unknown) Temperature (units (un known) date) unknown) (unknown) (no (unknown) (unknown) There is also mild (units (unknown) date) nonspecific unknown) esophageal wall thickening partially seen.? There (unknown) (no (unknown) (unknown) Time Seen by (units (u nknown) date) Provider: 12/02/22 unknown) 10:48 (unknown) (no (unknown) (unknown) Total Bilirubin (units (unknown) date) (0.2-1.3) mg/dL unknown) (unknown) (no (unknown) (unknown) Total Bilirubin (units (unknown) date) 0.7 (0.2-1.3) unknown) mg/dL (unknown) (no (unknown) (unknown) Total Creatine (units (unknown) date) Kinase (30-135) unknown) U/L (unknown) (no (unknown) (unknown) Total Creatine (units (unknown) date) Kinase 38 (30-135) unknown) U/L (unknown) (no (unknown) (unknown) Total NIH Stroke (units (unknown) date) scale score: 0 unknown) (unknown) (no (unknown) (unknown) Total Protein (units ( unknown) date) (6.3-8.2) g/dL unknown) (unknown) (no (unknown) (unknown) Total Protein 6.9 (units (unknown) date) (6.3-8.2) g/dL unknown) (unknown) (no (unknown) (unknown) Treatments: (units (un known) date) Normal saline. unknown) (unknown) (no (unknown) (unknown) Troponin + CK (units ( unknown) date) Cardiac Panel Stat unknown) (unknown) (no (unknown) (unknown) Troponin I < (units (u nknown) date) 0.012 (0.01-0.034) unknown) ng/mL (unknown) (no (unknown) (unknown) Troponin I (units (unk nown) date) (0.01-0.034) ng/mL unknown) (unknown) (no (unknown) (unknown) Ur Culture (units (unk nown) date) Indicated? unknown) Specimen cultured (unknown) (no (unknown) (unknown) Ur Culture (units (unk nown) date) Indicated? unknown) (unknown) (no (unknown) (unknown) Ur Leukocyte (units (u nknown) date) Esterase unknown) (NEGATIVE) (unknown) (no (unknown) (unknown) Ur Leukocyte (units (u nknown) date) Esterase Negative unknown) (NEGATIVE) (unknown) (no (unknown) (unknown) Ur Specific (units (un known) date) [place] unknown) (1.000-1.035) (unknown) (no (unknown) (unknown) Ur Specific (units (un known) date) [place] 1.010 unknown) (1.000-1.035) (unknown) (no (unknown) (unknown) Ur Squamous Epith (units (unknown) date) Cells (0-5/HPF) unknown) (unknown) (no (unknown) (unknown) Ur Squamous Epith (units (unknown) date) Cells None seen unknown) (0-5/HPF) (unknown) (no (unknown) (unknown) Urinalysis and (units (unknown) date) Microscopic Stat unknown) (unknown) (no (unknown) (unknown) Urine Appearance (units (unknown) date) Clear unknown) (unknown) (no (unknown) (unknown) Urine Appearance (units (unknown) date) unknown) (unknown) (no (unknown) (unknown) Urine Bacteria (units (unknown) date) (None) unknown) (unknown) (no (unknown) (unknown) Urine Bacteria (units (unknown) date) Many (>30) H unknown) (None) (unknown) (no (unknown) (unknown) Urine Bilirubin (units (unknown) date) (NEGATIVE) unknown) (unknown) (no (unknown) (unknown) Urine Bilirubin (units (unknown) date) Negative unknown) (NEGATIVE) (unknown) (no (unknown) (unknown) Urine Color (units (un known) date) Yellow unknown) (unknown) (no (unknown) (unknown) Urine Color (units (un known) date) unknown) (unknown) (no (unknown) (unknown) Urine Culture (units ( unknown) date) Stat unknown) (unknown) (no (unknown) (unknown) Urine Glucose (units ( unknown) date) (UA) (Negative) unknown) g/dL (unknown) (no (unknown) (unknown) Urine Glucose (units ( unknown) date) (UA) Negative unknown) (Negative) g/dL (unknown) (no (unknown) (unknown) Urine Ketones (units ( unknown) date) (NEGATIVE) unknown) (unknown) (no (unknown) (unknown) Urine Ketones (units ( unknown) date) Negative unknown) (NEGATIVE) (unknown) (no (unknown) (unknown) Urine Nitrate (units ( unknown) date) (Negative) unknown) (unknown) (no (unknown) (unknown) Urine Nitrate (units ( unknown) date) Positive H unknown) (Negative) (unknown) (no (unknown) (unknown) Urine Occult (units (u nknown) date) Blood (Negative) unknown) (unknown) (no (unknown) (unknown) Urine Occult (units (u nknown) date) Blood Negative unknown) (Negative) (unknown) (no (unknown) (unknown) Urine Protein (units ( unknown) date) (Negative) unknown) (unknown) (no (unknown) (unknown) Urine Protein (units ( unknown) date) Negative unknown) (Negative) (unknown) (no (unknown) (unknown) Urine RBC (units (unkn own) date) (0-5/HPF) unknown) (unknown) (no (unknown) (unknown) Urine RBC None (units (unknown) date) seen (0-5/HPF) unknown) (unknown) (no (unknown) (unknown) Urine (units (unkno wn) date) Urobilinogen (0.2) unknown) E.U./dL (unknown) (no (unknown) (unknown) Urine (units (unkno wn) date) Urobilinogen 0.2 unknown) (0.2) E.U./dL (unknown) (no (unknown) (unknown) Urine WBC (units (unkn own) date) (0-5/HPF) unknown) (unknown) (no (unknown) (unknown) Urine WBC None (units (unknown) date) seen (0-5/HPF) unknown) (unknown) (no (unknown) (unknown) Urine pH (units (unkno wn) date) (4.5-8.0) unknown) (unknown) (no (unknown) (unknown) Urine pH 7.5 (units (u nknown) date) (4.5-8.0) unknown) (unknown) (no (unknown) (unknown) Venous sinuses: (units (unknown) date) patent unknown) (unknown) (no (unknown) (unknown) Vertebral (units (unkn own) date) arteries: No unknown) stenosis or occlusion. No aneurysm. (unknown) (no (unknown) (unknown) Vertebral (units (unkn own) date) arteries:? unknown) Moderate narrowing at the left vertebral artery origin. (unknown) (no (unknown) (unknown) Visual cowan: No (units (unknown) date) visual loss unknown) (unknown) (no (unknown) (unknown) Vital Signs - 8 (units (unknown) date) hr unknown) (unknown) (no (unknown) (unknown) Vital Signs (units (un known) date) unknown) (unknown) (no (unknown) (unknown) Vital signs: (units (u nknown) date) unknown) (unknown) (no (unknown) (unknown) Volume:? Vascular (units (unknown) date) calcifications. unknown) Periventricular white matter disease is (unknown) (no (unknown) (unknown) Volume:? Volume (units (unknown) date) loss. unknown) Periventricular white matter signal abnormality most (unknown) (no (unknown) (unknown) WBC (4.5-11.0) (units (unknown) date) X103/uL unknown) (unknown) (no (unknown) (unknown) WBC 5.9 (units (unkno wn) date) (4.5-11.0) X103/uL unknown) (unknown) (no (unknown) (unknown) [ASTHMACORT] INH (units (unknown) date) BID ##0 11/10/12 unknown) (unknown) (no (unknown) (unknown) [ASTHMACORT] (units (u nknown) date) unknown) (unknown) (no (unknown) (unknown) [C-SERUM] gtt OU (units (unknown) date) QID ##0 11/10/12 unknown) (unknown) (no (unknown) (unknown) [C-SERUM] (units (unkn own) date) unknown) (unknown) (no (unknown) (unknown) [Embedded Image (units (unknown) date) Not Available] unknown) (unknown) (no (unknown) (unknown) [FLAXSEED] 3,000 (units (unknown) date) mg PO QDAY ##0 unknown) 12/08/11 (unknown) (no (unknown) (unknown) [FLAXSEED] (units (unk nown) date) unknown) (unknown) (no (unknown) (unknown) [GENTEAL] ophth (units (unknown) date) OU HS ##0 11/10/12 unknown) (unknown) (no (unknown) (unknown) [GENTEAL] (units (unkn own) date) unknown) (unknown) (no (unknown) (unknown) [PREDNISOLONE] (units (unknown) date) gtt OU QID ##0 unknown) 11/10/12 (unknown) (no (unknown) (unknown) [PREDNISOLONE] (units (unknown) date) unknown) (unknown) (no (unknown) (unknown) [VITAMIN D ] (units (u nknown) date) 2,000 iu PO QDAY unknown) ##0 11/10/12 (unknown) (no (unknown) (unknown) [VITAMIN D ] (units (u nknown) date) unknown) (unknown) (no (unknown) (unknown) acquired (units (unkno wn) date) unknown) (unknown) (no (unknown) (unknown) acute hemorrhage. (units (unknown) date) unknown) (unknown) (no (unknown) (unknown) acyclovir 200 mg (units (unknown) date) capsule (Zovirax) unknown) 200 mg PO BID ##0 11/10/12 (unknown) (no (unknown) (unknown) acyclovir (units (unkn own) date) [Zovirax] 200 MG unknown) capsule (unknown) (no (unknown) (unknown) alcohol intake (units (unknown) date) frequency: 0-2 unknown) drinks per day (unknown) (no (unknown) (unknown) and below (units (unkn own) date) unknown) (unknown) (no (unknown) (unknown) and neck (units (unkno wn) date) separately. For unknown) radiation dose reduction, the following was used:? (unknown) (no (unknown) (unknown) and/or volume (units ( unknown) date) rendering unknown) reformats were acquired of the central intracranial (unknown) (no (unknown) (unknown) appearance of the (units (unknown) date) distal basilar unknown) artery secondary to predominant supply of (unknown) (no (unknown) (unknown) arch through the (units (unknown) date) [place] unknown) Post-contrast 4.5 mm thick sections then re (unknown) (no (unknown) (unknown) are (units (unkno wn) date) unknown) (unknown) (no (unknown) (unknown) artery origin. (units (unknown) date) unknown) (unknown) (no (unknown) (unknown) at this time. (units ( unknown) date) Fast exam is unknown) negative (unknown) (no (unknown) (unknown) automated (units (unkn own) date) unknown) (unknown) (no (unknown) (unknown) bilateral coordinator of rehabilitation services.? (units (unknown) date) This was seen in unknown) 2021 imaging. (unknown) (no (unknown) (unknown) brain.? (units (unkno wn) date) unknown) (unknown) (no (unknown) (unknown) budesonide-formot (units (unknown) date) codey HFA 160 1 unknown) puff INH PRN ##0 12/06/11 (unknown) (no (unknown) (unknown) budesonide-formot (units (unknown) date) codey [Symbicort] unknown) 160 MCG/4.5 MCG HFA aerosol inhaler (unknown) (no (unknown) (unknown) commonly seen (units ( unknown) date) unknown) (unknown) (no (unknown) (unknown) coronal T2 fast (units (unknown) date) spin echo, axial unknown) gradient echo, axial diffusion and ADC through (unknown) (no (unknown) (unknown) depression (units (unk nown) date) unknown) (unknown) (no (unknown) (unknown) diminutive (units (unk nown) date) unknown) (unknown) (no (unknown) (unknown) drift. (units (unkno wn) date) Finger-nose unknown) intact. Elevate each leg independently off the bed (unknown) (no (unknown) (unknown) esophagus.? (units (un known) date) unknown) (unknown) (no (unknown) (unknown) exposure control, (units (unknown) date) adjustment of mA unknown) and/or kV according to patient size.? (unknown) (no (unknown) (unknown) for admit. (units (unk nown) date) Patient in no unknown) distress (unknown) (no (unknown) (unknown) from the foramen (units (unknown) date) magnum to the unknown) vertex.? 3-dimensional (unknown) (no (unknown) (unknown) history of (units (unk nown) date) unknown) (unknown) (no (unknown) (unknown) ibuprofen 800 MG (units (unknown) date) tablet unknown) (unknown) (no (unknown) (unknown) ibuprofen 800 mg (units (unknown) date) tablet 800 mg PO unknown) PRN ##0 11/10/12 (unknown) (no (unknown) (unknown) infarct/vertigo/l (units (unknown) date) abyrinthitis unknown) (unknown) (no (unknown) (unknown) inhaler (units (unkno wn) date) (Symbicort) unknown) (unknown) (no (unknown) (unknown) intact bilateral (units (unknown) date) face hands and unknown) feet. Strong equal bag bundler. Negative pronator (unknown) (no (unknown) (unknown) intact. (units (unkno wn) date) unknown) (unknown) (no (unknown) (unknown) involvement of (units (unknown) date) subcortical U unknown) fibers.? (unknown) (no (unknown) (unknown) is minimal flow (units (unknown) date) present.? This was unknown) seen on prior imaging. (unknown) (no (unknown) (unknown) maintained. (units (un known) date) unknown) (unknown) (no (unknown) (unknown) malignancy, (units (un known) date) consider also unknown) follow-up imaging. (unknown) (no (unknown) (unknown) maximum-intensity (units (unknown) date) -projection (MIP) unknown) (unknown) (no (unknown) (unknown) mcg-4.5 (units (unkno wn) date) mcg/actuation unknown) aerosol (unknown) (no (unknown) (unknown) [id number] (units (unknown) date) unknown) (unknown) (no (unknown) (unknown) month or last (units ( unknown) date) night or today. unknown) Prior history of stroke. Patient in no distress (unknown) (no (unknown) (unknown) mri brain: (units (unk nown) date) unknown) (unknown) (no (unknown) (unknown) or limb numbness (units (unknown) date) tingling or unknown) weakness from herself or her . In the past (unknown) (no (unknown) (unknown) parotid (units (unkno wn) date) calcifications of unknown) uncertain etiology. (unknown) (no (unknown) (unknown) possibly micro (units (unknown) date) embolic.? () unknown) (unknown) (no (unknown) (unknown) rales, or (units (unkn own) date) rhonchi. unknown) (unknown) (no (unknown) (unknown) region, (units (unkno wn) date) unknown) (unknown) (no (unknown) (unknown) sertraline 50 mg (units (unknown) date) tablet (Zoloft) 50 unknown) mg PO HS ##0 11/10/12 (unknown) (no (unknown) (unknown) sertraline (units (unk nown) date) [Zoloft] 50 MG unknown) tablet (unknown) (no (unknown) (unknown) significant (units (un known) date) narrowing (less unknown) than 50%) (unknown) (no (unknown) (unknown) speech negative (units (unknown) date) facial droop unknown) (unknown) (no (unknown) (unknown) subacute infarct (units (unknown) date) finding. Right unknown) frontal lobe. They agree and understand need (unknown) (no (unknown) (unknown) the (units (unkno wn) date) administration of unknown) intravenous contrast, 1 mm thick sections acquired from (unknown) (no (unknown) (unknown) the aortic (units (unk nown) date) unknown) (unknown) (no (unknown) (unknown) the (units (unkno wn) date) unknown) (unknown) (no (unknown) (unknown) tip.? There (units (un known) date) unknown) (unknown) (no (unknown) (unknown) trazodone 100 MG (units (unknown) date) tablet unknown) (unknown) (no (unknown) (unknown) trazodone 100 mg (units (unknown) date) tablet 100 mg PO unknown) HS ##0 12/08/11 (unknown) (no (unknown) (unknown) usual vertigo (units ( unknown) date) dizziness. This unknown) morning however she felt like she was ?detached (unknown) (no (unknown) (unknown) vasculature (units (un known) date) unknown) (unknown) (no (unknown) (unknown) vertebral (units (unkn own) date) unknown) (unknown) (no (unknown) (unknown) vertex.? After (units (unknown) date) unknown) (unknown) (no (unknown) (unknown) window of tPA. No (units (unknown) date) large vessel unknown) occlusion. No endovascular intervention needed. (unknown) (no (unknown) (unknown) with chronic (units (u nknown) date) microangiopathy. unknown) Volume loss is present. These findings are (unknown) (no (unknown) (unknown) with small vessel (units (unknown) date) disease. These unknown) findings are [id number].? There is some (unknown) (no (unknown) (unknown) without (units (unkno wn) date) unknown) Result panel 378 (unknown) (no (unknown) (unknown) (no value) (units (unk nown) date) unknown) (unknown) (no (unknown) (unknown) (past 8 hours): (units (unknown) date) unknown) (unknown) (no (unknown) (unknown) -ceftriaxone 1 g (units (unknown) date) Q 24 hours, follow unknown) urine (unknown) (no (unknown) (unknown) -follow (units (unkno wn) date) clinically, unknown) nebulizers as needed. (unknown) (no (unknown) (unknown) -plan is dual (units ( unknown) date) anti-platelet unknown) therapy, high-dose atorvastatin. Follow neurologic (unknown) (no (unknown) (unknown) -she describes (units (unknown) date) some component ago unknown) being positional. Vertigo maneuver at ENT (unknown) (no (unknown) (unknown) 12/02/22 12/02/22 (units (unknown) date) 12/02/22 unknown) (unknown) (no (unknown) (unknown) 12/02/22 12/02/22 (units (unknown) date) unknown) (unknown) (no (unknown) (unknown) 12/02/22 10:28 (units (unknown) date) unknown) (unknown) (no (unknown) (unknown) 12/02/22 1700 (units ( unknown) date) unknown) (unknown) (no (unknown) (unknown) 12/02/22 (units (unkno wn) date) unknown) (unknown) (no (unknown) (unknown) 1. 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 (unknown) (no (unknown) (unknown) 10:18 12/02/22 (units (unknown) date) unknown) (unknown) (no (unknown) (unknown) 10:20 12/02/22 (units (unknown) date) unknown) (unknown) (no (unknown) (unknown) 10:21 12/02/22 (units (unknown) date) unknown) (unknown) (no (unknown) (unknown) 10:21 (units (unkno wn) date) unknown) (unknown) (no (unknown) (unknown) 10:28 10:28 10:28 (units (unknown) date) unknown) (unknown) (no (unknown) (unknown) 10:30 12/02/22 (units (unknown) date) unknown) (unknown) (no (unknown) (unknown) 11:00 (units (unkno wn) date) unknown) (unknown) (no (unknown) (unknown) 11:03 12/02/22 (units (unknown) date) unknown) (unknown) (no (unknown) (unknown) 11:10 12/02/22 (units (unknown) date) unknown) (unknown) (no (unknown) (unknown) 11:10 (units (unkno wn) date) unknown) (unknown) (no (unknown) (unknown) 11:30 12/02/22 (units (unknown) date) unknown) (unknown) (no (unknown) (unknown) 11:56 12:30 (units (un known) date) unknown) (unknown) (no (unknown) (unknown) 12:00 (units (unkno wn) date) unknown) (unknown) (no (unknown) (unknown) 12:30 12/02/22 (units (unknown) date) unknown) (unknown) (no (unknown) (unknown) 13:00 12/02/22 (units (unknown) date) unknown) (unknown) (no (unknown) (unknown) 13:30 (units (unkno wn) date) unknown) (unknown) (no (unknown) (unknown) 14:00 12/02/22 (units (unknown) date) unknown) (unknown) (no (unknown) (unknown) 14:17 12/02/22 (units (unknown) date) unknown) (unknown) (no (unknown) (unknown) 14:17 (units (unkno wn) date) unknown) (unknown) (no (unknown) (unknown) 14:57 12/02/22 (units (unknown) date) unknown) (unknown) (no (unknown) (unknown) 15:00 12/02/22 (units (unknown) date) unknown) (unknown) (no (unknown) (unknown) 15:30 (units (unkno wn) date) unknown) (unknown) (no (unknown) (unknown) 16:00 12/02/22 (units (unknown) date) unknown) (unknown) (no (unknown) (unknown) 16:30 12/02/22 (units (unknown) date) unknown) (unknown) (no (unknown) (unknown) 16:36 (units (unkno wn) date) unknown) (unknown) (no (unknown) (unknown) 2. Subacute (units (un known) date) vertigo and unknown) hearing loss, present on admission and active. (unknown) (no (unknown) (unknown) 230 (units (unkno wn) date) unknown) (unknown) (no (unknown) (unknown) 3. Possible (units (un known) date) urinary tract unknown) infection, present on admission and active. (unknown) (no (unknown) (unknown) 4. Asthma, (units (unk nown) date) present on unknown) admission and stable. (unknown) (no (unknown) (unknown) ALBUTEROL (units (unkn own) date) (PROVENTIL unknown) INHALER) 0.09 mg IH PRN ##0 12/06/11 History (unknown) (no (unknown) (unknown) ALT 37 H (units (unkno wn) date) unknown) (unknown) (no (unknown) (unknown) ALT (units (unkno wn) date) unknown) (unknown) (no (unknown) (unknown) APTT 30 (units (unkno wn) date) unknown) (unknown) (no (unknown) (unknown) APTT (units (unkno wn) date) unknown) (unknown) (no (unknown) (unknown) AST 41 H (units (unkno wn) date) unknown) (unknown) (no (unknown) (unknown) AST (units (unkno wn) date) unknown) (unknown) (no (unknown) (unknown) Abdomen is soft, (units (unknown) date) nontender, no unknown) organomegaly (unknown) (no (unknown) (unknown) Age/Sex: 77 / F (units (unknown) date) unknown) (unknown) (no (unknown) (unknown) Albumin 4.2 (units (un known) date) unknown) (unknown) (no (unknown) (unknown) Albumin (units (unkno wn) date) unknown) (unknown) (no (unknown) (unknown) Albumin/Globulin (units (unknown) date) Ratio 1.6 unknown) (unknown) (no (unknown) (unknown) Albumin/Globulin (units (unknown) date) Ratio unknown) (unknown) (no (unknown) (unknown) Alkaline (units (unkno wn) date) Phosphatase 158 H unknown) (unknown) (no (unknown) (unknown) Alkaline (units (unkno wn) date) Phosphatase unknown) (unknown) (no (unknown) (unknown) Allergies (units (unkn own) date) unknown) (unknown) (no (unknown) (unknown) Allergy/AdvReac (units (unknown) date) Type Severity unknown) Reaction Status Date / Time (unknown) (no (unknown) (unknown) Antibiotics) (units (u nknown) date) unknown) (unknown) (no (unknown) (unknown) Assessment + Plan (units (unknown) date) narrative: unknown) (unknown) (no (unknown) (unknown) Assessment + Plan (units (unknown) date) unknown) (unknown) (no (unknown) (unknown) BUN 13 (units (unkno wn) date) unknown) (unknown) (no (unknown) (unknown) BUN (units (unkno wn) date) unknown) (unknown) (no (unknown) (unknown) BUN/Creatinine (units (unknown) date) Ratio 20.0 unknown) (unknown) (no (unknown) (unknown) BUN/Creatinine (units (unknown) date) Ratio unknown) (unknown) (no (unknown) (unknown) Baso # (Auto) 0 (units (unknown) date) unknown) (unknown) (no (unknown) (unknown) Baso # (Auto) (units ( unknown) date) unknown) (unknown) (no (unknown) (unknown) Baso % (Auto) 0.5 (units (unknown) date) unknown) (unknown) (no (unknown) (unknown) Baso % (Auto) (units ( unknown) date) unknown) (unknown) (no (unknown) (unknown) Blood Pressure (units (unknown) date) 141/73 H unknown) (unknown) (no (unknown) (unknown) Blood Pressure (units (unknown) date) 148/67 H unknown) (unknown) (no (unknown) (unknown) Blood Pressure (units (unknown) date) 159/70 H unknown) (unknown) (no (unknown) (unknown) Blood Pressure (units (unknown) date) 172/77 H unknown) (unknown) (no (unknown) (unknown) Blood Pressure (units (unknown) date) 191/86 H unknown) (unknown) (no (unknown) (unknown) Blood Pressure (units (unknown) date) unknown) (unknown) (no (unknown) (unknown) CK-MB (CK-2) Rel (units (unknown) date) Index TNP unknown) (unknown) (no (unknown) (unknown) CK-MB (CK-2) Rel (units (unknown) date) Index unknown) (unknown) (no (unknown) (unknown) CK-MB (CK-2) TNP (units (unknown) date) unknown) (unknown) (no (unknown) (unknown) CK-MB (CK-2) (units (u nknown) date) unknown) (unknown) (no (unknown) (unknown) CT scan - head: (units (unknown) date) unknown) (unknown) (no (unknown) (unknown) Calcium 8.9 (units (un known) date) unknown) (unknown) (no (unknown) (unknown) Calcium (units (unkno wn) date) unknown) (unknown) (no (unknown) (unknown) Carbon Dioxide 31 (units (unknown) date) unknown) (unknown) (no (unknown) (unknown) Carbon Dioxide (units (unknown) date) unknown) (unknown) (no (unknown) (unknown) Chief complaint: (units (unknown) date) Vertigo unknown) (unknown) (no (unknown) (unknown) Chloride 100 (units (u nknown) date) unknown) (unknown) (no (unknown) (unknown) Chloride (units (unkno wn) date) unknown) (unknown) (no (unknown) (unknown) Creatinine 0.65 (units (unknown) date) unknown) (unknown) (no (unknown) (unknown) Creatinine (units (unk nown) date) unknown) (unknown) (no (unknown) (unknown) Critical Care (units ( unknown) date) time: unknown) (unknown) (no (unknown) (unknown) : 1945 (units (unknown) date) Acct:[id number] unknown) (unknown) (no (unknown) (unknown) DOXYCYCLINE (units (un known) date) HYCLATE unknown) (Doxycycline 100 mg PO Q12H ##0 12/08/11 History (unknown) (no (unknown) (unknown) Date Patient (units (u nknown) date) Seen: 12/02/22 unknown) (unknown) (no (unknown) (unknown) Date of Service: (units (unknown) date) 12/02/22 unknown) (unknown) (no (unknown) (unknown) ECG (units (unkno wn) date) unknown) (unknown) (no (unknown) (unknown) Environment (units (un known) date) unknown) (unknown) (no (unknown) (unknown) Eos # (Auto) 300 (units (unknown) date) unknown) (unknown) (no (unknown) (unknown) Eos # (Auto) (units (u nknown) date) unknown) (unknown) (no (unknown) (unknown) Eos % (Auto) 4.8 (units (unknown) date) H unknown) (unknown) (no (unknown) (unknown) Eos % (Auto) (units (u nknown) date) unknown) (unknown) (no (unknown) (unknown) Estimated GFR > (units (unknown) date) 60 unknown) (unknown) (no (unknown) (unknown) Estimated GFR (units ( unknown) date) unknown) (unknown) (no (unknown) (unknown) Exam Narrative: (units (unknown) date) unknown) (unknown) (no (unknown) (unknown) Exam (units (unkno wn) date) unknown) (unknown) (no (unknown) (unknown) Extremities are (units (unknown) date) free of edema, unknown) good peripheral pulses. (unknown) (no (unknown) (unknown) Family + Social (units (unknown) date) History unknown) (unknown) (no (unknown) (unknown) Family History (units (unknown) date) (Updated 12/02/22 unknown) @ 16:[address] MD) (unknown) (no (unknown) (unknown) Feels Safe in (units ( unknown) date) Current Yes unknown) (unknown) (no (unknown) (unknown) Globulin 2.7 (units (u nknown) date) unknown) (unknown) (no (unknown) (unknown) Globulin (units (unkno wn) date) unknown) (unknown) (no (unknown) (unknown) Glucose 92 (units (unk nown) date) unknown) (unknown) (no (unknown) (unknown) Glucose (units (unkno wn) date) unknown) (unknown) (no (unknown) (unknown) Hct 44.1 (units (unkno wn) date) unknown) (unknown) (no (unknown) (unknown) Hct (units (unkno wn) date) unknown) (unknown) (no (unknown) (unknown) Head reveals (units (u nknown) date) symmetric pupils, unknown) EOMI. No diplopia. No nystagmus. (unknown) (no (unknown) (unknown) Heart is regular (units (unknown) date) without murmur unknown) gallop or rub. Referral pulses. (unknown) (no (unknown) (unknown) Hgb 15.0 (units (unkno wn) date) unknown) (unknown) (no (unknown) (unknown) Hgb (units (unkno wn) date) unknown) (unknown) (no (unknown) (unknown) History + (units (unkn own) date) Physical Report unknown) (unknown) (no (unknown) (unknown) History of (units (unk nown) date) Present Illness unknown) (unknown) (no (unknown) (unknown) Home Medications (units (unknown) date) and Allergies unknown) (unknown) (no (unknown) (unknown) Home Medications (units (unknown) date) unknown) (unknown) (no (unknown) (unknown) Hyclate) (units (unkno wn) date) unknown) (unknown) (no (unknown) (unknown) INR 0.9 (units (unkno wn) date) unknown) (unknown) (no (unknown) (unknown) INR (units (unkno wn) date) unknown) (unknown) (no (unknown) (unknown) Imaging (units (unkno wn) date) unknown) (unknown) (no (unknown) (unknown) Impression: (units (un known) date) unknown) (unknown) (no (unknown) (unknown) Influenza A (units (un known) date) (RT-PCR) Flu a unknown) negative (unknown) (no (unknown) (unknown) Influenza A (units (un known) date) (RT-PCR) unknown) (unknown) (no (unknown) (unknown) Influenza B (units (un known) date) (RT-PCR) Flu b unknown) negative (unknown) (no (unknown) (unknown) Influenza B (units (un known) date) (RT-PCR) unknown) (unknown) (no (unknown) (unknown) [facility] (units (unknown) date) [address] unknown) [place] [address] (unknown) (no (unknown) (unknown) Joints are not (units (unknown) date) swollen or unknown) deformed. (unknown) (no (unknown) (unknown) Judgment and (units (u nknown) date) speech are normal. unknown) (unknown) (no (unknown) (unknown) Laboratory (units (unk nown) date) Results - last 24 unknown) hr (unknown) (no (unknown) (unknown) Labs (units (unkno wn) date) unknown) (unknown) (no (unknown) (unknown) Labs: (units (unkno wn) date) unknown) (unknown) (no (unknown) (unknown) Lungs Are clear (units (unknown) date) with normal rate unknown) and effort. (unknown) (no (unknown) (unknown) Lymph # (Auto) (units (unknown) date) 1300 unknown) (unknown) (no (unknown) (unknown) Lymph # (Auto) (units (unknown) date) unknown) (unknown) (no (unknown) (unknown) Lymph % (Auto) (units (unknown) date) 22.5 L unknown) (unknown) (no (unknown) (unknown) Lymph % (Auto) (units (unknown) date) unknown) (unknown) (no (unknown) (unknown) MCH 32.7 (units (unkno wn) date) unknown) (unknown) (no (unknown) (unknown) MCH (units (unkno wn) date) unknown) (unknown) (no (unknown) (unknown) MCHC 33.9 (units (unkn own) date) unknown) (unknown) (no (unknown) (unknown) MCHC (units (unkno wn) date) unknown) (unknown) (no (unknown) (unknown) MCV 96.5 (units (unkno wn) date) unknown) (unknown) (no (unknown) (unknown) MCV (units (unkno wn) date) unknown) (unknown) (no (unknown) (unknown) Medication (units (unk nown) date) Instructions unknown) Recorded Confirmed Type (unknown) (no (unknown) (unknown) Meds (units (unkno wn) date) unknown) (unknown) (no (unknown) (unknown) [place] # (Auto) 400 (units (unknown) date) unknown) (unknown) (no (unknown) (unknown) [place] # (Auto) (units ( unknown) date) unknown) (unknown) (no (unknown) (unknown) [place] % (Auto) 6.9 (units (unknown) date) unknown) (unknown) (no (unknown) (unknown) [place] % (Auto) (units ( unknown) date) unknown) (unknown) (no (unknown) (unknown) NSR (units (unkno wn) date) unknown) (unknown) (no (unknown) (unknown) Narrative (units (unkn own) date) unknown) (unknown) (no (unknown) (unknown) Narrative: (units (unk nown) date) unknown) (unknown) (no (unknown) (unknown) Neck is supple, (units (unknown) date) no adenopathy. unknown) Normal thyroid. No range of motion. (unknown) (no (unknown) (unknown) Neurologically (units (unknown) date) cranial nerves are unknown) intact. Motor strength is 5/5 all (unknown) (no (unknown) (unknown) Neut # (Auto) (units ( unknown) date) 3800 unknown) (unknown) (no (unknown) (unknown) Neut # (Auto) (units ( unknown) date) unknown) (unknown) (no (unknown) (unknown) Neut % (Auto) (units ( unknown) date) 65.3 unknown) (unknown) (no (unknown) (unknown) Neut % (Auto) (units ( unknown) date) unknown) (unknown) (no (unknown) (unknown) No acute (units (unkno wn) date) abnormalities, or unknown) bleed. (unknown) (no (unknown) (unknown) Objective (units (unkn own) date) unknown) (unknown) (no (unknown) (unknown) Other Family (units (u nknown) date) history of unknown) cerebrovascular accident (CVA) in father (unknown) (no (unknown) (unknown) Oxygen Delivery (units (unknown) date) Method Room Air unknown) (unknown) (no (unknown) (unknown) Oxygen Delivery (units (unknown) date) Method unknown) (unknown) (no (unknown) (unknown) PT 10.7 (units (unkno wn) date) unknown) (unknown) (no (unknown) (unknown) PT (units (unkno wn) date) unknown) (unknown) (no (unknown) (unknown) Patient History (units (unknown) date) unknown) (unknown) (no (unknown) (unknown) Patient: (units (unkno wn) date) Raegan Orourke MR#: unknown) [id number] (unknown) (no (unknown) (unknown) Plt Count 107 L (units (unknown) date) unknown) (unknown) (no (unknown) (unknown) Plt Count (units (unkn own) date) unknown) (unknown) (no (unknown) (unknown) Potassium 4.0 (units ( unknown) date) unknown) (unknown) (no (unknown) (unknown) Potassium (units (unkn own) date) unknown) (unknown) (no (unknown) (unknown) Provider: Epifanio (units (unknown) date) MD Domingo unknown) (unknown) (no (unknown) (unknown) Pulse Oximetry 95 (units (unknown) date) 95 95 unknown) (unknown) (no (unknown) (unknown) Pulse Oximetry 96 (units (unknown) date) 96 unknown) (unknown) (no (unknown) (unknown) Pulse Oximetry 97 (units (unknown) date) 98 93 unknown) (unknown) (no (unknown) (unknown) Pulse Oximetry 97 (units (unknown) date) unknown) (unknown) (no (unknown) (unknown) Pulse Oximetry 98 (units (unknown) date) 91 unknown) (unknown) (no (unknown) (unknown) Pulse Oximetry 98 (units (unknown) date) 98 97 unknown) (unknown) (no (unknown) (unknown) Pulse Oximetry (units (unknown) date) unknown) (unknown) (no (unknown) (unknown) Pulse Rate 60 64 (units (unknown) date) unknown) (unknown) (no (unknown) (unknown) Pulse Rate 61 59 (units (unknown) date) L unknown) (unknown) (no (unknown) (unknown) Pulse Rate 61 60 (units (unknown) date) unknown) (unknown) (no (unknown) (unknown) Pulse Rate 61 61 (units (unknown) date) unknown) (unknown) (no (unknown) (unknown) Pulse Rate 62 59 (units (unknown) date) L unknown) (unknown) (no (unknown) (unknown) Pulse Rate 63 57 (units (unknown) date) L 59 L unknown) (unknown) (no (unknown) (unknown) Pulse Rate 63 65 (units (unknown) date) 61 unknown) (unknown) (no (unknown) (unknown) Pulse Rate 65 63 (units (unknown) date) 62 unknown) (unknown) (no (unknown) (unknown) Pulse Rate (units (unk nown) date) unknown) (unknown) (no (unknown) (unknown) RBC 4.57 (units (unkno wn) date) unknown) (unknown) (no (unknown) (unknown) RBC (units (unkno wn) date) unknown) (unknown) (no (unknown) (unknown) RDW 12.9 (units (unkno wn) date) unknown) (unknown) (no (unknown) (unknown) RDW (units (unkno wn) date) unknown) (unknown) (no (unknown) (unknown) RSV (PCR) (units (unkn own) date) Negative unknown) (unknown) (no (unknown) (unknown) RSV (PCR) (units (unkn own) date) unknown) (unknown) (no (unknown) (unknown) Radiologist's (units ( unknown) date) impression: unknown) (unknown) (no (unknown) (unknown) Respiratory Rate (units (unknown) date) 11 L 29 H unknown) (unknown) (no (unknown) (unknown) Respiratory Rate (units (unknown) date) 14 11 L unknown) (unknown) (no (unknown) (unknown) Respiratory Rate (units (unknown) date) 16 19 unknown) (unknown) (no (unknown) (unknown) Respiratory Rate (units (unknown) date) 17 15 unknown) (unknown) (no (unknown) (unknown) Respiratory Rate (units (unknown) date) 18 19 unknown) (unknown) (no (unknown) (unknown) Respiratory Rate (units (unknown) date) 18 26 H unknown) (unknown) (no (unknown) (unknown) Respiratory Rate (units (unknown) date) 32 H 34 H 25 H unknown) (unknown) (no (unknown) (unknown) Respiratory Rate (units (unknown) date) 8 L 14 unknown) (unknown) (no (unknown) (unknown) Respiratory Rate (units (unknown) date) unknown) (unknown) (no (unknown) (unknown) Review of Systems (units (unknown) date) unknown) (unknown) (no (unknown) (unknown) SARS-CoV-2 (PCR) (units (unknown) date) Negative unknown) (unknown) (no (unknown) (unknown) SARS-CoV-2 (PCR) (units (unknown) date) unknown) (unknown) (no (unknown) (unknown) Safety + (units (unkno wn) date) Behavioral: unknown) (unknown) (no (unknown) (unknown) She denies visual (units (unknown) date) changes, or unknown) diplopia. No speech difficulty. No recent (unknown) (no (unknown) (unknown) She is alert (units (u nknown) date) oriented x3, no unknown) acute distress. Fluent speech and normal judgment. (unknown) (no (unknown) (unknown) Signed (units (unkno wn) date) By:<Electronically unknown) signed by Epifanio Lane MD> (unknown) (no (unknown) (unknown) Skin is free of (units (unknown) date) rash, lesions or unknown) petechiae. (unknown) (no (unknown) (unknown) Smoking Status (units (unknown) date) Never smoker unknown) (unknown) (no (unknown) (unknown) Social History: (units (unknown) date) unknown) (unknown) (no (unknown) (unknown) Sodium 136 L (units (u nknown) date) unknown) (unknown) (no (unknown) (unknown) Sodium (units (unkno wn) date) unknown) (unknown) (no (unknown) (unknown) Spent 45 minutes (units (unknown) date) with this unknown) admission. (unknown) (no (unknown) (unknown) Substance Use (units ( unknown) date) Type does not use unknown) (unknown) (no (unknown) (unknown) Sulfa (units (unkno wn) date) (Sulfonamide unknown) Allergy Verified 12/02/22 10:17 (unknown) (no (unknown) (unknown) Temperature 97.6 (units (unknown) date) F unknown) (unknown) (no (unknown) (unknown) Temperature (units (un known) date) unknown) (unknown) (no (unknown) (unknown) The patient is a (units (unknown) date) 77-year-old female unknown) who describes a 1-2 month history of vertigo (unknown) (no (unknown) (unknown) The patient lives (units (unknown) date) at [facility] unknown) with her . She quit smoking 20 years (unknown) (no (unknown) (unknown) Time Patient (units (u nknown) date) Seen: 16:00 unknown) (unknown) (no (unknown) (unknown) Time Spent With (units (unknown) date) Patient unknown) (unknown) (no (unknown) (unknown) Tobacco + (units (unkn own) date) Substance use: unknown) (unknown) (no (unknown) (unknown) Total Bilirubin (units (unknown) date) 0.7 unknown) (unknown) (no (unknown) (unknown) Total Bilirubin (units (unknown) date) unknown) (unknown) (no (unknown) (unknown) Total Creatine (units (unknown) date) Kinase 38 unknown) (unknown) (no (unknown) (unknown) Total Creatine (units (unknown) date) Kinase unknown) (unknown) (no (unknown) (unknown) Total Protein 6.9 (units (unknown) date) unknown) (unknown) (no (unknown) (unknown) Total Protein (units ( unknown) date) unknown) (unknown) (no (unknown) (unknown) Troponin I < (units (u nknown) date) 0.012 unknown) (unknown) (no (unknown) (unknown) Troponin I (units (unk nown) date) unknown) (unknown) (no (unknown) (unknown) Ur Culture (units (unk nown) date) Indicated? unknown) Specimen cultured (unknown) (no (unknown) (unknown) Ur Culture (units (unk nown) date) Indicated? unknown) (unknown) (no (unknown) (unknown) Ur Leukocyte (units (u nknown) date) Esterase Negative unknown) (unknown) (no (unknown) (unknown) Ur Leukocyte (units (u nknown) date) Esterase unknown) (unknown) (no (unknown) (unknown) Ur Specific (units (un known) date) [facility] 1.010 unknown) (unknown) (no (unknown) (unknown) Ur Specific (units (un known) date) [facility] unknown) (unknown) (no (unknown) (unknown) Ur Squamous Epith (units (unknown) date) Cells None seen unknown) (unknown) (no (unknown) (unknown) Ur Squamous Epith (units (unknown) date) Cells unknown) (unknown) (no (unknown) (unknown) Urine Appearance (units (unknown) date) Clear unknown) (unknown) (no (unknown) (unknown) Urine Appearance (units (unknown) date) unknown) (unknown) (no (unknown) (unknown) Urine Bacteria (units (unknown) date) Many (>30) H unknown) (unknown) (no (unknown) (unknown) Urine Bacteria (units (unknown) date) unknown) (unknown) (no (unknown) (unknown) Urine Bilirubin (units (unknown) date) Negative unknown) (unknown) (no (unknown) (unknown) Urine Bilirubin (units (unknown) date) unknown) (unknown) (no (unknown) (unknown) Urine Color (units (un known) date) Yellow unknown) (unknown) (no (unknown) (unknown) Urine Color (units (un known) date) unknown) (unknown) (no (unknown) (unknown) Urine Glucose (units ( unknown) date) (UA) Negative unknown) (unknown) (no (unknown) (unknown) Urine Glucose (units ( unknown) date) (UA) unknown) (unknown) (no (unknown) (unknown) Urine Ketones (units ( unknown) date) Negative unknown) (unknown) (no (unknown) (unknown) Urine Ketones (units ( unknown) date) unknown) (unknown) (no (unknown) (unknown) Urine Nitrate (units ( unknown) date) Positive H unknown) (unknown) (no (unknown) (unknown) Urine Nitrate (units ( unknown) date) unknown) (unknown) (no (unknown) (unknown) Urine Occult (units (u nknown) date) Blood Negative unknown) (unknown) (no (unknown) (unknown) Urine Occult (units (u nknown) date) Blood unknown) (unknown) (no (unknown) (unknown) Urine Protein (units ( unknown) date) Negative unknown) (unknown) (no (unknown) (unknown) Urine Protein (units ( unknown) date) unknown) (unknown) (no (unknown) (unknown) Urine RBC None (units (unknown) date) seen unknown) (unknown) (no (unknown) (unknown) Urine RBC (units (unkn own) date) unknown) (unknown) (no (unknown) (unknown) Urine (units (unkno wn) date) Urobilinogen 0.2 unknown) (unknown) (no (unknown) (unknown) Urine (units (unkno wn) date) Urobilinogen unknown) (unknown) (no (unknown) (unknown) Urine WBC None (units (unknown) date) seen unknown) (unknown) (no (unknown) (unknown) Urine WBC (units (unkn own) date) unknown) (unknown) (no (unknown) (unknown) Urine pH 7.5 (units (u nknown) date) unknown) (unknown) (no (unknown) (unknown) Urine pH (units (unkno wn) date) unknown) (unknown) (no (unknown) (unknown) Vital Signs (units (un known) date) unknown) (unknown) (no (unknown) (unknown) WBC 5.9 (units (unkno wn) date) unknown) (unknown) (no (unknown) (unknown) WBC (units (unkno wn) date) unknown) (unknown) (no (unknown) (unknown) [ASTHMACORT] INH (units (unknown) date) BID ##0 11/10/12 unknown) History (unknown) (no (unknown) (unknown) [C-SERUM] gtt OU (units (unknown) date) QID ##0 11/10/12 unknown) History (unknown) (no (unknown) (unknown) [Embedded Image (units (unknown) date) Not Available] unknown) (unknown) (no (unknown) (unknown) [FLAXSEED] 3,000 (units (unknown) date) mg PO QDAY ##0 unknown) 12/08/11 History (unknown) (no (unknown) (unknown) [GENTEAL] ophth (units (unknown) date) OU HS ##0 11/10/12 unknown) History (unknown) (no (unknown) (unknown) [PREDNISOLONE] (units (unknown) date) gtt OU QID ##0 unknown) 11/10/12 History (unknown) (no (unknown) (unknown) [VITAMIN D ] (units (u nknown) date) 2,000 iu PO QDAY unknown) ##0 11/10/12 History (unknown) (no (unknown) (unknown) acyclovir 200 mg (units (unknown) date) capsule (Zovirax) unknown) 200 mg PO BID ##0 11/10/12 History (unknown) (no (unknown) (unknown) ago and has about (units (unknown) date) a 42 year history unknown) of smoking. She alcohol very rarely. (unknown) (no (unknown) (unknown) alcohol intake (units (unknown) date) frequency 0-2 unknown) drinks per day (unknown) (no (unknown) (unknown) and bilateral (units ( unknown) date) hearing loss. She unknown) is being followed by Dr. Hong, ENT. The (unknown) (no (unknown) (unknown) arms or legs, or (units (unknown) date) diplopia. She also unknown) denies tinnitus. The patient underwent (unknown) (no (unknown) (unknown) budesonide-formot (units (unknown) date) codey HFA 160 1 unknown) puff INH PRN ##0 12/06/11 History (unknown) (no (unknown) (unknown) department. In (units (unknown) date) the emergency unknown) department she denied any weakness or numbness of (unknown) (no (unknown) (unknown) evaluations. (units (u nknown) date) unknown) (unknown) (no (unknown) (unknown) exam. MRI brain (units (unknown) date) has been unknown) completed. Physical therapy and Occupational therapy (unknown) (no (unknown) (unknown) extremities. (units (u nknown) date) unknown) (unknown) (no (unknown) (unknown) fevers, or (units (unk nown) date) chills. No URI unknown) symptoms. No nausea, or diarrhea. No urinary (unknown) (no (unknown) (unknown) had vertigo and a (units (unknown) date) headache her unknown) was at work, she drove herself to her (unknown) (no (unknown) (unknown) has not been a (units ( unknown) date) vertigo she was unknown) diagnosed with a possible urinary tract infection (unknown) (no (unknown) (unknown) ibuprofen 800 mg (units (unknown) date) tablet 800 mg PO unknown) PRN ##0 11/10/12 History (unknown) (no (unknown) (unknown) in the emergency (units (unknown) date) department, unknown) although she denies urinary symptoms. She was (unknown) (no (unknown) (unknown) inhaler (units (unkno wn) date) (Symbicort) unknown) (unknown) (no (unknown) (unknown) mcg-4.5 (units (unkno wn) date) mcg/actuation unknown) aerosol (unknown) (no (unknown) (unknown) office without (units (unknown) date) any improvement. unknown) We will give low-dose scheduled meclizine (unknown) (no (unknown) (unknown) or other (units (unkno wn) date) neurologic unknown) changes. Her speech is normal. The platelet therapy on a (unknown) (no (unknown) (unknown) overnight. (units (unk nown) date) unknown) (unknown) (no (unknown) (unknown) placed on a trial (units (unknown) date) of steroids to see unknown) if this improved. These were recently (unknown) (no (unknown) (unknown) prescheduled ENT (units (unknown) date) appointment. There unknown) she was referred to the emergency (unknown) (no (unknown) (unknown) sertraline 50 mg (units (unknown) date) tablet (Zoloft) 50 unknown) mg PO HS ##0 11/10/12 History (unknown) (no (unknown) (unknown) started on (units (unk nown) date) antibiotics. unknown) (unknown) (no (unknown) (unknown) stat CT which was (units (unknown) date) negative for unknown) evidence of acute acute bleed. An MRI revealed a (unknown) (no (unknown) (unknown) stopped. Said she (units (unknown) date) awoke today unknown) feeling dissociated from her body and that she (unknown) (no (unknown) (unknown) subacute frontal (units (unknown) date) infarct. The unknown) patient notes that all relatively normal through (unknown) (no (unknown) (unknown) symptoms. All (units ( unknown) date) else reviewed an unknown) otherwise unremarkable. (unknown) (no (unknown) (unknown) there is no (units (un known) date) specific working unknown) diagnosis for her hearing loss and vertigo. She (unknown) (no (unknown) (unknown) trazodone 100 mg (units (unknown) date) tablet 100 mg PO unknown) HS ##0 12/08/11 History (unknown) (no (unknown) (unknown) yesterday but has (units (unknown) date) not been feeling unknown) normal since waking this morning. Again she Result panel 379 (unknown) (no date) (unknown) (unknown) > 60 ml/min (unkn own) (unknown) (no date) (unknown) (unknown) > 60 ml/min (unkn own) (unknown) (no date) (unknown) (unknown) 0.64 mg/dl (unkn own) (unknown) (no date) (unknown) (unknown) 102 mmol/l (unkn own) (unknown) (no date) (unknown) (unknown) 11 mg/dl (unkn own) (unknown) (no date) (unknown) (unknown) 136 mmol/l (unkn own) (unknown) (no date) (unknown) (unknown) 142 mg/dl (unkn own) (unknown) (no date) (unknown) (unknown) 142 mg/dl (unkn own) (unknown) (no date) (unknown) (unknown) 17.2 (units unknown) (unknown) (unknown) (no date) (unknown) (unknown) 211 mg/dl (unkn own) (unknown) (no date) (unknown) (unknown) 211 mg/dl (unkn own) (unknown) (no date) (unknown) (unknown) 28 mmol/l (unkn own) (unknown) (no date) (unknown) (unknown) 3.9 mmol/l (unkn own) (unknown) (no date) (unknown) (unknown) 5.4 % (unkn own) (unknown) (no date) (unknown) (unknown) 5.4 % (unkn own) (unknown) (no date) (unknown) (unknown) 8.8 mg/dl (unkn own) (unknown) (no date) (unknown) (unknown) 84 mg/dl (unkn own) (unknown) (no date) (unknown) (unknown) 84 mg/dl (unkn own) (unknown) (no date) (unknown) (unknown) 85 mg/dl (unkn own) (unknown) (no date) (unknown) (unknown) 85 mg/dl (unkn own) (unknown) (no date) (unknown) (unknown) 99 mg/dl (unkn own) (unknown) (no date) (unknown) (unknown) 99 mg/dl (unkn own) Result panel 380 (unknown) (no (unknown) (unknown) (no value) (units (unk nown) date) unknown) (unknown) (no (unknown) (unknown) 12/02/22 (units (unkno wn) date) unknown) (unknown) (no (unknown) (unknown) 1. No acute (units (un known) date) cardiopulmonary unknown) disease. (unknown) (no (unknown) (unknown) [address] [place] [address] (units (unknown) date) unknown) (unknown) (no (unknown) (unknown) 5230 (units (unkno wn) date) unknown) (unknown) (no (unknown) (unknown) Accession Number: (units (unknown) date) [id number] unknown) (unknown) (no (unknown) (unknown) Age/Sex: 77 / F (units (unknown) date) Date of Service: unknown) (unknown) (no (unknown) (unknown) SANTY Burton (units ( unknown) date) [id number] unknown) (unknown) (no (unknown) (unknown) Approved by: (units (u nknown) date) Benny De La Fuente, unknown) Bandar on 12/02/2022 at 22:35 (unknown) (no (unknown) (unknown) Bones and chest (units (unknown) date) wall: No unknown) suspicious bony lesions. Overlying soft tissues (unknown) (no (unknown) (unknown) COMPARISON: (units (un known) date) [facility], unknown) CR, CHEST 2 VIEW, 12/07/2011, 14:04. (unknown) (no (unknown) (unknown) : 1945 (units (unknown) date) Acct:[id number] unknown) (unknown) (no (unknown) (unknown) Dictated by: (units (u nknown) date) Benny De La Fuente, unknown) Bandar on 12/02/2022 at 22:35 (unknown) (no (unknown) (unknown) FINDINGS: (units (unkn own) date) unknown) (unknown) (no (unknown) (unknown) IMPRESSION: (units (un known) date) unknown) (unknown) (no (unknown) (unknown) INDICATIONS: (units (u nknown) date) chest pain unknown) (unknown) (no (unknown) (unknown) [facility] (units (unknown) date) unknown) (unknown) (no (unknown) (unknown) Loc: AC 221-1 (units ( unknown) date) unknown) (unknown) (no (unknown) (unknown) Lungs and pleura: (units (unknown) date) Lungs are clear. unknown) No pleural effusions or pneumothorax. (unknown) (no (unknown) (unknown) Mediastinum: (units (u nknown) date) Mediastinal unknown) contours appear normal. Heart size is normal. (unknown) (no (unknown) (unknown) Ordering (units (unkno wn) date) Provider: unknown) Giuseppe Sharp MD (unknown) (no (unknown) (unknown) PROCEDURE: XR (units ( unknown) date) CHEST 1V unknown) (unknown) (no (unknown) (unknown) Patient: (units (unkno wn) date) Raegan Orourke MR#: unknown) [id number] (unknown) (no (unknown) (unknown) Procedure: XR (units ( unknown) date) chest 1V unknown) (unknown) (no (unknown) (unknown) Signed (units (unkno wn) date) unknown) (unknown) (no (unknown) (unknown) Surgical changes (units (unknown) date) and devices: None. unknown) (unknown) (no (unknown) (unknown) TECHNIQUE: One (units (unknown) date) view of the chest unknown) was acquired. (unknown) (no (unknown) (unknown) XRay Report (units (un known) date) unknown) (unknown) (no (unknown) (unknown) appear (units (unkno wn) date) unknown) (unknown) (no (unknown) (unknown) unremarkable. (units ( unknown) date) unknown) Result panel 381 (unknown) (no date) (unknown) (unknown) < 0.012 ng/ml (unkn own) (unknown) (no date) (unknown) (unknown) < 0.012 ng/ml (unkn own) Result panel 382 (unknown) (no (unknown) (unknown) (no value) (units (unk nown) date) unknown) (unknown) (no (unknown) (unknown) (past 8 hours): (units (unknown) date) unknown) (unknown) (no (unknown) (unknown) (units (unkno wn) date) unknown) (unknown) (no (unknown) (unknown) -ceftriaxone 1 g (units (unknown) date) Q 24 hours, follow unknown) urine (unknown) (no (unknown) (unknown) -follow (units (unkno wn) date) clinically, unknown) nebulizers as needed. (unknown) (no (unknown) (unknown) -plan is dual (units ( unknown) date) anti-platelet unknown) therapy, high-dose atorvastatin.? Follow neurologic (unknown) (no (unknown) (unknown) -she describes (units (unknown) date) some component ago unknown) being positional.? Vertigo maneuver at ENT (unknown) (no (unknown) (unknown) 00:00 12/03/22 (units (unknown) date) unknown) (unknown) (no (unknown) (unknown) 01:00 12/03/22 (units (unknown) date) unknown) (unknown) (no (unknown) (unknown) 12/02/22 12/02/22 (units (unknown) date) 12/02/22 unknown) (unknown) (no (unknown) (unknown) 12/02/22 10:28 (units (unknown) date) unknown) (unknown) (no (unknown) (unknown) 12/02/22 17:14 (units (unknown) date) unknown) (unknown) (no (unknown) (unknown) 12/03/22 (units (unkno wn) date) unknown) (unknown) (no (unknown) (unknown) 04:00 (units (unkno wn) date) unknown) (unknown) (no (unknown) (unknown) 05:00 (units (unkno wn) date) unknown) (unknown) (no (unknown) (unknown) 1. 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 (unknown) (no (unknown) (unknown) 10:28 10:28 10:28 (units (unknown) date) unknown) (unknown) (no (unknown) (unknown) 11:56 12:30 17:14 (units (unknown) date) unknown) (unknown) (no (unknown) (unknown) 17:14 17:14 21:51 (units (unknown) date) unknown) (unknown) (no (unknown) (unknown) 2. Subacute (units (un known) date) vertigo and unknown) hearing loss, present on admission and active. (unknown) (no (unknown) (unknown) 230 (units (unkno wn) date) unknown) (unknown) (no (unknown) (unknown) 3. Possible (units (un known) date) urinary tract unknown) infection, present on admission and active. (unknown) (no (unknown) (unknown) 4. Asthma, (units (unk nown) date) present on unknown) admission and stable. (unknown) (no (unknown) (unknown) ? (units (unkno wn) date) unknown) (unknown) (no (unknown) (unknown) ALT 37 H (units (unkno wn) date) unknown) (unknown) (no (unknown) (unknown) ALT (units (unkno wn) date) unknown) (unknown) (no (unknown) (unknown) APTT 30 (units (unkno wn) date) unknown) (unknown) (no (unknown) (unknown) APTT (units (unkno wn) date) unknown) (unknown) (no (unknown) (unknown) AST 41 H (units (unkno wn) date) unknown) (unknown) (no (unknown) (unknown) AST (units (unkno wn) date) unknown) (unknown) (no (unknown) (unknown) Abdomen is soft, (units (unknown) date) nontender, no unknown) organomegaly (unknown) (no (unknown) (unknown) Age/Sex: 77 / F (units (unknown) date) unknown) (unknown) (no (unknown) (unknown) Albumin 4.2 (units (un known) date) unknown) (unknown) (no (unknown) (unknown) Albumin (units (unkno wn) date) unknown) (unknown) (no (unknown) (unknown) Albumin/Globulin (units (unknown) date) Ratio 1.6 unknown) (unknown) (no (unknown) (unknown) Albumin/Globulin (units (unknown) date) Ratio unknown) (unknown) (no (unknown) (unknown) Alkaline (units (unkno wn) date) Phosphatase 158 H unknown) (unknown) (no (unknown) (unknown) Alkaline (units (unkno wn) date) Phosphatase unknown) (unknown) (no (unknown) (unknown) Assessment + Plan (units (unknown) date) narrative: unknown) (unknown) (no (unknown) (unknown) Assessment + Plan (units (unknown) date) unknown) (unknown) (no (unknown) (unknown) BUN 11 (units (unkno wn) date) unknown) (unknown) (no (unknown) (unknown) BUN 13 (units (unkno wn) date) unknown) (unknown) (no (unknown) (unknown) BUN (units (unkno wn) date) unknown) (unknown) (no (unknown) (unknown) BUN/Creatinine (units (unknown) date) Ratio 17.2 unknown) (unknown) (no (unknown) (unknown) BUN/Creatinine (units (unknown) date) Ratio 20.0 unknown) (unknown) (no (unknown) (unknown) BUN/Creatinine (units (unknown) date) Ratio unknown) (unknown) (no (unknown) (unknown) Baso # (Auto) 0 (units (unknown) date) unknown) (unknown) (no (unknown) (unknown) Baso # (Auto) (units ( unknown) date) unknown) (unknown) (no (unknown) (unknown) Baso % (Auto) 0.5 (units (unknown) date) unknown) (unknown) (no (unknown) (unknown) Baso % (Auto) (units ( unknown) date) unknown) (unknown) (no (unknown) (unknown) Blood Pressure (units (unknown) date) 119/55 L unknown) (unknown) (no (unknown) (unknown) Blood Pressure (units (unknown) date) 119/56 L unknown) (unknown) (no (unknown) (unknown) CK-MB (CK-2) Rel (units (unknown) date) Index TNP unknown) (unknown) (no (unknown) (unknown) CK-MB (CK-2) Rel (units (unknown) date) Index unknown) (unknown) (no (unknown) (unknown) CK-MB (CK-2) TNP (units (unknown) date) unknown) (unknown) (no (unknown) (unknown) CK-MB (CK-2) (units (u nknown) date) unknown) (unknown) (no (unknown) (unknown) CT scan - head: (units (unknown) date) unknown) (unknown) (no (unknown) (unknown) CTA Head and (units (u nknown) date) Neck: unknown) (unknown) (no (unknown) (unknown) CTA without large (units (unknown) date) vessel occlusion unknown) or high-grade stenosis.? Suspected chronic (unknown) (no (unknown) (unknown) Calcium 8.8 (units (un known) date) unknown) (unknown) (no (unknown) (unknown) Calcium 8.9 (units (un known) date) unknown) (unknown) (no (unknown) (unknown) Calcium (units (unkno wn) date) unknown) (unknown) (no (unknown) (unknown) Carbon Dioxide 28 (units (unknown) date) unknown) (unknown) (no (unknown) (unknown) Carbon Dioxide 31 (units (unknown) date) unknown) (unknown) (no (unknown) (unknown) Carbon Dioxide (units (unknown) date) unknown) (unknown) (no (unknown) (unknown) Chloride 100 (units (u nknown) date) unknown) (unknown) (no (unknown) (unknown) Chloride 102 (units (u nknown) date) unknown) (unknown) (no (unknown) (unknown) Chloride (units (unkno wn) date) unknown) (unknown) (no (unknown) (unknown) Cholesterol 211 H (units (unknown) date) unknown) (unknown) (no (unknown) (unknown) Cholesterol (units (un known) date) unknown) (unknown) (no (unknown) (unknown) Chronic findings (units (unknown) date) as above.? unknown) (unknown) (no (unknown) (unknown) Correlate (units (unkn own) date) clinically for a unknown) possible source.? If the patient has any personal (unknown) (no (unknown) (unknown) Creatinine 0.64 (units (unknown) date) unknown) (unknown) (no (unknown) (unknown) Creatinine 0.65 (units (unknown) date) unknown) (unknown) (no (unknown) (unknown) Creatinine (units (unk nown) date) unknown) (unknown) (no (unknown) (unknown) Critical Care (units ( unknown) date) time: unknown) (unknown) (no (unknown) (unknown) : 1945 (units (unknown) date) Acct:[id number] unknown) (unknown) (no (unknown) (unknown) Date of Service: (units (unknown) date) 12/02/22 unknown) (unknown) (no (unknown) (unknown) ECG (units (unkno wn) date) unknown) (unknown) (no (unknown) (unknown) Eos # (Auto) 300 (units (unknown) date) unknown) (unknown) (no (unknown) (unknown) Eos # (Auto) (units (u nknown) date) unknown) (unknown) (no (unknown) (unknown) Eos % (Auto) 4.8 (units (unknown) date) H unknown) (unknown) (no (unknown) (unknown) Eos % (Auto) (units (u nknown) date) unknown) (unknown) (no (unknown) (unknown) Estimated GFR > (units (unknown) date) 60 unknown) (unknown) (no (unknown) (unknown) Estimated GFR (units ( unknown) date) unknown) (unknown) (no (unknown) (unknown) Exam Narrative: (units (unknown) date) unknown) (unknown) (no (unknown) (unknown) Exam (units (unkno wn) date) unknown) (unknown) (no (unknown) (unknown) Extremities are (units (unknown) date) free of edema, unknown) good peripheral pulses. (unknown) (no (unknown) (unknown) Family History (units (unknown) date) (Updated 12/02/22 unknown) @ 16:[address] MD) (unknown) (no (unknown) (unknown) Globulin 2.7 (units (u nknown) date) unknown) (unknown) (no (unknown) (unknown) Globulin (units (unkno wn) date) unknown) (unknown) (no (unknown) (unknown) Glucose 85 (units (unk nown) date) unknown) (unknown) (no (unknown) (unknown) Glucose 92 (units (unk nown) date) unknown) (unknown) (no (unknown) (unknown) Glucose (units (unkno wn) date) unknown) (unknown) (no (unknown) (unknown) HDL Cholesterol (units (unknown) date) 99 H unknown) (unknown) (no (unknown) (unknown) HDL Cholesterol (units (unknown) date) unknown) (unknown) (no (unknown) (unknown) Hct 44.1 (units (unkno wn) date) unknown) (unknown) (no (unknown) (unknown) Hct (units (unkno wn) date) unknown) (unknown) (no (unknown) (unknown) Head reveals (units (u nknown) date) symmetric pupils, unknown) EOMI. No diplopia. No nystagmus. (unknown) (no (unknown) (unknown) Heart is regular (units (unknown) date) without murmur unknown) gallop or rub. Referral pulses. (unknown) (no (unknown) (unknown) Hemoglobin A1c (units (unknown) date) 5.4 unknown) (unknown) (no (unknown) (unknown) Hemoglobin A1c (units (unknown) date) unknown) (unknown) (no (unknown) (unknown) Hgb 15.0 (units (unkno wn) date) unknown) (unknown) (no (unknown) (unknown) Hgb (units (unkno wn) date) unknown) (unknown) (no (unknown) (unknown) I spent a total (units (unknown) date) of [] minutes of unknown) critical care time on this patient's care (unknown) (no (unknown) (unknown) IMPRESSION:? A (units (unknown) date) punctate infarct unknown) is seen in the right frontal lobe subcortical (unknown) (no (unknown) (unknown) INR 0.9 (units (unkno wn) date) unknown) (unknown) (no (unknown) (unknown) INR (units (unkno wn) date) unknown) (unknown) (no (unknown) (unknown) Imaging (units (unkno wn) date) unknown) (unknown) (no (unknown) (unknown) Impression: (units (un known) date) unknown) (unknown) (no (unknown) (unknown) Influenza A (units (un known) date) (RT-PCR) Flu a unknown) negative (unknown) (no (unknown) (unknown) Influenza A (units (un known) date) (RT-PCR) unknown) (unknown) (no (unknown) (unknown) Influenza B (units (un known) date) (RT-PCR) Flu b unknown) negative (unknown) (no (unknown) (unknown) Influenza B (units (un known) date) (RT-PCR) unknown) (unknown) (no (unknown) (unknown) Interval history: (units (unknown) date) unknown) (unknown) (no (unknown) (unknown) [facility] (units (unknown) date) [address] unknown) [place] [address] (unknown) (no (unknown) (unknown) Joints are not (units (unknown) date) swollen or unknown) deformed. (unknown) (no (unknown) (unknown) Judgment and (units (u nknown) date) speech are normal. unknown) (unknown) (no (unknown) (unknown) LDL Cholesterol, (units (unknown) date) Calc 84 unknown) (unknown) (no (unknown) (unknown) LDL Cholesterol, (units (unknown) date) Calc unknown) (unknown) (no (unknown) (unknown) Laboratory (units (unk nown) date) Results - last 24 unknown) hr (unknown) (no (unknown) (unknown) Labs (units (unkno wn) date) unknown) (unknown) (no (unknown) (unknown) Labs: (units (unkno wn) date) unknown) (unknown) (no (unknown) (unknown) Lungs Are clear (units (unknown) date) with normal rate unknown) and effort. (unknown) (no (unknown) (unknown) Lymph # (Auto) (units (unknown) date) 1300 unknown) (unknown) (no (unknown) (unknown) Lymph # (Auto) (units (unknown) date) unknown) (unknown) (no (unknown) (unknown) Lymph % (Auto) (units (unknown) date) 22.5 L unknown) (unknown) (no (unknown) (unknown) Lymph % (Auto) (units (unknown) date) unknown) (unknown) (no (unknown) (unknown) MCH 32.7 (units (unkno wn) date) unknown) (unknown) (no (unknown) (unknown) MCH (units (unkno wn) date) unknown) (unknown) (no (unknown) (unknown) MCHC 33.9 (units (unkn own) date) unknown) (unknown) (no (unknown) (unknown) MCHC (units (unkno wn) date) unknown) (unknown) (no (unknown) (unknown) MCV 96.5 (units (unkno wn) date) unknown) (unknown) (no (unknown) (unknown) MCV (units (unkno wn) date) unknown) (unknown) (no (unknown) (unknown) MRI - head: (units (un known) date) unknown) (unknown) (no (unknown) (unknown) [id number] (units (unknown) date) atherosclerotic unknown) disease.? Moderate narrowing of the left (unknown) (no (unknown) (unknown) [place] # (Auto) 400 (units (unknown) date) unknown) (unknown) (no (unknown) (unknown) [place] # (Auto) (units ( unknown) date) unknown) (unknown) (no (unknown) (unknown) [place] % (Auto) 6.9 (units (unknown) date) unknown) (unknown) (no (unknown) (unknown) [place] % (Auto) (units ( unknown) date) unknown) (unknown) (no (unknown) (unknown) NSR (units (unkno wn) date) unknown) (unknown) (no (unknown) (unknown) Narrative (units (unkn own) date) unknown) (unknown) (no (unknown) (unknown) Neck is supple, (units (unknown) date) no adenopathy. unknown) Normal thyroid. No range of motion. (unknown) (no (unknown) (unknown) Neurologically (units (unknown) date) cranial nerves are unknown) intact. Motor strength is 5/5 all (unknown) (no (unknown) (unknown) Neut # (Auto) (units ( unknown) date) 3800 unknown) (unknown) (no (unknown) (unknown) Neut # (Auto) (units ( unknown) date) unknown) (unknown) (no (unknown) (unknown) Neut % (Auto) (units ( unknown) date) 65.3 unknown) (unknown) (no (unknown) (unknown) Neut % (Auto) (units ( unknown) date) unknown) (unknown) (no (unknown) (unknown) No acute (units (unkno wn) date) abnormalities, or unknown) bleed. (unknown) (no (unknown) (unknown) Objective (units (unkn own) date) unknown) (unknown) (no (unknown) (unknown) Other Family (units (u nknown) date) history of unknown) cerebrovascular accident (CVA) in father (unknown) (no (unknown) (unknown) Oxygen Delivery (units (unknown) date) Method Room Air unknown) Room Air (unknown) (no (unknown) (unknown) Oxygen Delivery (units (unknown) date) Method Room Air unknown) (unknown) (no (unknown) (unknown) Oxygen Delivery (units (unknown) date) Method unknown) (unknown) (no (unknown) (unknown) Oxygen Flow Rate (units (unknown) date) 0 0 0 unknown) (unknown) (no (unknown) (unknown) Oxygen Flow Rate (units (unknown) date) 0 unknown) (unknown) (no (unknown) (unknown) PFSH (units (unkno wn) date) unknown) (unknown) (no (unknown) (unknown) PT 10.7 (units (unkno wn) date) unknown) (unknown) (no (unknown) (unknown) PT (units (unkno wn) date) unknown) (unknown) (no (unknown) (unknown) Patient: (units (unkno wn) date) Raegan Orourke MR#: unknown) [id number] (unknown) (no (unknown) (unknown) Plt Count 107 L (units (unknown) date) unknown) (unknown) (no (unknown) (unknown) Plt Count (units (unkn own) date) unknown) (unknown) (no (unknown) (unknown) Potassium 3.9 (units ( unknown) date) unknown) (unknown) (no (unknown) (unknown) Potassium 4.0 (units ( unknown) date) unknown) (unknown) (no (unknown) (unknown) Potassium (units (unkn own) date) unknown) (unknown) (no (unknown) (unknown) Progress Note (units ( unknown) date) unknown) (unknown) (no (unknown) (unknown) Provider: Epifanio (units (unknown) date) MD Domingo unknown) (unknown) (no (unknown) (unknown) Proxy decision (units (unknown) date) maker: . unknown) (unknown) (no (unknown) (unknown) Pulse Oximetry 94 (units (unknown) date) 94 96 unknown) (unknown) (no (unknown) (unknown) Pulse Oximetry 95 (units (unknown) date) unknown) (unknown) (no (unknown) (unknown) Pulse Rate 62 (units ( unknown) date) unknown) (unknown) (no (unknown) (unknown) Pulse Rate 66 (units ( unknown) date) unknown) (unknown) (no (unknown) (unknown) RBC 4.57 (units (unkno wn) date) unknown) (unknown) (no (unknown) (unknown) RBC (units (unkno wn) date) unknown) (unknown) (no (unknown) (unknown) RDW 12.9 (units (unkno wn) date) unknown) (unknown) (no (unknown) (unknown) RDW (units (unkno wn) date) unknown) (unknown) (no (unknown) (unknown) RSV (PCR) (units (unkn own) date) Negative unknown) (unknown) (no (unknown) (unknown) RSV (PCR) (units (unkn own) date) unknown) (unknown) (no (unknown) (unknown) Radiologist's (units ( unknown) date) impression: unknown) (unknown) (no (unknown) (unknown) Respiratory Rate (units (unknown) date) 17 unknown) (unknown) (no (unknown) (unknown) Respiratory Rate (units (unknown) date) 18 unknown) (unknown) (no (unknown) (unknown) SARS-CoV-2 (PCR) (units (unknown) date) Negative unknown) (unknown) (no (unknown) (unknown) SARS-CoV-2 (PCR) (units (unknown) date) unknown) (unknown) (no (unknown) (unknown) She is FULL CODE. (units (unknown) date) unknown) (unknown) (no (unknown) (unknown) She is alert (units (u nknown) date) oriented x3, no unknown) acute distress. Fluent speech and normal judgment. (unknown) (no (unknown) (unknown) Signed By: (units (unk nown) date) unknown) (unknown) (no (unknown) (unknown) Skin is free of (units (unknown) date) rash, lesions or unknown) petechiae. (unknown) (no (unknown) (unknown) Smoking Status: (units (unknown) date) Never smoker unknown) (unknown) (no (unknown) (unknown) Social History (units (unknown) date) (Reviewed 12/02/22 unknown) @ 10:52 by Lit Winn MD) (unknown) (no (unknown) (unknown) Sodium 136 L (units (u nknown) date) unknown) (unknown) (no (unknown) (unknown) Sodium (units (unkno wn) date) unknown) (unknown) (no (unknown) (unknown) Subjective (units (unk nown) date) unknown) (unknown) (no (unknown) (unknown) Temperature 97.0 (units (unknown) date) F L unknown) (unknown) (no (unknown) (unknown) Temperature 97.8 (units (unknown) date) F unknown) (unknown) (no (unknown) (unknown) Time Spent With (units (unknown) date) Patient unknown) (unknown) (no (unknown) (unknown) Total Bilirubin (units (unknown) date) 0.7 unknown) (unknown) (no (unknown) (unknown) Total Bilirubin (units (unknown) date) unknown) (unknown) (no (unknown) (unknown) Total Creatine (units (unknown) date) Kinase 38 unknown) (unknown) (no (unknown) (unknown) Total Creatine (units (unknown) date) Kinase unknown) (unknown) (no (unknown) (unknown) Total Protein 6.9 (units (unknown) date) unknown) (unknown) (no (unknown) (unknown) Total Protein (units ( unknown) date) unknown) (unknown) (no (unknown) (unknown) Triglycerides 142 (units (unknown) date) unknown) (unknown) (no (unknown) (unknown) Triglycerides (units ( unknown) date) unknown) (unknown) (no (unknown) (unknown) Troponin I < (units (u nknown) date) 0.012 unknown) (unknown) (no (unknown) (unknown) Troponin I (units (unk nown) date) unknown) (unknown) (no (unknown) (unknown) Ur Culture (units (unk nown) date) Indicated? unknown) Specimen cultured (unknown) (no (unknown) (unknown) Ur Culture (units (unk nown) date) Indicated? unknown) (unknown) (no (unknown) (unknown) Ur Leukocyte (units (u nknown) date) Esterase Negative unknown) (unknown) (no (unknown) (unknown) Ur Leukocyte (units (u nknown) date) Esterase unknown) (unknown) (no (unknown) (unknown) Ur Specific (units (un known) date) [place] 1.010 unknown) (unknown) (no (unknown) (unknown) Ur Specific (units (un known) date) [place] unknown) (unknown) (no (unknown) (unknown) Ur Squamous Epith (units (unknown) date) Cells None seen unknown) (unknown) (no (unknown) (unknown) Ur Squamous Epith (units (unknown) date) Cells unknown) (unknown) (no (unknown) (unknown) Urine Appearance (units (unknown) date) Clear unknown) (unknown) (no (unknown) (unknown) Urine Appearance (units (unknown) date) unknown) (unknown) (no (unknown) (unknown) Urine Bacteria (units (unknown) date) Many (>30) H unknown) (unknown) (no (unknown) (unknown) Urine Bacteria (units (unknown) date) unknown) (unknown) (no (unknown) (unknown) Urine Bilirubin (units (unknown) date) Negative unknown) (unknown) (no (unknown) (unknown) Urine Bilirubin (units (unknown) date) unknown) (unknown) (no (unknown) (unknown) Urine Color (units (un known) date) Yellow unknown) (unknown) (no (unknown) (unknown) Urine Color (units (un known) date) unknown) (unknown) (no (unknown) (unknown) Urine Glucose (units ( unknown) date) (UA) Negative unknown) (unknown) (no (unknown) (unknown) Urine Glucose (units ( unknown) date) (UA) unknown) (unknown) (no (unknown) (unknown) Urine Ketones (units ( unknown) date) Negative unknown) (unknown) (no (unknown) (unknown) Urine Ketones (units ( unknown) date) unknown) (unknown) (no (unknown) (unknown) Urine Nitrate (units ( unknown) date) Positive H unknown) (unknown) (no (unknown) (unknown) Urine Nitrate (units ( unknown) date) unknown) (unknown) (no (unknown) (unknown) Urine Occult (units (u nknown) date) Blood Negative unknown) (unknown) (no (unknown) (unknown) Urine Occult (units (u nknown) date) Blood unknown) (unknown) (no (unknown) (unknown) Urine Protein (units ( unknown) date) Negative unknown) (unknown) (no (unknown) (unknown) Urine Protein (units ( unknown) date) unknown) (unknown) (no (unknown) (unknown) Urine RBC None (units (unknown) date) seen unknown) (unknown) (no (unknown) (unknown) Urine RBC (units (unkn own) date) unknown) (unknown) (no (unknown) (unknown) Urine (units (unkno wn) date) Urobilinogen 0.2 unknown) (unknown) (no (unknown) (unknown) Urine (units (unkno wn) date) Urobilinogen unknown) (unknown) (no (unknown) (unknown) Urine WBC None (units (unknown) date) seen unknown) (unknown) (no (unknown) (unknown) Urine WBC (units (unkn own) date) unknown) (unknown) (no (unknown) (unknown) Urine pH 7.5 (units (u nknown) date) unknown) (unknown) (no (unknown) (unknown) Urine pH (units (unkno wn) date) unknown) (unknown) (no (unknown) (unknown) Vital Signs (units (un known) date) unknown) (unknown) (no (unknown) (unknown) WBC 5.9 (units (unkno wn) date) unknown) (unknown) (no (unknown) (unknown) WBC (units (unkno wn) date) unknown) (unknown) (no (unknown) (unknown) [Embedded Image (units (unknown) date) Not Available] unknown) (unknown) (no (unknown) (unknown) alcohol intake: (units (unknown) date) current unknown) (unknown) (no (unknown) (unknown) appearance of the (units (unknown) date) distal basilar unknown) artery secondary to predominant supply of (unknown) (no (unknown) (unknown) artery origin. 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 (units (unknown) date) This was seen in unknown) 2021 imaging. (unknown) (no (unknown) (unknown) diminutive (units (unk nown) date) unknown) (unknown) (no (unknown) (unknown) evaluations. (units (u nknown) date) unknown) (unknown) (no (unknown) (unknown) exam.? MRI brain (units (unknown) date) has been unknown) completed.? Physical therapy and Occupational therapy (unknown) (no (unknown) (unknown) extremities. (units (u nknown) date) unknown) (unknown) (no (unknown) (unknown) history of (units (unk nown) date) unknown) (unknown) (no (unknown) (unknown) household (units (unkn own) date) members: spouse unknown) (unknown) (no (unknown) (unknown) malignancy, (units (un known) date) consider also unknown) follow-up imaging. (unknown) (no (unknown) (unknown) office without (units (unknown) date) any improvement.? unknown) We will give low-dose scheduled meclizine (unknown) (no (unknown) (unknown) overnight. (units (unk nown) date) unknown) (unknown) (no (unknown) (unknown) possibly micro (units (unknown) date) embolic.? () unknown) (unknown) (no (unknown) (unknown) region, (units (unkno wn) date) unknown) (unknown) (no (unknown) (unknown) the (units (unkno wn) date) unknown) (unknown) (no (unknown) (unknown) today; this time (units (unknown) date) is exclusive of unknown) procedural time. (unknown) (no (unknown) (unknown) vertebral (units (unkn own) date) unknown) Result panel 383 (unknown) (no (unknown) (unknown) (no value) (units (unk nown) date) unknown) (unknown) (no (unknown) (unknown) +---------+ (units (un known) date) [phone] +--------- unknown) (unknown) (no (unknown) (unknown) +---------+ (units (un known) date) Hospital +--------- unknown) (unknown) (no (unknown) (unknown) + (units (unknown) date) unknown) --- (unknown) (no (unknown) (unknown) 12/03/22 (units (unkno wn) date) unknown) (unknown) (no (unknown) (unknown) [address] (units (unknown) date) unknown) (unknown) (no (unknown) (unknown) 5230 (units (unkno wn) date) unknown) (unknown) (no (unknown) (unknown) : : [address] (units (unknown) date) : : unknown) (unknown) (no (unknown) (unknown) : : [id number] : : (units ( unknown) date) unknown) (unknown) (no (unknown) (unknown) : : SANTY Burton (units (unknown) date) : : unknown) (unknown) (no (unknown) (unknown) : : Phone: [phone] (units (unknown) date) : unknown) (unknown) (no (unknown) (unknown) :EPIFANIO Loya Performed (units (unknown) date) By: DAVID SARKAR : unknown) (unknown) (no (unknown) (unknown) :Account #: (units (un known) date) [id number] Gender: unknown) Female BSA: 1.7 m2 : (unknown) (no (unknown) (unknown) :: 1945 (units (unknown) date) Age: 77 yrs BP: unknown) 140/71 mmHg: (unknown) (no (unknown) (unknown) :Hospital MRN #: (units (unknown) date) [id number] unknown) ReadingLocation: Weight: 147 lb : (unknown) (no (unknown) (unknown) :Name: RAEGAN OROURKE (units (unknown) date) Jamila Study Date: unknown) 12/03/2022 Height: 63 in : (unknown) (no (unknown) (unknown) :Ordering (units (unkn own) date) Physician: yosi LANE) : (unknown) (no (unknown) (unknown) :Reason For Study: (units (unknown) date) CHEST PAIN, CVA HR: unknown) 70 : (unknown) (no (unknown) (unknown) :Referring: (units (un known) date) EPIFANIO LANE : unknown) (unknown) (no (unknown) (unknown) sev ratio: 0.92 (units (unknown) date) unknown) (unknown) (no (unknown) (unknown) SABRINA indexed to BSA (units (unknown) date) (cm2/m2): 1.5 unknown) (unknown) (no (unknown) (unknown) SABRINA(VTI)/BSA_phl: (units (unknown) date) 1.5 unknown) (unknown) (no (unknown) (unknown) Accession Number: (units (unknown) date) [id number] unknown) (unknown) (no (unknown) (unknown) Age/Sex: 77 / F (units (unknown) date) Date of Service: unknown) (unknown) (no (unknown) (unknown) [place], [place] (units ( unknown) date) [id number] unknown) (unknown) (no (unknown) (unknown) Ao V2 VTI: 20.4 cm (units (unknown) date) SABRINA(V,D): 2.1 cm2 unknown) (unknown) (no (unknown) (unknown) Ao V2 max: 138.0 (units (unknown) date) cm/sec LVOT Max unknown) Zaid: 102.0 cm/sec (unknown) (no (unknown) (unknown) Ao V2 mean: 84.5 (units (unknown) date) cm/sec LV V1 max unknown) P.2 mmHg (unknown) (no (unknown) (unknown) Ao max P.0 (units (unknown) date) mmHg LV V1 VTI: unknown) 18.7 cm (unknown) (no (unknown) (unknown) Ao mean P.0 (units (unknown) date) mmHg SABRINA(I,D): 2.6 unknown) cm2 (unknown) (no (unknown) (unknown) Aortic Valve: The (units (unknown) date) aortic valve is unknown) mildly calcified. The aortic valve opens (unknown) (no (unknown) (unknown) Atria: The left (units (unknown) date) atrial size is unknown) normal. Right atrial size is normal. Doppler (unknown) (no (unknown) (unknown) : 1945 (units (unknown) date) Acct:[id number] unknown) (unknown) (no (unknown) (unknown) Diastolic (units (unkn own) date) parameters suggest unknown) probable normal left ventricular diastolic (unknown) (no (unknown) (unknown) Doppler (units (unkno wn) date) Measurements + unknown) Calculations (unknown) (no (unknown) (unknown) Doppler (units (unkno wn) date) interrogation and unknown) injection of saline echo contrast shows no evidence (unknown) (no (unknown) (unknown) E/E' lat: 10.2 (units (unknown) date) unknown) (unknown) (no (unknown) (unknown) E/E' med: 13.6 (units (unknown) date) unknown) (unknown) (no (unknown) (unknown) E/e' average: 11.9 (units (unknown) date) unknown) (unknown) (no (unknown) (unknown) Echocardiogram (units (unknown) date) Report unknown) (unknown) (no (unknown) (unknown) Echocardiography (units (unknown) date) Report unknown) (unknown) (no (unknown) (unknown) Electronically (units (unknown) date) signed by: Karina unknownPhillip Avalos on 12/03/2022 (unknown) (no (unknown) (unknown) FS: 35.0 % asc (units (unknown) date) Aorta Diam: 3.4 cm unknown) (unknown) (no (unknown) (unknown) Great Vessels: The (units (unknown) date) aortic root is unknown) normal size. The ascending aorta is normal (unknown) (no (unknown) (unknown) IVSd: 0.90 cm (units ( unknown) date) unknown) (unknown) (no (unknown) (unknown) Interpretation (units (unknown) date) Summary unknown) (unknown) (no (unknown) (unknown) [facility] (units (unknown) date) unknown) (unknown) (no (unknown) (unknown) [place] (units (unkno wn) date) unknown) (unknown) (no (unknown) (unknown) LA A2 area: 15.0 (units (unknown) date) cm2 RA long axis: unknown) 4.0 cm (unknown) (no (unknown) (unknown) LA A4 area: 9.5 (units (unknown) date) cm2 unknown) (unknown) (no (unknown) (unknown) LA length (vol): (units (unknown) date) 4.7 cm unknown) (unknown) (no (unknown) (unknown) LA vol index: 15.0 (units (unknown) date) ml/m2 unknown) (unknown) (no (unknown) (unknown) LA vol: 25.5 ml (units (unknown) date) unknown) (unknown) (no (unknown) (unknown) LV talavera. (units (o wn) date) diameter/BSA unknown) (cm/m2): 2.4 (unknown) (no (unknown) (unknown) LV sys. (units (unkno wn) date) diameter/BSA unknown) (cm/m2): 1.5 (unknown) (no (unknown) (unknown) LVIDd: 4.0 cm LVOT (units (unknown) date) diam: 1.9 cm unknown) (unknown) (no (unknown) (unknown) LVIDs: 2.6 cm Ao (units (unknown) date) root diam: 3.0 cm unknown) (unknown) (no (unknown) (unknown) LVLs ap2: 5.0 cm (units (unknown) date) unknown) (unknown) (no (unknown) (unknown) LVLs ap4: 5.7 cm (units (unknown) date) LVLd ap2: 6.3 cm unknown) (unknown) (no (unknown) (unknown) LVPWd: 0.70 cm (units (unknown) date) unknown) (unknown) (no (unknown) (unknown) Lat Peak E' Zaid: (units (unknown) date) 7.4 cm/sec unknown) (unknown) (no (unknown) (unknown) Left Ventricle: (units (unknown) date) The left ventricle unknown) is normal in size. There is normal left (unknown) (no (unknown) (unknown) Loc: AC 221-1 (units ( unknown) date) unknown) (unknown) (no (unknown) (unknown) MMode/2D (units (unkno wn) date) Measurements + unknown) Calculations (unknown) (no (unknown) (unknown) MV A max zaid: (units ( unknown) date) 109.0 cm/sec PA V2 unknown) mean: 72.8 cm/sec (unknown) (no (unknown) (unknown) MV E max zaid: 74.9 (units (unknown) date) cm/sec PA V2 max: unknown) 103.0 cm/sec (unknown) (no (unknown) (unknown) MV E/A: 0.69 PA (units (unknown) date) mean P.0 mmHg unknown) (unknown) (no (unknown) (unknown) MV P1/2t-pr_phl: (units (unknown) date) 93.0 msec unknown) (unknown) (no (unknown) (unknown) MV dec time: 0.32 (units (unknown) date) sec unknown) (unknown) (no (unknown) (unknown) Med Peak E' Zaid: (units (unknown) date) 5.5 cm/sec PA unknown) pr(Accel): 28.1 mmHg (unknown) (no (unknown) (unknown) Mitral Valve: The (units (unknown) date) mitral valve unknown) leaflets are slightly calcified. There is no (unknown) (no (unknown) (unknown) No significant (units (unknown) date) valvular unknown) abnormalities. (unknown) (no (unknown) (unknown) Ordering Provider: (units (unknown) date) Epifanio Lane MD unknown) (unknown) (no (unknown) (unknown) Patient: Raegan Orourke (units (unknown) date) Jamila MR#: [id number] unknown) (unknown) (no (unknown) (unknown) Pericardium/ (units (u nknown) date) [place] There is no unknown) pericardial effusion. There is no pleural (unknown) (no (unknown) (unknown) Procedure: A (units (u nknown) date) two-dimensional unknown) transthoracic echocardiogram with color flow (unknown) (no (unknown) (unknown) Procedure: EC echo (units (unknown) date) complete with unknown) contrast (unknown) (no (unknown) (unknown) Pulmonic Valve: (units (unknown) date) The pulmonic valve unknown) is not well visualized. There is no (unknown) (no (unknown) (unknown) Reading (units (unkno wn) date) Physician:01:02 PM unknown) (unknown) (no (unknown) (unknown) Right Ventricle: (units (unknown) date) The right ventricle unknown) is normal in size and function. (unknown) (no (unknown) (unknown) SV(LVOT): 53.0 ml (units (unknown) date) AV VR_phl: 0.74 unknown) (unknown) (no (unknown) (unknown) Signed (units (unkno wn) date) unknown) (unknown) (no (unknown) (unknown) TAPSE_phl: 1.8 cm (units (unknown) date) unknown) (unknown) (no (unknown) (unknown) The ejection (units (u nknown) date) fraction is unknown) estimated to be 60-65%. (unknown) (no (unknown) (unknown) Tricuspid Valve: (units (unknown) date) The tricuspid valve unknown) is normal in structure and function. No (unknown) (no (unknown) (unknown) Unable to estimate (units (unknown) date) PASP. unknown) (unknown) (no (unknown) (unknown) (units (unknown) date) unknown) ___ (unknown) (no (unknown) (unknown) and Doppler was (units (unknown) date) performed. The unknown) study quality was technically adequate. A (unknown) (no (unknown) (unknown) aortic (units (unkno wn) date) regurgitation is unknown) present. (unknown) (no (unknown) (unknown) because of the (units (unknown) date) lack of a unknown) measurable TR jet velocity. (unknown) (no (unknown) (unknown) effusion. (units (unkn own) date) unknown) (unknown) (no (unknown) (unknown) ejection fraction (units (unknown) date) is estimated to be unknown) 60-65%. Diastolic parameters suggest (unknown) (no (unknown) (unknown) for an interatrial (units (unknown) date) shunt. unknown) (unknown) (no (unknown) (unknown) function and (units (u nknown) date) normal filling unknown) pressures. (unknown) (no (unknown) (unknown) in size. The IVC (units (unknown) date) is of normal unknown) diameter and collapses greater than 50% with a (unknown) (no (unknown) (unknown) interatrial shunt. 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 (unknown) (no (unknown) (unknown) interrogation and (units (unknown) date) injection of saline unknown) echo contrast shows no evidence for an (unknown) (no (unknown) (unknown) is no prior (units (un known) date) echocardiogram unknown) noted for this patient. The patient was in normal (unknown) (no (unknown) (unknown) mitral (units (unkno wn) date) regurgitation unknown) noted. (unknown) (no (unknown) (unknown) pressures. (units (unk nown) date) unknown) (unknown) (no (unknown) (unknown) probable normal (units (unknown) date) left ventricular unknown) diastolic function and normal filling (unknown) (no (unknown) (unknown) pulmonic valvular (units (unknown) date) regurgitation. unknown) (unknown) (no (unknown) (unknown) saline contrast (units (unknown) date) injection was unknown) performed to assess for cardiac shunting. There (unknown) (no (unknown) (unknown) sinus rhythm (units (u nknown) date) during the exam. unknown) (unknown) (no (unknown) (unknown) sniff. This (units (un known) date) suggests a low unknown) right atrial pressure of 3 mm Hg. (unknown) (no (unknown) (unknown) tricuspid (units (unkn own) date) regurgitation. unknown) Pulmonary artery pressures cannot be estimated (unknown) (no (unknown) (unknown) ventricular wall (units (unknown) date) thickness. Left unknown) ventricular systolic function is normal. The (unknown) (no (unknown) (unknown) well. The aortic (units (unknown) date) valve is unknown) trileaflet. There is no aortic valve stenosis. No Result panel 384 (unknown) (no date) (unknown) (unknown) < 0.012 ng/ml (unkn own) (unknown) (no date) (unknown) (unknown) < 0.012 ng/ml (unkn own) Result panel 385 (unknown) (no (unknown) (unknown) >100,000 cfu/ml (unkno wn) date) (unknown) (no (unknown) (unknown) GNBGram negative (units (unknown) date) bacilli unknown) (unknown) (no (unknown) (unknown) Identification (units (unknown) date) and Sensitivity to unknown) Follow Result panel 386 (unknown) (no (unknown) (unknown) (no value) (units (unk nown) date) unknown) (unknown) (no (unknown) (unknown) (past 8 hours): (units (unknown) date) unknown) (unknown) (no (unknown) (unknown) (units (unkno wn) date) unknown) (unknown) (no (unknown) (unknown) -ceftriaxone 1 g (units (unknown) date) Q 24 hours, follow unknown) urine (unknown) (no (unknown) (unknown) -follow (units (unkno wn) date) clinically, unknown) nebulizers as needed. (unknown) (no (unknown) (unknown) -plan is dual (units ( unknown) date) anti-platelet unknown) therapy, high-dose atorvastatin.? Follow neurologic (unknown) (no (unknown) (unknown) -she describes (units (unknown) date) some component ago unknown) being positional.? Vertigo maneuver at ENT (unknown) (no (unknown) (unknown) 00:00 12/03/22 (units (unknown) date) unknown) (unknown) (no (unknown) (unknown) 01:00 12/03/22 (units (unknown) date) unknown) (unknown) (no (unknown) (unknown) 12/02/22 12/02/22 (units (unknown) date) 12/02/22 unknown) (unknown) (no (unknown) (unknown) 12/02/22 10:28 (units (unknown) date) unknown) (unknown) (no (unknown) (unknown) 12/02/22 17:14 (units (unknown) date) unknown) (unknown) (no (unknown) (unknown) 12/03/22 (units (unkno wn) date) unknown) (unknown) (no (unknown) (unknown) 04:00 (units (unkno wn) date) unknown) (unknown) (no (unknown) (unknown) 05:00 (units (unkno wn) date) unknown) (unknown) (no (unknown) (unknown) 1. 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 (unknown) (no (unknown) (unknown) 10:28 10:28 10:28 (units (unknown) date) unknown) (unknown) (no (unknown) (unknown) 11:56 12:30 17:14 (units (unknown) date) unknown) (unknown) (no (unknown) (unknown) 17:14 17:14 21:51 (units (unknown) date) unknown) (unknown) (no (unknown) (unknown) 2. Subacute (units (un known) date) vertigo and unknown) hearing loss, present on admission and active. (unknown) (no (unknown) (unknown) 230 (units (unkno wn) date) unknown) (unknown) (no (unknown) (unknown) 3. Possible (units (un known) date) urinary tract unknown) infection, present on admission and active. (unknown) (no (unknown) (unknown) 4. Asthma, (units (unk nown) date) present on unknown) admission and stable. (unknown) (no (unknown) (unknown) ? (units (unkno wn) date) unknown) (unknown) (no (unknown) (unknown) ALT 37 H (units (unkno wn) date) unknown) (unknown) (no (unknown) (unknown) ALT (units (unkno wn) date) unknown) (unknown) (no (unknown) (unknown) APTT 30 (units (unkno wn) date) unknown) (unknown) (no (unknown) (unknown) APTT (units (unkno wn) date) unknown) (unknown) (no (unknown) (unknown) AST 41 H (units (unkno wn) date) unknown) (unknown) (no (unknown) (unknown) AST (units (unkno wn) date) unknown) (unknown) (no (unknown) (unknown) Abdomen is soft, (units (unknown) date) nontender, no unknown) organomegaly (unknown) (no (unknown) (unknown) Age/Sex: 77 / F (units (unknown) date) unknown) (unknown) (no (unknown) (unknown) Albumin 4.2 (units (un known) date) unknown) (unknown) (no (unknown) (unknown) Albumin (units (unkno wn) date) unknown) (unknown) (no (unknown) (unknown) Albumin/Globulin (units (unknown) date) Ratio 1.6 unknown) (unknown) (no (unknown) (unknown) Albumin/Globulin (units (unknown) date) Ratio unknown) (unknown) (no (unknown) (unknown) Alkaline (units (unkno wn) date) Phosphatase 158 H unknown) (unknown) (no (unknown) (unknown) Alkaline (units (unkno wn) date) Phosphatase unknown) (unknown) (no (unknown) (unknown) Assessment + Plan (units (unknown) date) narrative: unknown) (unknown) (no (unknown) (unknown) Assessment + Plan (units (unknown) date) unknown) (unknown) (no (unknown) (unknown) BUN 11 (units (unkno wn) date) unknown) (unknown) (no (unknown) (unknown) BUN 13 (units (unkno wn) date) unknown) (unknown) (no (unknown) (unknown) BUN (units (unkno wn) date) unknown) (unknown) (no (unknown) (unknown) BUN/Creatinine (units (unknown) date) Ratio 17.2 unknown) (unknown) (no (unknown) (unknown) BUN/Creatinine (units (unknown) date) Ratio 20.0 unknown) (unknown) (no (unknown) (unknown) BUN/Creatinine (units (unknown) date) Ratio unknown) (unknown) (no (unknown) (unknown) Baso # (Auto) 0 (units (unknown) date) unknown) (unknown) (no (unknown) (unknown) Baso # (Auto) (units ( unknown) date) unknown) (unknown) (no (unknown) (unknown) Baso % (Auto) 0.5 (units (unknown) date) unknown) (unknown) (no (unknown) (unknown) Baso % (Auto) (units ( unknown) date) unknown) (unknown) (no (unknown) (unknown) Blood Pressure (units (unknown) date) 119/55 L unknown) (unknown) (no (unknown) (unknown) Blood Pressure (units (unknown) date) 119/56 L unknown) (unknown) (no (unknown) (unknown) CK-MB (CK-2) Rel (units (unknown) date) Index TNP unknown) (unknown) (no (unknown) (unknown) CK-MB (CK-2) Rel (units (unknown) date) Index unknown) (unknown) (no (unknown) (unknown) CK-MB (CK-2) TNP (units (unknown) date) unknown) (unknown) (no (unknown) (unknown) CK-MB (CK-2) (units (u nknown) date) unknown) (unknown) (no (unknown) (unknown) CT scan - head: (units (unknown) date) unknown) (unknown) (no (unknown) (unknown) CTA Head and (units (u nknown) date) Neck: unknown) (unknown) (no (unknown) (unknown) CTA without large (units (unknown) date) vessel occlusion unknown) or high-grade stenosis.? Suspected chronic (unknown) (no (unknown) (unknown) Calcium 8.8 (units (un known) date) unknown) (unknown) (no (unknown) (unknown) Calcium 8.9 (units (un known) date) unknown) (unknown) (no (unknown) (unknown) Calcium (units (unkno wn) date) unknown) (unknown) (no (unknown) (unknown) Carbon Dioxide 28 (units (unknown) date) unknown) (unknown) (no (unknown) (unknown) Carbon Dioxide 31 (units (unknown) date) unknown) (unknown) (no (unknown) (unknown) Carbon Dioxide (units (unknown) date) unknown) (unknown) (no (unknown) (unknown) Chloride 100 (units (u nknown) date) unknown) (unknown) (no (unknown) (unknown) Chloride 102 (units (u nknown) date) unknown) (unknown) (no (unknown) (unknown) Chloride (units (unkno wn) date) unknown) (unknown) (no (unknown) (unknown) Cholesterol 211 H (units (unknown) date) unknown) (unknown) (no (unknown) (unknown) Cholesterol (units (un known) date) unknown) (unknown) (no (unknown) (unknown) Chronic findings (units (unknown) date) as above.? unknown) (unknown) (no (unknown) (unknown) Correlate (units (unkn own) date) clinically for a unknown) possible source.? If the patient has any personal (unknown) (no (unknown) (unknown) Creatinine 0.64 (units (unknown) date) unknown) (unknown) (no (unknown) (unknown) Creatinine 0.65 (units (unknown) date) unknown) (unknown) (no (unknown) (unknown) Creatinine (units (unk nown) date) unknown) (unknown) (no (unknown) (unknown) Critical Care (units ( unknown) date) time: unknown) (unknown) (no (unknown) (unknown) : 1945 (units (unknown) date) Acct:[id number] unknown) (unknown) (no (unknown) (unknown) Date of Service: (units (unknown) date) 12/02/22 unknown) (unknown) (no (unknown) (unknown) ECG (units (unkno wn) date) unknown) (unknown) (no (unknown) (unknown) Eos # (Auto) 300 (units (unknown) date) unknown) (unknown) (no (unknown) (unknown) Eos # (Auto) (units (u nknown) date) unknown) (unknown) (no (unknown) (unknown) Eos % (Auto) 4.8 (units (unknown) date) H unknown) (unknown) (no (unknown) (unknown) Eos % (Auto) (units (u nknown) date) unknown) (unknown) (no (unknown) (unknown) Estimated GFR > (units (unknown) date) 60 unknown) (unknown) (no (unknown) (unknown) Estimated GFR (units ( unknown) date) unknown) (unknown) (no (unknown) (unknown) Exam Narrative: (units (unknown) date) unknown) (unknown) (no (unknown) (unknown) Exam (units (unkno wn) date) unknown) (unknown) (no (unknown) (unknown) Extremities are (units (unknown) date) free of edema, unknown) good peripheral pulses. (unknown) (no (unknown) (unknown) Family History (units (unknown) date) (Updated 12/02/22 unknown) @ 16:[address] MD) (unknown) (no (unknown) (unknown) Globulin 2.7 (units (u nknown) date) unknown) (unknown) (no (unknown) (unknown) Globulin (units (unkno wn) date) unknown) (unknown) (no (unknown) (unknown) Glucose 85 (units (unk nown) date) unknown) (unknown) (no (unknown) (unknown) Glucose 92 (units (unk nown) date) unknown) (unknown) (no (unknown) (unknown) Glucose (units (unkno wn) date) unknown) (unknown) (no (unknown) (unknown) HDL Cholesterol (units (unknown) date) 99 H unknown) (unknown) (no (unknown) (unknown) HDL Cholesterol (units (unknown) date) unknown) (unknown) (no (unknown) (unknown) Hct 44.1 (units (unkno wn) date) unknown) (unknown) (no (unknown) (unknown) Hct (units (unkno wn) date) unknown) (unknown) (no (unknown) (unknown) Head reveals (units (u nknown) date) symmetric pupils, unknown) EOMI. No diplopia. No nystagmus. (unknown) (no (unknown) (unknown) Heart is regular (units (unknown) date) without murmur unknown) gallop or rub. Referral pulses. (unknown) (no (unknown) (unknown) Hemoglobin A1c (units (unknown) date) 5.4 unknown) (unknown) (no (unknown) (unknown) Hemoglobin A1c (units (unknown) date) unknown) (unknown) (no (unknown) (unknown) Hgb 15.0 (units (unkno wn) date) unknown) (unknown) (no (unknown) (unknown) Hgb (units (unkno wn) date) unknown) (unknown) (no (unknown) (unknown) I spent a total (units (unknown) date) of [] minutes of unknown) critical care time on this patient's care (unknown) (no (unknown) (unknown) IMPRESSION:? A (units (unknown) date) punctate infarct unknown) is seen in the right frontal lobe subcortical (unknown) (no (unknown) (unknown) INR 0.9 (units (unkno wn) date) unknown) (unknown) (no (unknown) (unknown) INR (units (unkno wn) date) unknown) (unknown) (no (unknown) (unknown) Imaging (units (unkno wn) date) unknown) (unknown) (no (unknown) (unknown) Impression: (units (un known) date) unknown) (unknown) (no (unknown) (unknown) Influenza A (units (un known) date) (RT-PCR) Flu a unknown) negative (unknown) (no (unknown) (unknown) Influenza A (units (un known) date) (RT-PCR) unknown) (unknown) (no (unknown) (unknown) Influenza B (units (un known) date) (RT-PCR) Flu b unknown) negative (unknown) (no (unknown) (unknown) Influenza B (units (un known) date) (RT-PCR) unknown) (unknown) (no (unknown) (unknown) Interval history: (units (unknown) date) unknown) (unknown) (no (unknown) (unknown) [facility] (units (unknown) date) [address] unknown) [place] [id number] (unknown) (no (unknown) (unknown) Joints are not (units (unknown) date) swollen or unknown) deformed. (unknown) (no (unknown) (unknown) Judgment and (units (u nknown) date) speech are normal. unknown) (unknown) (no (unknown) (unknown) LDL Cholesterol, (units (unknown) date) Calc 84 unknown) (unknown) (no (unknown) (unknown) LDL Cholesterol, (units (unknown) date) Calc unknown) (unknown) (no (unknown) (unknown) Laboratory (units (unk nown) date) Results - last 24 unknown) hr (unknown) (no (unknown) (unknown) Labs (units (unkno wn) date) unknown) (unknown) (no (unknown) (unknown) Labs: (units (unkno wn) date) unknown) (unknown) (no (unknown) (unknown) Lungs Are clear (units (unknown) date) with normal rate unknown) and effort. (unknown) (no (unknown) (unknown) Lymph # (Auto) (units (unknown) date) 1300 unknown) (unknown) (no (unknown) (unknown) Lymph # (Auto) (units (unknown) date) unknown) (unknown) (no (unknown) (unknown) Lymph % (Auto) (units (unknown) date) 22.5 L unknown) (unknown) (no (unknown) (unknown) Lymph % (Auto) (units (unknown) date) unknown) (unknown) (no (unknown) (unknown) MCH 32.7 (units (unkno wn) date) unknown) (unknown) (no (unknown) (unknown) MCH (units (unkno wn) date) unknown) (unknown) (no (unknown) (unknown) MCHC 33.9 (units (unkn own) date) unknown) (unknown) (no (unknown) (unknown) MCHC (units (unkno wn) date) unknown) (unknown) (no (unknown) (unknown) MCV 96.5 (units (unkno wn) date) unknown) (unknown) (no (unknown) (unknown) MCV (units (unkno wn) date) unknown) (unknown) (no (unknown) (unknown) MRI - head: (units (un known) date) unknown) (unknown) (no (unknown) (unknown) [id number] (units (unknown) date) atherosclerotic unknown) disease.? Moderate narrowing of the left (unknown) (no (unknown) (unknown) [place] # (Auto) 400 (units (unknown) date) unknown) (unknown) (no (unknown) (unknown) [place] # (Auto) (units ( unknown) date) unknown) (unknown) (no (unknown) (unknown) [place] % (Auto) 6.9 (units (unknown) date) unknown) (unknown) (no (unknown) (unknown) [place] % (Auto) (units ( unknown) date) unknown) (unknown) (no (unknown) (unknown) NSR (units (unkno wn) date) unknown) (unknown) (no (unknown) (unknown) Narrative (units (unkn own) date) unknown) (unknown) (no (unknown) (unknown) Neck is supple, (units (unknown) date) no adenopathy. unknown) Normal thyroid. No range of motion. (unknown) (no (unknown) (unknown) Neurologically (units (unknown) date) cranial nerves are unknown) intact. Motor strength is 5/5 all (unknown) (no (unknown) (unknown) Neut # (Auto) (units ( unknown) date) 3800 unknown) (unknown) (no (unknown) (unknown) Neut # (Auto) (units ( unknown) date) unknown) (unknown) (no (unknown) (unknown) Neut % (Auto) (units ( unknown) date) 65.3 unknown) (unknown) (no (unknown) (unknown) Neut % (Auto) (units ( unknown) date) unknown) (unknown) (no (unknown) (unknown) No acute (units (unkno wn) date) abnormalities, or unknown) bleed. (unknown) (no (unknown) (unknown) Objective (units (unkn own) date) unknown) (unknown) (no (unknown) (unknown) Other Family (units (u nknown) date) history of unknown) cerebrovascular accident (CVA) in father (unknown) (no (unknown) (unknown) Oxygen Delivery (units (unknown) date) Method Room Air unknown) Room Air (unknown) (no (unknown) (unknown) Oxygen Delivery (units (unknown) date) Method Room Air unknown) (unknown) (no (unknown) (unknown) Oxygen Delivery (units (unknown) date) Method unknown) (unknown) (no (unknown) (unknown) Oxygen Flow Rate (units (unknown) date) 0 0 0 unknown) (unknown) (no (unknown) (unknown) Oxygen Flow Rate (units (unknown) date) 0 unknown) (unknown) (no (unknown) (unknown) PFSH (units (unkno wn) date) unknown) (unknown) (no (unknown) (unknown) PT 10.7 (units (unkno wn) date) unknown) (unknown) (no (unknown) (unknown) PT (units (unkno wn) date) unknown) (unknown) (no (unknown) (unknown) Patient: (units (unkno wn) date) Raegan Orourke MR#: unknown) [id number] (unknown) (no (unknown) (unknown) Plt Count 107 L (units (unknown) date) unknown) (unknown) (no (unknown) (unknown) Plt Count (units (unkn own) date) unknown) (unknown) (no (unknown) (unknown) Potassium 3.9 (units ( unknown) date) unknown) (unknown) (no (unknown) (unknown) Potassium 4.0 (units ( unknown) date) unknown) (unknown) (no (unknown) (unknown) Potassium (units (unkn own) date) unknown) (unknown) (no (unknown) (unknown) Progress Note (units ( unknown) date) unknown) (unknown) (no (unknown) (unknown) Provider: Epifanio (units (unknown) date) MD Domingo unknown) (unknown) (no (unknown) (unknown) Proxy decision (units (unknown) date) maker: . unknown) (unknown) (no (unknown) (unknown) Pulse Oximetry 94 (units (unknown) date) 94 96 unknown) (unknown) (no (unknown) (unknown) Pulse Oximetry 95 (units (unknown) date) unknown) (unknown) (no (unknown) (unknown) Pulse Rate 62 (units ( unknown) date) unknown) (unknown) (no (unknown) (unknown) Pulse Rate 66 (units ( unknown) date) unknown) (unknown) (no (unknown) (unknown) RBC 4.57 (units (unkno wn) date) unknown) (unknown) (no (unknown) (unknown) RBC (units (unkno wn) date) unknown) (unknown) (no (unknown) (unknown) RDW 12.9 (units (unkno wn) date) unknown) (unknown) (no (unknown) (unknown) RDW (units (unkno wn) date) unknown) (unknown) (no (unknown) (unknown) RSV (PCR) (units (unkn own) date) Negative unknown) (unknown) (no (unknown) (unknown) RSV (PCR) (units (unkn own) date) unknown) (unknown) (no (unknown) (unknown) Radiologist's (units ( unknown) date) impression: unknown) (unknown) (no (unknown) (unknown) Respiratory Rate (units (unknown) date) 17 unknown) (unknown) (no (unknown) (unknown) Respiratory Rate (units (unknown) date) 18 unknown) (unknown) (no (unknown) (unknown) SARS-CoV-2 (PCR) (units (unknown) date) Negative unknown) (unknown) (no (unknown) (unknown) SARS-CoV-2 (PCR) (units (unknown) date) unknown) (unknown) (no (unknown) (unknown) She is FULL CODE. (units (unknown) date) unknown) (unknown) (no (unknown) (unknown) She is alert (units (u nknown) date) oriented x3, no unknown) acute distress. Fluent speech and normal judgment. (unknown) (no (unknown) (unknown) Signed By: (units (unk nown) date) unknown) (unknown) (no (unknown) (unknown) Skin is free of (units (unknown) date) rash, lesions or unknown) petechiae. (unknown) (no (unknown) (unknown) Smoking Status: (units (unknown) date) Never smoker unknown) (unknown) (no (unknown) (unknown) Social History (units (unknown) date) (Reviewed 12/02/22 unknown) @ 10:52 by Lit Winn MD) (unknown) (no (unknown) (unknown) Sodium 136 L (units (u nknown) date) unknown) (unknown) (no (unknown) (unknown) Sodium (units (unkno wn) date) unknown) (unknown) (no (unknown) (unknown) Subjective (units (unk nown) date) unknown) (unknown) (no (unknown) (unknown) Temperature 97.0 (units (unknown) date) F L unknown) (unknown) (no (unknown) (unknown) Temperature 97.8 (units (unknown) date) F unknown) (unknown) (no (unknown) (unknown) Time Spent With (units (unknown) date) Patient unknown) (unknown) (no (unknown) (unknown) Total Bilirubin (units (unknown) date) 0.7 unknown) (unknown) (no (unknown) (unknown) Total Bilirubin (units (unknown) date) unknown) (unknown) (no (unknown) (unknown) Total Creatine (units (unknown) date) Kinase 38 unknown) (unknown) (no (unknown) (unknown) Total Creatine (units (unknown) date) Kinase unknown) (unknown) (no (unknown) (unknown) Total Protein 6.9 (units (unknown) date) unknown) (unknown) (no (unknown) (unknown) Total Protein (units ( unknown) date) unknown) (unknown) (no (unknown) (unknown) Triglycerides 142 (units (unknown) date) unknown) (unknown) (no (unknown) (unknown) Triglycerides (units ( unknown) date) unknown) (unknown) (no (unknown) (unknown) Troponin I < (units (u nknown) date) 0.012 unknown) (unknown) (no (unknown) (unknown) Troponin I (units (unk nown) date) unknown) (unknown) (no (unknown) (unknown) Ur Culture (units (unk nown) date) Indicated? unknown) Specimen cultured (unknown) (no (unknown) (unknown) Ur Culture (units (unk nown) date) Indicated? unknown) (unknown) (no (unknown) (unknown) Ur Leukocyte (units (u nknown) date) Esterase Negative unknown) (unknown) (no (unknown) (unknown) Ur Leukocyte (units (u nknown) date) Esterase unknown) (unknown) (no (unknown) (unknown) Ur Specific (units (un known) date) [place] 1.010 unknown) (unknown) (no (unknown) (unknown) Ur Specific (units (un known) date) [place] unknown) (unknown) (no (unknown) (unknown) Ur Squamous Epith (units (unknown) date) Cells None seen unknown) (unknown) (no (unknown) (unknown) Ur Squamous Epith (units (unknown) date) Cells unknown) (unknown) (no (unknown) (unknown) Urine Appearance (units (unknown) date) Clear unknown) (unknown) (no (unknown) (unknown) Urine Appearance (units (unknown) date) unknown) (unknown) (no (unknown) (unknown) Urine Bacteria (units (unknown) date) Many (>30) H unknown) (unknown) (no (unknown) (unknown) Urine Bacteria (units (unknown) date) unknown) (unknown) (no (unknown) (unknown) Urine Bilirubin (units (unknown) date) Negative unknown) (unknown) (no (unknown) (unknown) Urine Bilirubin (units (unknown) date) unknown) (unknown) (no (unknown) (unknown) Urine Color (units (un known) date) Yellow unknown) (unknown) (no (unknown) (unknown) Urine Color (units (un known) date) unknown) (unknown) (no (unknown) (unknown) Urine Glucose (units ( unknown) date) (UA) Negative unknown) (unknown) (no (unknown) (unknown) Urine Glucose (units ( unknown) date) (UA) unknown) (unknown) (no (unknown) (unknown) Urine Ketones (units ( unknown) date) Negative unknown) (unknown) (no (unknown) (unknown) Urine Ketones (units ( unknown) date) unknown) (unknown) (no (unknown) (unknown) Urine Nitrate (units ( unknown) date) Positive H unknown) (unknown) (no (unknown) (unknown) Urine Nitrate (units ( unknown) date) unknown) (unknown) (no (unknown) (unknown) Urine Occult (units (u nknown) date) Blood Negative unknown) (unknown) (no (unknown) (unknown) Urine Occult (units (u nknown) date) Blood unknown) (unknown) (no (unknown) (unknown) Urine Protein (units ( unknown) date) Negative unknown) (unknown) (no (unknown) (unknown) Urine Protein (units ( unknown) date) unknown) (unknown) (no (unknown) (unknown) Urine RBC None (units (unknown) date) seen unknown) (unknown) (no (unknown) (unknown) Urine RBC (units (unkn own) date) unknown) (unknown) (no (unknown) (unknown) Urine (units (unkno wn) date) Urobilinogen 0.2 unknown) (unknown) (no (unknown) (unknown) Urine (units (unkno wn) date) Urobilinogen unknown) (unknown) (no (unknown) (unknown) Urine WBC None (units (unknown) date) seen unknown) (unknown) (no (unknown) (unknown) Urine WBC (units (unkn own) date) unknown) (unknown) (no (unknown) (unknown) Urine pH 7.5 (units (u nknown) date) unknown) (unknown) (no (unknown) (unknown) Urine pH (units (unkno wn) date) unknown) (unknown) (no (unknown) (unknown) Vital Signs (units (un known) date) unknown) (unknown) (no (unknown) (unknown) WBC 5.9 (units (unkno wn) date) unknown) (unknown) (no (unknown) (unknown) WBC (units (unkno wn) date) unknown) (unknown) (no (unknown) (unknown) [Embedded Image (units (unknown) date) Not Available] unknown) (unknown) (no (unknown) (unknown) alcohol intake: (units (unknown) date) current unknown) (unknown) (no (unknown) (unknown) appearance of the (units (unknown) date) distal basilar unknown) artery secondary to predominant supply of (unknown) (no (unknown) (unknown) artery origin. 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 (units (unknown) date) This was seen in unknown) 2021 imaging. (unknown) (no (unknown) (unknown) diminutive (units (unk nown) date) unknown) (unknown) (no (unknown) (unknown) evaluations. (units (u nknown) date) unknown) (unknown) (no (unknown) (unknown) exam.? MRI brain (units (unknown) date) has been unknown) completed.? Physical therapy and Occupational therapy (unknown) (no (unknown) (unknown) extremities. (units (u nknown) date) unknown) (unknown) (no (unknown) (unknown) history of (units (unk nown) date) unknown) (unknown) (no (unknown) (unknown) household (units (unkn own) date) members: spouse unknown) (unknown) (no (unknown) (unknown) malignancy, (units (un known) date) consider also unknown) follow-up imaging. (unknown) (no (unknown) (unknown) office without (units (unknown) date) any improvement.? unknown) We will give low-dose scheduled meclizine (unknown) (no (unknown) (unknown) overnight. (units (unk nown) date) unknown) (unknown) (no (unknown) (unknown) possibly micro (units (unknown) date) embolic.? () unknown) (unknown) (no (unknown) (unknown) region, (units (unkno wn) date) unknown) (unknown) (no (unknown) (unknown) the (units (unkno wn) date) unknown) (unknown) (no (unknown) (unknown) today; this time (units (unknown) date) is exclusive of unknown) procedural time. (unknown) (no (unknown) (unknown) vertebral (units (unkn own) date) unknown) Result panel 387 (unknown) (no (unknown) (unknown) (no value) (units (unk nown) date) unknown) (unknown) (no (unknown) (unknown) (past 8 hours): (units (unknown) date) unknown) (unknown) (no (unknown) (unknown) -I will discharge (units (unknown) date) the patient on unknown) mono antiplatelet therapy given the punctate (unknown) (no (unknown) (unknown) -ceftriaxone in (units (unknown) date) the hospital, 5 unknown) additional days of cephalexin at home. (unknown) (no (unknown) (unknown) -follow (units (unkno wn) date) clinically, unknown) nebulizers as needed. (unknown) (no (unknown) (unknown) -home health (units (u nknown) date) physical therapy unknown) for vertigo her issues. (unknown) (no (unknown) (unknown) -home health (units (u nknown) date) physical therapy unknown) for vestibular rehab and meclizine as needed. (unknown) (no (unknown) (unknown) 0.09 mg IH PRN (units (unknown) date) Qty: 0 unknown) (unknown) (no (unknown) (unknown) 12/02/22 12/02/22 (units (unknown) date) 12/02/22 unknown) (unknown) (no (unknown) (unknown) 12/02/22 12/03/22 (units (unknown) date) unknown) (unknown) (no (unknown) (unknown) 12/02/22 10:28 (units (unknown) date) unknown) (unknown) (no (unknown) (unknown) 12/02/22 15:57 (units (unknown) date) unknown) (unknown) (no (unknown) (unknown) 12/02/22 16:47 (units (unknown) date) unknown) (unknown) (no (unknown) (unknown) 12/02/22 17:14 (units (unknown) date) unknown) (unknown) (no (unknown) (unknown) 12/03/22 1616 (units ( unknown) date) unknown) (unknown) (no (unknown) (unknown) 12/03/22 (units (unkno wn) date) unknown) (unknown) (no (unknown) (unknown) 09:35 12/03/22 (units (unknown) date) unknown) (unknown) (no (unknown) (unknown) 1 puff INH PRN (units (unknown) date) Qty: 0 unknown) (unknown) (no (unknown) (unknown) 1. 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 Symptomatically (unknown) (no (unknown) (unknown) 100 mg PO HS Qty: (units (unknown) date) 0 unknown) (unknown) (no (unknown) (unknown) 12.5 mg PO Q6HR (units (unknown) date) Qty: 60 0RF unknown) (unknown) (no (unknown) (unknown) 12:00 (units (unkno wn) date) unknown) (unknown) (no (unknown) (unknown) 17:14 17:14 17:14 (units (unknown) date) unknown) (unknown) (no (unknown) (unknown) 2,000 iu PO QDAY (units (unknown) date) Qty: 0 unknown) (unknown) (no (unknown) (unknown) 2. Subacute (units (un known) date) vertigo and unknown) hearing loss, present on admission and active. (unknown) (no (unknown) (unknown) 21:51 07:05 (units (un known) date) unknown) (unknown) (no (unknown) (unknown) 230 (units (unkno wn) date) unknown) (unknown) (no (unknown) (unknown) 3. Possible (units (un known) date) urinary tract unknown) infection, present on admission and active. (unknown) (no (unknown) (unknown) 4. Asthma, (units (unk nown) date) present on unknown) admission and stable. (unknown) (no (unknown) (unknown) 40 mg PO BEDTIME (units (unknown) date) Qty: 60 2RF unknown) (unknown) (no (unknown) (unknown) 500 mg PO Q8H (units ( unknown) date) Qty: 15 0RF unknown) (unknown) (no (unknown) (unknown) 800 mg PO PRN (units ( unknown) date) Qty: 0 unknown) (unknown) (no (unknown) (unknown) 81 mg PO DAILY (units (unknown) date) Qty: 30 3RF unknown) (unknown) (no (unknown) (unknown) ALBUTEROL (units (unkn own) date) (PROVENTIL unknown) INHALER) (unknown) (no (unknown) (unknown) Abdomen is soft, (units (unknown) date) nontender, no unknown) organomegaly (unknown) (no (unknown) (unknown) Age/Sex: 77 / F (units (unknown) date) unknown) (unknown) (no (unknown) (unknown) Epifanio Lane, (units (unknown) date) MD unknown) (unknown) (no (unknown) (unknown) Assessment and (units (unknown) date) Plan unknown) (unknown) (no (unknown) (unknown) Assessment: (units (un known) date) unknown) (unknown) (no (unknown) (unknown) Asthma, present (units (unknown) date) on admission and unknown) improved. (unknown) (no (unknown) (unknown) BUN 11 (units (unkno wn) date) unknown) (unknown) (no (unknown) (unknown) BUN (units (unkno wn) date) unknown) (unknown) (no (unknown) (unknown) BUN/Creatinine (units (unknown) date) Ratio 17.2 unknown) (unknown) (no (unknown) (unknown) BUN/Creatinine (units (unknown) date) Ratio unknown) (unknown) (no (unknown) (unknown) Blood Pressure (units (unknown) date) 140/71 unknown) (unknown) (no (unknown) (unknown) CVA (subacute (units ( unknown) date) punctate frontal unknown) lobe), present on admission and improved. (unknown) (no (unknown) (unknown) Calcium 8.8 (units (un known) date) unknown) (unknown) (no (unknown) (unknown) Calcium (units (unkno wn) date) unknown) (unknown) (no (unknown) (unknown) Carbon Dioxide 28 (units (unknown) date) unknown) (unknown) (no (unknown) (unknown) Carbon Dioxide (units (unknown) date) unknown) (unknown) (no (unknown) (unknown) Chief complaint: (units (unknown) date) Vertigo unknown) (unknown) (no (unknown) (unknown) Chloride 102 (units (u nknown) date) unknown) (unknown) (no (unknown) (unknown) Chloride (units (unkno wn) date) unknown) (unknown) (no (unknown) (unknown) Cholesterol 211 H (units (unknown) date) unknown) (unknown) (no (unknown) (unknown) Cholesterol (units (un known) date) unknown) (unknown) (no (unknown) (unknown) Cognitive/behavio (units (unknown) date) ral status at unknown) discharge: oriented (unknown) (no (unknown) (unknown) Comment: CVA and (units (unknown) date) vertigo unknown) (unknown) (no (unknown) (unknown) Comment: (units (unkno wn) date) unknown) (unknown) (no (unknown) (unknown) Consult to (units (unk nown) date) Discharge Planning unknown) Routine (unknown) (no (unknown) (unknown) Consult to (units (unk nown) date) Occupational unknown) Therapy Evaluate + Treat (unknown) (no (unknown) (unknown) Consult to (units (unk nown) date) Physical Therapy unknown) Evaluate + Treat (unknown) (no (unknown) (unknown) Consult to Speech (units (unknown) date) Therapy Evaluate + unknown) Treat (unknown) (no (unknown) (unknown) Consults: (units (unkn own) date) unknown) (unknown) (no (unknown) (unknown) Continued (units (unkn own) date) unknown) (unknown) (no (unknown) (unknown) Creatinine 0.64 (units (unknown) date) unknown) (unknown) (no (unknown) (unknown) Creatinine (units (unk nown) date) unknown) (unknown) (no (unknown) (unknown) : 1945 (units (unknown) date) Acct:[id number] unknown) (unknown) (no (unknown) (unknown) Date Patient (units (u nknown) date) Seen: 12/02/22 unknown) (unknown) (no (unknown) (unknown) Date of Service: (units (unknown) date) 12/02/22 unknown) (unknown) (no (unknown) (unknown) Date of (units (unkno wn) date) admission: unknown) (unknown) (no (unknown) (unknown) Diet/Activity/Clarence (units (unknown) date) atments unknown) (unknown) (no (unknown) (unknown) Diet: Diet as (units ( unknown) date) Tolerated unknown) (unknown) (no (unknown) (unknown) Discharge (units (unkn own) date) Assessment + Plan unknown) (unknown) (no (unknown) (unknown) Discharge Data (units (unknown) date) unknown) (unknown) (no (unknown) (unknown) Discharge Date: (units (unknown) date) 12/03/22 unknown) (unknown) (no (unknown) (unknown) Discharge (units (unkn own) date) Diagnosis: unknown) (unknown) (no (unknown) (unknown) Discharge Plan (units (unknown) date) unknown) (unknown) (no (unknown) (unknown) Discharge (units (unkn own) date) Providers unknown) (unknown) (no (unknown) (unknown) Discharge Summary (units (unknown) date) unknown) (unknown) (no (unknown) (unknown) Discharge home, (units (unknown) date) home health unknown) physical therapy, close follow up with PCP. (unknown) (no (unknown) (unknown) Discharge orders (units (unknown) date) + Medications unknown) (unknown) (no (unknown) (unknown) Discharge (units (unkn own) date) provider: unknown) (unknown) (no (unknown) (unknown) Nithin Canchola (units (unknown) date) [place] unknown) (unknown) (no (unknown) (unknown) ECG (units (unkno wn) date) unknown) (unknown) (no (unknown) (unknown) ENT, Dr. Hong. (units (unknown) date) The patient was unknown) placed on scheduled meclizine in the hospital, (unknown) (no (unknown) (unknown) Estimated GFR > (units (unknown) date) 60 unknown) (unknown) (no (unknown) (unknown) Estimated GFR (units ( unknown) date) unknown) (unknown) (no (unknown) (unknown) Exam Narrative: (units (unknown) date) unknown) (unknown) (no (unknown) (unknown) Exam (units (unkno wn) date) unknown) (unknown) (no (unknown) (unknown) Extremities are (units (unknown) date) free of edema, unknown) good peripheral pulses. (unknown) (no (unknown) (unknown) Family History (units (unknown) date) (Updated 12/02/22 unknown) @ 16:[address] MD) (unknown) (no (unknown) (unknown) Follow (units (unkno wn) date) up/Referrals: unknown) (unknown) (no (unknown) (unknown) Functional status (units (unknown) date) at discharge: unknown) independent ambulation (unknown) (no (unknown) (unknown) Glucose 85 (units (unk nown) date) unknown) (unknown) (no (unknown) (unknown) Glucose (units (unkno wn) date) unknown) (unknown) (no (unknown) (unknown) HDL Cholesterol (units (unknown) date) 99 H unknown) (unknown) (no (unknown) (unknown) HDL Cholesterol (units (unknown) date) unknown) (unknown) (no (unknown) (unknown) Head reveals (units (u nknown) date) symmetric pupils, unknown) EOMI. No diplopia. No nystagmus. (unknown) (no (unknown) (unknown) Heart is regular (units (unknown) date) without murmur unknown) gallop or rub. Referral pulses. (unknown) (no (unknown) (unknown) Hemoglobin A1c (units (unknown) date) 5.4 unknown) (unknown) (no (unknown) (unknown) Hemoglobin A1c (units (unknown) date) unknown) (unknown) (no (unknown) (unknown) History of (units (unk nown) date) Present Illness unknown) (unknown) (no (unknown) (unknown) Hospital Course (units (unknown) date) unknown) (unknown) (no (unknown) (unknown) Hospital Course: (units (unknown) date) unknown) (unknown) (no (unknown) (unknown) Impression: (units (un known) date) unknown) (unknown) (no (unknown) (unknown) [facility] (units (unknown) date) [address] [place] [address] unknown) [place] [address] (unknown) (no (unknown) (unknown) Joints are not (units (unknown) date) swollen or unknown) deformed. (unknown) (no (unknown) (unknown) Judgment and (units (u nknown) date) speech are normal. unknown) (unknown) (no (unknown) (unknown) LDL Cholesterol, (units (unknown) date) Calc 84 unknown) (unknown) (no (unknown) (unknown) LDL Cholesterol, (units (unknown) date) Calc unknown) (unknown) (no (unknown) (unknown) Laboratory (units (unk n) date) Results - last 24 unknown) hr (unknown) (no (unknown) (unknown) Labs (units (unkno wn) date) unknown) (unknown) (no (unknown) (unknown) Labs: (units (o wn) date) unknown) (unknown) (no (unknown) (unknown) Lungs Are clear (units (unknown) date) with normal rate unknown) and effort. (unknown) (no (unknown) (unknown) Medication (units (unk n) date) counseling unknown) provided by Pharmacist: No (unknown) (no (unknown) (unknown) NSR (units (unkno wn) date) unknown) (unknown) (no (unknown) (unknown) Narrative (units (unkn own) date) unknown) (unknown) (no (unknown) (unknown) Narrative: (units (unk nown) date) unknown) (unknown) (no (unknown) (unknown) Neck is supple, (units (unknown) date) no adenopathy. unknown) Normal thyroid. No range of motion. (unknown) (no (unknown) (unknown) Neurologically (units (unknown) date) cranial nerves are unknown) intact. Motor strength is 5/5 all (unknown) (no (unknown) (unknown) New (units (unkno wn) date) unknown) (unknown) (no (unknown) (unknown) Objective (units (unkn own) date) unknown) (unknown) (no (unknown) (unknown) Other Family (units (u nknown) date) history of unknown) cerebrovascular accident (CVA) in father (unknown) (no (unknown) (unknown) Overall status at (units (unknown) date) discharge: patient unknown) is back to baseline (unknown) (no (unknown) (unknown) Oxygen Delivery (units (unknown) date) Method Room Air unknown) (unknown) (no (unknown) (unknown) Oxygen Flow Rate (units (unknown) date) 0 0 unknown) (unknown) (no (unknown) (unknown) Oxygen Flow Rate (units (unknown) date) 0 unknown) (unknown) (no (unknown) (unknown) PFSH (units (unkno wn) date) unknown) (unknown) (no (unknown) (unknown) Patient (units (unkno wn) date) Disposition: Home unknown) Health Service (unknown) (no (unknown) (unknown) Patient: (units (unkno wn) date) Raegan Orourke MR#: unknown) [id number] (unknown) (no (unknown) (unknown) Physician (units (unkn own) date) Instructions: unknown) Evaluate and Treat (unknown) (no (unknown) (unknown) Physician (units (unkn own) date) Instructions: unknown) Evaluate and treat (unknown) (no (unknown) (unknown) Plan of (units (unkno wn) date) Treatment: unknown) (unknown) (no (unknown) (unknown) Potassium 3.9 (units ( unknown) date) unknown) (unknown) (no (unknown) (unknown) Potassium (units (unkn own) date) unknown) (unknown) (no (unknown) (unknown) Prescriptions: (units (unknown) date) unknown) (unknown) (no (unknown) (unknown) Primary Care (units (u nknown) date) Provider: unknown) Yumiko Farris (unknown) (no (unknown) (unknown) Primary care (units (u nknown) date) physician: unknown) (unknown) (no (unknown) (unknown) Provider (units (unkno wn) date) Discharge Comment: unknown) PCP within 1 week (unknown) (no (unknown) (unknown) Provider (units (unkno wn) date) unknown) (unknown) (no (unknown) (unknown) Provider: Epifanio (units (unknown) date) MD Domingo unknown) (unknown) (no (unknown) (unknown) Pulse Oximetry 95 (units (unknown) date) 95 unknown) (unknown) (no (unknown) (unknown) Pulse Rate 85 (units ( unknown) date) unknown) (unknown) (no (unknown) (unknown) Respiratory Rate (units (unknown) date) 18 unknown) (unknown) (no (unknown) (unknown) Yumiko Farris, DO (units (unknown) date) [Primary Care unknown) Provider] (unknown) (no (unknown) (unknown) She is alert (units (u nknown) date) oriented x3, no unknown) acute distress. Fluent speech and normal judgment. (unknown) (no (unknown) (unknown) She was seen by (units (unknown) date) Physical and unknown) Occupational. She is likely benefit from physical (unknown) (no (unknown) (unknown) Signed (units (unkno wn) date) By:<Electronically unknown) signed by Epifanio Lane MD> (unknown) (no (unknown) (unknown) Skin is free of (units (unknown) date) rash, lesions or unknown) petechiae. (unknown) (no (unknown) (unknown) Smoking Status: (units (unknown) date) Never smoker unknown) (unknown) (no (unknown) (unknown) Social History (units (unknown) date) (Reviewed 12/02/22 unknown) @ 10:52 by Lit Winn MD) (unknown) (no (unknown) (unknown) Sodium 136 L (units (u nknown) date) unknown) (unknown) (no (unknown) (unknown) Sodium (units (unkno wn) date) unknown) (unknown) (no (unknown) (unknown) Stand Alone (units (un known) date) Forms: Patient unknown) Portal/API, Stroke Signs + Symptoms (unknown) (no (unknown) (unknown) Status at (units (unkn own) date) Discharge unknown) (unknown) (no (unknown) (unknown) Summary (units (unkno wn) date) unknown) (unknown) (no (unknown) (unknown) Temperature 99.0 (units (unknown) date) F unknown) (unknown) (no (unknown) (unknown) The patient is a (units (unknown) date) 77-year-old female unknown) who describes a 1-2 month history of vertigo (unknown) (no (unknown) (unknown) The patient was (units (unknown) date) admitted for acute unknown) exacerbation of vertigo and feeling outside (unknown) (no (unknown) (unknown) Time Patient (units (u nknown) date) Seen: 16:00 unknown) (unknown) (no (unknown) (unknown) Time Spent with (units (unknown) date) Patient unknown) (unknown) (no (unknown) (unknown) Time spent: (units (un known) date) Greater than 30 unknown) minutes (unknown) (no (unknown) (unknown) Transfer to: (units (u nknown) date) [facility] unknown) Health (unknown) (no (unknown) (unknown) Triglycerides 142 (units (unknown) date) unknown) (unknown) (no (unknown) (unknown) Triglycerides (units ( unknown) date) unknown) (unknown) (no (unknown) (unknown) Troponin I < (units (u nknown) date) 0.012 < 0.012 unknown) (unknown) (no (unknown) (unknown) Troponin I (units (unk nown) date) unknown) (unknown) (no (unknown) (unknown) UTI, present on (units (unknown) date) admission and unknown) improved. (unknown) (no (unknown) (unknown) Vertigo, present (units (unknown) date) on admission and unknown) improved. (unknown) (no (unknown) (unknown) Visit (units (unkno wn) date) Report/Discharge unknown) Packet (unknown) (no (unknown) (unknown) Vital Signs (units (un known) date) unknown) (unknown) (no (unknown) (unknown) [Embedded Image (units (unknown) date) Not Available] unknown) (unknown) (no (unknown) (unknown) [VITAMIN D ] (units (u nknown) date) unknown) (unknown) (no (unknown) (unknown) alcohol intake: (units (unknown) date) current unknown) (unknown) (no (unknown) (unknown) and bilateral (units ( unknown) date) hearing loss. She unknown) is being followed by Dr. Hong, ENT. The (unknown) (no (unknown) (unknown) arms or legs, or (units (unknown) date) diplopia. She also unknown) denies tinnitus. The patient underwent (unknown) (no (unknown) (unknown) aspirin 81 mg (units ( unknown) date) Tablet,Delayed unknown) Release (Dr/Ec) (unknown) (no (unknown) (unknown) atorvastatin (units (u nknown) date) [Lipitor] 20 mg unknown) Tablet (unknown) (no (unknown) (unknown) atorvastatin.? (units (unknown) date) unknown) (unknown) (no (unknown) (unknown) budesonide-formot (units (unknown) date) codey [Symbicort] unknown) 160 MCG/4.5 MCG HFA aerosol inhaler (unknown) (no (unknown) (unknown) cephalexin 500 mg (units (unknown) date) capsule unknown) (unknown) (no (unknown) (unknown) department. In (units (unknown) date) the emergency unknown) department she denied any weakness or numbness of (unknown) (no (unknown) (unknown) extremities. (units (u nknown) date) unknown) (unknown) (no (unknown) (unknown) follow up with (units (unknown) date) her primary care unknown) doctor as soon as possible. Home health orders (unknown) (no (unknown) (unknown) had vertigo and a (units (unknown) date) headache her unknown) was at work, she drove herself to her (unknown) (no (unknown) (unknown) has not been a (units ( unknown) date) vertigo she was unknown) diagnosed with a possible urinary tract infection (unknown) (no (unknown) (unknown) have been placed (units (unknown) date) for home physical unknown) therapy. (unknown) (no (unknown) (unknown) household (units (unkn own) date) members: spouse unknown) (unknown) (no (unknown) (unknown) ibuprofen 800 MG (units (unknown) date) tablet unknown) (unknown) (no (unknown) (unknown) improved. (units (unkn own) date) unknown) (unknown) (no (unknown) (unknown) in the emergency (units (unknown) date) department, unknown) although she denies urinary symptoms. She was (unknown) (no (unknown) (unknown) meclizine 12.5 mg (units (unknown) date) Tablet unknown) (unknown) (no (unknown) (unknown) nature of the (units ( unknown) date) stroke. She will unknown) be treated simply with aspirin and high-dose (unknown) (no (unknown) (unknown) of herself. An MR (units (unknown) date) during negative CT unknown) punctate frontal lobe infarcts. The (unknown) (no (unknown) (unknown) or other (units (unkno wn) date) neurologic unknown) changes. Her speech is normal. The platelet therapy on a (unknown) (no (unknown) (unknown) patient had (units (unk nown) date) increased vertigo unknown) and has been treated for additional vertigo by her (unknown) (no (unknown) (unknown) placed on a trial (units (unknown) date) of steroids to see unknown) if this improved. These were recently (unknown) (no (unknown) (unknown) prescheduled ENT (units (unknown) date) appointment. There unknown) she was referred to the emergency (unknown) (no (unknown) (unknown) safe. She was (units ( unknown) date) treated for urine unknown) tract infection found at the time of admission (unknown) (no (unknown) (unknown) started on (units (unk nown) date) antibiotics. unknown) (unknown) (no (unknown) (unknown) started on dual (units (unknown) date) antiplatelet unknown) therapy, and improved terms of her mental status. (unknown) (no (unknown) (unknown) stat CT which was (units (unknown) date) negative for unknown) evidence of acute acute bleed. An MRI revealed a (unknown) (no (unknown) (unknown) stopped. Said she (units (unknown) date) awoke today unknown) feeling dissociated from her body and that she (unknown) (no (unknown) (unknown) subacute frontal (units (unknown) date) infarct. The unknown) patient notes that all relatively normal through (unknown) (no (unknown) (unknown) therapy for (units (un known) date) vestibular rehab, unknown) and is attempting to have home health physical (unknown) (no (unknown) (unknown) therapy which (units ( unknown) date) would make it much unknown) easier for driving with vertigo is likely not (unknown) (no (unknown) (unknown) there is no (units (un known) date) specific working unknown) diagnosis for her hearing loss and vertigo. She (unknown) (no (unknown) (unknown) trazodone 100 MG (units (unknown) date) tablet unknown) (unknown) (no (unknown) (unknown) will be placed on (units (unknown) date) a total of 5 days unknown) of oral antibiotics. She is encouraged to (unknown) (no (unknown) (unknown) yesterday but has (units (unknown) date) not been feeling unknown) normal since waking this morning. Again she Result panel 388 (unknown) (no (unknown) (unknown) >100,000 cfu/ml (unkno wn) date) (unknown) (no (unknown) (unknown) >=32 (units (unkno wn) date) unknown) (unknown) (no (unknown) (unknown) <=0.12 (units (unkno wn) date) unknown) (unknown) (no (unknown) (unknown) <=0.25 (units (unkno wn) date) unknown) (unknown) (no (unknown) (unknown) <=0.5 (units (unkno wn) date) unknown) (unknown) (no (unknown) (unknown) <=1 (units (unkno wn) date) unknown) (unknown) (no (unknown) (unknown) <=16 (units (unkno wn) date) unknown) (unknown) (no (unknown) (unknown) <=20 (units (unkno wn) date) unknown) (unknown) (no (unknown) (unknown) <=4 (units (unkno wn) date) unknown) (unknown) (no (unknown) (unknown) 32 (units (unkno wn) date) unknown) (unknown) (no (unknown) (unknown) KLEPNEKlebsiella (units (unknown) date) pneumoniae unknown) (unknown) (no (unknown) (unknown) No Further Workup (units (unknown) date) unknown) Result panel 389 (unknown) (no (unknown) (unknown) (no value) (units (unk nown) date) unknown) (unknown) (no (unknown) (unknown) <Electronically (units (unknown) date) signed by Lit unknown) MD Pa> (unknown) (no (unknown) (unknown) ().? No (units (u nknown) date) unknown) (unknown) (no (unknown) (unknown) 12/02/22 12/02/22 (units (unknown) date) 12/02/22 unknown) Range/Units (unknown) (no (unknown) (unknown) 12/02/22 12/02/22 (units (unknown) date) Range/Units unknown) (unknown) (no (unknown) (unknown) 12/02/22 10:28 (units (unknown) date) unknown) (unknown) (no (unknown) (unknown) 12/02/22 17:14 (units (unknown) date) unknown) (unknown) (no (unknown) (unknown) 12/02/22 (units (unkno wn) date) unknown) (unknown) (no (unknown) (unknown) 12/12/22 2154 (units ( unknown) date) unknown) (unknown) (no (unknown) (unknown) 10:18 12/02/22 (units (unknown) date) unknown) (unknown) (no (unknown) (unknown) 10:20 12/02/22 (units (unknown) date) unknown) (unknown) (no (unknown) (unknown) 10:21 12/02/22 (units (unknown) date) unknown) (unknown) (no (unknown) (unknown) 10:21 (units (unkno wn) date) unknown) (unknown) (no (unknown) (unknown) 10:28 10:28 10:28 (units (unknown) date) unknown) (unknown) (no (unknown) (unknown) 10:30 12/02/22 (units (unknown) date) unknown) (unknown) (no (unknown) (unknown) 11:00 (units (unkno wn) date) unknown) (unknown) (no (unknown) (unknown) 11:03 12/02/22 (units (unknown) date) unknown) (unknown) (no (unknown) (unknown) 11:10 12/02/22 (units (unknown) date) unknown) (unknown) (no (unknown) (unknown) 11:10 (units (unkno wn) date) unknown) (unknown) (no (unknown) (unknown) 11:30 12/02/22 (units (unknown) date) unknown) (unknown) (no (unknown) (unknown) 11:56 12:30 (units (un known) date) unknown) (unknown) (no (unknown) (unknown) 12:00 (units (unkno wn) date) unknown) (unknown) (no (unknown) (unknown) 12:30 12/02/22 (units (unknown) date) unknown) (unknown) (no (unknown) (unknown) 13:00 12/02/22 (units (unknown) date) unknown) (unknown) (no (unknown) (unknown) 13:30 (units (unkno wn) date) unknown) (unknown) (no (unknown) (unknown) 14:00 12/02/22 (units (unknown) date) unknown) (unknown) (no (unknown) (unknown) 14:17 12/02/22 (units (unknown) date) unknown) (unknown) (no (unknown) (unknown) 14:17 (units (unkno wn) date) unknown) (unknown) (no (unknown) (unknown) 230 (units (unkno wn) date) unknown) (unknown) (no (unknown) (unknown) ? (units (unkno wn) date) unknown) (unknown) (no (unknown) (unknown) ?from her body. (units (unknown) date) There is not been unknown) any complaints of slurred speech facial droop (unknown) (no (unknown) (unknown) ACAs: Normal and (units (unknown) date) symmetric unknown) (unknown) (no (unknown) (unknown) AComm: No (units (unkn own) date) aneurysm unknown) (unknown) (no (unknown) (unknown) ALBUTEROL (units (unkn own) date) (PROVENTIL unknown) INHALER) 0.09 mg IH PRN ##0 12/06/11 12/02/22 (unknown) (no (unknown) (unknown) ALT (<35) IU/L (units (unknown) date) unknown) (unknown) (no (unknown) (unknown) ALT 37 H (<35) (units (unknown) date) IU/L unknown) (unknown) (no (unknown) (unknown) APTT (26-36) (units (u nknown) date) SECONDS unknown) (unknown) (no (unknown) (unknown) APTT 30 (26-36) (units (unknown) date) SECONDS unknown) (unknown) (no (unknown) (unknown) AST (14-36) IU/L (units (unknown) date) unknown) (unknown) (no (unknown) (unknown) AST 41 H (14-36) (units (unknown) date) IU/L unknown) (unknown) (no (unknown) (unknown) Acetaminophen (units ( unknown) date) (Acetaminophen 325 unknown) Mg Tablet) 650 mg PO Q6H PRN (unknown) (no (unknown) (unknown) Admin: 12/02/22 (units (unknown) date) 17:07 Dose: 200 unknown) mls/hr (unknown) (no (unknown) (unknown) Admin: 12/02/22 (units (unknown) date) 18:00 Dose: 12.5 unknown) mg (unknown) (no (unknown) (unknown) Admin: 12/02/22 (units (unknown) date) 21:38 Dose: 100 mg unknown) (unknown) (no (unknown) (unknown) Admin: 12/02/22 (units (unknown) date) 21:38 Dose: 5,000 unknown) unit (unknown) (no (unknown) (unknown) Admin: 12/03/22 (units (unknown) date) 00:41 Dose: 12.5 unknown) mg (unknown) (no (unknown) (unknown) Admin: 12/03/22 (units (unknown) date) 06:33 Dose: 12.5 unknown) mg (unknown) (no (unknown) (unknown) Admit Date/Time: (units (unknown) date) 12/02/22 15:57 unknown) (unknown) (no (unknown) (unknown) Admit Provider: (units (unknown) date) Epifanio Lane unknown) (unknown) (no (unknown) (unknown) After history and (units (unknown) date) exam CBC CMP unknown) troponin EKG CT angiogram head and neck ordered. (unknown) (no (unknown) (unknown) Age/Sex: 77 / F (units (unknown) date) unknown) (unknown) (no (unknown) (unknown) Al Hydrox/Mg (units (u nknown) date) Hydrox/Simethicone unknown) (Mag Hydrox/Alum/Simeth 30 Ml Udc) 30 ml PO (unknown) (no (unknown) (unknown) Albumin (3.5-5.0) (units (unknown) date) g/dL unknown) (unknown) (no (unknown) (unknown) Albumin 4.2 (units (un known) date) (3.5-5.0) g/dL unknown) (unknown) (no (unknown) (unknown) Albumin/Globulin (units (unknown) date) Ratio (1.0-2.8) unknown) (unknown) (no (unknown) (unknown) Albumin/Globulin (units (unknown) date) Ratio 1.6 unknown) (1.0-2.8) (unknown) (no (unknown) (unknown) Alkaline (units (unkno wn) date) Phosphatase unknown) (38-126) U/L (unknown) (no (unknown) (unknown) Alkaline (units (unkno wn) date) Phosphatase 158 H unknown) (38-126) U/L (unknown) (no (unknown) (unknown) Allergies (units (unkn own) date) unknown) (unknown) (no (unknown) (unknown) Allergy/AdvReac (units (unknown) date) Type Severity unknown) Reaction Status Date / Time (unknown) (no (unknown) (unknown) Anterior (units (unkno wn) date) circulation: unknown) (unknown) (no (unknown) (unknown) Antibiotics) (units (u nknown) date) unknown) (unknown) (no (unknown) (unknown) Any quantitative (units (unknown) date) measurements of unknown) stenosis were performed using NASCET criteria.? (unknown) (no (unknown) (unknown) Aortic arch and (units (unknown) date) subclavian unknown) arteries:? Mild atherosclerotic disease (unknown) (no (unknown) (unknown) Approved by: (units (u nknown) date) Wilber Shelton M.D. on unknown) 12/02/2022 at 11:49 ? (unknown) (no (unknown) (unknown) Approved by: (units (u nknown) date) Wilber Shelton M.D. on unknown) 12/02/2022 at 15:41 ? (unknown) (no (unknown) (unknown) Ask month/age: (units (unknown) date) Answers both unknown) questions correctly. (unknown) (no (unknown) (unknown) Aspirin (Aspirin (units (unknown) date) Ec 325 Mg Tablet) unknown) 325 mg PO NOW ONE (unknown) (no (unknown) (unknown) Aspirin (Aspirin (units (unknown) date) Ec 81 Mg Tablet) unknown) 81 mg PO DAILY KASSY (unknown) (no (unknown) (unknown) Atorvastatin (units (u nknown) date) Calcium unknown) (Atorvastatin 20 Mg Tablet) 80 mg PO BEDTIME KASSY (unknown) (no (unknown) (unknown) BACK: No flank (units (unknown) date) tenderness. unknown) (unknown) (no (unknown) (unknown) BUN (7-17) mg/dL (units (unknown) date) unknown) (unknown) (no (unknown) (unknown) BUN 13 (7-17) (units ( unknown) date) mg/dL unknown) (unknown) (no (unknown) (unknown) BUN/Creatinine (units (unknown) date) Ratio (6-22) unknown) (unknown) (no (unknown) (unknown) BUN/Creatinine (units (unknown) date) Ratio 20.0 (6-22) unknown) (unknown) (no (unknown) (unknown) Basilar artery:? (units (unknown) date) Diminutive unknown) appearing basilar artery, particularly near the (unknown) (no (unknown) (unknown) Baso # (Auto) (units ( unknown) date) (0-100) /uL unknown) (unknown) (no (unknown) (unknown) Baso # (Auto) 0 (units (unknown) date) (0-100) /uL unknown) (unknown) (no (unknown) (unknown) Baso % (Auto) (units ( unknown) date) (0-2) % unknown) (unknown) (no (unknown) (unknown) Baso % (Auto) 0.5 (units (unknown) date) (0-2) % unknown) (unknown) (no (unknown) (unknown) Best gaze (units (unkn own) date) horizontal: Normal unknown) (unknown) (no (unknown) (unknown) Best language: No (units (unknown) date) aphasia, normal unknown) (unknown) (no (unknown) (unknown) Blood Pressure (units (unknown) date) 141/73 H unknown) (unknown) (no (unknown) (unknown) Blood Pressure (units (unknown) date) 148/67 H unknown) (unknown) (no (unknown) (unknown) Blood Pressure (units (unknown) date) 172/77 H unknown) (unknown) (no (unknown) (unknown) Blood Pressure (units (unknown) date) 191/86 H 03/16/23 unknown) 10:18 (unknown) (no (unknown) (unknown) Blood Pressure (units (unknown) date) 191/86 H unknown) (unknown) (no (unknown) (unknown) Blood Pressure (units (unknown) date) unknown) (unknown) (no (unknown) (unknown) Bones:? (units (unkno wn) date) Degenerative unknown) changes. (unknown) (no (unknown) (unknown) Brain: No (units (unkn own) date) intracranial unknown) hemorrhage. Joaquin-white differentiation is grossly (unknown) (no (unknown) (unknown) Brain:? Punctate (units (unknown) date) infarct in the unknown) right frontal lobe in the subcortical region (unknown) (no (unknown) (unknown) CARDIOVASCULAR: (units (unknown) date) Regular rate and unknown) rhythm without murmurs (unknown) (no (unknown) (unknown) CARDIOVASCULAR: (units (unknown) date) negative chest unknown) pain, palpitations (unknown) (no (unknown) (unknown) CC: Dizziness (units ( unknown) date) unknown) (unknown) (no (unknown) (unknown) CCAs: No (units (unkno wn) date) stenosis, unknown) occlusion, or aneurysm. (unknown) (no (unknown) (unknown) CK-MB (CK-2) Rel (units (unknown) date) Index TNP unknown) (unknown) (no (unknown) (unknown) CK-MB (CK-2) Rel (units (unknown) date) Index unknown) (unknown) (no (unknown) (unknown) CK-MB (CK-2) TNP (units (unknown) date) unknown) (unknown) (no (unknown) (unknown) CK-MB (CK-2) (units (u nknown) date) unknown) (unknown) (no (unknown) (unknown) COMPARISON:? (units (u nknown) date) [facility], unknown) MR, MR HEAD/BRAIN WO/W CON, 12/22/2021, 12:20.? (unknown) (no (unknown) (unknown) COMPARISON:? (units (u nknown) date) None. unknown) (unknown) (no (unknown) (unknown) CSF spaces: Basal (units (unknown) date) cisterns are unknown) patent. Lateral ventricles are symmetric. (unknown) (no (unknown) (unknown) CTA - brain/neck: (units (unknown) date) unknown) (unknown) (no (unknown) (unknown) CTA without large (units (unknown) date) vessel occlusion unknown) or high-grade stenosis.? Suspected chronic (unknown) (no (unknown) (unknown) Calcium (units (unkno wn) date) (8.4-10.2) mg/dL unknown) (unknown) (no (unknown) (unknown) Calcium 8.9 (units (un known) date) (8.4-10.2) mg/dL unknown) (unknown) (no (unknown) (unknown) Carbon Dioxide (units (unknown) date) (22-32) mmol/L unknown) (unknown) (no (unknown) (unknown) Carbon Dioxide 31 (units (unknown) date) (22-32) mmol/L unknown) (unknown) (no (unknown) (unknown) Ceftriaxone (units (un known) date) Sodium 1,000 mg/ unknown) (Sodium Chloride) 100 mls @ 200 mls/hr IV Q24H KASSY (unknown) (no (unknown) (unknown) Cephalexin HCl (units (unknown) date) (Cephalexin 250 Mg unknown) Capsule) 500 mg PO NOW ONE (unknown) (no (unknown) (unknown) Chief Complaint: (units (unknown) date) Dizziness unknown) (unknown) (no (unknown) (unknown) Chloride (98-107) (units (unknown) date) mmol/L unknown) (unknown) (no (unknown) (unknown) Chloride 100 (units (u nknown) date) (98-107) mmol/L unknown) (unknown) (no (unknown) (unknown) Chronic findings (units (unknown) date) as above.? unknown) (unknown) (no (unknown) (unknown) Clinical (units (unkno wn) date) Impression: unknown) (unknown) (no (unknown) (unknown) Clopidogrel (units (un known) date) Bisulfate unknown) (Clopidogrel 75 Mg Tablet) 75 mg PO DAILY KASSY (unknown) (no (unknown) (unknown) Complicating (units (u nknown) date) co-morbidities: unknown) History of vertigo (unknown) (no (unknown) (unknown) Consultations: (units (unknown) date) Spoke with unknown) hospitalist, Dr. Lane, he will admit. (unknown) (no (unknown) (unknown) Correlate (units (unkn own) date) clinically for a unknown) possible source.? If the patient has any personal (unknown) (no (unknown) (unknown) Course (units (unkno wn) date) unknown) (unknown) (no (unknown) (unknown) Craniofacial (units (u nknown) date) structures: No unknown) displaced fracture. Sinuses are clear. Orbits are (unknown) (no (unknown) (unknown) Creatinine (units (unk nown) date) (0.52-1.04) mg/dL unknown) (unknown) (no (unknown) (unknown) Creatinine 0.65 (units (unknown) date) (0.52-1.04) mg/dL unknown) (unknown) (no (unknown) (unknown) : 1945 (units (unknown) date) Acct:[id number] unknown) (unknown) (no (unknown) (unknown) Data collected (units (unknown) date) from: Patient unknown) (unknown) (no (unknown) (unknown) Date of Service: (units (unknown) date) 12/02/22 unknown) (unknown) (no (unknown) (unknown) Departure (units (unkn own) date) unknown) (unknown) (no (unknown) (unknown) Diagnosis: (units (unk nown) date) Subacute stroke unknown) (unknown) (no (unknown) (unknown) Dictated by: (units (u nknown) date) Wilber Shelton M.D. on unknown) 12/02/2022 at 11:40 ? ? (unknown) (no (unknown) (unknown) Dictated by: (units (u nknown) date) Wilber Shelton M.D. on unknown) 12/02/2022 at 15:36 ? ? (unknown) (no (unknown) (unknown) Differential (units (u nknown) date) considered: unknown) Includes but not limited to stroke/TIA/cerebel lar (unknown) (no (unknown) (unknown) Discharge Plan (units (unknown) date) unknown) (unknown) (no (unknown) (unknown) Discontinued (units (u nknown) date) Medications unknown) (unknown) (no (unknown) (unknown) Discussion: (units (un known) date) Appropriate for unknown) admission. No tPA at this time. Patient outside (unknown) (no (unknown) (unknown) Documented By: AA (units (unknown) date) unknown) (unknown) (no (unknown) (unknown) Documented By: AC (units (unknown) date) unknown) (unknown) (no (unknown) (unknown) Documented By: CT (units (unknown) date) unknown) (unknown) (no (unknown) (unknown) Documented By: (units (unknown) date) HCW unknown) (unknown) (no (unknown) (unknown) Documented By: (units (unknown) date) KLS unknown) (unknown) (no (unknown) (unknown) Documented By: NR (units (unknown) date) unknown) (unknown) (no (unknown) (unknown) Docusate Sodium (units (unknown) date) (Docusate 100 Mg unknown) Capsule) 100 mg PO BID KASSY (unknown) (no (unknown) (unknown) Dominance:? (units (un known) date) Slightly left unknown) dominant (unknown) (no (unknown) (unknown) Dysarthria: (units (un known) date) Normal unknown) (unknown) (no (unknown) (unknown) ECAs: Origins are (units (unknown) date) patent. unknown) (unknown) (no (unknown) (unknown) ENT: Mucous (units (un known) date) membranes moist. unknown) (unknown) (no (unknown) (unknown) ER Physician: (units ( unknown) date) Lit Winn MD unknown) (unknown) (no (unknown) (unknown) EXTREMITIES: No (units (unknown) date) gross deformities. unknown) (unknown) (no (unknown) (unknown) EYES: Pupils (units (u nknown) date) equal round there unknown) is horizontal nystagmus (unknown) (no (unknown) (unknown) Emergency Report (units (unknown) date) unknown) (unknown) (no (unknown) (unknown) Eos # (Auto) (units (u nknown) date) (0-450) /uL unknown) (unknown) (no (unknown) (unknown) Eos # (Auto) 300 (units (unknown) date) (0-450) /uL unknown) (unknown) (no (unknown) (unknown) Eos % (Auto) (units (u nknown) date) (2-4) % unknown) (unknown) (no (unknown) (unknown) Eos % (Auto) 4.8 (units (unknown) date) H (2-4) % unknown) (unknown) (no (unknown) (unknown) Estimated GFR > (units (unknown) date) 60 (>60) mL/min unknown) (unknown) (no (unknown) (unknown) Estimated GFR (units ( unknown) date) (>60) mL/min unknown) (unknown) (no (unknown) (unknown) Exam Narrative: (units (unknown) date) unknown) (unknown) (no (unknown) (unknown) Exam documented (units (unknown) date) above, pertinent unknown) findings include: Horizontal nystagmus (unknown) (no (unknown) (unknown) Exam (units (unkno wn) date) unknown) (unknown) (no (unknown) (unknown) Extinction or (units ( unknown) date) inattention: No unknown) abnormality (unknown) (no (unknown) (unknown) FINDINGS:? (units (unk nown) date) unknown) (unknown) (no (unknown) (unknown) FLAIR, (units (unkno wn) date) unknown) (unknown) (no (unknown) (unknown) Facial palsy: (units ( unknown) date) Normal symetrical unknown) movement (unknown) (no (unknown) (unknown) Family History (units (unknown) date) (Updated 12/02/22 unknown) @ 16:[address] MD) (unknown) (no (unknown) (unknown) GASTROINTESTINAL: (units (unknown) date) Abdomen soft, unknown) non-tender (unknown) (no (unknown) (unknown) GASTROINTESTINAL: (units (unknown) date) negative nausea, unknown) vomiting, abdominal pain (unknown) (no (unknown) (unknown) GENERAL: in no (units (unknown) date) distress, not unknown) toxic not dyspneic (unknown) (no (unknown) (unknown) GENERAL: negative (units (unknown) date) chills, fatigue, unknown) malaise, fever, sweats. (unknown) (no (unknown) (unknown) : negative (units (u nknown) date) dysuria, unknown) frequency, hematuria (unknown) (no (unknown) (unknown) General (units (unkno wn) date) unknown) (unknown) (no (unknown) (unknown) Globulin (units (unkno wn) date) (1.7-4.1) g/dL unknown) (unknown) (no (unknown) (unknown) Globulin 2.7 (units (u nknown) date) (1.7-4.1) g/dL unknown) (unknown) (no (unknown) (unknown) Glucose (80-110) (units (unknown) date) mg/dL unknown) (unknown) (no (unknown) (unknown) Glucose 92 (units (unk nown) date) (80-110) mg/dL unknown) (unknown) (no (unknown) (unknown) Glucose POC 82 (units (unknown) date) unknown) (unknown) (no (unknown) (unknown) HEAD ANGIOGRAPHY (units (unknown) date) unknown) (unknown) (no (unknown) (unknown) HEAD: (units (unkno wn) date) Normocephalic. unknown) (unknown) (no (unknown) (unknown) HEENT: negative (units (unknown) date) sinus pain, ear unknown) pain, sore throat, positive hearing changes (unknown) (no (unknown) (unknown) HPI - Dizziness (units (unknown) date) unknown) (unknown) (no (unknown) (unknown) HPI Narrative: (units (unknown) date) unknown) (unknown) (no (unknown) (unknown) Hct (36-46) % (units ( unknown) date) unknown) (unknown) (no (unknown) (unknown) Hct 44.1 (36-46) (units (unknown) date) % unknown) (unknown) (no (unknown) (unknown) Heparin Sodium (units (unknown) date) (Porcine) (Heparin unknown) 5,000 Unit/Ml Vial) 5,000 unit SUBCUT BID KASSY (unknown) (no (unknown) (unknown) Hgb (12.0-16.0) (units (unknown) date) g/dL unknown) (unknown) (no (unknown) (unknown) Hgb 15.0 (units (unkno wn) date) (12.0-16.0) g/dL unknown) (unknown) (no (unknown) (unknown) History of (units (unk nown) date) Present Illness unknown) (unknown) (no (unknown) (unknown) Home Medications (units (unknown) date) unknown) (unknown) (no (unknown) (unknown) Hospital, CT, CT (units (unknown) date) ANGIO HEAD AND unknown) NECK, 12/02/2022, 11:18. (unknown) (no (unknown) (unknown) ICA origins (by (units (unknown) date) NASCET criteria):? unknown) Mild bilateral ICA origin calcifications (unknown) (no (unknown) (unknown) ICAs: No (units (unkno wn) date) stenosis, unknown) occlusion or aneurysm. (unknown) (no (unknown) (unknown) ICAs:? Mild (units (un known) date) calcifications of unknown) the cavernous and supraclinoid carotid arteries. (unknown) (no (unknown) (unknown) IMPRESSION:? 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 No (units (unknown) date) acute intracranial unknown) abnormality on non-contrast head CT. (unknown) (no (unknown) (unknown) INDICATIONS:? (units ( unknown) date) Dizziness unknown) (unknown) (no (unknown) (unknown) INDICATIONS:? (units ( unknown) date) dizziness unknown) (unknown) (no (unknown) (unknown) INR (0.9-1.3) (units ( unknown) date) unknown) (unknown) (no (unknown) (unknown) INR 0.9 (0.9-1.3) (units (unknown) date) unknown) (unknown) (no (unknown) (unknown) If there is high (units (unknown) date) concern for unknown) infarct, recommend MRI. (unknown) (no (unknown) (unknown) Image quality: (units (unknown) date) Excellent unknown) (unknown) (no (unknown) (unknown) Image quality:? (units (unknown) date) Good unknown) (unknown) (no (unknown) (unknown) Imaging Data (units (u nknown) date) unknown) (unknown) (no (unknown) (unknown) Imaging studies (units (unknown) date) independently unknown) reviewed: CT angio head and neck no acute process (unknown) (no (unknown) (unknown) Independently (units (u nknown) date) reviewed EKG as unknown) above sinus bradycardia rate [address] elevation or (unknown) (no (unknown) (unknown) Influenza A (units (un known) date) (RT-PCR) unknown) (NEGATIVE) (unknown) (no (unknown) (unknown) Influenza A (units (un known) date) (RT-PCR) Flu a unknown) negative (NEGATIVE) (unknown) (no (unknown) (unknown) Influenza B (units (un known) date) (RT-PCR) unknown) (NEGATIVE) (unknown) (no (unknown) (unknown) Influenza B (units (un known) date) (RT-PCR) Flu b unknown) negative (NEGATIVE) (unknown) (no (unknown) (unknown) Infusion: (units (unkn own) date) 12/02/22 17:40 unknown) Dose: 0 mls/hr (unknown) (no (unknown) (unknown) Initial Vital (units ( unknown) date) Signs unknown) (unknown) (no (unknown) (unknown) Initial Vital (units ( unknown) date) Signs: unknown) (unknown) (no (unknown) (unknown) [facility] (units (unknown) date) [address] unknown) [place] [address] (unknown) (no (unknown) (unknown) [place] (units (unkno wn) date) unknown) (unknown) (no (unknown) (unknown) Lab Data (units (unkno wn) date) unknown) (unknown) (no (unknown) (unknown) Lab Results (units (un known) date) unknown) (unknown) (no (unknown) (unknown) Lab Test results (units (unknown) date) independently unknown) reviewed as above. Pertinent findings: (unknown) (no (unknown) (unknown) Labs: (units (unkno wn) date) unknown) (unknown) (no (unknown) (unknown) Last Admin: (units (un known) date) 12/02/22 11:09 unknown) Dose: 4 mg (unknown) (no (unknown) (unknown) Last Admin: (units (un known) date) 12/02/22 14:21 unknown) Dose: 1 mg (unknown) (no (unknown) (unknown) Last Admin: (units (un known) date) 12/02/22 15:15 unknown) Dose: 500 mg (unknown) (no (unknown) (unknown) Last Admin: (units (un known) date) 12/02/22 21:38 unknown) Dose: 80 mg (unknown) (no (unknown) (unknown) Last Admin: (units (un known) date) 12/02/22 21:56 unknown) Dose: 325 mg (unknown) (no (unknown) (unknown) Last Admin: (units (un known) date) 12/03/22 09:10 unknown) Dose: 100 mg (unknown) (no (unknown) (unknown) Last Admin: (units (un known) date) 12/03/22 09:10 unknown) Dose: 5,000 unit (unknown) (no (unknown) (unknown) Last Admin: (units (un known) date) 12/03/22 09:10 unknown) Dose: 75 mg (unknown) (no (unknown) (unknown) Last Admin: (units (un known) date) 12/03/22 09:10 unknown) Dose: 81 mg (unknown) (no (unknown) (unknown) Last Admin: (units (un known) date) 12/03/22 13:04 unknown) Dose: 12.5 mg (unknown) (no (unknown) (unknown) Last Admin: (units (un known) date) 12/03/22 16:50 unknown) Dose: Not Given (unknown) (no (unknown) (unknown) Left arm drift: (units (unknown) date) No drift for full unknown) 10 sec (unknown) (no (unknown) (unknown) Left leg drift: (units (unknown) date) No drift for full unknown) 5 sec (unknown) (no (unknown) (unknown) Level of (units (unkno wn) date) Conciousness: unknown) Alert, keenly responsive (unknown) (no (unknown) (unknown) Limb ataxia: (units (u nknown) date) Absent unknown) (unknown) (no (unknown) (unknown) Lorazepam (units (unkn own) date) (Lorazepam 2 Mg/Ml unknown) Inj) 1 mg IV NOW ONE (unknown) (no (unknown) (unknown) Lung apices: No (units (unknown) date) pneumothorax unknown) (unknown) (no (unknown) (unknown) Lymph # (Auto) (units (unknown) date) ([id number]) /uL unknown) (unknown) (no (unknown) (unknown) Lymph # (Auto) (units (unknown) date) 1300 ([id number]) unknown) /uL (unknown) (no (unknown) (unknown) Lymph % (Auto) (units (unknown) date) (25-40) % unknown) (unknown) (no (unknown) (unknown) Lymph % (Auto) (units (unknown) date) 22.5 L (25-40) % unknown) (unknown) (no (unknown) (unknown) MCAs: Normal and (units (unknown) date) symmetric unknown) (unknown) (no (unknown) (unknown) MCH (26-34) PG (units (unknown) date) unknown) (unknown) (no (unknown) (unknown) MCH 32.7 (26-34) (units (unknown) date) PG unknown) (unknown) (no (unknown) (unknown) MCHC (30-36) % (units (unknown) date) unknown) (unknown) (no (unknown) (unknown) MCHC 33.9 (30-36) (units (unknown) date) % unknown) (unknown) (no (unknown) (unknown) MCV (80-100) fL (units (unknown) date) unknown) (unknown) (no (unknown) (unknown) MCV 96.5 (80-100) (units (unknown) date) fL unknown) (unknown) (no (unknown) (unknown) MDM - Dizziness (units (unknown) date) unknown) (unknown) (no (unknown) (unknown) MDM Narrative (units ( unknown) date) unknown) (unknown) (no (unknown) (unknown) MDM (units (unkno wn) date) unknown) (unknown) (no (unknown) (unknown) MRI, 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 (unknown) (no (unknown) (unknown) MUSCULOSKELETAL: (units (unknown) date) negative muscle or unknown) bony pain (unknown) (no (unknown) (unknown) Meclizine HCl (units ( unknown) date) (Meclizine Hcl unknown) 12.5 Mg Tablet) 12.5 mg PO Q6HR KASSY (unknown) (no (unknown) (unknown) Medical decision (units (unknown) date) making narrative: unknown) (unknown) (no (unknown) (unknown) Medical records (units (unknown) date) reviewed: Patient unknown) not seen here before for this complaint (unknown) (no (unknown) (unknown) Medication (units (unk nown) date) Instructions unknown) Recorded Confirmed (unknown) (no (unknown) (unknown) Medication (units (unk nown) date) Instructions unknown) Recorded (unknown) (no (unknown) (unknown) [id number] (units (unknown) date) atherosclerotic unknown) disease.? Moderate narrowing of the left (unknown) (no (unknown) (unknown) Mode of arrival: (units (unknown) date) EMS unknown) (unknown) (no (unknown) (unknown) [place] # (Auto) (units ( unknown) date) (0-900) /uL unknown) (unknown) (no (unknown) (unknown) [place] # (Auto) 400 (units (unknown) date) (0-900) /uL unknown) (unknown) (no (unknown) (unknown) [place] % (Auto) (units ( unknown) date) (3-14) % unknown) (unknown) (no (unknown) (unknown) [place] % (Auto) 6.9 (units (unknown) date) (3-14) % unknown) (unknown) (no (unknown) (unknown) NECK ANGIOGRAPHY (units (unknown) date) unknown) (unknown) (no (unknown) (unknown) NECK: Trachea (units ( unknown) date) midline. unknown) (unknown) (no (unknown) (unknown) NEURO: AOx4. Fast (units (unknown) date) exam is negative. unknown) Clear speech no facial droop light touch (unknown) (no (unknown) (unknown) NEUROLOGIC: (units (un known) date) negative weakness, unknown) numbness, positive dizziness negative slurred (unknown) (no (unknown) (unknown) NIH Stroke Scale (units (unknown) date) unknown) (unknown) (no (unknown) (unknown) Naloxone HCl (units (u nknown) date) (Naloxone 0.4 unknown) Mg/Ml Vial) 0.2 mg IV Q2MIN PRN (unknown) (no (unknown) (unknown) Narrative (units (unkn own) date) unknown) (unknown) (no (unknown) (unknown) Narrative: (units (unk nown) date) unknown) (unknown) (no (unknown) (unknown) Neut # (Auto) (units ( unknown) date) (7077-9402) /uL unknown) (unknown) (no (unknown) (unknown) Neut # (Auto) (units ( unknown) date) 3800 ([id number]) unknown) /uL (unknown) (no (unknown) (unknown) Neut % (Auto) (units ( unknown) date) (50-75) % unknown) (unknown) (no (unknown) (unknown) Neut % (Auto) (units ( unknown) date) 65.3 (50-75) % unknown) (unknown) (no (unknown) (unknown) Noncontrast axial (units (unknown) date) T1 spin echo, unknown) axial T2 fast spin echo, sagittal and axial (unknown) (no (unknown) (unknown) Normal saline (units ( unknown) date) unknown) (unknown) (no (unknown) (unknown) Ondansetron HCl (units (unknown) date) (Ondansetron 4 unknown) Mg/2 Ml Inj) 4 mg IV NOW ONE (unknown) (no (unknown) (unknown) Ondansetron HCl (units (unknown) date) (Ondansetron 4 unknown) Mg/2 Ml Inj) 4 mg IV Q8HR PRN (unknown) (no (unknown) (unknown) Open/close eyes, (units (unknown) date) close hand: unknown) Performs both tasks correctly (unknown) (no (unknown) (unknown) Ordered: (units (unkno wn) date) unknown) (unknown) (no (unknown) (unknown) Orders (units (unkno wn) date) unknown) (unknown) (no (unknown) (unknown) Other Family (units (u nknown) date) history of unknown) cerebrovascular accident (CVA) in father (unknown) (no (unknown) (unknown) Oxygen Delivery (units (unknown) date) Method Room Air unknown) 12/02/22 10:18 (unknown) (no (unknown) (unknown) Oxygen Delivery (units (unknown) date) Method Room Air unknown) (unknown) (no (unknown) (unknown) Oxygen Delivery (units (unknown) date) Method unknown) (unknown) (no (unknown) (unknown) coordinator of rehabilitation services: (units (unkno wn) date) Unremarkable unknown) (unknown) (no (unknown) (unknown) PComms:? Supplied (units (unknown) date) primarily by unknown) posterior communicating arteries. (unknown) (no (unknown) (unknown) PRN Reason: (units (un known) date) Dyspepsia unknown) (unknown) (no (unknown) (unknown) PRN Reason: (units (un known) date) Fever/Mild Pain unknown) (1-3) (unknown) (no (unknown) (unknown) PRN Reason: (units (un known) date) Nausea And unknown) Vomiting (unknown) (no (unknown) (unknown) PRN Reason: (units (un known) date) Opiate Reversal unknown) (unknown) (no (unknown) (unknown) PROCEDURE:? CT (units (unknown) date) ANGIO HEAD AND unknown) NECK (unknown) (no (unknown) (unknown) PROCEDURE:? MR (units (unknown) date) HEAD/BRAIN WO CON unknown) (unknown) (no (unknown) (unknown) PSYCH: Not (units (unk nown) date) anxious, is unknown) cooperative (unknown) (no (unknown) (unknown) PT (10.1-12.7) (units (unknown) date) SECONDS unknown) (unknown) (no (unknown) (unknown) PT 10.7 (units (unkno wn) date) (10.1-12.7) unknown) SECONDS (unknown) (no (unknown) (unknown) Patient (units (unkno wn) date) Disposition: unknown) Admitted as Observation (unknown) (no (unknown) (unknown) Patient History (units (unknown) date) unknown) (unknown) (no (unknown) (unknown) Patient brought (units (unknown) date) in by ambulance unknown) from otolaryngology office of Dr. Eric Hong. (unknown) (no (unknown) (unknown) Patient has (units (un known) date) history of unknown) vertigo. Has had dizziness for the past month daily. (unknown) (no (unknown) (unknown) Patient: (units (unkno wn) date) Raegan Orourke MR#: unknown) [id number] (unknown) (no (unknown) (unknown) Plt Count (units (unkn own) date) (150-400) X103/uL unknown) (unknown) (no (unknown) (unknown) Plt Count 107 L (units (unknown) date) (150-400) X103/uL unknown) (unknown) (no (unknown) (unknown) Point of Care (units ( unknown) date) Testing unknown) (unknown) (no (unknown) (unknown) Posterior (units (unkn own) date) circulation: unknown) (unknown) (no (unknown) (unknown) Potassium (units (unkn own) date) (3.4-5.1) mmol/L unknown) (unknown) (no (unknown) (unknown) Potassium 4.0 (units ( unknown) date) (3.4-5.1) mmol/L unknown) (unknown) (no (unknown) (unknown) Pre-contrast 4.5 (units (unknown) date) mm thick sections unknown) acquired from the foramen magnum to the (unknown) (no (unknown) (unknown) Previous Rx's (units ( unknown) date) unknown) (unknown) (no (unknown) (unknown) Pulse Oximetry 96 (units (unknown) date) 96 unknown) (unknown) (no (unknown) (unknown) Pulse Oximetry 97 (units (unknown) date) unknown) (unknown) (no (unknown) (unknown) Pulse Oximetry 98 (units (unknown) date) 12/02/22 10:18 unknown) (unknown) (no (unknown) (unknown) Pulse Oximetry 98 (units (unknown) date) 91 unknown) (unknown) (no (unknown) (unknown) Pulse Oximetry 98 (units (unknown) date) 98 97 unknown) (unknown) (no (unknown) (unknown) Pulse Oximetry (units (unknown) date) unknown) (unknown) (no (unknown) (unknown) Pulse Rate 60 64 (units (unknown) date) unknown) (unknown) (no (unknown) (unknown) Pulse Rate 61 (units ( unknown) date) 12/02/22 10:18 unknown) (unknown) (no (unknown) (unknown) Pulse Rate 61 59 (units (unknown) date) L unknown) (unknown) (no (unknown) (unknown) Pulse Rate 61 60 (units (unknown) date) unknown) (unknown) (no (unknown) (unknown) Pulse Rate 61 61 (units (unknown) date) unknown) (unknown) (no (unknown) (unknown) Pulse Rate 62 59 (units (unknown) date) L unknown) (unknown) (no (unknown) (unknown) Pulse Rate 63 57 (units (unknown) date) L 59 L unknown) (unknown) (no (unknown) (unknown) Q6HR PRN (units (unkno wn) date) unknown) (unknown) (no (unknown) (unknown) RBC (4.0-5.2) (units ( unknown) date) X106/uL unknown) (unknown) (no (unknown) (unknown) RBC 4.57 (units (unkno wn) date) (4.0-5.2) X106/uL unknown) (unknown) (no (unknown) (unknown) RDW (11.6-14.8) % (units (unknown) date) unknown) (unknown) (no (unknown) (unknown) RDW 12.9 (units (unkno wn) date) (11.6-14.8) % unknown) (unknown) (no (unknown) (unknown) RESPIRATORY: Clear (units (unknown) date) to auscultation. unknown) Breath sounds equal bilaterally. No wheezes, (unknown) (no (unknown) (unknown) RESPIRATORY: (units (u nknown) date) negative dyspnea, unknown) cough (unknown) (no (unknown) (unknown) ROS Unobtainable: (units (unknown) date) All systems unknown) reviewed + are unremarkable except as noted in HPI (unknown) (no (unknown) (unknown) RSV (PCR) (units (unkn own) date) (Negative) unknown) (unknown) (no (unknown) (unknown) RSV (PCR) (units (unkn own) date) Negative unknown) (Negative) (unknown) (no (unknown) (unknown) Radiologist's (units ( unknown) date) Impression: unknown) (unknown) (no (unknown) (unknown) Re-evaluations: (units (unknown) date) 3:58 p.m.. unknown) Reviewed with patient and results of MRI, (unknown) (no (unknown) (unknown) Related Data (units (u nknown) date) unknown) (unknown) (no (unknown) (unknown) Respiratory Rate (units (unknown) date) 14 12/02/22 10:18 unknown) (unknown) (no (unknown) (unknown) Respiratory Rate (units (unknown) date) 14 11 L unknown) (unknown) (no (unknown) (unknown) Respiratory Rate (units (unknown) date) 16 19 unknown) (unknown) (no (unknown) (unknown) Respiratory Rate (units (unknown) date) 17 15 unknown) (unknown) (no (unknown) (unknown) Respiratory Rate (units (unknown) date) 18 19 unknown) (unknown) (no (unknown) (unknown) Respiratory Rate (units (unknown) date) 18 26 H unknown) (unknown) (no (unknown) (unknown) Respiratory Rate (units (unknown) date) 8 L 14 unknown) (unknown) (no (unknown) (unknown) Review of Systems (units (unknown) date) unknown) (unknown) (no (unknown) (unknown) Right arm drift: (units (unknown) date) No drift for full unknown) 10 sec (unknown) (no (unknown) (unknown) Right leg drift: (units (unknown) date) No drift for full unknown) 5 sec (unknown) (no (unknown) (unknown) SARS-CoV-2 (PCR) (units (unknown) date) (Negative) unknown) (unknown) (no (unknown) (unknown) SARS-CoV-2 (PCR) (units (unknown) date) Negative unknown) (Negative) (unknown) (no (unknown) (unknown) SKIN: Warm and (units (unknown) date) dry unknown) (unknown) (no (unknown) (unknown) SKIN: negative (units (unknown) date) rash, skin lesions unknown) (unknown) (no (unknown) (unknown) Scores (units (unkno wn) date) unknown) (unknown) (no (unknown) (unknown) Sensory on (units (unk nown) date) face/arms/legs: unknown) Normal, no sensory loss (unknown) (no (unknown) (unknown) She sees him for (units (unknown) date) this complaint. unknown) However she went to bed last night with her (unknown) (no (unknown) (unknown) Signed By: (units (unk nown) date) unknown) (unknown) (no (unknown) (unknown) Smoking Status: (units (unknown) date) Never smoker unknown) (unknown) (no (unknown) (unknown) Social History (units (unknown) date) (Reviewed 12/02/22 unknown) @ 10:52 by Lit Winn MD) (unknown) (no (unknown) (unknown) Sodium (137-145) (units (unknown) date) mmol/L unknown) (unknown) (no (unknown) (unknown) Sodium 136 L (units (u nknown) date) (137-145) mmol/L unknown) (unknown) (no (unknown) (unknown) Soft tissues:? (units (unknown) date) There is a unknown) prominent lymph node adjacent to the right upper (unknown) (no (unknown) (unknown) Source: patient (units (unknown) date) and EMS unknown) (unknown) (no (unknown) (unknown) Stated Complaint: (units (unknown) date) Vertigo unknown) (unknown) (no (unknown) (unknown) Stop: 12/02/22 (units (unknown) date) 10:49 unknown) (unknown) (no (unknown) (unknown) Stop: 12/02/22 (units (unknown) date) 12:27 unknown) (unknown) (no (unknown) (unknown) Stop: 12/02/22 (units (unknown) date) 13:45 unknown) (unknown) (no (unknown) (unknown) Stop: 12/02/22 (units (unknown) date) 21:43 unknown) (unknown) (no (unknown) (unknown) Stroke (units (unkno wn) date) unknown) (unknown) (no (unknown) (unknown) Substance Use (units ( unknown) date) Type: does not use unknown) (unknown) (no (unknown) (unknown) Sulfa (units (unkno wn) date) (Sulfonamide unknown) Allergy Verified 12/02/22 10:17 (unknown) (no (unknown) (unknown) TECHNIQUE:? (units (un known) date) unknown) (unknown) (no (unknown) (unknown) Temperature 97.6 (units (unknown) date) F 12/02/22 10:18 unknown) (unknown) (no (unknown) (unknown) Temperature 97.6 (units (unknown) date) F unknown) (unknown) (no (unknown) (unknown) Temperature (units (un known) date) unknown) (unknown) (no (unknown) (unknown) There is also mild (units (unknown) date) nonspecific unknown) esophageal wall thickening partially seen.? There (unknown) (no (unknown) (unknown) Time Seen by (units (u nknown) date) Provider: 12/02/22 unknown) 10:48 (unknown) (no (unknown) (unknown) Total Bilirubin (units (unknown) date) (0.2-1.3) mg/dL unknown) (unknown) (no (unknown) (unknown) Total Bilirubin (units (unknown) date) 0.7 (0.2-1.3) unknown) mg/dL (unknown) (no (unknown) (unknown) Total Creatine (units (unknown) date) Kinase (30-135) unknown) U/L (unknown) (no (unknown) (unknown) Total Creatine (units (unknown) date) Kinase 38 (30-135) unknown) U/L (unknown) (no (unknown) (unknown) Total NIH Stroke (units (unknown) date) scale score: 0 unknown) (unknown) (no (unknown) (unknown) Total Protein (units ( unknown) date) (6.3-8.2) g/dL unknown) (unknown) (no (unknown) (unknown) Total Protein 6.9 (units (unknown) date) (6.3-8.2) g/dL unknown) (unknown) (no (unknown) (unknown) Treatments: (units (un known) date) Normal saline. unknown) (unknown) (no (unknown) (unknown) Troponin I < (units (u nknown) date) 0.012 (0.01-0.034) unknown) ng/mL (unknown) (no (unknown) (unknown) Troponin I (units (unk nown) date) (0.01-0.034) ng/mL unknown) (unknown) (no (unknown) (unknown) Ur Culture (units (unk nown) date) Indicated? unknown) Specimen cultured (unknown) (no (unknown) (unknown) Ur Culture (units (unk nown) date) Indicated? unknown) (unknown) (no (unknown) (unknown) Ur Leukocyte (units (u nknown) date) Esterase unknown) (NEGATIVE) (unknown) (no (unknown) (unknown) Ur Leukocyte (units (u nknown) date) Esterase Negative unknown) (NEGATIVE) (unknown) (no (unknown) (unknown) Ur Specific (units (un known) date) [place] unknown) (1.000-1.035) (unknown) (no (unknown) (unknown) Ur Specific (units (un known) date) [place] 1.010 unknown) (1.000-1.035) (unknown) (no (unknown) (unknown) Ur Squamous Epith (units (unknown) date) Cells (0-5/HPF) unknown) (unknown) (no (unknown) (unknown) Ur Squamous Epith (units (unknown) date) Cells None seen unknown) (0-5/HPF) (unknown) (no (unknown) (unknown) Urine Appearance (units (unknown) date) Clear unknown) (unknown) (no (unknown) (unknown) Urine Appearance (units (unknown) date) unknown) (unknown) (no (unknown) (unknown) Urine Bacteria (units (unknown) date) (None) unknown) (unknown) (no (unknown) (unknown) Urine Bacteria (units (unknown) date) Many (>30) H unknown) (None) (unknown) (no (unknown) (unknown) Urine Bilirubin (units (unknown) date) (NEGATIVE) unknown) (unknown) (no (unknown) (unknown) Urine Bilirubin (units (unknown) date) Negative unknown) (NEGATIVE) (unknown) (no (unknown) (unknown) Urine Color (units (un known) date) Yellow unknown) (unknown) (no (unknown) (unknown) Urine Color (units (un known) date) unknown) (unknown) (no (unknown) (unknown) Urine Glucose (units ( unknown) date) (UA) (Negative) unknown) g/dL (unknown) (no (unknown) (unknown) Urine Glucose (units ( unknown) date) (UA) Negative unknown) (Negative) g/dL (unknown) (no (unknown) (unknown) Urine Ketones (units ( unknown) date) (NEGATIVE) unknown) (unknown) (no (unknown) (unknown) Urine Ketones (units ( unknown) date) Negative unknown) (NEGATIVE) (unknown) (no (unknown) (unknown) Urine Nitrate (units ( unknown) date) (Negative) unknown) (unknown) (no (unknown) (unknown) Urine Nitrate (units ( unknown) date) Positive H unknown) (Negative) (unknown) (no (unknown) (unknown) Urine Occult (units (u nknown) date) Blood (Negative) unknown) (unknown) (no (unknown) (unknown) Urine Occult (units (u nknown) date) Blood Negative unknown) (Negative) (unknown) (no (unknown) (unknown) Urine Protein (units ( unknown) date) (Negative) unknown) (unknown) (no (unknown) (unknown) Urine Protein (units ( unknown) date) Negative unknown) (Negative) (unknown) (no (unknown) (unknown) Urine RBC (units (unkn own) date) (0-5/HPF) unknown) (unknown) (no (unknown) (unknown) Urine RBC None (units (unknown) date) seen (0-5/HPF) unknown) (unknown) (no (unknown) (unknown) Urine (units (unkno wn) date) Urobilinogen (0.2) unknown) E.U./dL (unknown) (no (unknown) (unknown) Urine (units (unkno wn) date) Urobilinogen 0.2 unknown) (0.2) E.U./dL (unknown) (no (unknown) (unknown) Urine WBC (units (unkn own) date) (0-5/HPF) unknown) (unknown) (no (unknown) (unknown) Urine WBC None (units (unknown) date) seen (0-5/HPF) unknown) (unknown) (no (unknown) (unknown) Urine pH (units (unkno wn) date) (4.5-8.0) unknown) (unknown) (no (unknown) (unknown) Urine pH 7.5 (units (u nknown) date) (4.5-8.0) unknown) (unknown) (no (unknown) (unknown) Venous sinuses: (units (unknown) date) patent unknown) (unknown) (no (unknown) (unknown) Vertebral (units (unkn own) date) arteries: No unknown) stenosis or occlusion. No aneurysm. (unknown) (no (unknown) (unknown) Vertebral (units (unkn own) date) arteries:? unknown) Moderate narrowing at the left vertebral artery origin. (unknown) (no (unknown) (unknown) Visual cowan: No (units (unknown) date) visual loss unknown) (unknown) (no (unknown) (unknown) Vital Signs - 8 (units (unknown) date) hr unknown) (unknown) (no (unknown) (unknown) Vital Signs (units (un known) date) unknown) (unknown) (no (unknown) (unknown) Vital signs: (units (u nknown) date) unknown) (unknown) (no (unknown) (unknown) Volume:? Vascular (units (unknown) date) calcifications. unknown) Periventricular white matter disease is (unknown) (no (unknown) (unknown) Volume:? Volume (units (unknown) date) loss. unknown) Periventricular white matter signal abnormality most (unknown) (no (unknown) (unknown) WBC (4.5-11.0) (units (unknown) date) X103/uL unknown) (unknown) (no (unknown) (unknown) WBC 5.9 (units (unkno wn) date) (4.5-11.0) X103/uL unknown) (unknown) (no (unknown) (unknown) [Embedded Image (units (unknown) date) Not Available] unknown) (unknown) (no (unknown) (unknown) [VITAMIN D ] (units (u nknown) date) 2,000 iu PO QDAY unknown) ##0 11/10/12 12/03/22 (unknown) (no (unknown) (unknown) acquired (units (unkno wn) date) unknown) (unknown) (no (unknown) (unknown) acute hemorrhage. (units (unknown) date) unknown) (unknown) (no (unknown) (unknown) alcohol intake (units (unknown) date) frequency: 0-2 unknown) drinks per day (unknown) (no (unknown) (unknown) alcohol intake: (units (unknown) date) current unknown) (unknown) (no (unknown) (unknown) and below (units (unkn own) date) unknown) (unknown) (no (unknown) (unknown) and neck (units (unkno wn) date) separately. For unknown) radiation dose reduction, the following was used:? (unknown) (no (unknown) (unknown) and/or volume (units ( unknown) date) rendering unknown) reformats were acquired of the central intracranial (unknown) (no (unknown) (unknown) appearance of the (units (unknown) date) distal basilar unknown) artery secondary to predominant supply of (unknown) (no (unknown) (unknown) arch through the (units (unknown) date) [place].? unknown) Post-contrast 4.5 mm thick sections then re (unknown) (no (unknown) (unknown) are (units (unkno wn) date) unknown) (unknown) (no (unknown) (unknown) artery origin. (units (unknown) date) unknown) (unknown) (no (unknown) (unknown) aspirin 81 mg (units ( unknown) date) tablet,delayed 81 unknown) mg PO DAILY #30 tabs 12/03/22 (unknown) (no (unknown) (unknown) at this time. (units ( unknown) date) Fast exam is unknown) negative (unknown) (no (unknown) (unknown) atorvastatin 20 (units (unknown) date) mg tablet unknown) (Lipitor) 40 mg PO BEDTIME #60 tabs 12/03/22 (unknown) (no (unknown) (unknown) automated (units (unkn own) date) unknown) (unknown) (no (unknown) (unknown) bilateral coordinator of rehabilitation services.? (units (unknown) date) This was seen in unknown) 2021 imaging. (unknown) (no (unknown) (unknown) brain.? (units (unkno wn) date) unknown) (unknown) (no (unknown) (unknown) budesonide-formot (units (unknown) date) codey HFA 160 1 unknown) puff INH PRN ##0 12/06/11 12/02/22 (unknown) (no (unknown) (unknown) cephalexin 500 mg (units (unknown) date) capsule 500 mg PO unknown) Q8H #15 caps 12/03/22 (unknown) (no (unknown) (unknown) commonly seen (units ( unknown) date) unknown) (unknown) (no (unknown) (unknown) coronal T2 fast (units (unknown) date) spin echo, axial unknown) gradient echo, axial diffusion and ADC through (unknown) (no (unknown) (unknown) depression (units (unk nown) date) unknown) (unknown) (no (unknown) (unknown) diminutive (units (unk nown) date) unknown) (unknown) (no (unknown) (unknown) drift. (units (unkno wn) date) Finger-nose unknown) intact. Elevate each leg independently off the bed (unknown) (no (unknown) (unknown) esophagus.? (units (un known) date) unknown) (unknown) (no (unknown) (unknown) exposure control, (units (unknown) date) adjustment of mA unknown) and/or kV according to patient size.? (unknown) (no (unknown) (unknown) for admit. (units (unk nown) date) Patient in no unknown) distress (unknown) (no (unknown) (unknown) from the foramen (units (unknown) date) magnum to the unknown) vertex.? 3-dimensional (unknown) (no (unknown) (unknown) history of (units (unk nown) date) unknown) (unknown) (no (unknown) (unknown) household (units (unkn own) date) members: spouse unknown) (unknown) (no (unknown) (unknown) ibuprofen 800 mg (units (unknown) date) tablet 800 mg PO unknown) PRN ##0 11/10/12 12/02/22 (unknown) (no (unknown) (unknown) infarct/vertigo/l (units (unknown) date) abyrinthitis unknown) (unknown) (no (unknown) (unknown) inhaler (units (unkno wn) date) (Symbicort) unknown) (unknown) (no (unknown) (unknown) intact bilateral (units (unknown) date) face hands and unknown) feet. Strong equal bag bundler. Negative pronator (unknown) (no (unknown) (unknown) intact. (units (unkno wn) date) unknown) (unknown) (no (unknown) (unknown) involvement of (units (unknown) date) subcortical U unknown) fibers.? (unknown) (no (unknown) (unknown) is minimal flow (units (unknown) date) present.? This was unknown) seen on prior imaging. (unknown) (no (unknown) (unknown) maintained. (units (un known) date) unknown) (unknown) (no (unknown) (unknown) malignancy, (units (un known) date) consider also unknown) follow-up imaging. (unknown) (no (unknown) (unknown) maximum-intensity (units (unknown) date) -projection (MIP) unknown) (unknown) (no (unknown) (unknown) mcg-4.5 (units (unkno wn) date) mcg/actuation unknown) aerosol (unknown) (no (unknown) (unknown) meclizine 12.5 mg (units (unknown) date) tablet 12.5 mg PO unknown) Q6HR #60 tabs 12/03/22 (unknown) (no (unknown) (unknown) [id number] (units (unknown) date) unknown) (unknown) (no (unknown) (unknown) month or last (units ( unknown) date) night or today. unknown) Prior history of stroke. Patient in no distress (unknown) (no (unknown) (unknown) mri brain: (units (unk nown) date) unknown) (unknown) (no (unknown) (unknown) or limb numbness (units (unknown) date) tingling or unknown) weakness from herself or her . In the past (unknown) (no (unknown) (unknown) parotid (units (unkno wn) date) calcifications of unknown) uncertain etiology. (unknown) (no (unknown) (unknown) possibly micro (units (unknown) date) embolic.? () unknown) (unknown) (no (unknown) (unknown) rales, or (units (unkn own) date) rhonchi. unknown) (unknown) (no (unknown) (unknown) region, (units (unkno wn) date) unknown) (unknown) (no (unknown) (unknown) release (units (unkno wn) date) unknown) (unknown) (no (unknown) (unknown) significant (units (un known) date) narrowing (less unknown) than 50%) (unknown) (no (unknown) (unknown) speech negative (units (unknown) date) facial droop unknown) (unknown) (no (unknown) (unknown) subacute infarct (units (unknown) date) finding. Right unknown) frontal lobe. They agree and understand need (unknown) (no (unknown) (unknown) the (units (unkno wn) date) administration of unknown) intravenous contrast, 1 mm thick sections acquired from (unknown) (no (unknown) (unknown) the aortic (units (unk nown) date) unknown) (unknown) (no (unknown) (unknown) the (units (unkno wn) date) unknown) (unknown) (no (unknown) (unknown) tip.? There (units (un known) date) unknown) (unknown) (no (unknown) (unknown) trazodone 100 mg (units (unknown) date) tablet 100 mg PO unknown) HS ##0 12/08/11 12/02/22 (unknown) (no (unknown) (unknown) usual vertigo (units ( unknown) date) dizziness. This unknown) morning however she felt like she was ?detached (unknown) (no (unknown) (unknown) vasculature (units (un known) date) unknown) (unknown) (no (unknown) (unknown) vertebral (units (unkn own) date) unknown) (unknown) (no (unknown) (unknown) vertex.? After (units (unknown) date) unknown) (unknown) (no (unknown) (unknown) window of tPA. No (units (unknown) date) large vessel unknown) occlusion. No endovascular intervention needed. (unknown) (no (unknown) (unknown) with chronic (units (u nknown) date) microangiopathy. unknown) Volume loss is present. These findings are (unknown) (no (unknown) (unknown) with small vessel (units (unknown) date) disease. These unknown) findings are [id number].? There is some (unknown) (no (unknown) (unknown) without (units (unkno wn) date) unknown) Social History date description facility 2022-12-02 00:00 Never smoked tobacco (finding) [facility] Vital Signs date measurement value units 2022-12-02 00:00 BMI 26.4 kg/m2 2022-12-02 00:00 BP_diastolic 73 mmHg 2022-12-02 00:00 BP_systolic 137 mmHg 2022-12-02 00:00 heart_rate 61 /min 2022-12-02 00:00 height_metric 160.02 cm 2022-12-02 00:00 height_standard 63 in 2022-12-02 00:00 o2_saturation 96 % 2022-12-02 00:00 respiration_rate 14 /min 2022-12-02 00:00 temperature_metric 37.06 C 2022-12-02 00:00 temperature_standard 98.7 F 2022-12-02 00:00 weight_metric 66 kg 2022-12-02 00:00 weight_standard 145.51 lb 2022-12-03 00:00 BP_diastolic 67 mmHg 2022-12-03 00:00 BP_diastolic 71 mmHg 2022-12-03 00:00 BP_systolic 125 mmHg 2022-12-03 00:00 BP_systolic 140 mmHg 2022-12-03 00:00 heart_rate 72 /min 2022-12-03 00:00 heart_rate 85 /min 2022-12-03 00:00 o2_saturation 95 % 2022-12-03 00:00 o2_saturation 97 % 2022-12-03 00:00 respiration_rate 18 /min 2022-12-03 00:00 temperature_metric 37.22 C 2022-12-03 00:00 temperature_standard 99 F
[2022-12-23] MEDS ORDERED: diazePAM INJ 5 MG/ML SYRINGE IVP STA ×2 (13:29→15:47)
[2022-12-23] MEDS ORDERED: MECLIZINE 12.5 MG TABLET PO STA (13:29)
[2022-12-23] MEDS ORDERED: DEXAMETHASONE 10 MG/ML VIAL IVP STA (15:47)
[2022-12-23 18:10] VITALS: BP 151/82
== END 2022-12-23 18:10 | disposition home or self-care (01) ==
LOC: EDUNIT# → ED 11:04
DX: R55 Syncope and collapse (principal); R42 Dizziness and giddiness; Z87.891 Personal history of nicotine dependence; J44.9 Chronic obstructive pulmonary disease, unspecified; Z79.899 Other long term (current) drug therapy; Z79.51 Long term (current) use of inhaled steroids
CPT/HCPCS: 36415; 80053; 83690; 83735; 84484; 85025; 93005; 96374; 96375; 99284; A9270

== ENCOUNTER 2023-05-11 09:53 | Outpatient (CLI) | payer MEDICARE, OTHER ==
[2023-05-11 12:33] LABS: BASOPHILS % (AUTO) 0.3 %; EOSINOPHILS # (AUTO) 0.2 10^3/uL (0.0-0.7); EOSINOPHILS % (AUTO) 3.5 %; HGB - HEMOGLOBIN 14.7 g/dL (12.0-16.0); LYMPHOCYTES # (AUTO) 1.7 10^3/uL (1.5-3.5); LYMPHOCYTES % (AUTO) 29.4 %; MEAN CORPUSCULAR HEMOGLOBIN 31.5 pg (27.0-31.0); MEAN CORPUSCULAR VOLUME 98.7 fL (81.0-99.0); MEAN PLATELET VOLUME 9.4 fL (7.9-10.8); MONOCYTES # (AUTO) 0.4 10^3/uL (0.0-1.0); MONOCYTES % (AUTO) 7.5 %; NEUTROPHILS # (AUTO) 3.4 10^3/uL (1.5-6.6); NEUTROPHILS % (AUTO) 59.1 %; PLT - PLATELET COUNT 148 10^3/uL (130-450); RED BLOOD COUNT 4.66 10^6/uL (4.20-5.40); RED CELL DISTRIBUTION WIDTH 13.1 % (12.0-15.0); WHITE BLOOD COUNT 5.7 x10^3/uL (4.8-10.8)
[2023-05-11 12:55] LABS: ESTIMATED AVERAGE GLUCOSE 105 mg/dL (70-100); HEMOGLOBIN A1c% 5.3 % (4.27-6.07)
[2023-05-11 13:06] LABS: ALBUMIN 4.4 g/dL (3.2-5.5); ALBUMIN/GLOBULIN RATIO 1.7 (1.0-2.2); ALKALINE PHOSPHATASE 269 IU/L (42-121); ALT ALANINE AMINOTRANSFERASE 28 IU/L (10-60); AST ASPARTATE AMINOTRANSFERASE 32 IU/L (10-42); BILIRUBIN,TOTAL 0.7 mg/dL (0.2-1.0); BUN - BLOOD UREA NITROGEN 15 mg/dL (6-20); CARBON DIOXIDE - CO2 31 mmol/L (21-32); CHLORIDE 104 mmol/L (101-111); CHOLESTEROL 162 mg/dL; CREATININE 0.8 mg/dL (0.6-1.3); GFR - MDRD 69 (>89); GLUCOSE 84 mg/dL (74-104); HDL CHOLESTEROL 83 mg/dL; LDL CHOLESTEROL,CALCULATED 63 mg/dL; LDL/HDL RATIO 0.8 (<4.4); POTASSIUM 4.3 mmol/L (3.5-4.5); SODIUM 141 mmol/L (135-145); TRIGLYCERIDES 81 mg/dL (48-352); VLDL CHOLESTEROL 16 mg/dL
[2023-05-11 13:07] LABS: THYROID STIMULATING HORMONE 2.73 uIU/mL (0.34-5.60)
== END 2023-05-11 09:54 | disposition home or self-care (01) ==
LOC: LAB.N 09:53
PROVIDERS: ATTEND Family Medicine
DX: J44.9 Chronic obstructive pulmonary disease, unspecified (principal); D80.1 Nonfamilial hypogammaglobulinemia; M34.9 Systemic sclerosis, unspecified; R49.0 Dysphonia; B02.9 Zoster without complications; R73.01 Impaired fasting glucose; E78.5 Hyperlipidemia, unspecified; M18.11 Unilateral primary osteoarthritis of first carpometacarpal joint, right hand; K21.9 Gastro-esophageal reflux disease without esophagitis; H04.129 Dry eye syndrome of unspecified lacrimal gland; I73.9 Peripheral vascular disease, unspecified; I71.40 Abdominal aortic aneurysm, without rupture, unspecified; F32.A Depression, unspecified
CPT/HCPCS: 36415; 80053; 80061; 83036; 83721; 84439; 84443; 84481; 85025

== ENCOUNTER 2023-06-20 11:26 | Outpatient (CLI) | payer MEDICARE, OTHER ==
--- NOTE | 2023-06-20 12:32 | XRAY Report ---
PROCEDURE: Chest 2 View X-Ray INDICATIONS: COPD TECHNIQUE: 2 views of the chest were acquired. COMPARISON: None. FINDINGS: Surgical changes and devices: None. Lungs and pleura: No pleural effusions or pneumothorax. Lungs are clear. Mediastinum: Mediastinal contours appear normal. Heart size is normal. Bones and chest wall: No suspicious bony lesions. Overlying soft tissues appear unremarkable. IMPRESSION: No acute cardiopulmonary process. Reviewed by: Jitendra Escamilla on 06/20/2023 12:31 PM PDT Approved by: Jitendra Escamilla on 06/20/2023 12:31 PM PDT Station ID: [id number]
== END 2023-06-20 23:59 | disposition home or self-care (01) ==
LOC: DI.N 11:26
PROVIDERS: ATTEND Physician Assistant Medical
DX: J44.9 Chronic obstructive pulmonary disease, unspecified (principal)

== ENCOUNTER 2023-08-26 19:18 | Outpatient (CLI) | payer MEDICARE, OTHER ==
--- NOTE | 2023-08-28 14:17 | Ultrasound Report ---
PROCEDURE: Retroperitoneal Limited INDICATIONS: Follow-up abdominal aortic aneurysm TECHNIQUE: Real-time scanning was performed of the retroperitoneal organs, with image documentation. COMPARISON: Ultrasound retroperitoneum, 10/03/2017. FINDINGS: Proximal abdominal aorta: 3.2 x 3.3 cm; previously 2.7 cm. Mid abdominal aorta: 2.7 x 2.8 cm.; previously 2.5 x 2.6 cm Distal abdominal aorta (superior): 3.6 x 4.1 cm.; previously 3.3 x 3.7 cm Distal abdominal aorta (inferior): 3.3 x 4.2 cm. Right common iliac artery: 1.7 x 1.7 cm (previously 1.2 x 1.4 cm). Left common iliac artery: 1.6 x 1.3 cm (previously 1.1 x 1.2 cm) IMPRESSION: Mild abdominal aortic aneurysm, slightly increased compared to the last exam. Reviewed by: Alisha Pascual MD on 08/28/2023 2:16 PM PST Approved by: Alisha Pascual MD on 08/28/2023 2:16 PM PST Station ID: [id number]
== END 2023-08-26 19:19 | disposition home or self-care (01) ==
LOC: DI 19:18
PROVIDERS: ATTEND Family Medicine
DX: I71.40 Abdominal aortic aneurysm, without rupture, unspecified (principal)

== ENCOUNTER 2024-01-31 14:12 | Outpatient (CLI) | payer MEDICARE, OTHER ==
--- NOTE | 2024-02-01 12:27 | MRI Report ---
PROCEDURE: Ankle RT WO INDICATIONS: RT ANKLE INSTABILITY TECHNIQUE: Noncontrast sagittal T1 spin echo and T2 fast spin echo with fat saturation, axial proton density fas t spin echo and T2 fast spin echo with fat saturation, coronal T1 spin echo and T2 fast spin echo wit h fat saturation through the ankle/hindfoot. COMPARISON: None. FINDINGS: Image quality: Excellent. Bones and joints: Postsurgical changes are noted in posterior calcaneus near Achilles tendon insertio n. No gross marrow edema. No acute fracture or dislocation. Osteoarthritic changes are noted througho ut midfoot and hindfoot joints. No hindfoot coalitions. No osteochondral injuries of the talar dome. No pathologic joint effusions. Medial structures: The posterior tibialis tendon is thickened at the level of distal talus and talar navicular joint. The flexor digitorum longus, and flexor hallucis longus tendons are intact. The po sterior tibial neurovascular bundle appears normal within the tarsal tunnel, without extrinsic mass e ffect. The deltoid ligament and spring ligament are grossly intact. Lateral structures: The anterior talofibular, calcaneofibular, and posterior talofibular ligaments a ppear intact. More superiorly, the anterior and posterior tibiofibular ligaments appear normal, as i s the intermalleolar ligament. The tibiofibular syndesmosis is normal in width at 2 mm or less. The peroneus longus and brevis tendons demonstrate normal location and morphology. Adjacent bony perone al tubercle and retrotrochlear prominence are normal in size. The sinus tarsi demonstrates normal fa tty signal, without edema, fibrosis, or cyst formation. Visualized sinus tarsi components (cervical ligament, interosseous talocalcaneal ligament, roots of the inferior extensor retinaculum) appear nor mal. Anterior structures: The tibialis anterior, extensor hallucis longus, and extensor digitorum longus tendons appear intact. Posterior and plantar structures: Markedly thickened distal 7.5 cm segment of Achilles tendon extendi ng to its posterior calcaneal insertion with intrasubstance lobulated T2 hyperintense signal measures up to 2.1 x 1.2 x 4.5 cm in size and contains internal septation. Medial and lateral bands of the pl windy fascia are of normal thickness. No abductor digiti quinti muscle atrophy to suggest Grey dylon ropathy. IMPRESSION: 1. Suggestion of prior Achilles tendon repair with post surgical changes in posterior calcaneus. No m arrow edema. No acute fracture or dislocation. No gross osteochondral injuries. 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 Small joint, no loose bodies. 2. Markedly thickened Achilles tendon with intrasubstance septated cystic area concerning for myxoid degenerative changes and low to moderate grade intrasubstance partial thickness tear. No full-thickne ss Achilles tendon rupture. 3. Distal posterior tibialis tendinosis near its distal insertion. Extensor and peroneus tendons are intact. 4. Medial and lateral ankle ligaments are intact. Reviewed by: Chai Dickens MD on 02/01/2024 12:25 PM PDT Approved by: Chai Dickens MD on 02/01/2024 12:25 PM PDT Station ID: [id number]
== END 2024-01-31 14:13 | disposition home or self-care (01) ==
LOC: DI 14:12
PROVIDERS: ATTEND Podiatrist
DX: M19.071 Primary osteoarthritis, right ankle and foot (principal)

== ENCOUNTER 2024-04-19 18:02 | Outpatient (CLI) | payer MEDICARE, OTHER ==
[2024-04-19 18:29] LABS: ABSOLUTE RETICS # AUTO 0.063 10^6/uL (0.020-0.110); BASOPHILS % (AUTO) 0.7 %; EOSINOPHILS # (AUTO) 0.2 10^3/uL (0.0-0.7); EOSINOPHILS % (AUTO) 3.9 %; HCT - HEMATOCRIT 41.1 % (37.0-47.0); HGB - HEMOGLOBIN 13.4 g/dL (12.0-16.0); LYMPHOCYTES % (AUTO) 33.8 %; MEAN CORPUSCULAR HEMOGLOBIN 31.2 pg (27.0-31.0); MEAN CORPUSCULAR HGB CONC 32.6 g/dL (32.0-36.0); MEAN CORPUSCULAR VOLUME 95.6 fL (81.0-99.0); MEAN PLATELET VOLUME 9.3 fL (7.9-10.8); MONOCYTES # (AUTO) 0.5 10^3/uL (0.0-1.0); NEUTROPHILS # (AUTO) 3.1 10^3/uL (1.5-6.6); NEUTROPHILS % (AUTO) 52.4 %; PLT - PLATELET COUNT 141 10^3/uL (130-450); RED CELL DISTRIBUTION WIDTH 13.8 % (12.0-15.0); RETICULOCYTE COUNT % (AUTO) 1.47 % (0.5-2.3); WHITE BLOOD COUNT 5.9 x10^3/uL (4.8-10.8)
[2024-04-19 19:09] LABS: FERRITIN 21.9 ng/mL (11.0-306.8)
== END 2024-04-19 18:03 | disposition home or self-care (01) ==
LOC: LAB 18:02
PROVIDERS: ATTEND Family Medicine
DX: D64.9 Anemia, unspecified (principal); D69.6 Thrombocytopenia, unspecified
CPT/HCPCS: 36415; 82607; 82728; 82746; 83540; 84466; 85025; 85045

== ENCOUNTER 2024-04-20 08:20 | Outpatient (CLI) | payer MEDICARE, OTHER ==
[2024-04-20 08:33] LABS: FECAL OCCULT BLOOD (FIT) POSITIVE (NEGATIVE)
== END 2024-04-20 08:21 | disposition home or self-care (01) ==
LOC: LAB.R 08:20
PROVIDERS: ATTEND Family Medicine
DX: D64.9 Anemia, unspecified (principal); D69.6 Thrombocytopenia, unspecified
CPT/HCPCS: 82274

== ENCOUNTER 2024-05-15 09:50 | Outpatient (CLI) | payer MEDICARE, OTHER ==
--- NOTE | 2024-05-16 08:15 | Mammography Report ---
BILATERAL DIGITAL DIAGNOSTIC MAMMOGRAM 3D/2D WITH LATEROMEDIAL: 05/15/2024 CLINICAL: Focal right breast pain. Due for bilateral exam. Comparison is made to exams dated: 10/04/2022 mammogram, 07/22/2016 mammogram, and 01/06/2015 mammogram - [facility]. Both breasts are heterogeneously dense, which may obscure small masses (category c / 51-75% glandular tissue). No significant masses, calcifications, or other findings are seen in either breast. IMPRESSION: INCOMPLETE: NEEDS ADDITIONAL IMAGING EVALUATION No mammographic evidence of malignancy. A targeted ultrasound is recommended and will immediately follow. Based on the Tyrer Cuzick model (a risk assessment model) the patient's lifetime risk is 2.8% and her 10 year risk is 0.0%. According to the ACR, ACS, and NCCN guidelines, an annual breast MRI exam kel g with mammogram is recommended if the patient's lifetime risk is 20% or greater. This exam was interpreted at Station ID: [id number]. NOTE: For mammograms, a report in lay terms will be sent to the patient. Approximately 15% of breast malignancies will not be visualized mammographically. In the management of a palpable breast mass, a negative mammogram must not discourage biopsy of a clinically suspicious lesion. Electronically Signed By: Kb Keys M.D. slc/:05/15/2024 10:32:35 ACR BI-RADS Category 0: Incomplete 3340F PARENCHYMAL PATTERN: (D) - The breast(s) demonstrate(s) heterogeneously dense fibroglandular parjoshuay ma. BI-RADS CATEGORY: (0) - 0 Ultrasound [id number] Immediate follow-up LATERALITY: (B)
--- NOTE | 2024-05-16 08:15 | Ultrasound Report ---
LIMITED ULTRASOUND OF RIGHT BREAST: 05/15/2024 CLINICAL: Focal right breast pain. Comparison is made to exams dated: 05/15/2024 mammogram, 10/04/2022 mammogram, 07/22/2016 mammogram, an d 01/06/2015 mammogram - [facility]. Real-time ultrasound of the right breast 9 o'clock region was performed. Joaquin scale images of the re al-time examination were reviewed. No significant abnormalities were seen sonographically in the right breast. IMPRESSION: NEGATIVE There is no sonographic evidence of malignancy. Exam findings were conveyed to the patient. Patient is advised to monitor for significant change. Cli nical follow-up as needed. A 1 year screening mammogram is recommended. This exam was interpreted at Station ID: [id number]. Electronically Signed By: Kb Keys M.D. slc/:05/15/2024 11:02:02 Ultrasound BI-RADS: 1 Negative BI-RADS CATEGORY: (1) - 1 RECOMMENDATION: (ANNUAL) - Recommend routine annual screening mammography. [id number] 1 year screening LATERALITY: (B)
== END 2024-05-15 09:51 | disposition home or self-care (01) ==
LOC: DI 09:50
PROVIDERS: ATTEND Physician Assistant
DX: N64.4 Mastodynia (principal); R92.333 Mammographic heterogeneous density, bilateral breasts

== ENCOUNTER 2024-07-11 06:32 | Inpatient (IN) ==
--- OUTSIDE RECORDS SUMMARY | 2024-07-10 13:42 | EXTERNAL MEDICAL SUMMARY RPT ---
Author Name Srini Ochoa Address Unknown Organization [facility] Address [address] [place] [address] Phone [phone] Care Team Providers Care Ext Js Developer Name Role Phone Aisha Portillo, Enoc Luz Unavailable [phone] Aisha Portillo, Enoc Luz Unavailable [phone] PROBLEMS Condition Status Date Provider Notes Ankle joint pain, right active Bart Leonard M.D. Sinusitis, chronic active Enoc Leonard M.D. Cough active Enoc moreland M.D. Unsteady when walking active Jl Leonard M.D. Fatigue active Enoc moreland M.D. Sleep disturbance active Enoc Leonard M.D. Lichenification of vulva active Rambo leon MD Upper respiratory infection (URI) completed - Enoc Leonard M.D. Neoplasm of undet nature skin active Enoc Leonard M.D. Cerebral infarction active Enoc Leonard M.D. Unrealistic expectation from treatment active Enoc Leonard M.D. COPD active Enoc moreland M.D. Acute upper respiratory infection, unspecified completed - Enoc Leonard M.D. Upper respiratory infection (URI) completed - Enoc Leonard M.D. Post COVID-19 condition, unspecified active Judye A Scheidt D.O. Chest pain completed - Enoc Leonard M.D. Balance problem active Judye A Scheidt D.O. Neck pain, acute completed - Enoc Leonard M.D. Concussion without loss of consciousness, initial encounter completed - Judye A Scheidt D.O. Fall risk active Judye A Scheidt D.O. Vertigo active Judye A Scheidt D.O. COVID-19 coronavirus pneumonia completed - Enoc Leonard M.D. Gastritis completed - Enoc Leonard M.D. Epistaxis active Judye A Scheidt D.O. Hypogammaglobulinemia active Judye A Scheid t D.O. Unspecified open wound, unspecified lower leg, initial encounter completed - Judye A Scheidt D.O. Colles' fracture of right radius, initial encounter for closed fracture completed - Judye A Scheidt D.O. Other specified sprain of right wrist, sequela completed - Judye A Scheidt D.O. Snoring completed - Judye A Scheidt D.O. Wound infection completed - Judye A Scheidt D.O. ermd dx Salivary gland disorder completed - Judye A Scheidt D.O. Facial swelling completed - Judye A Scheidt D.O. Cervical lymphadenopathy completed - Juddenis Chongidt D.O. Scleroderma active Juddenis Farris D.O. Diarrhea completed - Judye A Scheidt D.O. Gastritis active Juddenis A Castilloidt D.O. Oral ulcer completed - Juddenis A Castilloidt D.O. Interstitial lung disease active Yann Pool PA-C Hemoptysis completed - Faith Pool PA-C COPD, acute exacerbation completed - Enoc Leonard M.D. Cough completed - Yumiko Farris D.O. Fever completed - Yumiko Chirinos.O. Respiratory crackles completed - uYmiko Zuñigat D.O. Arthritis, lumbar spine active Chris Pool PA-C Hoarseness completed - Enoc Leonard M.D. Low back pain active Faith lopez PA-C Osteoarthritis, lumbar spine active Faith Pool PA-C Finger pain, left completed - Yumiko Farris D.O. Unsteady gait completed - Yumiko Zuñigat D.O. Acute hemorrhagic cystitis completed 04/24 - Yumiko Farris D.O. Contusion of other part of head, initial encounter completed - Yumiko A Yogesht D.O. Herpes zoster completed - Enoc Leonard M.D. Night sweats completed - Juddenis Chongidt D.O. Pneumonia completed - Janis Burns MD Colon cancer screening completed 7 - Yumiko Farris D.O. Ulcerative colitis active Janis Burns MD Postmenopausal bleeding completed - Yumiko Farris D.O. Hematuria completed - Janis Burns MD Thrush, oral completed - Ernestina Martinez PROTOTYPE CARPENTER-C Syncope completed - Yumiko Farris D.O. Postherpetic neuralgia completed 0 - Enoc Leonard M.D. Back pain completed - Yumiko Farris D.O. Elevated blood pressure without diagnosis of hypertension completed - Janis Burns MD Pain in right ankle and joints of right foot completed - Janis Burns MD Pain in left ankle and joint s of left foot completed - Janis Burns MD Dyspnea completed - Janis Burns MD SYNCOPE completed - Janis Burns MD Tongue swelling completed - Janis Burns MD COPD, acute exacerbation completed - Janis Burns MD Encounter for immunization completed 06/01 - Janis Burns MD Impaired fasting glucose active Yumiko wilkins D.O. HYPERLIPIDEMIA active Yumiko Farris D.O. Atrophic vaginitis active Yumiko Farris D .O. Screening mammogram for breast cancer completed - Janis Burns MD Laryngitis completed - Judye A Scheidt D.O. Tongue swelling completed - Judye A Scheidt D.O. Chest wall pain completed - Janis Burns MD Restless leg syndrome active Juddenis Lora Scheid t D.O. Contusion of left lower leg, subsequent encounter completed - Judye A Scheidt D.O. Abdominal aortic aneurysm active Yumiko krishnamurthyidt D.O. 3.5 X 3.1 cm Encounter for screening mammogram for malignant neoplasm of breast completed - Janis Burns MD Preoperative examination completed - Janis Burns MD Laryngitis completed - Judye A Scheidt D.O. Cough completed - Janis Burns MD COPD, acute exacerbation completed - Janis Burns MD Dysphagia, unspecified completed 2 - Judye A Scheidt D.O. Ganglion cyst, wrist, right completed 2014 - Judye A Scheidt D.O. LONG-TERM (CURRENT) USE OF OTHER MEDICATIONS active Fernando Mast M.D. Achilles tendinitis completed - Judye A Scheidt D.O. Mass, right axilla completed - Judye A Scheidt D.O. Aftercare following joint replacement completed - Janis Burns MD Heel pain, right completed - Judye A Scheidt D.O. Calcaneal spur, right completed - Judye A Scheidt D.O. Osteoarthritis, carpometacarpal joint, right thumb active Harley Lorenzana DO Contusion, sacrum completed - Yumiko Farris D.O. Cerumen impaction, right completed - Fernando Mast M.D. Gastritis, acute completed - Janis Bruns MD GERD active Fernando Raygoza M.D. Chest pain, atypical completed - Yumiko MccarthyO. Food poisoning completed - Janis Burns MD COPD, acute exacerbation completed - Kortney Dominguez PA-C MEMORY LOSS completed - Yumiko Farris D.O. Shoulder pain, bilateral active [facility] netta Burns MD INHAL&INGESTION FOOD CAUS OBST RESP TRACT/SUFFOC completed - Fernando Mast M.D. LENTIGO completed - Yumiko Farris D.O. SJOGREN'S SYNDROME active Fernando Mast M.D. BREAST PAIN, RIGHT completed - Fernando Mast M.D. CATARACTS, BILATERAL completed - Fernando Mast M.D. FACIAL PAIN, ATYPICAL completed - Yumiko Farris D.O. OSTEOARTHRITIS, KNEES, BILATERAL active Fernando Mast M.D. OTITIS EXTERNA completed - Fernando Mast M.D. SWELLING, NECK completed - Fernando Mast M.D. URINARY INCONTINENCE, MIXED active Fernando Mast M.D. CONTUSION, LEFT BUTTOCK completed - Fernando Mast M.D. DEPRESSION active Fernando Raygoza M.D. CONTUSIONS, KNEES, BILATERAL completed 09/19/20 - Fernando Mast M.D. FLUSHING completed - Fernando Mast M.D. ELEVATED BLOOD PRESSURE completed - Fernando Mast M.D. MENOPAUSE-RELATED VASOMOTOR SYMPTOMS, HOT FLASHES completed - Yumiko Farris D.O. INSOMNIA, UNSPECIFIED completed - Enoc Leonard M.D. TENDINITIS, SHOULDER completed - MD KEON Walsh active Fernando Raygoza M.D. ACTINIC KERATOSIS active Fernando Mast M.D. CARCINOMA, SKIN, SQUAMOUS CELL completed - Enoc Leonard M.D. NEOPLASM, SKIN, UNCERTAIN BEHAVIOR completed - Fernando Mast M.D. DRY EYE SYNDROME active Fernando Mast M.D. DEGENERATIVE JOINT DISEASE, AXIAL SKELETON active Ankita Lemons, Chart Occupational Therapy Instructor HOARSENESS, CHRONIC completed - Ankita Lemons, Chart Occupational Therapy Instructor CELIAC ARTERY COMPRESSION SYNDROME active Ankita Lemons, Chart Occupational Therapy Instructor DEGENERATIVE JOINT DISEASE, RIGHT KNEE completed - Fernando Mast M.D. PERIPHERAL VASCULAR DISEASE active Ankita Lemons Chart Occupational Therapy Instructor Celiac artery stenosis. ABDOMINAL AORTIC ANEURYSM completed 04/22 - Enoc Leonard M.D. CHEST PAIN completed - Fernando Mast M.D. SINUSITIS, ACUTE NOS completed - Ankita Lemons, Chart Occupational Therapy Instructor LARYNGITIS, ACUTE completed - Cornel Adan, Auto Wheel Alignment Specialist BRONCHITIS-ACUTE completed - Cornel Adan, Auto Wheel Alignment Specialist NEOPLASMS UNSPEC NATURE BONE SOFT TISSUE&SKIN completed - Fernando Mast M.D. KNEE PAIN completed - Jazmin Pickens, Admin URINARY TRACT INFECTION completed - Carmen Escalante MD WOUND OPEN, FINGER W/O COMPLICATION completed - Jazmin Pickens, Admin left index CHEST PAIN completed - Ankita Lemons, Chart Occupational Therapy Instructor PYELONEPHRITIS completed - Ankita Lemons, Chart Occupational Therapy Instructor HERPES SIMPLEX completed - Yumiko Farris D.O. HYPERLIPIDEMIA NEC/NOS completed - Janis Burns MD ROTATOR CUFF REPAIR, LEFT, H X OF completed - Ankita Lemons Chart Occupational Therapy Instructor OTITIS EXTERNA completed - Ankita Lemons Chart Occupational Therapy Instructor PAROTITIS, LEFT completed - Ankita Lemons, Chart Occupational Therapy Instructor HEMATOMA completed - Ankita Lemons Chart Occupational Therapy Instructor ROTATOR CUFF TEAR completed - Ankita Lemons Chart Occupational Therapy Instructor left shoulder TACHYCARDIA, HX OF completed - Ankita Lemons, Chart Occupational Therapy Instructor APHTHAE, ORAL completed - Ankita Lemons Chart ENCOUNTERS Date Type Provider Location Encounter Diagnosis - External Other Enoc Leonard M.D. [facility] ALLERGIES Allergy Name Onset Date Reaction Criticality Status DOXYCYCLINE per Enstratius High Criticality activ e BENADRYL (DIPHENHYDRAMINE HCL) vertigo, dizzine ss High Criticality active ANTI INFLAMMATORIES High Criticality active SULFA Rash and angioedema High Criticality active FAMILY HISTORY Family Member Condition Maternal Grandfather Diabetes Father a Hx of Arthritis First Degree Blood Relative No Known Fam enmanuel History Mother a Hx of Arthritis First Degree Blood Relative No Known Fam enmanuel History HISTORY OF IMMUNIZATIONS Date Vaccine Dose Lot Number Status RSV, recombinant, pr otein subunit RSVpreF, adjuvan completed Influenza vaccine, quadrivalent, adjuvanted completed COVID-19, mRNA, LNP-S, PF, 50 mcg/0.5 mL completed Influenza vaccine, quadrivalent, adjuvanted completed Influenza vaccine, quadrivalent, adjuvanted completed Influenza vaccine, quadrivalent, adjuvanted completed Flu Vax completed zoster recombinant comple danyelle zoster recombinant comple danyelle COVID-19, mRNA, LNP-S, PF, 100 mcg/0.5 mL dose completed COVID-19, mRNA, LNP-S, PF, 100 mcg/0.5 mL dose completed Unspecified Formulation c ompleted Fluarix Quadrivalent Intramuscular Suspension 0.5 ML completed Shingrix Intramuscul ar Suspension Reconstituted 50 MCG completed Fluzone HD 65 and Over [facility] [address]-30 0.5 mL [id number] completed Fluzone HD 65 and Over 0.5 mL [id number] co mpleted Prevnar 13 Adult complete d Pneumovax 23 Injection Injectable 25 MCG/0.5ML completed Fluzone High-Dose IM (Alanna and Charlotte) 0.5 m L [id number] completed HISTORY OF MEDICATION USE Medication Status Instructions Dates Provider Indications Com ments omeprazole 40 mg capsule,delayed release(DR/EC) active Take 1 capsule by mouth once a day as directed take before breakfast and you have to eat something 20-30 minutes after Enoc Leonard M.D. ropinirole 1 mg tablet active TAKE 3 TABLETS BY MOUTH EVERY NIGHT Enoc Leonard M.D. acyclovir 400 mg tablet active TAKE 1 TABLET DAILY Enoc Leonard M.D. ibuprofen 800 mg tablet completed Take 1 tablet by mouth once a day Enoc Leonard M.D. clobetasol 0.05% ointment completed Apply 1 gram to skin every evening as instructed, a small amount to vulvar area. titrate to use less frequency when symptoms are improved. ideally use once or twice a week to maintain tolerable symptoms / no symptoms - Remedios CONLEY doxycycline hyclate 100 mg capsule active Take 1 capsule by mouth twice a day Wilber Ferreira PA-C prednisone 50 mg tablet active Take 1 tablet by mouth once a day Wilber Ferreira PA-C aspirin 81 mg tablet,chewable active Take 1 tablet by mouth once a day Samanta TAMEZ doxycycline 100 mg 100 mg completed Take 1 tablet by mouth once a day - Enoc Leonard M.D. atrovastatin active Fifi Singletary trazodone 50 mg tablet active Take 3 tablet by mouth every night at bedtime Enoc Leonard M.D. meclizine 25 mg tablet completed Take 1 tablet by mouth once a day as needed and every six hours as needed - Remedios CONLEY atorvastatin 40 mg tablet completed Take 1 tablet by mouth every evening - Remedios CONLEY ropinirole 1 mg tablet completed Take 2 tablet by mouth at bedtime - Enoc Leonard M.D. trazodone 100 mg tablet completed Take 1 tablet by mouth every night - Enoc Leonard M.D. prednisone 20 mg tablet completed - Enoc Leonard M.D. cephalexin 500 mg capsule completed Take 1 capsule by mouth every eight hours - Remedios MELVINR per 12/03/22 meclizine 12.5 mg tablet completed Take 1 tablet by mouth every six hours - Enoc Leonard M.D. per 12/03/22 atorvastatin 20 mg tablet completed Take 2 tablet by mouth at bedtime - Enoc Leonard M.D. per 12/03/22 aspirin 81 mg tablet,delayed release (DR/EC) completed Take 1 tablet by mouth once a day - Remedios MELVINR per 12/03/22 Mucinex DM 60-1,200 mg tablet extended release 12 hr completed Take 1 tablet by mouth every twelve hours - Annie CONLEY prednisone 20 mg tablet completed Take 1 tablet by mouth once a day - Annie CONLEY albuterol sulfate 90 mcg/actuation HFA aerosol inhaler active Inhale 1-2 puff using inhaler every four hours as needed Enoc Leonard M.D. diazepam 10 mg tablet completed Take 1 tablet by mouth once a day 30 minutes prior to MRI (no driving after taking medication) - Remedios CONLEY acyclovir 400 mg tablet completed Take 1 tablet by mouth once a day - Fifi Singletary Lomotil 2.5-0.025 mg tablet completed Take 1 tablet by mouth every six hours as needed for diarrhea - Faith Vieira PA-C promethazine 25 mg tablet completed Take 1 tablet by mouth every six hours as needed for nausea - Faith Vieira PA-C ondansetron HCl 4 mg tablet completed Take 1 tablet by mouth every six hours as needed for nausea or vomiting - Yumiko Farris D.O. Carafate 1 gram tablet completed Take 1 tablet by mouth four times a day dissolved in water, drink before meals and bedtime - Judye A Scheidt D.O. Carafate 1 gram tablet completed Take 1 tablet by mouth four times a day dissolved in water, drink before meals and bedtime, three times a day - Judye A Scheidt D.O. prednisone 10 mg tablet completed Take 4 tablet by mouth once a day for 3 days, then 3 tablets daily for 3 days, then 2 tablets daily for 3 days, then 1 tablet daily for 3 days, then 1/2 tablet daily for 3 days - Judye A Scheidt D.O. Augmentin 875-125 mg tablet completed Take 1 tablet by mouth twice a day - Judye A Scheidt D.O. ibuprofen 800 mg tablet completed TAKE 1 TABLET EVERY 8 HOURS NEEDED FOR PAIN OR INFLAMMATION - Makenzie Blanton LPN trazodone 50 mg tablet completed Take 4 tablet by mouth at bedtime - Enoc Leonard M.D. Advair Diskus 250-50 mcg/dose blister with device completed Inhale 1 puff as directed twice a day - Enoc Leonard M.D. #180, 90 days supply, Prescribed by JAMEL NAQVI, Filled 06/14/2020 moxifloxacin 0.5% drops completed - Leslie RODAS,ROT #6, 7 days supply, Prescribed by EMMA VERNON, Filled 11/19/2020 cephalexin 500 mg capsule completed - Makenzie Blanton LPN #14, 7 days supply, Prescribed by LIA WILLIAMSON, Filled 01/23/2021 acetaminophen-cod eine 300-30 mg tablet completed - Makenzie Blanton LPN #15, 3 days supply, Prescribed by LIA WILLIAMSON, Filled 01/23/2021 penicillin V potassium 500 mg tablet completed Take 1 tablet by mouth once a day - Makenzie Blanton LPN Effexor XR 37.5 mg capsule,extended release 24hr completed Take 1 capsule by mouth once a day - Enoc Leonard M.D. AMOXICILLIN-POT CLAVULANATE 875-125 MG ORAL TABLET completed take one tablet by mouth every twelve hours for ten days - Adriana Mccollum RN er rx TRAZODONE HCL 100 MG ORAL TABLET completed Take one-half to one tablet by mouth at bedtime as needed for insomnia - Yumiko Farris D.O. CLINDAMYCIN HCL 300 MG ORAL CAPSULE completed Take one tablet by mouth three times daily for 5 days - Shaista Meyer Auto Appraiser LÁZARO falcon order PREDNISONE 10 MG ORAL TABLET completed Take 4 tabs by mouth for 4 days, then 3 for 4 days, then 2 for 4 days, then 1 for 4 days, then stop - Kendra Marrero LPN, Lead AMOXICILLIN-POT CLAVULANATE 875-125 MG ORAL TABLET completed Take one tablet by mouth twice daily for ten days - Yumiko Zuñigat D.O. SERTRALINE HCL 50 MG ORAL TABLET completed Take one tablet by mouth daily - Yumiko Farris D.O. ibuprofen 800 mg tablet completed Take 1 tablet by mouth every eight hours as needed - Kendra Marrero LPN, Lead SUCRALFATE 1 GM ORAL TABLET completed Dissolve one tablet in water, drink before meals and bedtime, four times daily - Yumiko Zuñigat D.O. ondansetron 4 mg tablet,disintegra ting completed Dissolve 1 tablet by mouth every six to eight hours as needed for nausea and vomiting - Makenzie Blanton LPN PREDNISONE 10 MG ORAL TABLET completed Take 4 tab daily for 3 days, then 3 tab daily for 3 days, then 2 tab daily for 4 days, then one tab daily for 4 days, then stop. - Faith Pool PA-C VENLAFAXINE HCL ER 37.5 MG ORAL CAPSULE EXTENDED RELEASE 24 completed Take three capsules by mouth once daily - Faith Pool PA-C GABAPENTIN 300 MG ORAL CAPSULE completed Take one capsule by mouth twice daily - Yumiko Zuñigat D.ONarciso PREDNISONE 10 MG ORAL TABLET completed Take 4 tab daily for 3 days, then 3 tab daily for 3 days, then 2 tab daily for 4 days, then one tab daily for 4 days, then stop. - Faith Pool PA-C LORAZEPAM 0.5 MG ORAL TABLET completed Take 1-2 tablet by mouth as needed for anxiety daily - Yumiko Zuñigat D.ONarciso AMOXICILLIN-POT CLAVULANATE 875-125 MG ORAL TABLET completed Take one tablet by mouth twice daily for ten days - Akiko ROY ZITHROMAX Z-TEE 250 MG ORAL TABLET completed Take two tablets by mouth today, then one daily for four days - Makenzie Blanton LPN PREDNISONE 20 MG ORAL TABLET completed Two tablets by mouth daily for 5 days - Makenzie Blanton LPN GABAPENTIN 100 MG ORAL CAPSULE completed Take one capsule by mouth at bedtime - Faith Pool PA-C DIAZEPAM 5 MG ORAL TABLET completed Take one tablet by mouth prior to MRI - Faith Pool PA-C omeprazole 40 mg capsule,delayed release(/KAYLA) completed Take 1 capsule by mouth twice a day - Enoc Leonard M.D. per pulmonology nystatin 100,000 unit/gram powder completed Apply twice a day - Enoc Leonard M.D. VENLAFAXINE HCL ER 37.5 MG ORAL CAPSULE EXTENDED RELEASE 24 completed Take three capsules by mouth daily - Faith Pool PA-C MACROBID 100 MG ORAL CAPSULE completed take one by mouth two times a day - Monalisa Chavis [facility] ER # 10 TYLENOL 325 MG ORAL TABLET completed take 2 tablets by mouth every 6 hours as needed - Monalisa Chavis [facility] ER # 30 VALACYCLOVIR HCL 1 GM ORAL TABLET completed Take one tab three times daily for 7 days - Makenzie Blantno LPN [employer] ELECTRIC SCOOTER active Dx: R55, M54.9; G25.81; J44.9; M19.90, M17.9, M35.00; I71.4; I73.9. Length of need 99 months Makenzie Blanton LPN OXYCODONE HCL 5 MG ORAL TABLET completed Take two tablets by mouth nightly as needed for pain - Monalisa Chavis PREDNISONE 10 MG ORAL TABLET completed Take 4 tab daily x 3 days, then 3 tab daily x 3 days, then 2 tab daily x 4 days, then 1 tab daily for 4 days, then stop. - Monalisa Chavis ZITHROMAX Z-TEE 250 MG ORAL TABLET completed Take two tablets by mouth today, then one daily for four days - Janis Burns MD ROPINIROLE HCL 1 MG TABS completed TAKE 3 TABLETS AT BEDTIME - Stefany Hastings MA ropinirole 1 mg tablet completed Take 3 tablet by mouth every night - Enoc Leonard M.D. ZITHROMAX Z-TEE 250 MG ORAL TABLET completed Take two tablets by mouth today, then one daily for four days - Faith Pool PA-C DOXYCYCLINE HYCLATE 100 MG ORAL TABLET completed Take one tablet by mouth twice daily until gone - Faith Pool PA-C SPIRIVA HANDIHALER 18 MCG INHALATION CAPSULE completed Inhale one capsule by mouth every morning - Makenzie Blanton LPN CHERATUSSIN AC 100-10 MG/5ML ORAL SYRUP completed Take one to two teaspoons every four to six hours as needed for cough. Not to exceed 60mL/24 hours. - Monalisa Chavis PREDNISONE 20 MG ORAL TABLET completed Take two tablets by mouth each morning with food for five days. Then see provider. - Monalisa Chavis PREDNISONE 20 MG ORAL TABLET completed Take 2 tablets once a day for 10 days - Monalisa Chavis XOPENEX 1.25 MG/3ML INHALATION NEBULIZATION SOLUTION completed take every 4 hours - Monalisa Chavis BENZONATATE 100 MG ORAL CAPSULE completed Take one capsule three times a day - Monalisa Chavis SUPREP BOWEL PREP KIT 17.5-3.13-1.6 GM/180ML ORAL SOLUTION completed Take one (6oz) bottle by mouth the PM before colonoscopy & one (6oz) bottle by mouth the AM of colonoscopy as directed by surgical clinic - Monalisa Chavis CEPHALEXIN 250 MG ORAL CAPSULE completed Take one capsule by mouth four times daily for seven days - Janis Burns MD DOXYCYCLINE HYCLATE 100 MG ORAL TABLET completed Take one tablet by mouth twice daily until gone - Janis Burns MD CHERATUSSIN AC 100-10 MG/5ML ORAL SYRUP completed Take one to two teaspoons every four to six hours as needed for cough. Not to exceed 60mL/24 hours. - Monalisa Chavis NYSTATIN [id number] UNIT/ML MOUTH/THROAT SUSPENSION completed Swish and swallow 5ml of suspension four times daily - Makenzie Blanton LPN PREDNISONE 20 MG ORAL TABLET completed Take two tablets by mouth once daily in the morning with food for 5 days - Monalisa Chavis DOXYCYCLINE HYCLATE 100 MG ORAL TABLET completed Take one tablet by mouth twice daily until gone - Ernestina MORELAND FISH OIL CAPSULE completed take one capsule by mouth every day - Monalisa Chavis MAGNESIUM 250 MG ORAL TABLET completed take one tablet by mouth every day - Yumiko Farris D.O. HANDICAP PARKING active Dx: M17.9, J44.9. Length of need 99 months. Linda TOPETE ipratropium-albut codey 0.5 mg-3 mg(2.5 mg base)/3 mL solution for nebulization active USE 1 VIAL VIA NEBULIZER FOUR TIMES DAILY NEEDED FOR DYSPNEA Yumiko Farris D.O. NEBULIZER active 4.49 as needed Makenzie Blanton LPN VALACYCLOVIR HCL 1 GM ORAL TABLET completed Take one tab three times daily for seven days - Janis Burns MD OXYCODONE-ACETAMI NOPHEN 5-325 MG ORAL TABLET completed take one to two tablets by mouth every six hours as needed for pain - Adriana Mccollum RN rx by er VALACYCLOVIR HCL 1 GM ORAL TABLET completed Take one tab three times daily for seven days - Adriana Mccollum RN rx by er SUCRALFATE 1 GM ORAL TABLET completed Dissolve one tablet in water, drink before meals and bedtime, four times daily - Monalisa Chavis LEVAQUIN 250 MG ORAL TABLET completed Take one tablet by mouth daily for ten days - Janis Burns MD PREDNISONE 20 MG ORAL TABLET completed Take two tab by mouth daily for one week, then one tab daily for one week, then one-half tab daily for one week, then one-half tab every other day for one week - Rachel RODAS, Radiology Technologist TUSSIONEX PENNKINETIC ER 10-8 MG/5ML ORAL SUSPENSION EXTENDED RELEASE completed Take one teaspoon by mouth every 12 hours as needed for cough. Do not drive with this medication - Rachel RODAS, Radiology Technologist GUAIFENESIN AC 100-10 MG/5ML ORAL SYRUP completed Take one to two teaspoons by mouth every four to six hours as needed for cough - Rachel RODAS, Radiology Technologist PREDNISONE 20 MG ORAL TABLET completed Take two tablets by mouth daily for five days - Janis Burns MD ZITHROMAX Z-TEE 250 MG ORAL TABLET completed Take two tablets by mouth today, then one daily for four days - Janis Burns MD PREDNISONE 20 MG ORAL TABLET completed Take two tablets daily for 5 days - Yumiko Farris D.O. ZITHROMAX Z-TEE 250 MG ORAL TABLET completed Take two tablets by mouth today, then one daily for four days - Yumiko Farris D.O. CHERATUSSIN AC 100-10 MG/5ML ORAL SYRUP completed Take one to two teaspoons by mouth every four to six hours as needed for cough - Kendra Marrero LPN, Lead FERROUS SULFATE 325 (65 FE) MG ORAL TABLET completed Take one tablet by mouth every other day - Makenzie Blanton LPN GABAPENTIN 300 MG ORAL CAPSULE completed Take one capsule by mouth nightly for RLS - Rachel RODAS, Radiology Technologist PRAVACHOL 40 MG ORAL TABLET completed Take one tablet by mouth at bedtime - Rachel RODAS, Radiology Technologist pt not taking IBUPROFEN TABS 800MG completed TAKE 1 TABLET DAILY WITH FOOD - Yumiko Chirinos.O. DIFLUCAN 150 MG ORAL TABLET completed Take one tablet by mouth daily for 2 days - Monalisa Chavis ACETYLCYSTEINE DROPS completed Instill one drop in each eye once daily. - Rachel RODAS, Radiology Technologist ZITHROMAX Z-TEE 250 MG ORAL TABLET completed Take two tablets at once on day one then take one tablet by mouth every day for four days - Mail Way LPN CHERATUSSIN AC 100-10 MG/5ML ORAL SYRUP completed Take one to two teaspoons by mouth every four to six hours as needed for cough - Mali Way LPN RANITIDINE HCL 150 MG ORAL TABLET completed take one tablet by mouth twice daily for 1 week - Yumiko Farris D.O. PREDNISONE 20 MG ORAL TABLET completed Take two tablet daily - Yumiko Farris D.O. REQUIP 1 MG ORAL TABLET completed Take three tablet by mouth at bedtime - Monalisa Chavis DOXYCYCLINE HYCLATE 100 MG ORAL TABLET completed Take one tablet by mouth twice daily until gone - Mali Way LPN DOXYCYCLINE HYCLATE 100 MG ORAL TABLET completed Take one tablet by mouth twice daily until gone - Janis Burns MD PREDNISONE 20 MG ORAL TABLET completed Take 2 tablets by mouth daily x 5 days - Janis Burns MD PREDNISOLONE SODIUM PHOSPHATE 1 % OPHTHALMIC SOLUTION completed Apply to affected eye four times a day - Adriana Mccollum RN GENTEAL PM 85-15 % OPHTH OINT completed Apply to affected eyes nightly - Makenzie Blanton LPN IBUPROFEN 800 MG ORAL TABLET completed Take one tablet by mouth with food three times daily as needed for pain - Yumiko Farris D.ONarciso SUCRALFATE 1 GM ORAL TABLET completed Take on tablet by mout hbefore meals and at bedtime - Yumiko Farris D.O. HYDROCODONE-ACETA MINOPHEN 5-325 MG ORAL TABLET completed Take one to two tablets by mouth every six hours as needed for pain - Evert Davies, WOOD ROUTER HAND OMEPRAZOLE DR CAPS 40MG completed TAKE 1 CAPSULE TWICE A DAY - Monalisa Chavis DOXYCYCLINE HYCLATE 100 MG ORAL TABLET completed Take one tablet by mouth twice daily until gone - Fernando Mast M.D. CERTAGEN ORAL TABLET completed Take one vitamin tablet daily - Monalisa Chavis WESTCORT 0.2 % EXTERNAL OINTMENT completed Apply daily to rash on eyelids - Makenzie Blanton LPN PREDNISONE 20 MG ORAL TABLET completed 2 po daily for 5 days then one daily for 5days - Fernando Mast M.D. VOSOL HC 2-1 % OTIC SOLUTION completed 2 drops both ears bid - Fernando Mast M.D. ACYCLOVIR 200 MG CAPS completed Take 1 capsule by mouth twice a day - Makenzie Blanton LPN COUNSELING completed Weekly sessions - Rachel RODAS, Radiology Technologist ZOLOFT 50 MG ORAL TABLET completed Take one or two tablets by mouth daily - Faith Pool PA-C L-LYSINE 1000 MG ORAL TABLET completed one po daily - Rachel RODAS, Radiology Technologist HYPOTEARS OPHTHALMIC OINTMENT completed prn - Rachel RODAS, Radiology Technologist TOBRADEX 0.3-0.1 % OPHTHALMIC OINTMENT completed apply 1/2 inch ribbon nightly for eyes - Raegan Iqbal NP Student AZASITE 1 % OPHTHALMIC SOLUTION completed nightly on upper/lower eyelids - Raegan Iqbal NP Student REFRESH P.M. OPHTHALMIC OINTMENT completed prn - Raegan Iqbal NP Student AZMACORT completed prn - Fernando Mast M.D. ACYCLOVIR 400 MG ORAL TABLET completed one tablet three times a day for five days - Fernando Mast M.D. PERCOCET 5-325 MG ORAL TABLET completed one po three times daily prn pain - Fernando Mast M.D. FLUTICASONE PROPIONATE 50 MCG/ACT NASAL SUSPENSION completed 1 spray each nostril twice daily - Santino DOE [place] [employer] ALPRAZOLAM 0.5 MG ORAL TABLET completed 1-3 tabs prior to diagnostic study. - Aissatou Gonzales RN PHYISCAL THERAPY completed due to cervical and left shoulder pain - Santino [employer] DOXYCYCLINE MONOHYDRATE 100 MG ORAL CAPSULE completed 1 tab PO QD - Fernando Mast M.D. for treatment of dry eye FLAX SEED OIL 1000 MG ORAL CAPSULE completed 1 po daily - Kendra Marrero LPN, Vielka NEXIUM 20 MG ORAL CAPSULE DELAYED RELEASE completed 1 tab daily (take 1/2 hr before dominik mesl) - Mikey Small MD CALCIUM-MAGNESIUM -ZINC [id number] MG ORAL TABLET completed One po bid - Raegan Iqbal NP Student DOXY-CAPS 100 MG CAPS completed 1 po daily - Mikey Small MD NASONEX 50 MCG/ACT NASAL SUSPENSION completed 2 sprays in each nostril daily - Mikey Small MD VITAMIN D 1000 UNIT ORAL TABLET completed two tabs daily for vit D deficiency - Monalisa Chavis NASONEX 50 MCG/ACT NASAL SUSPENSION completed 2 sprays in each nostril daily - Fernando Mast M.D. NEXIUM 20 MG ORAL CAPSULE DELAYED RELEASE completed 1 tab daily (take 1/2 hr before dominik mesl) - Fernando Mast M.D. ADVAIR DISKUS 250-50 MCG/DOSE INHALATION AEROSOL POWDER BREATH ACTIVATED completed Use one inhalation twice daily - Tanja Simon SENIOR ESCROW OFFICER SPIRIVA HANDIHALER CAPSULE completed inhale one puff in the morning - Fernando Mast M.D. LEVAQUIN 750 MG ORAL TABLET completed 1 tab daily - Fernando Mast M.D. ADVAIR DISKUS 500-50 MCG/DOSE INHALATION AEROSOL POWDER BREATH ACTIVATED completed 1 inhalation twice daily - Fernando Mast M.D. PREDNISONE 20 MG ORAL TABLET completed 2 po daily for 5 days - Fernando Mast M.D. ZITHROMAX Z-TEE 250 MG ORAL TABLET completed 2 po today, then one daily x 4days - Fernando Mast M.D. DILAUDID 2 MG ORAL TABLET completed One tab po q 4-6hr prn pain - Fernando Mast M.D. ESTRACE 0.1 MG/GM VAGINAL CREAM completed One half appilcator full vaginally 3x per wk. - Mikey Small MD LEVAQUIN 750 MG ORAL TABLET completed 1 tab daily - Carmen Escalante MD LEVAQUIN 500 MG ORAL TABLET completed 1 PO daily x 1 week - Fernando Mast M.D. ROCEPHIN 1 GM SOLR completed One gm IM in office. - Fernando Mast M.D. ACYCLOVIR 400 MG ORAL TABLET completed 1 po three times daily for seven days - Mikey Small MD HYDROCORTISONE 1 % EXTERNAL CREAM completed apply to affected area twice a day as needed for itch - ADRIANNA Bianchi ACETASOL HC 2-1 % OTIC SOLUTION completed 2 drops in affected ear qid - ADRIANNA Bianchi IBUPROFEN 800 MG ORAL TABLET completed 1PO three times a day with food prn - Aissatou Gonzales RN CORTISPORIN-TC 3.3-3-10-0.5 MG/ML OTIC SUSPENSION completed 2 drops in affected ear qid - Fernando Mast M.D. TRAMADOL HCL 50 MG ORAL TABLET completed 1 PO four times daily prn pain. Take with food. - Carmen Escalante MD DICLOFENAC SODIUM 75 MG ORAL TABLET DELAYED RELEASE completed one po twice daily - Carmen Escalante MD NABUMETONE 750 MG ORAL TABLET completed Take one tablet po twice daily - Fernando Mast M.D. ZITHROMAX Z-TEE 250 MG ORAL TABLET completed 2 po today, then one daily x 4days - Fernando Mast M.D. RHINOCORT AQUA 32 MCG/ACT NASAL SUSPENSION completed one spray each nostril daily - Fernando Mast M.D. ERYTHROMYCIN 5 MG/GM OPHTHALMIC OINTMENT completed 1cm ribbon to lower lid qid and qhs for 7 days - Fernando Mast M.D. VICODIN TABS completed prn - ADRIANNA Bianchi MOTRIN 800 MG TABS completed 1 tab tid - Fernando Mast M.D. Proventil HFA 90 mcg/actuation HFA aerosol inhaler completed Inhale 2 puff every three to four hours as needed for wheeze - Kulwant Rubin PA-C AZMACORT 100 MCG/ACT AERS completed 2 puffs tid - Fernando Mast M.D. CRESTOR 10 MG ORAL TABLET completed 1 tab daily - Fernando Mast M.D. TRAZODONE HCL 50 MG TABS completed Take 3-4 tablet every night - Linda TOPETE PERCOCET 5-325 MG ORAL TABLET completed one po q 6hr prn pain - ADRIANNA Bianchi TREATMENT PLAN Date Name US RETROPERITONEAL L IMITED/AAA MONITORING X-RAY EXAM CHEST 2 V IEWS TISSUE EXAM BY PATHO LOGIST, Level IV HISTORY OF PROCEDURES Procedure Date Procedure Name Provider Procedure Notes S tatus Visit Code Hold Enoc singletary M.D. completed Visit Code Hold Enoc singletary M.D. completed Visit Code Hold Rambo Diego MD com pleted Visit Code Hold Wilber meza PA-C completed BIOPSY OF THE VULVA, ONE LESION Rambo Diego MD completed Visit Code Hold Rambo Diego MD com pleted Visit Code Hold Enoc singletary M.D. completed Visit Code Hold Enoc singletary M.D. completed Visit Code Hold Enoc singletary M.D. completed Visit Code Hold Enoc singletary M.D. completed IM or SQ Injection Ernestina Laird MVA REACTOR OPERATOR ENP completed Solu-Medrol 125mg Ernestina Laird MVA REACTOR OPERATOR ENP completed Visit Code Hold Gena Oglesby RN c ompleted Visit Code Hold Kulwant vazquez PA-C completed EKG Interpretation Judye Guido Schei dt D.O. completed IM or SQ Injection Judye A Schei dt D.O. completed Solu-Medrol 125mg Judye A Scheid t D.O. completed Med Administration (PO-SL-IN-MN) Faith Pool, KAYDEN completed Duoneb Faith Pool , KAYDEN completed IM or SQ Injection Faith Holi ofelia, CASEYC completed Solu-Medrol 125mg Faith lopez, CASEYC completed IM or SQ Injection Makenzie Frost ht SENIOR ESCROW OFFICER completed Solu-Medrol 125mg Makenzie Shin t SENIOR ESCROW OFFICER completed IM Injection of Antibiotic Makenzie Blanton SENIOR ESCROW OFFICER completed Rocephin 1gm Inj Solr Makenzie moore SENIOR ESCROW OFFICER completed IM or SQ Injection Faith Holi ofelia, CASEYC completed Solu-Medrol 125mg Faithbipin Pressley ay, CASEYC completed IM Injection of Antibiotic Faith Pool, CASEYC completed Rocephin 1gm Inj Solr Faith angel, CASEYC completed Aspiration or Inj, M ajor Joint or Bursa (Shoulder, Hip, Knee Joint, Subacromial) Janis Burns MD completed Duoneb Janis Burns MD completed IM Injection of Antibiotic Janis Burns MD completed Rocephin 1gm Inj Amandar Janis Burns MD completed IM or SQ Injection Janis Burns MD completed Solu-Medrol 125mg Janis Burns MD completed IM or SQ Injection Ernestina Garcia r PROTOTYPE CARPENTER-C completed Solu-Medrol 125mg Ernestina Martinez PROTOTYPE CARPENTER-C completed IM Injection of Antibiotic Ernestina Martinez PROTOTYPE CARPENTER-C completed Rocephin 250 mg Inj Solr Ernestina Martinez PROTOTYPE CARPENTER-C completed Med Administration (PO-SL-IN-MN) Ernestina Martinez PROTOTYPE CARPENTER-C completed Duoneb Ernestina Martinez PROTOTYPE CARPENTER-C completed IM Injection of Antibiotic Faiht Corine, PA-C completed Rocephin 1gm Inj Solr Faith angel, PA-C completed Med Administration (PO-SL-IN-MN) aFith Pool, PA-C completed Solu-Medrol 125mg Faith Huan lopez, PA-C completed Med Administration (PO-SL-IN-MN) Faith Corine, PA-C completed Duoneb Faith Corine , PA-C completed X-RAY EXAM CHEST 2 VIEW Faith Corine, PA-C completed POC URINALYSIS NAUTO W/O SCOPE Janis Burns MD completed Med Administration (PO-SL-IN-MN) Ernestina Martinez PROTOTYPE CARPENTER-C completed Duoneb Ernestina Martinez PROTOTYPE CARPENTER-C completed Med Administration (PO-SL-IN-MN) Ernestina Martinez PROTOTYPE CARPENTER-C completed Duoneb Ernestina Martinez PROTOTYPE CARPENTER-C completed Nebulizer Treatment Janis Burns MD completed Med Administration (PO-SL-IN-MN) Janis Burns MD completed Duoneb Jnais Burns MD [facility]: [id number]. completed Med Administration (PO-SL-IN-MN) Janis Burns MD completed Dualainab Janis Burns MD completed Nebulizer Treatment Janis Burns MD completed Nebulizer Treatment Janis Burns MD completed Solu-Medrol 125mg Janis Burns MD [facility]: [id number]. completed Nilesh Burns MD [place]: [id number]. completed Nilesh garcia ed IM or SQ Injection Janis Burns MD completed Depo-Medrol 40mg/ml Janis Burns MD ND: 2954-3545-25. completed Nebulizer Treatment Janis Burns MD completed Inj, Flu for use in individuals 3 yrs of age and above, intramuscular Judye A Scheidt D.O. completed Fluzone High-Dose Intramuscular Suspension Judye A Scheidt D.O. completed Fluzone High-Dose Intramuscular Suspension Jake Monteiro LPN completed [id number] Fernando Mast M.D. completed Fluvirin Rachel RODAS, Radiology Technologist completed Splint Harley Lorenzana DO Custom Hand bored thumb spica splint completed Knee 2V Harley Lorenzana DO completed ADVANCE DIRECTIVES Name Date PER HIPPA, [place] TO LVM FAMILY/RX HIPAA - PRAKASH & SHANNAN SCHMID 7-5- - SOCIAL HISTORY Date Observation Value Provider seatbelt usage 100 % Marlene Loya PN caffeine use, averag e drinks per day 1 /d Marlene Guajardo LPN if the patient is us ing/has used a vaping item, Current, Former, Never Used, Not asked Never Marlene Guajardo LPN personal history of marijuana use no Marlene Guajardo LPN drug use no Marlene Guajardo LPN alcohol use no Marlene Guajardo [facility] passive cigarette sm blaine exposure no Marlene Guajardo [facility] chewing tobacco use Never Marlene cobb [facility] smoking, year quit 1999 Marlene Luna [facility] number of years as a smoker 41+ Marlene Guajardo [facility] smoking history, tot al pack/year 40 Marlene Guajardo [facility] cigarette use yes Marlene Guajardo [facility] smoking status Former smoker Marlene Guajardo [facility] Depression Screening Negative Enoc Leonard M.D. PHQ2 Questionairre Score 0 Maverick Leonard M.D. PHQ9 Question Two score 0 Remedios Cat MA-R PHQ9 Question One score 0 Remedios Cat MA-R smoking status Former smoker Remedios Cat M A-R seatbelt usage 100 % Remedios Cat MA -R exercise type PT Remedios Cat MA- R physical exercise, frequency, days per week 3 /wk Remedios Cat MA-R caffeine use, averag e drinks per day 1 /d Remedios Cat MA-R personal history of marijuana use no Remedios Cat MA-R drug use no Remedios Cat MA-R alcohol use no Remedios Cat MA-R passive cigarette sm blaine exposure no Remedios Cat MA-R chewing tobacco use Never Remedios restrepo MA-R smoking, year quit 1999 Remedios Velasquez rhonda MA-R number of years as a smoker 41+ Remedios Cat MA-R smoking history, tot al pack/year 41 Remedios Cat MA-R cigarette use yes Remedios Cat MA- R social history reviewed E&M revi ewed - no changes required Wilber Ferreira PA-C PHQ9 Question One score 0 Remedios CONLEY seatbelt usage 100 % Remedios Wolfe exercise type PT Remedios Singletary physical exercise, frequency, days per week 3 /wk Remedios CONLEY caffeine use, averag e drinks per day 1 /d Remedios CONLEY smoking status Former smoker Remedios Armas personal history of marijuana use no Remedios CONLEY drug use no Remedios CONLEY alcohol use, average drinks per day <1 Remedios CONLEY alcohol use yes Remedios CONLEY passive cigarette sm blaine exposure no Remedios CONLEY chewing tobacco use Never Remedios CONLEY smoking, year quit 1999 Remedios CONLEY number of years as a smoker 41+ Remedios CONLEY smoking history, tot al pack/year 41 Remedios MELVINR cigarette use yes Remedios Singletary Depression Screening Negative Enoc Leonard M.D. PHQ2 Questionairre Score 0 Maverick Leonard M.D. seatbelt usage 100 % Kendra Marrero LPN, Lead exercise type PT Kendra Marrero LPN, Lead physical exercise, frequency, days per week 3 /wk Kendra Marrero LPN, Lead caffeine use, averag e drinks per day 1 /d Kendra Marrero LPN, Lead smoking status Former smoker Kendra antoine SENIOR ESCROW OFFICER, Lead personal history of marijuana use no Kendra Marrero LPN, Lead drug use no Kendra A Remey L PN, Lead alcohol use, average drinks per day <1 Kendra A Remey SENIOR ESCROW OFFICER, Lead alcohol use yes Kendra Lora Remey L PN, Lead passive cigarette sm blaine exposure no Kendra A Remey SENIOR ESCROW OFFICER, Lead chewing tobacco use Never Kendra A Remey SENIOR ESCROW OFFICER, Lead smoking, year quit 1999 Kendra A R emey SENIOR ESCROW OFFICER, Lead number of years as a smoker 41+ Kendra A Remey SENIOR ESCROW OFFICER, Lead smoking history, tot al pack/year 41 Kendra A Remey SENIOR ESCROW OFFICER, Lead cigarette use yes Kendra A Remey SENIOR ESCROW OFFICER, Lead PHQ9 Question Two score 0 Jitendra a A Remey SENIOR ESCROW OFFICER, Lead PHQ9 Question One score 0 Jitendra a A Remey SENIOR ESCROW OFFICER, Lead Depression Screening Negative Enoc Leonard M.D. PHQ2 Questionairre Score 0 Maverick Leonard M.D. personal history of marijuana use no Mary Stout RN BSN drug use no Mary Stout RN BSN alcohol use, average drinks per day <1 Mary Stout GROCERY CLERK CHECKING alcohol use yes Mary Stout GROCERY CLERK CHECKING passive cigarette sm blaine exposure no Mary Stout GROCERY CLERK CHECKING chewing tobacco use Never Mary R carolee GROCERY CLERK CHECKING smoking, year quit 1999 aMry arce GROCERY CLERK CHECKING number of years as a smoker 41+ Mary Stout GROCERY CLERK CHECKING smoking history, tot al pack/year 41 Mary Stout GROCERY CLERK CHECKING cigarette use yes Maryeliud Lubins R N BSN smoking status Former smoker Mary Stout GROCERY CLERK CHECKING PHQ9 Question Two score 0 Abdifatah eliud Stout RN BSN PHQ9 Question One score 0 Abdifatah eliud Stout GROCERY CLERK CHECKING Depression Screening Negative Enoc Leonard M.D. PHQ2 Questionairre Score 0 Maverick dang Leonard M.D. PHQ9 Question Two score 0 Floridalma Jacobo MA-R PHQ9 Question One score 0 Floridalma Jacobo MA-R personal history of marijuana use no Annie Jcaobo MA-R drug use no Annie Jacobo MA- R alcohol use, average drinks per day <1 Annie Jacobo MA-R alcohol use yes Annie Jacobo MA- R passive cigarette sm blaine exposure no Annie Jacobo MA-R chewing tobacco use Never Annie elena MA-R smoking, year quit 1999 Annie cerda MA-R number of years as a smoker 41+ Annie Jacobo MA-R smoking history, tot al pack/year 41 Annie Jacobo MA-R cigarette use yes Annie Jacobo MA -R smoking status Former smoker Annie Jacobo MA-R Depression Screening Negative Yumiko A Scheidt D.O. PHQ2 Questionairre Score 0 Virginia Lora Scheidt D.O. PHQ9 Question Two score 0 Justine Blanton SENIOR ESCROW OFFICER PHQ9 Question One score 0 Justine Blanton SENIOR ESCROW OFFICER PHQ9 Question One score 0 Abby lantigua A Scheidt D.O. seatbelt usage 100 % Leslie RODAS,ROT exercise type PT Leslie RODAS,ROT physical exercise, frequency, days per week 3 /wk Leslie RODAS,ROT caffeine use, averag e drinks per day 1 /d Leslie RODAS,ROT smoking status Former smoker Leslie RODAS,ROT drug use no Leslie Lora-C,ROT alcohol use, average drinks per day <1 Leslie RODAS,ROT alcohol use yes Leslie Pittman A-C,ROT passive cigarette sm blaine exposure no Leslie RODAS,ROT chewing tobacco use Never Leslie RODAS,ROT smoking, year quit 1999 Leslie RODAS,ROT number of years as a smoker 41+ Leslie RODAS,ROT smoking history, tot al pack/year 41 Leslie RODAS,ROT cigarette use yes Leslie RODAS,ROT seatbelt usage 100 % Leslie RODAS,ROT exercise type PT Leslie RODAS,ROT physical exercise, frequency, days per week 3 /wk Leslie RODAS,ROT caffeine use, averag e drinks per day 1 /d Leslie RODAS,ROT smoking status Former smoker Leslie RODAS,ROT alcohol use, average drinks per day <1 Leslie RODAS,ROT smoking, year quit 1999 Leslie RODAS,ROT number of years as a smoker 41+ Leslie RODAS,ROT cigarette use yes Leslie RODAS,ROT social history E&M Patient is a former smoker.; Patient has never used smokeless tobacco.; Passive Smoke: N; Alcohol Use: Y; Drug Use: N; HIV/High Risk: N; Regular Exercise: N; Hx Domestic Abuse: N; Taoism Affecting Care: N; Leslie RODAS,ROT drug use no Leslie Joya,ROT alcohol use yes Leslie Joya,ROT passive cigarette sm blaine exposure no Leslie RODAS,ROT chewing tobacco use Never Leslie RODAS,ROT smoking/tobacco cess ation, patient education and counseling yes Leslie RODAS,ROT social history reviewed E&M revi ewed - no changes required Leslie RODAS,ROT domestic abuse, hx of no Kylie RODAS,ROT seatbelt usage 100 % Irma Pittman Emmanuel i SENIOR ESCROW OFFICER exercise type PT Irma Pittman Javi SENIOR ESCROW OFFICER physical exercise, frequency, days per week 3 /wk Irma Pittman Javi SENIOR ESCROW OFFICER caffeine use, averag e drinks per day 1 /d Irma Pittman Javi SENIOR ESCROW OFFICER smoking status Former smoker Irma Pittman Stewart rock SENIOR ESCROW OFFICER drug use no Irma Pittman Javi SENIOR ESCROW OFFICER alcohol use, average drinks per day <1 Irma Pittman Javi LUUN alcohol use yes Irma Pittman Javi LUUN passive cigarette sm blaine exposure no Irma Pittman Javi SENIOR ESCROW OFFICER chewing tobacco use Never Irma Gillette riley SENIOR ESCROW OFFICER smoking, year quit 1999 Irma Pittman Duarte calabrese SENIOR ESCROW OFFICER number of years as a smoker 41+ Irma Pittman Javi SENIOR ESCROW OFFICER smoking history, tot al pack/year 41 Irma Pittman Javi SENIOR ESCROW OFFICER cigarette use yes Irma Pittman Javi SENIOR ESCROW OFFICER drug use no Kendra Loay PN, Lead alcohol use, average drinks per day <1 Kendra Lora Remey SENIOR ESCROW OFFICER, Lead alcohol use yes Kendra Marrero L PN, Lead seatbelt usage 100 % Kendra A Remey SENIOR ESCROW OFFICER, Lead exercise type PT Kendraguido Almanzaey SENIOR ESCROW OFFICER, Lead physical exercise, frequency, days per week 3 /wk Kendra A Remey SENIOR ESCROW OFFICER, Lead caffeine use, averag e drinks per day 1 /d Kendra Guido Remey SENIOR ESCROW OFFICER, Lead passive cigarette sm blaine exposure no Kendra A Remey SENIOR ESCROW OFFICER, Lead chewing tobacco use Never Kendra Guido Remey SENIOR ESCROW OFFICER, Lead smoking, year quit 1999 Kendra A Gemini rodriguezey SENIOR ESCROW OFFICER, Lead number of years as a smoker 41+ Kendra A Remey SENIOR ESCROW OFFICER, Lead smoking history, tot al pack/year 41 Kendra A Remey SENIOR ESCROW OFFICER, Lead cigarette use yes Kendra Lora Remey SENIOR ESCROW OFFICER, Lead smoking status Former smoker Kendraguido Almanzae y SENIOR ESCROW OFFICER, Lead social history reviewed E&M revi ewed - no changes required Faith Pool PA-C drug use no Marlene Guajardo SENIOR ESCROW OFFICER alcohol use, average drinks per day <1 Marlene Guajardo SENIOR ESCROW OFFICER alcohol use yes Marlene Guajardo SENIOR ESCROW OFFICER seatbelt usage 100 % Marlene Loya PN exercise type PT Marlene Guajardo LP N physical exercise, frequency, days per week 3 /wk Marlene Guajardo SENIOR ESCROW OFFICER caffeine use, averag e drinks per day 1 /d Marlene Kellyeth SENIOR ESCROW OFFICER passive cigarette sm blaine exposure no Marlene Kellyeth SENIOR ESCROW OFFICER chewing tobacco use Never Marlene Kelly eth SENIOR ESCROW OFFICER smoking, year quit 1999 Marlene rai SENIOR ESCROW OFFICER number of years as a smoker 41+ Marlene Kellyeth SENIOR ESCROW OFFICER smoking history, tot al pack/year 41 Marlene Kellyeth SENIOR ESCROW OFFICER cigarette use yes Marlene Kellyeth LP N smoking status Former smoker Marlene Guajardo SENIOR ESCROW OFFICER drug use no Kendra Lora Camiey L PN, Lead alcohol use, average drinks per day <1 Kendra A Remey SENIOR ESCROW OFFICER, Lead alcohol use yes Kendra Lora Camiey L PN, Lead seatbelt usage 100 % Kendra A Remey SENIOR ESCROW OFFICER, Lead exercise type PT Kendra A Remey SENIOR ESCROW OFFICER, Lead physical exercise, frequency, days per week 3 /wk Kendra A Remey SENIOR ESCROW OFFICER, Lead caffeine use, averag e drinks per day 1 /d Kendra A Remey SENIOR ESCROW OFFICER, Lead passive cigarette sm blaine exposure no Kendra A Remey SENIOR ESCROW OFFICER, Lead chewing tobacco use Never Kendra A Remey SENIOR ESCROW OFFICER, Lead smoking, year quit 1999 Kendra Guido Singletary emey SENIOR ESCROW OFFICER, Lead number of years as a smoker 41+ Kendra A Remey SENIOR ESCROW OFFICER, Lead smoking history, tot al pack/year 41 Kendra A Remey SENIOR ESCROW OFFICER, Lead cigarette use yes Kendra A Remey SENIOR ESCROW OFFICER, Lead smoking status Former smoker Kendra Lora Mary Beth y SENIOR ESCROW OFFICER, Lead drug use no Kendra Lora aCmiey L PN, Lead alcohol use, average drinks per day <1 Kendra A Remey SENIOR ESCROW OFFICER, Lead alcohol use yes Kendra A Camiey L PN, Lead seatbelt usage 100 % Kendra A Remey SENIOR ESCROW OFFICER, Lead exercise type PT Kendra A Remey SENIOR ESCROW OFFICER, Lead physical exercise, frequency, days per week 3 /wk Kendra A Remey SENIOR ESCROW OFFICER, Lead caffeine use, averag e drinks per day 1 /d Kendra A Remey SENIOR ESCROW OFFICER, Lead passive cigarette sm blaine exposure no Kendra A Remey SENIOR ESCROW OFFICER, Lead chewing tobacco use Never Kendra A Remey SENIOR ESCROW OFFICER, Lead smoking, year quit 1999 Kendra Guido R emey SENIOR ESCROW OFFICER, Lead number of years as a smoker 41+ Kendra Almanzaey SENIOR ESCROW OFFICER, Lead smoking history, tot al pack/year 41 Kendra Guido Remey SENIOR ESCROW OFFICER, Lead cigarette use yes Kendra Lora [employer], Lead smoking status Former smoker Kendra Clinton y SENIOR ESCROW OFFICER, Lead drug use no Tanja Aurora Simon SENIOR ESCROW OFFICER alcohol use, average drinks per day <1 Tanja Aurora Alfred SENIOR [employer]OW OFFICER alcohol use yes Tanja Aurora Alfred [employer]OW OFFICER seatbelt usage 100 % Tanja Joya n SENIOR ES[employer]OW OFFICER exercise type PT Tanja I Alfred S[employer]IOR [employer]OW OFFICER physical exercise, frequency, days per week 3 /wk Tanja Aurora Alfred [employer]IOR [employer] OFFICER caffeine use, averag e drinks per day 1 /d Tanja Aurora Alfred [employer]IOR [employer]OW OFFICER passive cigarette sm blaine exposure no Tanja Aurora Alfred [employer]IOR [employer]OW OFFICER chewing tobacco use Never Tanja I Alfred SENIOR ES[employer]OW OFFICER smoking, year quit 1999 Tanja Aurora Alfred S[employer]IOR ES[employer]OW OFFICER number of years as a smoker 41+ Tanja I Alfred SENIOR ES[employer]OW OFFICER smoking history, tot al pack/year 41 Tanja Aurora Alfred SENIOR ES[employer]OW OFFICER cigarette use yes Tanja Aurora Alfred SENIOR ES[employer]OW OFFICER smoking status Former smoker Tanjashaq Argueta on SENIOR ESCROW OFFICER social history reviewed E&M revi ewed - no changes required Faith Pool PA-C drug use no Kendra Marrero L PN, Lead alcohol use, average drinks per day <1 Kendra Guido Camiey S[employer]IOR ES[employer]OW OFFICER, Lead alcohol use yes Kendra Marrero L PN, Lead seatbelt usage 100 % Kendra Guido Almanzaey SENIOR ESCROW OFFICER, Lead exercise type PT Kendra Guido Marrero SENIOR ESCROW OFFICER, Lead physical exercise, frequency, days per week 3 /wk Kendra A Camiey SENIOR ESCROW OFFICER, Lead caffeine use, averag e drinks per day 1 /d Kendra A Camiey SENIOR ESCROW OFFICER, Lead passive cigarette sm blaine exposure no Kendra Lora Remey SENIOR ESCROW OFFICER, Lead chewing tobacco use Never Kendra A Remey SENIOR ESCROW OFFICER, Lead smoking, year quit 1999 Kendra rodriguezey SENIOR ESCROW OFFICER, Lead number of years as a smoker 41+ Kendraguido Almanzaey SENIOR ESCROW OFFICER, Lead smoking history, tot al pack/year 41 Kendra Guido Remey SENIOR ESCROW OFFICER, Lead cigarette use yes Kendra A Remey SENIOR ESCROW OFFICER, Lead smoking status Former smoker Kendra Lora Mary Beth y SENIOR ESCROW OFFICER, Lead drug use no Kendra Guido Almanzaey L PN, Lead alcohol use, average drinks per day <1 Kendra A Remey SENIOR ESCROW OFFICER, Lead alcohol use yes Kendra Almanzaey L PN, Lead seatbelt usage 100 % Kendra A Remey SENIOR ESCROW OFFICER, Lead exercise type PT Kendra A Remey SENIOR ESCROW OFFICER, Lead physical exercise, frequency, days per week 3 /wk Kendra A Remey SENIOR ESCROW OFFICER, Lead caffeine use, averag e drinks per day 1 /d Kendra A Remey SENIOR ESCROW OFFICER, Lead passive cigarette sm blaine exposure no Kendra Lora Remey SENIOR ESCROW OFFICER, Lead chewing tobacco use Never Kendra Guido Remey SENIOR ESCROW OFFICER, Lead smoking, year quit 1999 Kendra Lora Gemini jenniferey SENIOR ESCROW OFFICER, Lead number of years as a smoker 41+ Kendra Lora Remey SENIOR ESCROW OFFICER, Lead smoking history, tot al pack/year 41 Kendra A Remey SENIOR ESCROW OFFICER, Lead cigarette use yes Kendra Lora Remey SENIOR ESCROW OFFICER, Lead smoking status Former smoker Kendra Lora Mary Beth y SENIOR ESCROW OFFICER, Lead social history reviewed E&M jessica buck - no changes required Faith Pool PA-C Depression Screening Negative Xochilt Pool PA-C PHQ2 Questionairre Score 0 Jerilyn Pool PA-C PHQ9 Question Two score 0 Kayl ee Gully C-MA PHQ9 Question One score 0 Kayl ee Gully C-MA drug use no Linda Gully C-MA alcohol use yes Linda Gully C-MA seatbelt usage 100 % Linda O'Bari l C-MA exercise type PT Linda Gully C-MA physical exercise, frequency, days per week 3 /wk Linda Gully C-MA caffeine use, averag e drinks per day 1 /d Linda Gully C-MA passive cigarette sm blaine exposure no Linda Gully C-MA chewing tobacco use Never Linda O 'Boris C-MA smoking, year quit 1999 Linda O' Boris C-MA number of years as a smoker 41+ Linda Gully C-MA smoking history, tot al pack/year 41 Linda Gully C-MA cigarette use yes Linda Gully C-MA smoking status Former smoker Linda O'Nei ll C-MA social history reviewed E&M jessica buck - no changes required Faith Pool PA-C drug use no Makenzie Blanton SENIOR ESCROW OFFICER alcohol use, average drinks per day <1 Makenzie Blanton SENIOR ESCROW OFFICER alcohol use yes Makenzie Blanton SENIOR ESCROW OFFICER seatbelt usage 100 % Makenzie stephens SENIOR ESCROW OFFICER exercise type PT Makenzie mahan SENIOR ESCROW OFFICER physical exercise, frequency, days per week 3 /wk Makenzie Blanton SENIOR ESCROW OFFICER caffeine use, averag e drinks per day 1 /d Makenzie Blanton SENIOR ESCROW OFFICER passive cigarette sm blaine exposure no Makenzie Blanton SENIOR ESCROW OFFICER chewing tobacco use Never Makenzie Blanton SENIOR ESCROW OFFICER smoking, year quit 1999 Makenzie Blanton SENIOR ESCROW OFFICER number of years as a smoker 41+ Makenzie Blanton SENIOR ESCROW OFFICER smoking history, tot al pack/year 41 Makenzie Blanton SENIOR ESCROW OFFICER cigarette use yes Makenzie mahan SENIOR ESCROW OFFICER smoking status Former smoker Makenzie Gaspar ght SENIOR ESCROW OFFICER social history reviewed E&M revi ewed - no changes required Faith Pool, PA-C drug use no Makenzie Blanton SENIOR ESCROW OFFICER alcohol use, average drinks per day <1 Makenzie Blanton SENIOR ESCROW OFFICER alcohol use yes Makenzie Blanton SENIOR ESCROW OFFICER seatbelt usage 100 % Makenzie Junioraniceto ht SENIOR ESCROW OFFICER exercise type PT Makenzie mahan SENIOR ESCROW OFFICER physical exercise, frequency, days per week 3 /wk Makenzie Blanton SENIOR ESCROW OFFICER caffeine use, averag e drinks per day 1 /d Makenzie Blanton SENIOR ESCROW OFFICER passive cigarette sm blaine exposure no Makenzie Blanton SENIOR ESCROW OFFICER chewing tobacco use Never Makenzie Blanton SENIOR ESCROW OFFICER smoking, year quit 1999 Makenzie Blanton SENIOR ESCROW OFFICER number of years as a smoker 41+ Makenzie Blanton SENIOR ESCROW OFFICER smoking history, tot al pack/year 41 Makenzie Blanton SENIOR ESCROW OFFICER cigarette use yes Makenzie mahan SENIOR ESCROW OFFICER smoking status Former smoker Makenzie lemont SENIOR ESCROW OFFICER social history reviewed E&M revi ewed - no changes required Faith Pool, PA-C social history reviewed E&M revi ewed - no changes required Faith Pool, PA-C drug use no Makenzie Blanton SENIOR ESCROW OFFICER alcohol use, average drinks per day <1 Makenzie Juniorught SENIOR ESCROW OFFICER alcohol use yes Makenzie Juniorught SENIOR ESCROW OFFICER seatbelt usage 100 % Makenzie Frost ht SENIOR ESCROW OFFICER exercise type PT Makenzie mahan SENIOR ESCROW OFFICER physical exercise, frequency, days per week 3 /wk Makenzie Juniorught SENIOR ESCROW OFFICER caffeine use, averag e drinks per day 1 /d Makenzie Juniorught SENIOR ESCROW OFFICER passive cigarette sm blaine exposure no Makenzie Juniorught SENIOR ESCROW OFFICER chewing tobacco use Never Makenzie Juniorught SENIOR ESCROW OFFICER smoking, year quit 1999 Makenzie Juniorught SENIOR ESCROW OFFICER number of years as a smoker 41+ Makenzie Juniorught SENIOR ESCROW OFFICER smoking history, tot al pack/year 41 Makenzie Juniorught SENIOR ESCROW OFFICER cigarette use yes Makenzie mahan SENIOR ESCROW OFFICER smoking status Former smoker Makenzie Gaspar iont SENIOR ESCROW OFFICER drug use no Makenzie Juniorught SENIOR ESCROW OFFICER alcohol use, average drinks per day <1 Makenzie Juniorught SENIOR ESCROW OFFICER alcohol use yes Makenzie Juniorught SENIOR ESCROW OFFICER seatbelt usage 100 % Makenzie Frost ht SENIOR ESCROW OFFICER exercise type PT Makenzie mahan SENIOR ESCROW OFFICER physical exercise, frequency, days per week 3 /wk Makenzie Juniorught SENIOR ESCROW OFFICER caffeine use, averag e drinks per day 1 /d Makenzie Juniorught SENIOR ESCROW OFFICER passive cigarette sm blaine exposure no Makenzie Juniorught SENIOR ESCROW OFFICER chewing tobacco use Never Makenzie Juniorught SENIOR ESCROW OFFICER smoking, year quit 1999 Makenzie Juniorught SENIOR ESCROW OFFICER number of years as a smoker 41+ Makenzie Juniorught SENIOR ESCROW OFFICER smoking history, tot al pack/year 41 Makenzie Juniorught SENIOR ESCROW OFFICER cigarette use yes Makenzie mahan SENIOR ESCROW OFFICER smoking status Former smoker Makenzie Gaspar ght SENIOR ESCROW OFFICER social history reviewed E&M revi ewed - no changes required Akiko CALIXP social history reviewed E&M revi ewed - no changes required Akiko CALIXP drug use no Eliana Felicianoa MA-C alcohol use, average drinks per day <1 Eliana Felicianoa MA-C alcohol use yes Eliana Felicianoa MA-C seatbelt usage 100 % Eliana Feliciano a MA-C exercise type PT Eliana Felicianoa MA-C physical exercise, frequency, days per week 3 /wk Eliana Felicianoa MA-C caffeine use, averag e drinks per day 1 /d Eliana Felicianoa MA-C passive cigarette sm blaine exposure no Eliana Galicia MA-C chewing tobacco use Never Eliana mckeon MA-C smoking, year quit 1999 Eliana garcia KS-C number of years as a smoker 41+ Eliana Galicia MA-C smoking history, tot al pack/year 41 Eliana Felicianoa MA-C cigarette use yes Eliana Galicia MA-C smoking status Former smoker Eliana Saldana ua MA-C drug use no Kendra Loya PN, Lead alcohol use, average drinks per day <1 Kendra Marrero LPN, Lead alcohol use yes Kendra Loya PN, Lead seatbelt usage 100 % Kendra Marrero LPN, Lead exercise type PT Kendra Marrero LPN, Lead physical exercise, frequency, days per week 3 /wk Kendra Marrero LPN, Lead caffeine use, averag e drinks per day 1 /d Kendra Marrero LPN, Lead passive cigarette sm blaine exposure no Kendra Marrero LPN, Lead chewing tobacco use Never Kendra Marrero LPN, Lead smoking, year quit 1999 Kendra rae LPN, Lead number of years as a smoker 41+ Kendra Marrero LPN, Lead smoking history, tot al pack/year 41 Kendra Marrero SENIOR ESCROW OFFICER, Lead cigarette use yes Kendra Marrero SENIOR ESCROW OFFICER, Lead smoking status Former smoker Kendra Clinton y SENIOR ESCROW OFFICER, Lead drug use no Makenzie Blanton [facility] seatbelt usage 100 % Makenzie Juniorug ht SENIOR ESCROW OFFICER exercise type PT Makenzie Shin t [facility] physical exercise, frequency, days per week 3 /wk Makenzie Juniorught [facility] caffeine use, averag e drinks per day 1 /d Makenzie Juinorught [facility] passive cigarette sm blaine exposure no Makenzie Juniorught [facility] chewing tobacco use Never Makenzie Harvinder [facility] smoking, year quit 1999 Makenzie Harvinder [facility] number of years as a smoker 41+ Makenzie Juniorught [facility] smoking history, tot al pack/year 41 Makenzie Juniorught [facility] cigarette use yes Makenzie Shin t [facility] smoking status Former smoker Makenzie Juniorluc negrito [facility] social history reviewed E&M jessica buck - no changes required Faith Pool PA-C drug use no Makenzie Juniorught [facility] alcohol use, average drinks per day <1 Makenzie Harvinder [facility] alcohol use yes Makenzie Juniorught [facility] seatbelt usage 100 % Makenzie Sandiug ht [facility] exercise type PT Makenzie Shin t [facility] physical exercise, frequency, days per week 3 /wk Makenzie Juniorught [facility] caffeine use, averag e drinks per day 1 /d Makenzie Harvinder [facility] passive cigarette sm blaine exposure no Makenzie Juniorught [facility] chewing tobacco use Never Makenzie Juniorught [facility] smoking, year quit 1999 Makenzie Harvinder [facility] number of years as a smoker 41+ Makenzie Blanton [employer] OFFICER smoking history, tot al pack/year 41 Makenzie Blanton SENIOR ES[employer]OW OFFICER cigarette use yes Makenzie mahan SENIOR ESCROW OFFICER smoking status Former smoker Makenzie Gaspar ght SENIOR ESCROW OFFICER social history reviewed E&M revi ewed - no changes required Janis Burns MD social history E&M Patient is a former smoker.; Patient has never used smokeless tobacco.; Passive Smoke: N; Alcohol Use: Y; Drug Use: N; HIV/High Risk: N; Regular Exercise: N; Janis Burns MD drug use no Monalisa Harden MA [place] alcohol use, average drinks per day <1 Monalisa Harden MA alcohol use yes Monalisa Harden MA seatbelt usage 100 % Monalisa Fina WELLER exercise type PT Monalisa Lora [place] physical exercise, frequency, days per week 3 /wk Monalisa Harden MA caffeine use, averag e drinks per day 1 /d Monalisa Harden MA passive cigarette sm blaine exposure no Monalisa Harden MA chewing tobacco use Never Monalisa kessler MA smoking, year quit 2000 Monalisa Hager MA number of years as a smoker 41+ Monalisa Harden MA smoking history, tot al pack/year 41 Monalisa Harden MA cigarette use yes Monalisa Lora smoking status Former smoker Monalisa Harden MA social history reviewed E&M revi ewed - no changes required Janis Burns MD social history E&M Patient is a former smoker.; Patient has never used smokeless tobacco.; Passive Smoke: N; Alcohol Use: Y; Drug Use: N; HIV/High Risk: N; Regular Exercise: N; Janis Burns MD drug use no Monalisa Chavis alcohol use, average drinks per day <1 Monalisa Chavis alcohol use yes Monalisa Chavis seatbelt usage 100 % Monalisa Chavis exercise type PT Monalisa Chavis physical exercise, frequency, days per week 3 /wk Monalisa Chavis caffeine use, averag e drinks per day 1 /d Monalisa Chavis passive cigarette sm blaine exposure no Monalisa Chavis chewing tobacco use Never Monalisa Chavis smoking, year quit 1999 Monalisa Chavis number of years as a smoker 41+ Monalisa Chavis smoking history, tot al pack/year 41 Monalisa Chavis cigarette use yes Monalisa Chavis smoking status Former smoker Monalisa Chavis social history reviewed E&M revi mary janeed - no changes required Janis Burns MD social history E&M Patient is a former smoker.; Patient has never used smokeless tobacco.; Passive Smoke: N; Alcohol Use: Y; Drug Use: N; HIV/High Risk: N; Regular Exercise: N; Janis Bunrs MD drug use no BELL Orozco alcohol use, average drinks per day <1 Keisha Hare LPN alcohol use yes BELL Orozco seatbelt usage 100 % Keisha Hare LPN exercise type PT Vincenzo Orozco physical exercise, frequency, days per week 3 /wk Keisha Hare LPN caffeine use, averag e drinks per day 1 /d Keisha Hare LPN passive cigarette sm blaine exposure no Keisha Hare LPN chewing tobacco use Never Keisha wilson LPN smoking, year quit 1999 Keisha rai, S[employer] OFFICER number of years as a smoker 41+ Keisha Hare, SENIOR ESCROW OFFICER smoking history, tot al pack/year 41 Keisha Hare, SENIOR ESCROW OFFICER cigarette use yes Vincenzo Orozco PN smoking status Former smoker Keisha Hare, SENIOR ESCROW OFFICER social history reviewed E&M revi ewed - no changes required Janis Burns MD social history E&M Patient is a former smoker.; Patient has never used smokeless tobacco.; Passive Smoke: N; Alcohol Use: Y; Drug Use: N; HIV/High Risk: N; Regular Exercise: N; Janis Burns MD drug use no Monalisa Harden MA alcohol use, average drinks per day <1 Monalisa Harden MA alcohol use yes Monalisa Harden MA seatbelt usage 100 % Monalisa Fina WELLER exercise type PT Monalisa Lora physical exercise, frequency, days per week 3 /wk Monalisa Harden MA caffeine use, averag e drinks per day 1 /d Monalisa Harden MA passive cigarette sm blaine exposure no Monalisa Harden MA chewing tobacco use Never Monalisa kessler MA smoking, year quit 2000 Monalisa Hager MA number of years as a smoker 41+ Monalisa Harden MA smoking history, tot al pack/year 41 Monalisa Harden MA cigarette use yes Monalisa Lora smoking status Former smoker Monalisa Harden MA social history reviewed E&M revi ewed - no changes required Janis Burns MD social history E&M Patient is a former smoker.; Patient has never used smokeless tobacco.; Passive Smoke: N; Alcohol Use: Y; Drug Use: N; HIV/High Risk: N; Regular Exercise: N; Janis Burns MD drug use no Monalisa Chavis alcohol use, average drinks per day <1 Monalisa Chavis alcohol use yes Monalisa Chavis seatbelt usage 100 % Monalisa Chavis exercise type PT Monalisa Chavis physical exercise, frequency, days per week 3 /wk Monalisa Chavis caffeine use, averag e drinks per day 1 /d Monalisa Chavis passive cigarette sm blaine exposure no Monalisa Chavis chewing tobacco use Never Monalisa Chavis smoking, year quit 1999 Monalisa Chavis number of years as a smoker 41+ Monalisa Chavis smoking history, tot al pack/year 41 Monalisa Chavis cigarette use yes Monalisa Chavis smoking status Former smoker Monalisa Chavis social history reviewed E&M revi ewed - no changes required Janis Burns MD social history E&M Patient is a former smoker.; Patient has never used smokeless tobacco.; Passive Smoke: N; Alcohol Use: Y; Drug Use: N; HIV/High Risk: N; Regular Exercise: N; Janis Burns MD drug use no Mnoalisa Chavis alcohol use, average drinks per day <1 Monalisa Chavis alcohol use yes Monalisa Chavis seatbelt usage 100 % Monalisa Chavis exercise type PT Monalisa Chavis physical exercise, frequency, days per week 3 /wk Monalisa Chavis caffeine use, averag e drinks per day 1 /d Monalisa Chavis passive cigarette sm blaine exposure no Monalisa Chavis chewing tobacco use Never Monalisa Chavis smoking, year quit 1999 Monalisa Hager MA number of years as a smoker 41+ Monalisa Chavis smoking history, tot al pack/year 41 Monalisa Chavis cigarette use yes Monalisa Chavis smoking status Former smoker Monalisa Chavis social history reviewed E&M revi ewed - no changes required Janis Burns MD social history E&M Patient is a former smoker.; Patient has never used smokeless tobacco.; Passive Smoke: N; Alcohol Use: Y; Drug Use: N; HIV/High Risk: N; Regular Exercise: N; Janis Burns MD drug use no Zain Hdz alcohol use, average drinks per day <1 Stefany Hastings MA alcohol use yes Zain Hdz seatbelt usage 100 % Stefany Hastings MA exercise type PT Stefany Hastings MA physical exercise, frequency, days per week 3 /wk Stefany Hastings MA caffeine use, averag e drinks per day 1 /d Stefany Hastings MA passive cigarette sm blaine exposure no Stefany Hastings MA chewing tobacco use Never Stefany dowd MA smoking, year quit 1999 Stefany strong MA number of years as a smoker 41+ Stefany Hastings MA smoking history, tot al pack/year 41 Stefany Hastings MA cigarette use yes Stefany Hastings MA smoking status Former smoker Stefany Hastings MA social history reviewed E&M revi ewed - no changes required Janis Burns MD social history E&M Patient is a former smoker.; Patient has never used smokeless tobacco.; Passive Smoke: N; Alcohol Use: Y; Drug Use: N; HIV/High Risk: N; Regular Exercise: N; Janis Burns MD drug use no Monalisa Chavis alcohol use, average drinks per day <1 Monalisa Chavis alcohol use yes Monalisa Chavis seatbelt usage 100 % Monalisa Chavis exercise type PT Monalisa Chavis physical exercise, frequency, days per week 3 /wk Monalisa Chavis caffeine use, averag e drinks per day 1 /d Monalisa Chavis passive cigarette sm blaine exposure no Monalisa Chavis chewing tobacco use Never Monalisa Chavis smoking, year quit 1999 Monalisa Chavis number of years as a smoker 41+ Monalisa Chavis smoking history, tot al pack/year 41 Monalisa Chavis cigarette use yes Monalisa Chavis smoking status Former smoker Monalisa Chavis social history reviewed E&M jessica buck - no changes required Janis Burns MD social history E&M Patient is a former smoker.; Patient has never used smokeless tobacco.; Passive Smoke: N; Alcohol Use: Y; Drug Use: N; HIV/High Risk: N; Regular Exercise: N; Janis Burns MD drug use no Monalisa Chavis alcohol use, average drinks per day <1 Monalisa Chavis alcohol use yes Monalisa Chavis seatbelt usage 100 % Monalisa Chavis exercise type PT Monalisa Chavis physical exercise, frequency, days per week 3 /wk Monalisa Chavis caffeine use, averag e drinks per day 1 /d Monalisa Chavis passive cigarette sm blaine exposure no Monalisa Chavis chewing tobacco use Never Monalisa Chavis smoking, year quit 1999 Monalisa Chavis number of years as a smoker 41+ Monalisa Chavis smoking history, tot al pack/year 41 Monalisa Chavis cigarette use yes Monalisa Chavis smoking status Former smoker Monalisa Chavis social history reviewed E&M revi ewed - no changes required Janis Burns MD social history E&M Patient is a former smoker.; Patient has never used smokeless tobacco.; Passive Smoke: N; Alcohol Use: Y; Drug Use: N; HIV/High Risk: N; Regular Exercise: N; Janis Burns MD drug use no Monalisa Chavis alcohol use, average drinks per day <1 Monalisa Chavis alcohol use yes Monalisa Chavis seatbelt usage 100 % Monalisa Chavis exercise type PT Monalisa Chavis physical exercise, frequency, days per week 3 /wk Monalisa Chavis caffeine use, averag e drinks per day 1 /d Monalisa Chavis passive cigarette sm blaine exposure no Monalisa Chavis chewing tobacco use Never Monalisa Chavis smoking, year quit 1999 Monalisa Chavis number of years as a smoker 41+ Monalisa Chavis smoking history, tot al pack/year 41 Monalisa Chavis cigarette use yes Monalisa Chavis smoking status Former smoker Monalisa Chavis social history reviewed E&M revi ewed - no changes required Ernestina Martinez NP-C drug use no ADRIANNA Silverman alcohol use, average drinks per day <1 Oliva Reyes ADRIANNA alcohol use yes NGOZI Silverman seatbelt usage 100 % Oliva Gamboa nOscar, ADRIANNA exercise type PT ADRIANNA Vogel physical exercise, frequency, days per week 3 /wk Oliva Reyes NGOZI caffeine use, averag e drinks per day 1 /d Oliva Reyes, NGOZI passive cigarette sm blaine exposure no Oliva Reyes, KSGabi chewing tobacco use Never Oliva Reyes, ADRIANNA smoking, year quit 1999 Oliva Flowers KSGabi number of years as a smoker 41+ Oliva Reyes KSGabi smoking history, tot al pack/year 41 Oliva Reyes KSGabi cigarette use yes NGOZI Vogel smoking status Former smoker Oliva Phillips [facility] [place] [facility] social history reviewed E&M jessica buck - no changes required Faith Pool PA-C drug use no Makenzie Blanton [facility] alcohol use, average drinks per day <1 Makenzie Blanton [facility] alcohol use yes Makenzie Blanton [facility] seatbelt usage 100 % Makenzie stephens [facility] exercise type PT Makenzie Shin t [facility] physical exercise, frequency, days per week 3 /wk Makenzie Blanton [facility] caffeine use, averag e drinks per day 1 /d Makenzie Blanton [facility] passive cigarette sm blaine exposure no Makenzie Blanton [facility] chewing tobacco use Never Makenzie Blanton [facility] smoking, year quit 1999 Makenzie Blanton [facility] number of years as a smoker 41+ Makenzie Blanton [employer] OFFIC[employer] smoking history, tot al pack/year 41 Makenzie Blanton [employer] OFFICER cigarette use yes Makenzie mahan [facility] smoking status Former smoker Makenzie Gaspar ght [facility] social history reviewed E&M revi ewed - no changes required Ernestina Martinez [facility] drug use no Oliva Haley- Edward, [facility] [place] alcohol use, average drinks per day <1 Oliva Halye-Edward, [facility] [place] [place] alcohol use yes Oliva Haley- Edward, [facility] [place] [place] seatbelt usage 100 % Oliva Porscheo n-Edward, [facility] [place] exercise type PT Oliva Haley -Edward, [facility] [place] physical exercise, frequency, days per week 3 /wk Oliva Haley-Edward, [facility] [place] caffeine use, averag e drinks per day 1 /d Oliva Haley-Edward, [facility] [place] passive cigarette sm blaine exposure no Oliva Haley-Edward, [facility] [facility] chewing tobacco use Never Oliva Haley-Edward, [facility] smoking, year quit 1999 Oliva Vergara inton-Edward, [facility] number of years as a smoker 41+ Oliva Haley-Edward, [facility] smoking history, tot al pack/year 41 Oliva Haley-Edward, [facility] cigarette use yes Oliva Haley -Edward, [facility] smoking status Former smoker Oliva Porsche on-Edward, [facility] drug use no Manda [place] alcohol use, average drinks per day <1 Manda [place] alcohol use yes Manda [place] smoking, year quit 1999 Manda [place] cigarette use yes Manda Bui ms [place] smoking status Former smoker Manda link [place] social history reviewed E&M revi ewed - no changes required Janis Burns MD social history E&M Patient is a former smoker.; Patient has never used smokeless tobacco.; Passive Smoke: N; Alcohol Use: N; Drug Use: N; HIV/High Risk: N; Regular Exercise: N; Janis Burns MD drug use no Monalisa Harden MA alcohol use no Monalisa Harden MA seatbelt usage 100 % Monalisa Chavis exercise type PT Monalisa Chavis physical exercise, frequency, days per week 3 /wk Monalisa Chavis caffeine use, averag e drinks per day 1 /d Monalisa Harden MA passive cigarette sm blaine exposure no Monalisa Chavis chewing tobacco use Never Monalisa kessler MA smoking, year quit 2000 Monalisa Hager MA number of years as a smoker 41+ Monalisa Chavis smoking history, tot al pack/year 41 Monalisa Harden MA cigarette use yes Monalisa Lora smoking status Former smoker Monalisa Chavis social history reviewed E&M revi ewed - no changes required Janis Burns MD social history E&M Patient is a former smoker.; Patient has never used smokeless tobacco.; Passive Smoke: N; Alcohol Use: N; Drug Use: N; HIV/High Risk: N; Regular Exercise: N; Janis Burns MD drug use no Monalisa Harden MA alcohol use no Monalisa Harden MA seatbelt usage 100 % Monalisa Harden MA exercise type PT Monalisa Chavis physical exercise, frequency, days per week 3 /wk Monalisa Chavis caffeine use, averag e drinks per day 1 /d Monalisa Harden [facility] passive cigarette sm blaine exposure no Monalisa Harden [facility] chewing tobacco use Never Monalisa kessler [facility] smoking, year quit 1999 Monalisa Hager [facility] number of years as a smoker 41+ Monalisa Harden MA smoking history, tot al pack/year 41 Monalisa Harden [facility] cigarette use yes Monalisa Lora smoking status Former smoker Monalisa Harden [facility] social history reviewed E&M revi ewed - no changes required Ernestina MORELAND drug use no Oliva Haley- Edward, [facility] alcohol use no Oliva Haley- Edward, [facility] seatbelt usage 100 % Oliva Hinto n-Edward, [facility] exercise type PT Oliva Haley -Edward, [facility] physical exercise, frequency, days per week 3 /wk Oliva Haley-Edward, [facility] caffeine use, averag e drinks per day 1 /d Oliva Haley-Edward, [facility] passive cigarette sm blaine exposure no Oliva Haley-Edward, [facility] chewing tobacco use Never Oliva Haley-Edward, [facility] smoking, year quit 1999 Oliva H inton-Edward, [facility] number of years as a smoker 41+ Oliva Haley-Edward, [facility] smoking history, tot al pack/year 41 Oliva Haley-Edward, [facility] cigarette use yes Oliva Haley -Edward, [facility] smoking status Former smoker Oliva Hint on-Edward, [facility] social history reviewed E&M revi ewed - no changes required Ernestina MORELAND social history reviewed E&M revi ewed - no changes required Janis Burns MD social history E&M Patient is a former smoker.; Patient has never used smokeless tobacco.; Passive Smoke: N; Alcohol Use: N; Drug Use: N; HIV/High Risk: N; Regular Exercise: N; Janis Burns MD alcohol use no Adriana Mccollum RN drug use no Adriana Mccollum RN smoking status Former smoker Adriana ellis RN seatbelt usage 100 % Adriana Mccollum RN exercise type PT Adriana Mccollum RN physical exercise, frequency, days per week 3 /wk Adriana Mccollum RN caffeine use, averag e drinks per day 1 /d Adriana Mccollum RN passive cigarette sm blaine exposure no Adriana Mccollum RN chewing tobacco use Never Adriana esteban RN smoking, year quit 1999 Adriana sanchez RN number of years as a smoker 41+ Adriana Mccollum RN smoking history, tot al pack/year 41 Adriana Mccollum RN cigarette use yes Adriana Mccollum RN social history reviewed E&M jessica buck - no changes required Janis Burns MD social history E&M Patient is a former smoker.; Patient has never used smokeless tobacco.; Passive Smoke: N; Alcohol Use: N; Drug Use: N; HIV/High Risk: N; Regular Exercise: N; Janis Burns MD drug use no Monalisa Chavis alcohol use no Monalisa Chavis seatbelt usage 100 % Monalisa Chavis exercise type PT Monalisa Chavis physical exercise, frequency, days per week 3 /wk Monalisa Chavis caffeine use, averag e drinks per day 1 /d Monalisa Chavis passive cigarette sm blaine exposure no Monalisa Harden MA C chewing tobacco use Never Monalisa kessler MA C smoking, year quit 2000 Monalisa Hager MA C number of years as a smoker 41+ Monalisa Chavis smoking history, tot al pack/year 41 Monalisa Harden MA C cigarette use yes Monalisa Lora C smoking status Former smoker Monalisa Chavis social history reviewed E&M revi ewed - no changes required Janis Burns MD chewing tobacco use Never Monalisa kessler MA C passive cigarette sm blaine exposure no Monalisa Harden MA C drug use no Monalisa Harden MA C caffeine use, averag e drinks per day 1 /d Monalisa Harden MA C seatbelt usage 100 % Monalisa Harden MA C alcohol use no Monalisa Harden MA C cigarette use yes Monalisa Lora C smoking status Former smoker Monalisa Harden MA C social history reviewed E&M revi ewed - no changes required Janis Burns MD seatbelt usage 100 % Linda O'Bari l C-MA alcohol use no Linda Gully C-MA caffeine use, averag e drinks per day 1 /d Linda Gully C-MA drug use no Linda Gully C-MA passive cigarette sm blaine exposure no Linda Gully C-MA chewing tobacco use Never Linda O 'Boris C-MA smoking status Former smoker Linda O'Nei ll C-MA social history reviewed E&M revi ewed - no changes required Janis Burns MD cigarette use yes Monalisa Lora C chewing tobacco use Never Monalisa Chavis passive cigarette sm blaine exposure no Monalisa Chavis drug use no Monalisa Chavis caffeine use, averag e drinks per day 1 /d Monalisa Chavis seatbelt usage 100 % Monalisa Chavis alcohol use no Monalisa Chavis smoking status Former smoker Monalisa Chavis social history reviewed E&M revi ewed - no changes required Janis Burns MD chewing tobacco use Never Nicki Mitchell [employer] passive cigarette sm blaine exposure no Nicki Mitchell [employer] drug use no Nicki Guthri e [employer] OFF[employer] caffeine use, averag e drinks per day 1 /d Nicki Mitchell [employer] seatbelt usage 100 % Nicki Carli jose [employer] alcohol use no Nicki Guthri e [employer] smoking status Former smoker Nicki Gut hrie [employer] OFFICER social history reviewed E&M revi ewed - no changes required Janis Burns MD chewing tobacco use Never Nicki Mitchell [employer] OFFICER passive cigarette sm blaine exposure no Nicki Mitchell [employer] OFFICER drug use no Nicki Guthri e [employer] OFFICER caffeine use, averag e drinks per day 1 /d Nicki Mitchell [employer] OFFICER seatbelt usage 100 % Nicki Carli jose [employer] OFFICER alcohol use no Nicki Guthri e [employer] OFF[employer]ER smoking status Former smoker Nicki Gut hrie [employer]ICER drug use no Janis Burns MD passive cigarette sm blaine exposure no Janis Burns MD Weight Management Counseling Provided done Janis Burns MD social history reviewed E&M revi ewed - no changes required Janis Burns MD alcohol use no Rachel RODAS, Radiology Technologist smoking status Former smoker Rachel RODAS, Radiology Technologist social history reviewed E&M revi ewed - no changes required Janis Burns MD seatbelt usage 100 % Adriana Mccollum RN alcohol use no Adriana Mccollum RN caffeine use, averag e drinks per day 1 /d Adriana Mccollum RN drug use no Adriana Mccollum RN passive cigarette sm blaine exposure no Adriana Mccollum RN smoking, year quit 1999 Adriana sanchez RN chewing tobacco use Never Adriana esteban RN cigarette use yes Adriana Mccollum RN smoking status Former smoker Adriana ellis RN social history reviewed E&M revi ewed - no changes required Janis uBrns MD chewing tobacco use Never Makenzie Harvinder [employer] OFFICER passive cigarette sm blaine exposure no Makenzie Harvinder [employer] OFF[employer] drug use no Makenzie Harvinder [employer]ER caffeine use, averag e drinks per day 1 /d Makenzie Harvinder [employer] OFFICER seatbelt usage 100 % Makenzie Junioraniceto ht [employer] OFFICER alcohol use no Makenzie Juniorught [employer]ER smoking status Former smoker Makenzie Juniorluc ght [employer] OFFICER social history reviewed E&M revi ewed - no changes required Janis Burns MD chewing tobacco use Never Danii luis RN alcohol use no Danii moreland RN cigarette use yes Danii rosales RN smoking status Former smoker Danii elise RN social history reviewed E&M revi ewed - no changes required Janis Burns MD seatbelt usage 100 % Makenzie Frost ht [employer] OFFICER alcohol use no Makenzie Blanton [employer] OFFICER caffeine use, averag e drinks per day 1 /d Makenzie Blanton [employer] OFFICER drug use no Makenzie Blanton [employer] OFFICER passive cigarette sm blaine exposure no Makenzie Blanton [employer] chewing tobacco use Never Makenzie Blanton [employer]ER smoking status Former smoker Makenzie Juniorluc ght [employer] OFFICER alcohol use no Kendra Marrero L PN, Lead seatbelt usage 100 % Kendra A Remey [employer] OFFICER, Lead caffeine use, averag e drinks per day 1 /d Kendra Guido Almanzaey [employer] OFFICER, Lead drug use no Kendra Almanzaey L PN, Lead passive cigarette sm blaine exposure no Kendra A Remey [employer] OFFICER, Lead chewing tobacco use Never Kendra Guido Remey [employer] OFFICER, Lead smoking status Former smoker Kendra A Mary Beth y [employer] OFFICER, Lead seatbelt usage 100 % Kendra A Remey [employer] OFFICER, Lead alcohol use no Kendra Almanzaey L PN, Lead caffeine use, averag e drinks per day 1 /d Kendra A Remey [employer]OW OFFICER, Lead drug use no Kendra Almanzaey L PN, Lead passive cigarette sm blaine exposure no Kendra A Remey [employer] OFFICER, Lead chewing tobacco use Never Kendra A Remey [employer] OFFICER, Lead smoking status Former smoker Kendra A Mary Beth y [employer] ES[employer]OW OFFICER, Lead chewing tobacco use Never Monalisa Chavis drug use no Monalisa Chavis passive cigarette sm blaine exposure no Monalisa Chavis caffeine use, averag e drinks per day 1 /d Monalisa Chavis seatbelt usage 100 % Monalisa Chavis alcohol use no Monalisa Chavis number of years as a smoker 41+ Monalisa Chavis cigarette use yes Monalisa Chavis smoking status Former smoker Monalisa Chavis seatbelt usage 100 % Mali A Fallo n, [employer] OFFICER exercise type PT Mali A Rayna , [employer] OFFICER physical exercise, frequency, days per week 3 /wk Mali A Rayna, [employer] OFFICER alcohol use no [place], [employer] OFFICER caffeine use, averag e drinks per day 1 /d [place] A [place], [employer] OFFICER drug use no Mali A Rayna, [employer] OFFICER passive cigarette sm blaine exposure no [place] A [place], [employer] OFFICER smoking/tobacco cess ation, patient education and counseling yes [place] A [place], [facility] chewing tobacco use Never [place] A [place], [facility] smoking, year quit 1999 Mali A F allon, [facility] smoking history, tot al pack/year 41 Mali A Rayna, S[employer] OFFICER cigarette use yes [place] A [place] , [employer]ICER smoking status Former smoker Mali A Fall on, [facility] seatbelt usage 100 % Rachel RODAS, Radiology Technologist exercise type PT Rachel Lang, Radiology Technologist physical exercise, frequency, days per week 3 /wk Rachel RODAS, Radiology Technologist alcohol use no Rachel RODAS, Radiology Technologist caffeine use, averag e drinks per day 1 /d Rachel RODAS, Radiology Technologist drug use no Rachel RODAS, Radiology Technologist passive cigarette sm blaine exposure no Rachel RODAS, Radiology Technologist chewing tobacco use Never Rachel RODAS, Radiology Technologist smoking, year quit 1999 Rachel RODAS, Radiology Technologist smoking history, tot al pack/year 41 Rachel L Aristeo WELLER-, Radiology Technologist cigarette use yes Rachelterrie Alvarado, Radiology Technologist smoking status Former smoker Rachel Loya Solo MELVIN, Radiology Technologist seatbelt usage 100 % Rachel L Colten oliveira [facility], Radiology Technologist exercise type PT Rachelterrie Alvarado, Radiology Technologist physical exercise, frequency, days per week 3 /wk Rachelterrie MELVIN, Radiology Technologist alcohol use no Rachelterrie MELVIN, Radiology Technologist caffeine use, averag e drinks per day 1 /d Rachelterrie MELVIN, Radiology Technologist drug use no Rachel L Aristeo WELLER-, Radiology Technologist passive cigarette sm blaine exposure no Rachel L Aristeo MELVIN, Radiology Technologist chewing tobacco use Never Rachel L Aristeo MELVIN, Radiology Technologist smoking, year quit 1999 Rachel L Ariste[place]-, Radiology Technologist smoking history, tot al pack/year 41 Rachel Loya Aristeo MELVIN, Radiology Technologist cigarette use yes Rachel Vincenzo MELVIN, Radiology Technologist smoking status Former smoker Rachel L Solo cabello MA, Radiology Technologist seatbelt usage 100 % ADRIANNA Jurado exercise type PT ADRIANNA Hunt physical exercise, frequency, days per week 3 /wk ADRIANNA Prince alcohol use no ADRIANNA Garcia caffeine use, averag e drinks per day 1 /d ADRIANNA Prince drug use no ADRIANNA Garcia passive cigarette sm blaine exposure no ADRIANNA Prince chewing tobacco use Never ADRIANNA Prince smoking, year quit 2000 ADRIANNA Prince smoking history, tot al pack/year 41 ADRIANNA Prince cigarette use yes ADRIANNA Hunt smoking status Former smoker ADRIANNA Diaz social history reviewed E&M revi ewed - no changes required Judye A Scheidt D.O. seatbelt usage 100 % Mali A Fallo n, S[employer] OFFICER alcohol use no Mali A Rayna, [employer] OFFICER caffeine use, averag e drinks per day 1 /d [place] A [place], [employer] OFFICER drug use no Mali A Rayna, [employer] OFFICER passive cigarette sm blaine exposure no [place] A [place], [employer] OFFICER chewing tobacco use Never [place] A [place], [employer] OFFICER smoking status Former smoker [place]i A Fall on, [employer] OFFICER smoking history, tot al pack/year 41 Judye A Scheidt D.O. cigarette use yes Judye A Scheid t D.O. seatbelt usage 100 % Mali A Fallo n, [employer] OFFICER alcohol use no [place] A [place], [employer] OFFICER caffeine use, averag e drinks per day 1 /d Mali A Rayna, S[employer] OFFICER drug use no Mali A Rayna, [employer] OFFICER passive cigarette sm blaine exposure no Mali A Rayna, S[employer] OFFICER chewing tobacco use Never [place] A [place], [employer] OFFICER smoking status Former smoker [place]i A Fall on, [facility] Weight Management Counseling Provided done Janis Burns MD social history reviewed E&M revi ewed - no changes required Janis uBrns MD exercise type PT ADRIANNA Hunt physical exercise, frequency, days per week 3 /wk ADRIANNA Prince smoking, year quit 2000 Candida Armando ADRIANNA cigarette use yes Candida edwards ADRIANNA seatbelt usage 100 % Candida funes ADRIANNA alcohol use no Candida antoine ADRIANNA caffeine use, averag e drinks per day 1 /d Candida Armando ADRIANNA drug use no Candida antoine ADRIANNA passive cigarette sm blaine exposure no Candida Armando ADRIANNA chewing tobacco use Never Candida Armando ADRIANNA smoking status Former smoker Candida barth ADRIANNA social history reviewed E&M revi ewed - no changes required Janis Burns MD Weight Management Counseling Provided done Janis Burns MD seatbelt usage 100 % Candida funes ADRIANNA alcohol use no Candida antoine ADRIANNA caffeine use, averag e drinks per day 1 /d Candida Armando ADRIANNA drug use no Candida antoine ADRIANNA passive cigarette sm blaine exposure no Candida Armnado ADRIANNA chewing tobacco use Never Candida Armando ADRIANNA smoking status Former smoker Candida barthADRIANNA social history reviewed E&M revi ewed - no changes required Fernando Mast M.D. seatbelt usage 100 % Rachel RODAS, Radiology Technologist alcohol use no Rachel RODAS, Radiology Technologist smoking status Former smoker Rachel RODAS, Radiology Technologist chewing tobacco use Never Rachel RODAS, Radiology Technologist passive cigarette sm blaine exposure no Rachel RODAS, Radiology Technologist drug use no Rachel RODAS, Radiology Technologist caffeine use, averag e drinks per day 1 /d Rachel RODAS, Radiology Technologist social history reviewed E&M revi ewed - no changes required Fernando Mast M.D. social history reviewed E&M revi ewed - no changes required Fernando Mast M.D. social history reviewed E&M revi ewed - no changes required Fernando Mast M.D. social history reviewed E&M revi ewed - no changes required Fernando Mast M.D. smoking status Former smoker Dorys Riley Ante r, Assistant City Attorney social history reviewed E&M revi ewed - no changes required Fernando Mast M.D. social history reviewed E&M revi ewed - no changes required Fernando Mast M.D. smoking status former smoker ADRIANNA Ruff social history reviewed E&M revi ewed - no changes required Fernando Mast M.D. smoking status former smoker ADRIANNA Ruff social history reviewed E&M revi ewed - no changes required Fernando Mast M.D. social history reviewed E&M revi ewed - no changes required Fernando Mast M.D. smoking status former smoker ADRIANNA Ruff social history reviewed E&M revi ewed - no changes required Fernando Mast M.D. smoking status former smoker ADRIANNA Ruff passive cigarette sm blaine exposure no Janis Burns MD smoking history, tot al pack/year 100 Janis Burns MD smoking, year quit 1998 Janis Burns MD Exercise Program Referral Exercise Counse ling Janis Burns MD Weight Management Counseling Provided Weight Counseling Provided Janis Burns MD social history reviewed E&M revi ewed - no changes required Janis Burns MD smoking status former smoker ADRIANNA Ruff social history reviewed E&M revi ewed - no changes required Fernando Mast M.D. smoking status former smoker ADRIANNA Ruff social history reviewed E&M revi ewed - no changes required Kortney Dominguez PA-C smoking status former smoker Mokena H Wale blackwell LPN social history E&M Patient is a former smoker. A lcohol Use - no M arried Fernando Mast M.D. social history reviewed E&M revi ewed - no changes required Fernando Mast M.D. smoking status quit Diane santos LPN social history reviewed E&M revi ewed - no changes required Fernando Mast M.D. social history reviewed E&M revi ewed - no changes required Fernando Mast M.D. social history reviewed E&M revi ewed - no changes required Fernando Mast M.D. social history reviewed E&M revi ewed - no changes required Fernando Mast M.D. social history reviewed E&M revi ewed - no changes required Fernando Mast M.D. social history reviewed E&M revi ewed - no changes required Fernando Mast M.D. social history reviewed E&M revi ewed - no changes required Kem Dominguez MD social history reviewed E&M revi ewed - no changes required Fernando Mast M.D. social history reviewed E&M revi ewed - no changes required Fernando Mast M.D. social history reviewed E&M revi ewed - no changes required Fernando Mast M.D. social history reviewed E&M revi ewed - no changes required Fernando Mast M.D. social history reviewed E&M revi ewed - no changes required Fernando Mast M.D. social history reviewed E&M revi ewed - no changes required Fernando Mast M.D. social history reviewed E&M revi ewed - no changes required Fernando Mast M.D. social history reviewed E&M revi ewed - no changes required Fernando Mast M.D. social history reviewed E&M revi ewed - no changes required Fernando Mast M.D. social history reviewed E&M revi ewed - no changes required Fernando Mast M.D. social history reviewed E&M revi ewed - no changes required Fernando Mast M.D. social history reviewed E&M revi ewed - no changes required Fernando Mast M.D. social history reviewed E&M revi ewed - no changes required Fernando Mast M.D. social history reviewed E&M revi ewed - no changes required Fernando Mast M.D. social history reviewed E&M revi ewed - no changes required Fernando Mast M.D. social history reviewed E&M revi ewed - no changes required Fernando Mast M.D. appendectomy, history of yes Robert Mast M.D. social history reviewed E&M revi ewed - no changes required Fernando Mast M.D. social history reviewed E&M revi ewed - no changes required Fernando Mast M.D. social history reviewed E&M revi ewed - no changes required Fernando Mast M.D. social history reviewed E&M revi ewed - no changes required Fernando Mast M.D. passive cigarette sm blaine exposure no Annabella Ruiz Woods, SENIOR ESCROW OFFICER social history reviewed E&M revi ewed - no changes required Fernando Mast M.D. social history reviewed E&M revi ewed - no changes required Fernando Mast M.D. social history reviewed E&M revi ewed - no changes required Dilcia Cancino MA social history reviewed E&M revi ewed - no changes required Santino Knight [employer] Super[employer] social history reviewed E&M revi ewed - no changes required Dilcia Cancino MA social history reviewed E&M revi ewed - no changes required Dilcia Cancino MA social history reviewed E&M revi ewed - no changes required Fernando Mast M.D. social history reviewed E&M revi ewed - no changes required Dilcia Cancino MA social history reviewed E&M revi ewed - no changes required Dilcia Cancino MA social history reviewed E&M revi ewed - no changes required Dilcia Cancino MA social history reviewed E&M revi ewed - no changes required Fernando Mast M.D. social history reviewed E&M revi ewed - no changes required Dilcia Cancino MA social history reviewed E&M revi ewed - no changes required Dilcia Cancino MA social history reviewed E&M revi ewed - no changes required Dilcia Cancino MA smoking history, tot al pack/year 100 Fernando Mast M.D. social history E&M Patient is a former smoker. A lcohol Use - no Fernando Mast M.D. smoking status quit Fernando hou M.D. smoking, year quit 1998 Dionne kelly, [employer] Date Observation Value Provider blood pressure, cuff size regular Ca rol eth [facility] blood pressure, site #1 L. arm sitting Ca rol eth [facility] blood pressure, diastolic 72 mm[Hg] Ca rol eth [facility] blood pressure, systolic 127 mm[Hg] Car ol eth [facility] pulse rate 64 /min [facility] respiratory rate E&M 18 /min Marlene Sandoval th [facility] temperature site temporal [facility] temperature E&M 98.1 [degF] [facility] Body Mass Index (Ratio) 27.95 kg/m2 Lacy l eth [facility] weight E&M 157.2 [lb_av] Marlene [facility] N height E&M 63 [in_i] Marlene [facility] blood pressure, cuff size regular Le umm Rhein MA-R blood pressure, site #1 L. arm sitting Le ah Rhein MA-R blood pressure, diastolic 67 mm[Hg] Le ah Rhein MA-R blood pressure, systolic 122 mm[Hg] Anne h Rhein MA-R pulse rate 64 /min Remedios Rhein MA-R respiratory rate E&M 18 /min Remedios Rh ein MA-R temperature E&M 97.4 [degF] Remedios Rhein M A-R temperature site temporal Remedios Rhein MA-R Body Mass Index (Ratio) 26.85 kg/m2 Remedios Rhein MA-R weight E&M 151 [lb_av] Remedios Rhein MA-R height E&M 63 [in_i] Remedios Cat MA-R blood pressure, cuff size regular St garrett Silva MA R blood pressure, site #[address] garrett Silva MA R blood pressure, diastolic 68 mm[Hg] St garrett Silva MA R blood pressure, systolic 124 mm[Hg] Jun brooke Silva MA R Body Mass Index (Ratio) 32.00 kg/m2 Lance Silva MA R weight E&M 180 [lb_av] Fifi briones MA R height E&M 63 [in_i] Fifi briones MA R blood pressure, site #1 R. arm sitting Ca ndice Parker [facility] blood pressure, diastolic 75 mm[Hg] Ca ndice Parker N blood pressure, systolic 124 mm[Hg] Can dice Parker [facility] pulse rate 70 /min Samanta Parker [facility] respiratory rate E&M 20 /min Samanta Parker [facility] temperature site oral Samanta Whe eler BS temperature E&M 97.5 [degF] Samanta Whee ler [facility] Body Mass Index (Ratio) 26.67 kg/m2 Cand ice Parker [facility] weight E&M 150.0 [lb_av] Samanta Wheele r N height E&M 63 [in_i] Samanta Parker BSN blood pressure, cuff size regular St garrett Silva MA R blood pressure, site #[address] garrett Silva MA R blood pressure, diastolic 68 mm[Hg] St garrett Silva MA R blood pressure, systolic 128 mm[Hg] Jun Singletary height E&M 62.75 [in_i] Fifi briones MA R Body Mass Index (Ratio) 26.70 kg/m2 Lance Silva MA R weight E&M 149 [lb_av] Fifi Singletary albumin, serum 4.4 g/dL [employer]
[2024-07-11] MEDS ORDERED: PROPOFOL 500 MG/50 ML 500 MG/50 ML VIAL ONE (07:08)
[2024-07-11] MEDS ORDERED: LIDOCAINE-PF 2% 10 ML AMP SUBQ ONE (07:08)
[2024-07-11] MEDS ORDERED: ALBUTEROL 8 GM INHALER INH ONE (07:11)
--- NOTE | 2024-07-11 07:22 | PREOP HISTORY & PHYSICAL ---
Surgical History & Physical Chief Complaint/HPI History of Present Illness: CC: colon/egd. History of Present Illness: Patient is here today for a consult: colonoscopy/egd ...................................................................Katelynn Hare MA June 11, 2024 11:14 AM. 78yoF referred for endoscopy after + FOBT. She has a history of Gastritis/GERD and a remote UGIB admission, takes pantoprazole now but has no heartburn. She does have occassional solid food dysphagia (liquids pass normally) and underlying h/o scleroderma, and was evaluated with EGD and esophageal manometry in 2019 - she was found to have a mild pyloric stenosis with intestinal metaplasia, negative h pylori, a hypotensive LES with normal relaxation, and nonspecific fragmental contractions causing mild peristaltic dysfunction. The patient reports there was difficult insertion of the EGD scope and she had postprocedural swelling. She regularly takes 800mg of ibuprofen daily, and recently had a food sugery and increased the dose to BID. Her last colonoscopy was in 2018 and one cecal TA was found, scope before that was 12yrs prior. She denies any abdominal pain, n/v, c/d, change in stool caliber, blood in stool, or unintentional weight loss. Allergies: SULFA (SULFADIAZINE) (Critical) ANTI INFLAMMATORIES (NAPROXEN) (Critical) BENADRYL (DIPHENHYDRAMINE HCL) (DIPHENHYDRAMINE HCL) (Critical) DOXYCYCLINE (DOXYCYCLINE) (Critical) Medications: ibuprofen 800 mg tablet (ibuprofen) Take 1 tablet by mouth once a day trazodone 50 mg tablet (trazodone) Take 3 tablet by mouth every night at bedtime omeprazole 40 mg capsule,delayed release(DR/EC) (omeprazole) Take 1 capsule by mouth once a day as directed take before breakfast and you have to eat something 20-30 minutes after ropinirole 1 mg tablet (ropinirole) TAKE 3 TABLETS BY MOUTH EVERY NIGHT acyclovir 400 mg tablet (acyclovir) TAKE 1 TABLET DAILY albuterol sulfate 90 mcg/actuation HFA aerosol inhaler (albuterol sulfate) Inhale 1-2 puff using inhaler every four hours as needed * HANDICAP PARKING Dx: M17.9, J44.9. Length of need 99 months. doxycycline hyclate 100 mg capsule (doxycycline hyclate) Take 1 capsule by mouth twice a day prednisone 50 mg tablet (prednisone) Take 1 tablet by mouth once a day aspirin 81 mg tablet,chewable (aspirin) Take 1 tablet by mouth once a day * atrovastatin ipratropium-albuterol 0.5 mg-3 mg(2.5 mg base)/3 mL solution for nebulization (ipratropium-albuterol) USE 1 VIAL VIA NEBULIZER FOUR TIMES DAILY NEEDED FOR DYSPNEA * [facility] ELECTRIC SCOOTER Dx: R55, M54.9; G25.81; J44.9; M19.90, M17.9, M35.00; I71.4; I73.9. Length of need 99 months * NEBULIZER 4.49 as needed Problems: Mammographic screening for breast cancer (ICD-V76.12) (BDN58-I45.31) Blood in stool, occult (ICD-792.1) (TPM36-Z95.5) Thrombocytopenia (ICD-287.5) (AGS82-E06.6) Anemia (ICD-285.9) (KHL88-J82.9) Ankle joint pain, right (ICD-719.47) (GIL31-M91.571) Sinusitis, chronic (ICD-473.9) (PDC75-V16.9) Cough (ICD-786.2) (GJZ61-Q49.8) Unsteady when walking (QYL51-V76.89) Fatigue (ICD-780.79) (TLR70-E70.83) Sleep disturbance (ICD-780.50) (KAQ26-F26.9) Lichenification of vulva (ICD-624.8) (EYI38-T34.4) Neoplasm of undet nature skin (ICD-238.2) (PCU85-L77.5) Cerebral infarction (ICD-434.91) (HAY03-Z48.9) Unrealistic expectation from treatment (QAU83-H21.89) COPD (ICD-496) (QEI61-P92.9) Post COVID-19 condition, unspecified (FUM53-Q04.9) Balance problem (ICD-781.3) (KDU09-X56.9) Fall risk (ICD-V15.88) (NUK48-B18.81) Vertigo (ICD-780.4) (SNF36-M80) Epistaxis (ICD-784.7) (FLY36-L00.0) 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) (WKV50-J52.1) Scleroderma (ICD-710.1) (NMV37-H83.9) Gastritis (ICD-535.50) (YXC67-I06.70) Interstitial lung disease (ICD-515) (AIS26-J47.9) Arthritis, lumbar spine (ICD-721.3) (XLV60-N30.96) Low back pain (ICD-724.2) (SHN74-L31.5) Osteoarthritis, lumbar spine (ICD-721.90) (FCU92-L87.896) Ulcerative colitis (ICD-556.9) (SUR39-B95.90) Impaired fasting glucose (ICD-790.21) (PNG24-T34.01) HYPERLIPIDEMIA (ICD-272.4) (YRE29-N46.5) Atrophic vaginitis (ICD-627.3) (WJY55-Z65.2) Restless leg syndrome (ICD-333.94) (PHM93-A63.81) Abdominal aortic aneurysm (ICD-441.4) (SJI41-O26.4) LONG-TERM (CURRENT) USE OF OTHER MEDICATIONS (ICD-V58.69) (PXI59-K06.899) Osteoarthritis, carpometacarpal joint, right thumb (ICD-715.94) (AJV69-Q42.11) GERD (ICD-530.81) (GZQ73-X10.9) Shoulder pain, bilateral (ICD-719.41) (WZE59-T95.519) SJOGREN'S SYNDROME (ICD-710.2) (BXF64-R03.00) OSTEOARTHRITIS, KNEES, BILATERAL (ICD-715.96) (IZX88-E59.9) COPD (ICD-496) (XOK45-E07.9) URINARY INCONTINENCE, MIXED (ICD-788.33) (JGB12-D80.46) DEPRESSION (ICD-311) (DEX49-K16.9) ROSACEA (ICD-695.3) (LFW35-X24.9) ACTINIC KERATOSIS (ICD-702.0) (DAK19-H59.0) DRY EYE SYNDROME (ICD-375.15) (SON79-S84.129) DEGENERATIVE JOINT DISEASE, AXIAL SKELETON (ICD-715.90) (WEM89-P31.90) CELIAC ARTERY COMPRESSION SYNDROME (ICD-447.4) (NWQ78-L90.4) PERIPHERAL VASCULAR DISEASE (ICD-443.9) (DSL98-T66.9) Past Medical History: Reviewed history from 01/31/2024 and no changes required: Sulfa--rash COPD Postmenopausal, status post hysterectomy Hyperlipidemia Degenerative arthritis Sjogren's disease 03-27-2013 Balance Disturbance/Weakness Chronic Back Pain Joint Swelling Numbness/Tingling Asthma Emphysema Chronic Cough Auto Immune Disease Skin Cancer Stomach Ulcer Hiatal Hernia Frequent Indigestion Past Surgical History: Reviewed history from 01/31/2024 and no changes required: Hysterectomy Multiple shoulder reconstructive surgeries bilaterally--3 Left and 2 Right Bladder Suspension Cholecystectomy--1999 Bunionectomy--R foot 1996 Bunionectomy--L foot 1988 Appendectomy Hammer Toes /Ab1 Trigger finger--L hand Cataracts September 2012, bilateral Right knee partial replacement October 2012 Neurostimulator Implant R buttock for bladder incontinence - removed 07/10/19 as was not helping right knee total arthroplasty November 2013(Interstem Implant). Family History Summary: Family History Reviewed: 06/11/2024 Family History of a Hx of Arthritis for Mother - Entered On: 10/21/2014 Family History of a Hx of Arthritis for Father - Entered On: 10/21/2014 Family History of Diabetes for Maternal Grandfather - Entered On: 08/19/2018 Legacy Family History Notes: The patient indicates family history of diabetes (maternal grandmother). Review of Systems See HPI Vital Signs: Patient Profile: 78 Years Old Female Height: 63 inches Weight: 157 pounds BMI: 27.91 O2 Sat: 96 % on room air Temp: 98.6 degrees F temporal Pulse rate: 67 / minute Pulse rhythm: regular Resp: 16 per minute BP sittin / 76 Cuff size: regular Vitals Entered By: Katelynn Hare MA (June 11, 2024 11:15 AM) Allergies: SULFA (SULFADIAZINE) (Critical) ANTI INFLAMMATORIES (NAPROXEN) (Critical) BENADRYL (DIPHENHYDRAMINE HCL) (DIPHENHYDRAMINE HCL) (Critical) DOXYCYCLINE (DOXYCYCLINE) (Critical) Physical Exam General: well developed, well nourished, in no acute distress Head: normocephalic and atraumatic Eyes: PERRLA/EOM intact; fundi benign, conjunctiva and sclera clear Neck: no masses, thyromegaly, or abnormal cervical nodes Chest Wall: no deformities or breast masses noted Lungs: clear bilaterally to A & P Heart: regular rate and rhythm, S1, S2 without murmurs, rubs, gallops, or clicks Abdomen: bowel sounds positive; abdomen soft and non-tender without masses, organomegaly, or hernias noted Rectal: normal external exam Pulses: pulses normal in all 4 extremities Extremities: no clubbing, cyanosis, edema, or deformity noted with normal full range of motion of all joints Neurologic: no focal deficits, CN II-XII grossly intact with normal reflexes, coordination, muscle strength and tone Blood Pressure: Today's BP: 134/76 mmHg Impression & Recommendations: Problem # 1: Blood in stool, occult (ICD-792.1) (SOA54-U81.5) 78yoF with recent + FOBT without gross blood in stool at home. No alarm symptoms for colon cancer. Significant gastritis history and current NSAID use as noted in PPI, though without epigastric pain. The indications, alternatives, and risks of upper and lower endoscopy, including but not limited to perforation requiring operative repair, bleeding, and were discussed. The required conscious sedation was discussed along with its risks. The patient wishes to proceed with EGD and diagnostic colonoscopy. Instructions for the mechanical bowel prep were reviewed with the patient in the clinic. Nicole Smith DO [facility] General Surgeon, [facility] Other Orders: Visit Code Hold ([id number]) Patient Instructions: 1) Patient is here today for a colonoscopy/egd consult. Patient Portal: [id number] Hold PPI x2 weeks before EGD Home Meds and Allergies albuterol sulfate 90 mcg/actuation aerosol inhaler (Ventolin HFA) 2 inhaler inhalation Q4HR PRN Wheezing 11/19/13 trazodone 50 mg tablet 3 - 4 tab PO HS 11/19/13 ropinirole 1 mg tablet 3 mg PO QPM 04/17/18 ibuprofen 800 mg tablet 800 mg PO DAILY 12/28/18 albuterol sulfate 90 mcg/actuation breath activated powder inhaler 2 inh inhalation QID #1 ea 06/22/24 acyclovir 400 mg tablet 400 mg PO QDAY 06/28/24 atorvastatin 10 mg tablet (Lipitor) 10 mg PO QPM 06/28/24 ipratropium 0.5 mg-albuterol 3 mg (2.5 mg base)/3 mL nebulization soln 3 ml inhalation QID PRN wheezing 06/28/24 Allergies Allergy/AdvReac Type Severity Reaction Status Date / Time Sulfa (Sulfonamide Allergy Mild Rash Verified 06/22/24 18:34 Antibiotics) diphenhydramine (From Allergy has no Verified 06/22/24 18:34 Benadryl) effect doxycycline Allergy Unknown Verified 06/22/24 18:34 Vital Signs O2 Saturation: 97 Patient Review Patient Review Pertinent Tests Reviewed [facility] Social History Social History Smoking Status: Former smoker If you are a former smoker, when did you quit? (Date/Year): January 2000 Number of Years Smoked: 41 How many cigarettes a day do you smoke? (20 cigarettes=1 Pk): 20 Do you dip or chew tobacco?: No Do you vape?: No Patient requests smoking cessation consult: No Living Condition: With spouse/s.o. Relationship: Spouse Home Mobility Equipment: Cane History of Abuse: No Are you sexually active?: Yes POLST Patient has POLST: No
[2024-07-11] MEDS ORDERED: ACETAMINOPHEN 500 MG TABLET PO PRN (07:35)
[2024-07-11] MEDS ORDERED: ONDANSETRON 4 MG/2 ML VIAL IVP PRN (07:35)
--- NOTE | 2024-07-11 07:36 | ANESTHESIA PROCEDURE NOTE ---
Pre-Anesthesia VS, & Labs Diagnosis Surgical Diagnosis:: heme Procedure Procedure: postive heme stool Vitals Vital Signs: Temp Pulse Resp BP Pulse Ox 36.3 C L 72 23 117/82 97 07/11/24 06:48 07/11/24 06:48 07/11/24 06:48 07/11/24 06:48 07/11/24 07:22 NPO NPO: Other (prep as directed) Is Patient ?: No Meds/Allgy Home Medications Ambulatory Orders Medication Instructions Recorded Confirmed albuterol sulfate 90 mcg/actuation 2 inhaler inhalation Q4HR PRN 11/19/13 07/11/24 aerosol inhaler (Ventolin HFA) Wheezing trazodone 50 mg tablet 3 - 4 tab PO HS 11/19/13 07/11/24 ropinirole 1 mg tablet 3 mg PO QPM 04/17/18 07/11/24 ibuprofen 800 mg tablet 800 mg PO DAILY 12/28/18 07/11/24 albuterol sulfate 90 mcg/actuation 2 inh inhalation QID #1 ea 06/22/24 07/11/24 breath activated powder inhaler acyclovir 400 mg tablet 400 mg PO QDAY 06/28/24 07/11/24 atorvastatin 10 mg tablet (Lipitor) 10 mg PO QPM 06/28/24 07/11/24 ipratropium 0.5 mg-albuterol 3 mg 3 ml inhalation QID PRN wheezing 06/28/24 07/11/24 (2.5 mg base)/3 mL nebulization soln Allergies Allergies Allergy/AdvReac Type Severity Reaction Status Date / Time Sulfa (Sulfonamide Allergy Mild Rash Verified 06/22/24 18:34 Antibiotics) diphenhydramine (From Allergy has no Verified 06/22/24 18:34 Benadryl) effect doxycycline Allergy Unknown Verified 06/22/24 18:34 [facility] Medical History Medical History (Updated 07/11/24 @ 07:34 by Maggie Givens CRNA) Chest wall pain (02/09/16) Cataracts, bilateral (09/08/12) Back pain (01/13/18) Abdominal aortic aneurysm (02/09/16) Chronic back pain Loose right total knee arthroplasty Trigger finger of left hand High cholesterol COPD (chronic obstructive pulmonary disease) Sjogren's disease Asthma Hiatal hernia GERD (gastroesophageal reflux disease) Ulcerative colitis Depression Surgical History Surgical History (Updated 07/11/24 @ 07:34 by Maggie Givens CRNA) Hx of bilateral cataract extraction History of bunionectomy Hx of hammer toe correction Hx of appendectomy Hx laparoscopic cholecystectomy Hx of shoulder surgery H/O: hysterectomy Hx of colonoscopy Social History Social History Smoking Status: Former smoker If you are a former smoker, when did you quit? (Date/Year): January 2000 Number of Years Smoked: 41 How many cigarettes a day do you smoke? (20 cigarettes=1 Pk): 20 Do you dip or chew tobacco?: No Do you vape?: No Patient requests smoking cessation consult: No Living Condition: With spouse/s.o. Relationship: Spouse Home Mobility Equipment: Cane History of Abuse: No Are you sexually active?: Yes POLST Patient has POLST: No Anesthesia Exam (Expanded) Exam General: Alert and Oriented x3 Dental: WNL and Partials Lower Mouth Opening: Greater than 4 Fingerbreadths Neck Mobility: Normal Mallampati classification: II Thyromental Distance: greater than 6 cm Respiratory: Lungs clear Cardiovascular: Regular rate Plan Plan Anesthesia Type: General Consent for Procedure(s) Verified and Reviewed: Yes Code Status: Attempt Resuscitation ASA Classification ASA classification: 3-Severe systemic disease Is this case an emergency?: No
[2024-07-11] MEDS ORDERED: PROPOFOL 200 MG/20 ML VIAL IVP ONE (07:44)
[2024-07-11] MEDS ORDERED: PHENYLEPHRINE 10 MG/ML VIAL ONE (08:17)
[2024-07-11] MEDS ORDERED: ROCURONIUM 50 MG/5 ML VIAL ONE ×2 (08:49→10:19)
[2024-07-11 08:59] LABS: BASOPHILS # (AUTO) 0.1 10^3/uL (0.0-0.1); EOSINOPHILS # (AUTO) 0.2 10^3/uL (0.0-0.7); EOSINOPHILS % (AUTO) 4.1 %; HCT - HEMATOCRIT 40.7 % (37.0-47.0); HGB - HEMOGLOBIN 12.8 g/dL (12.0-16.0); LYMPHOCYTES # (AUTO) 1.8 10^3/uL (1.5-3.5); LYMPHOCYTES % (AUTO) 35.8 %; MEAN CORPUSCULAR HEMOGLOBIN 30.9 pg (27.0-31.0); MEAN CORPUSCULAR HGB CONC 31.4 g/dL (32.0-36.0); MEAN CORPUSCULAR VOLUME 98.3 fL (81.0-99.0); MEAN PLATELET VOLUME 9.4 fL (7.9-10.8); MONOCYTES # (AUTO) 0.4 10^3/uL (0.0-1.0); MONOCYTES % (AUTO) 7.9 %; NEUTROPHILS # (AUTO) 2.6 10^3/uL (1.5-6.6); PLT - PLATELET COUNT 118 10^3/uL (130-450); RED BLOOD COUNT 4.14 10^6/uL (4.20-5.40); RED CELL DISTRIBUTION WIDTH 14.2 % (12.0-15.0); WHITE BLOOD COUNT 5.1 x10^3/uL (4.8-10.8)
[2024-07-11 09:07] LABS: INR 1.2 (0.8-1.2); PT - PROTHROMBIN TIME 12.6 secs (9.9-12.6)
[2024-07-11 09:18] LABS: ALBUMIN 3.6 g/dL (3.2-5.5); ALBUMIN/GLOBULIN RATIO 1.7 (1.0-2.2); BILIRUBIN,TOTAL 0.8 mg/dL (0.2-1.0); CREATININE 0.9 mg/dL (0.6-1.3); TOTAL PROTEIN 5.7 g/dL (6.4-8.9)
[2024-07-11] MEDS ORDERED: HYDROCORTISONE SUCCINATE 100 MG/2 ML VIAL ONE (09:39)
[2024-07-11] MEDS ORDERED: HYDROmorphone 1 MG/ML CARPUJECT ONE (09:42)
[2024-07-11 10:16] LABS: BASOPHILS % (AUTO) 0.5 %; EOSINOPHILS # (AUTO) 0.1 10^3/uL (0.0-0.7); EOSINOPHILS % (AUTO) 1.1 %; HCT - HEMATOCRIT 39.8 % (37.0-47.0); HGB - HEMOGLOBIN 12.8 g/dL (12.0-16.0); LYMPHOCYTES # (AUTO) 1.4 10^3/uL (1.5-3.5); LYMPHOCYTES % (AUTO) 16.8 %; MEAN CORPUSCULAR HEMOGLOBIN 30.1 pg (27.0-31.0); MEAN CORPUSCULAR HGB CONC 32.2 g/dL (32.0-36.0); MEAN CORPUSCULAR VOLUME 93.6 fL (81.0-99.0); MONOCYTES # (AUTO) 0.4 10^3/uL (0.0-1.0); MONOCYTES % (AUTO) 5.2 %; NEUTROPHILS # (AUTO) 6.2 10^3/uL (1.5-6.6); PLT - PLATELET COUNT 85 10^3/uL (130-450); RED BLOOD COUNT 4.25 10^6/uL (4.20-5.40); RED CELL DISTRIBUTION WIDTH 15.6 % (12.0-15.0); WHITE BLOOD COUNT 8.1 x10^3/uL (4.8-10.8)
[2024-07-11] MEDS ORDERED: SUCCINYLCHOLINE 200 MG/10 ML VIAL ONE (10:19)
[2024-07-11 10:28] LABS: CALCIUM 7.8 mg/dL (8.5-10.3); CREATININE 0.8 mg/dL (0.6-1.3)
[2024-07-11 11:13] LABS: CALCIUM, IONIZED 1.03 mmol/L (1.15-1.33); VBG PH 7.283 (7.31-7.41)
[2024-07-11] MEDS ORDERED: DEXMEDETOMIDINE 400 MCG/100 ML 100 ML IV ONE (11:14)
[2024-07-11] MEDS ORDERED: SODIUM CHLORIDE FLUSH 0.9% 10 ML SYRINGE IVP PRN (11:24)
[2024-07-11] MEDS ORDERED: SODIUM CHLORIDE 0.9% 50 ML IV ONE (11:29)
--- NOTE | 2024-07-11 11:30 | OPERATIVE REPORT ---
Operative Report General Procedure Data: Operation Date: 07/11/24 08:08 Proposed Procedures p Exploratory Laparotomy(Not Applicable) - Nicole Smith DO Actual Procedures p Exploratory Laparotomy GASTROTOMY WITH CONTROL OF HEMORRHAGE, AND CONTROL OF SPLENIC HEMORRHAGE(Not Applicable) - Nicole Smith DO Pre-Op Diagnosis: GIB Anesthesia Type General Case Staff Anesthesia Provider: Janelle Anderson Anesthesia Provider: Maggie Givens Assisting Provider: Diomedes Moran Case Times Procedure Start: 07/11/24 08:14 Procedure End: 07/11/24 10:29 Time out: 07/11/24 08:14 Tourniquet Tourniquet #: Tourniquet Site Padding: Pressure: Applied by: Time up #1: Time Down #1: Time Up #2: Time Down #2: Pre-Op Diagnosis: Gastric hemorrhage Post Op Diagnosis: Gastric and splenic hemorrhage Procedure Note Intake, IV Amount (ml): 1,800 Estimated Blood Loss (ml): 2,000 Pathology: none Indications: Raegan Romero was brought to the same-day surgery clinic today for an elective EGD and colonoscopy due to a history of GERD as well as a positive Cologuard screening test. These procedures were confirmed in the preoperative holding area and the patient was brought to the endoscopy suite where monitored sedation was induced by the CONCILIATOR and the EGD was begun. The endoscope was easily advanced through the esophagus into the stomach and initial surveillance of the gastric lumen revealed a 2 cm submucosal mass in the gastric fundus. Cold forceps were used to take a biopsy for histology, into bites. At the second bite a rapid hemorrhage from the biopsy site resulted. Immediately 2 endoscopic clips were used to attempt to control the hemorrhage unsuccessfully. At this point a third clip was introduced however the gastric lumen had completely filled with blood and visualization was obscured, the blood was filling faster than the endoscopic suction could control it. The patient was emergently intubated and transferred to the adjacent operating room for an emergent exploratory laparotomy. Massive transfusion protocol was initiated. The patient's was contacted with however he was unavailable at this time. Findings: No peritoneal hemorrhage upon opening. Active hemorrhage within the gastric lumen upon gastrotomy, controlled via silk oversewing. Large short gastric to cephalad aspect of spleen resulted in significant splenic hemorrhage during the operation, which required multiple hemostatic agents for hemorrhage control. Complications: Gastric hemorrhage, unplanned exploratory laparotomy Other Other Information/Narrative: With the patient transferred to the operating room and intubated a rapid Betadine splash prep was performed and the upper midline abdomen was opened sharply with a knife once the peritoneal cavity was opened it was seen that there was no free intraperitoneal hemorrhage. The stomach was tensely full and was opened longitudinally along the anterior aspect of the gastric body wall. 2 L of fresh blood and clot were evacuated from the gastric lumen. Visual inspection of the gastric fundus revealed rapid large volume of active hemorrhage adjacent to the 2 endoscopic clips that had been used for attempted hemorrhage control. The hemorrhage was controlled with a DeBakey. Massive transfusion protocol was ongoing at this time the patient's systolic blood pressure had dropped to a low point in the mid 70s, however with control of the hemorrhage the end ongoing transfusion the patient's blood pressure rapidly rebounded to over 100. 2-0 silk suture was used to place 2 [id number] sutures to oversew the area of bleeding, and this resulted in excellent hemostasis. At this point attention was directed to the peritoneal cavity in the epigastrium and left upper quadrant to inspect for additional hemorrhage. The lesser sac was opened by opening the omentum inferior to the stomach. There was no active hemorrhage within the lesser sac. There was no hemorrhage on the medial aspect of the stomach. There was some hemorrhage in the left upper quadrant lateral to the stomach. Bleeding was seen from the superior cephalad aspect of the spleen. Small clip founder president and ceo was used to attempt hemostasis, this reduced the amount of bleeding but did not result in adequate hemostasis. A 2-0 silk suture was used to place [id number] sutures which again reduced the bleeding but did not adequately cease the bleeding. Manual pressure resulted in adequate hemostasis but with release of manual pressure the bleeding resumed. Ultimately multiple hemostatic agents to include Surgi-Jesús, Surgicel, Nu-Knit, a nd Heema foam were used along with manual pressure for greater than 20 minutes and satisfactory hemostasis resulted. The abdomen and gastric lumen were irrigated with 4 L of warm normal saline.The gastrotomy was closed longitudinally with 275 mm blue load EPHRAIM staplers. This was followed by a row of 2-0 silk Lembert sutures to imbricate the entire staple line. An NG tube was passed into the stomach prior to closing the gastrotomy confirming that it did not disrupt the controlled hemorrhage and that it was positioned adequately within the stomach. The fascia was closed with #1 PDS running suture x 2. The subcutaneous tissues were copiously irrigated with warm normal saline. The skin was closed with berry. A Lee was placed at the conclusion of the case with resultant light clear ye llow fluid. Decision was made to transfer the patient to the ICU while still intubated given her recent COPD exacerbation. She was hemodynamically stable at the time of transfer. The patient received 3 units of PRBCs as well as 2 units of FFP along with a 1800 cc of crystalloid. She was hemodynamically stable at the conclusion of the case. All sponge needle counts were correct. The patient was then transferred to the ICU in stable condition. Dr. Diomedes Moran assisted me in the operating room for the control of splenic hemorrhage. Nicole Smith DO, [facility] General Surgeon, [place]
[2024-07-11] MEDS ORDERED: PROPOFOL 1000 MG/100 ML 1,000 MG/100 ML BOTTLE IV ONE (11:34)
--- NOTE | 2024-07-11 11:34 | ANESTHESIA POST OP EVALUATION ---
Anesthesia Post Eval Post Anesthesia Eval Vitals: Last Vital Signs Temp 36.3 C L 07/11/24 06:48 Pulse 67 07/11/24 11:03 Resp 23 07/11/24 06:48 BP 117/82 07/11/24 06:48 Pulse Ox 97 07/11/24 07:22 CV Function Including HR & BP: Stable Pain Control: Satisfactory Nausea & Vomiting: Negative Mental Status: Baseline Respiratory Status: Airway Patent Hydration Status: Satisfactory Anesthesia Complications: None Other Details/Therapies Other Details/Therapies: unexpected emergency laparotomy, to ICU post-op intubated due to pre-existing lung disease and extent of procedure.
--- NOTE | 2024-07-11 11:39 | XRAY Report ---
PROCEDURE: XR Chest for Line Placement INDICATIONS: ETT placement TECHNIQUE: One view of the chest was acquired. COMPARISON: 06/20/2023. FINDINGS: Surgical changes and devices: The tip of the ET tube projects approximately 3.3 cm above the tiffany. An NG tube extends into the stomach. Cholecystectomy clips and left upper abdominal clips. Lungs and pleura: No pleural effusions or pneumothorax. Lungs are clear. Mediastinum: Mediastinal contours appear normal. Heart size is normal. Bones and chest wall: No suspicious bony lesions. Overlying soft tissues appear unremarkable. IMPRESSION: ET tube and NG tube in satisfactory position. No gross infiltrates. Reviewed by: Daniel Gudino MD on 07/11/2024 11:38 AM PDT Approved by: Daniel Gudino MD on 07/11/2024 11:38 AM PDT Station ID: [id number]
[2024-07-11] MEDS: NOREPINEPHRINE/0.9 % NS 8 MG/250 ML BAG IV SCH (11:42)
[2024-07-11] MEDS: fentaNYL 2,500 MCG/250 ML 2,500 MCG/250 ML BAG IV SCH (11:42)
[2024-07-11] MEDS: PROPOFOL 1000 MG/100 ML 1,000 MG/100 ML BOTTLE IV SCH (11:43)
[2024-07-11] MEDS ORDERED: fentaNYL 2,500 MCG in SODIUM CHLORIDE 0.9% 200 ML IV SCH (12:00)
[2024-07-11] MEDS: DEXMEDETOMIDINE 400 MCG/100 ML 100 ML IV SCH (12:00)
[2024-07-11] MEDS: ACETAMINOPHEN 1,000 MG/100 ML 1,000 MG/100 ML BAG IV SCH (12:22)
[2024-07-11] MEDS: SODIUM CHLORIDE 0.9% 1,000 ML IV SCH (12:22)
[2024-07-11] MEDS: PANTOPRAZOLE 40 MG VIAL IVP SCH (12:22)
[2024-07-11 12:41] LABS: ABG BASE EXCESS -7.1 mmol/L (-2.0-3.0); ABG HCO3 17.8 mmol/L (22.0-26.0); ABG OXYGEN SATURATION 98 % (94-98); ABG PCO2 34 mmHg (34-45); ABG PH 7.34 (7.35-7.45); ABG PO2 128 mmHg (80-100); ABG TCO2 18.8 MMOL/L (21.0-29.0); ALLEN TEST POSITIVE
[2024-07-11 12:42] LABS: ABG MODE OF VENTILATION ASSIST/CONTROL; ABG RESPIRATORY RATE 16 b/min
--- NOTE | 2024-07-11 13:24 | CONSULTATION NOTE ---
Referring Provider Name of Referring Provider:: Dr. Nicole Smith Consult Date: 07/11/24 Chief Complaint Chief Complaint Chief Complaint: Dark stool, positive Cologuard test History of Present Illness History Obtained From History obtained from: Documentation as patient is intubated and sedated History of Present Illness HPI Comment/Other: Patient is a 78-year-old female with a history of gastritis/GERD, COPD, scleroderma presented today for an elective colonoscopy and EGD. Of note, she had solid food dysphagia, and did have a EGD and esophageal manometry done in 2019. At this time she was found to have mild pyloric stenosis with intestinal metaplasia, hypertensive LES with normal relaxation, and mild peristaltic dysfunction. Her last colonoscopy was in 2018 and 1 cecal polyp was found. She did have a positive FOBT without gross blood in stool at home. She had no B symptoms at home, including weight loss or night sweats. During the EGD, a 2 cm submucosal mass was seen in the gastric fundus, forceps were used to take a biopsy. A rapid hemorrhage was induced from the biopsy site. Endoscopic clips were used to attempt to control the bleeding without success. Sees [place] patient was emergently intubated and underwent an exploratory laparotomy. She received 2 units of blood. Splenic hemorrhage was also noted. Hemostasis was achieved by the surgeon and patient was transferred to the ICU for closer monitoring. Meds/Allgy Home Medications Ambulatory Orders Medication Instructions Recorded Confirmed albuterol sulfate 90 mcg/actuation 2 inhaler inhalation Q4HR PRN 11/19/13 07/11/24 aerosol inhaler (Ventolin HFA) Wheezing trazodone 50 mg tablet 3 - 4 tab PO HS 11/19/13 07/11/24 ropinirole 1 mg tablet 3 mg PO QPM 04/17/18 07/11/24 acyclovir 400 mg tablet 400 mg PO QDAY 06/28/24 07/11/24 atorvastatin 10 mg tablet (Lipitor) 10 mg PO QPM 06/28/24 07/11/24 ipratropium 0.5 mg-albuterol 3 mg 3 ml inhalation QID PRN wheezing 06/28/24 07/11/24 (2.5 mg base)/3 mL nebulization soln Allergies Allergies Allergy/AdvReac Type Severity Reaction Status Date / Time Sulfa (Sulfonamide Allergy Mild Rash Verified 06/22/24 18:34 Antibiotics) diphenhydramine (From Allergy has no Verified 06/22/24 18:34 Benadryl) effect doxycycline Allergy Unknown Verified 06/22/24 18:34 PFSH Medical History Medical History (Updated 07/11/24 @ 15:15 by Corin Hassan MD) Chest wall pain (02/09/16) Cataracts, bilateral (09/08/12) Back pain (01/13/18) Abdominal aortic aneurysm (02/09/16) Chronic back pain Loose right total knee arthroplasty Trigger finger of left hand High cholesterol Sjogren's disease Asthma Hiatal hernia GERD (gastroesophageal reflux disease) Ulcerative colitis Depression Surgical History Surgical History (Updated 07/11/24 @ 07:34 by Maggie Givens CRNA) Hx of bilateral cataract extraction History of bunionectomy Hx of hammer toe correction Hx of appendectomy Hx laparoscopic cholecystectomy Hx of shoulder surgery H/O: hysterectomy Hx of colonoscopy Social History Social History Smoking Status: Former smoker If you are a former smoker, when did you quit? (Date/Year): January 2000 Number of Years Smoked: 41 How many cigarettes a day do you smoke? (20 cigarettes=1 Pk): 20 Do you dip or chew tobacco?: No Do you vape?: No Patient requests smoking cessation consult: No Living Condition: With spouse/s.o. Relationship: Spouse Home Mobility Equipment: Cane History of Abuse: No Are you sexually active?: Yes POLST Patient has POLST: No Results Lab Results Lab results reviewed: Yes 07/11/24 10:05 07/11/24 10:05 Other Lab Results: Lab Results x24hrs 07/11/24 07/11/24 07/11/24 Range/Units 12:32 11:05 10:05 WBC 8.1 (4.8-10.8) x10^3/uL RBC 4.25 (4.20-5.40) 10^6/uL Hgb 12.8 (12.0-16.0) g/dL Hct 39.8 (37.0-47.0) % MCV 93.6 (81.0-99.0) fL MCH 30.1 (27.0-31.0) pg MCHC 32.2 (32.0-36.0) g/dL RDW 15.6 H (12.0-15.0) % Plt Count 85 L (130-450) 10^3/uL MPV 9.0 (7.9-10.8) fL Neut # (Auto) 6.2 (1.5-6.6) 10^3/uL Lymph # (Auto) 1.4 L (1.5-3.5) 10^3/uL [place] # (Auto) 0.4 (0.0-1.0) 10^3/uL Eos # (Auto) 0.1 (0.0-0.7) 10^3/uL Baso # (Auto) 0.0 (0.0-0.1) 10^3/uL Absolute Nucleated RBC 0.00 x10^3/uL Nucleated RBC % 0.0 /100WBC PT (9.9-12.6) secs INR (0.8-1.2) Bld Gas Analysis Time 1241 Sample Site RIGHT RADIAL ABG pH 7.34 L (7.35-7.45) ABG pCO2 34 (34-45) mmHg ABG pO2 128 H (80-100) mmHg ABG HCO3 17.8 L (22.0-26.0) mmol/L ABG Total CO2 18.8 L (21.0-29.0) MMOL/L ABG O2 Saturation 98 (94-98) % ABG Base Excess -7.1 L (-2.0-3.0) mmol/L Epifanio Test POSITIVE VBG pH 7.283 L (7.31-7.41) Ionized Calcium 1.03 L (1.15-1.33) mmol/L Respiration Rate 16 b/min O2 Delivery Device VENTILATOR Vent Mode ASSIST/CONTROL FiO2 35.00 Tidal Volume 350 mL PEEP 5 cmH2O Pressure Support Vent 12 cmH2O Sodium 141 (135-145) mmol/L Potassium 4.0 (3.5-4.5) mmol/L Chloride 110 (101-111) mmol/L Carbon Dioxide 25 (21-32) mmol/L Anion Gap 6.0 (6-13) BUN 13 (6-20) mg/dL Creatinine 0.8 (0.6-1.3) mg/dL Estimated GFR (MDRD) 69 L (>89) Glucose 165 H (74-104) mg/dL Calcium 7.8 L (8.5-10.3) mg/dL Total Bilirubin (0.2-1.0) mg/dL AST (10-42) IU/L ALT (10-60) IU/L Alkaline Phosphatase (42-121) IU/L Total Protein (6.4-8.9) g/dL Albumin (3.2-5.5) g/dL Globulin (2.1-4.2) g/dL Albumin/Globulin Ratio (1.0-2.2) Blood Type Blood Type Recheck Antibody Screen Crossmatch IS Only 07/11/24 07/11/24 07/11/24 Range/Units 08:40 08:30 08:23 WBC (4.8-10.8) x10^3/uL RBC (4.20-5.40) 10^6/uL Hgb (12.0-16.0) g/dL Hct (37.0-47.0) % MCV (81.0-99.0) fL MCH (27.0-31.0) pg MCHC (32.0-36.0) g/dL RDW (12.0-15.0) % Plt Count (130-450) 10^3/uL MPV (7.9-10.8) fL Neut # (Auto) (1.5-6.6) 10^3/uL Lymph # (Auto) (1.5-3.5) 10^3/uL [place] # (Auto) (0.0-1.0) 10^3/uL Eos # (Auto) (0.0-0.7) 10^3/uL Baso # (Auto) (0.0-0.1) 10^3/uL Absolute Nucleated RBC x10^3/uL Nucleated RBC % /100WBC PT 12.6 (9.9-12.6) secs INR 1.2 (0.8-1.2) Bld Gas Analysis Time Sample Site ABG pH (7.35-7.45) ABG pCO2 (34-45) mmHg ABG pO2 (80-100) mmHg ABG HCO3 (22.0-26.0) mmol/L ABG Total CO2 (21.0-29.0) MMOL/L ABG O2 Saturation (94-98) % ABG Base Excess (-2.0-3.0) mmol/L Epifanio Test VBG pH (7.31-7.41) Ionized Calcium (1.15-1.33) mmol/L Respiration Rate b/min O2 Delivery Device Vent Mode FiO2 Tidal Volume mL PEEP cmH2O Pressure Support Vent cmH2O Sodium 139 (135-145) mmol/L Potassium 5.0 H (3.5-4.5) mmol/L Chloride 107 (101-111) mmol/L Carbon Dioxide 26 (21-32) mmol/L Anion Gap 6.0 (6-13) BUN 14 (6-20) mg/dL Creatinine 0.9 (0.6-1.3) mg/dL Estimated GFR (MDRD) 60 L (>89) Glucose 143 H (74-104) mg/dL Calcium 9.0 (8.5-10.3) mg/dL Total Bilirubin 0.8 (0.2-1.0) mg/dL AST 28 (10-42) IU/L ALT 25 (10-60) IU/L Alkaline Phosphatase 98 (42-121) IU/L Total Protein 5.7 L (6.4-8.9) g/dL Albumin 3.6 (3.2-5.5) g/dL Globulin 2.1 (2.1-4.2) g/dL Albumin/Globulin Ratio 1.7 (1.0-2.2) Blood Type O POSITIVE Blood Type Recheck O POSITIVE Antibody Screen NEGATIVE Crossmatch IS Only See Detail 07/11/24 Range/Units 08:20 WBC 5.1 (4.8-10.8) x10^3/uL RBC 4.14 L (4.20-5.40) 10^6/uL Hgb 12.8 (12.0-16.0) g/dL Hct 40.7 (37.0-47.0) % MCV 98.3 (81.0-99.0) fL MCH 30.9 (27.0-31.0) pg MCHC 31.4 L (32.0-36.0) g/dL RDW 14.2 (12.0-15.0) % Plt Count 118 L (130-450) 10^3/uL MPV 9.4 (7.9-10.8) fL Neut # (Auto) 2.6 (1.5-6.6) 10^3/uL Lymph # (Auto) 1.8 (1.5-3.5) 10^3/uL [place] # (Auto) 0.4 (0.0-1.0) 10^3/uL Eos # (Auto) 0.2 (0.0-0.7) 10^3/uL Baso # (Auto) 0.1 (0.0-0.1) 10^3/uL Absolute Nucleated RBC 0.00 x10^3/uL Nucleated RBC % 0.0 /100WBC PT (9.9-12.6) secs INR (0.8-1.2) Bld Gas Analysis Time Sample Site ABG pH (7.35-7.45) ABG pCO2 (34-45) mmHg ABG pO2 (80-100) mmHg ABG HCO3 (22.0-26.0) mmol/L ABG Total CO2 (21.0-29.0) MMOL/L ABG O2 Saturation (94-98) % ABG Base Excess (-2.0-3.0) mmol/L Epifanio Test VBG pH (7.31-7.41) Ionized Calcium (1.15-1.33) mmol/L Respiration Rate b/min O2 Delivery Device Vent Mode FiO2 Tidal Volume mL PEEP cmH2O Pressure Support Vent cmH2O Sodium (135-145) mmol/L Potassium (3.5-4.5) mmol/L Chloride (101-111) mmol/L Carbon Dioxide (21-32) mmol/L Anion Gap (6-13) BUN (6-20) mg/dL Creatinine (0.6-1.3) mg/dL Estimated GFR (MDRD) (>89) Glucose (74-104) mg/dL Calcium (8.5-10.3) mg/dL Total Bilirubin (0.2-1.0) mg/dL AST (10-42) IU/L ALT (10-60) IU/L Alkaline Phosphatase (42-121) IU/L Total Protein (6.4-8.9) g/dL Albumin (3.2-5.5) g/dL Globulin (2.1-4.2) g/dL Albumin/Globulin Ratio (1.0-2.2) Blood Type Blood Type Recheck Antibody Screen Crossmatch IS Only Diagnostic Imaging Results Diagnostic Imaging Results: positive Final report reviewed Review of Systems Status of ROS: unobtainable due to endotracheal tube and unobtainable due to medical condition Exam Constitutional normal general appearance and no apparent distress HENMT normocephalic and head/scalp traumatic Eyes EOMs intact bilaterally Neck/C-Spine trachea midline Respiratory breath sounds equal bilaterally, normal respiratory effort, clear to auscultation bilaterally and no wheezes Cardiovascular normal heart rate noted, regular rhythm noted and no JVD Gastrointestinal abdomen normal to inspection (surgical bandaids in place; not removed) Extremities normal to inspection and normal to palpation Neurology unable to assess fully due to patient's mental status Psychiatry unable to assess due to patient being sedated Skin skin color normal Conclusion/Plan Problem List (1) Gastric artery hemorrhage: Plan: During EGD, and subsequent biopsy, hemorrhage of gastric artery recurred. Surgery was converted to exploratory laparotomy, with cessation of bleed. 3 units of packed red blood cells, 2 units of FFP were given to the patient. 2 units of blood are on hold. Hemoglobin stable at this time. NG tube with minimal output. (2) Ventilator dependence: Plan: Patient currently sedated on fentanyl and propofol. Will wean overnight, do sedation holiday in the morning, start a breathing trial, and plan to extubate in the a.m. (3) Acute blood loss anemia: Plan: Patient with significant blood loss during surgery. 2 units PRBCs transfused, 3 needs FFP transfused. Hemoglobin stable at this time. Continue to trend. (4) Scleroderma: Plan: Per documentation, history of scleroderma in the past. Patient not currently taking any medications for it. (5) COPD (chronic obstructive pulmonary disease): Plan: Patient uses albuterol inhaler as needed in the outpatient setting. Will continue DuoNebs as needed when extubated. Qualifiers: COPD type: unspecified COPD Qualified Code(s): J44.9 - Chronic obstructive pulmonary disease, unspecified (6) Hyperlipidemia: Plan: Continue statin once patient is extubated. Qualifiers: Hyperlipidemia type: unspecified Qualified Code(s): E78.5 - Hyperlipidemia, unspecified Lab Results Lab results reviewed: Yes 07/11/24 10:05 07/11/24 10:05 Diagnostic Imaging Results Diagnostic Imaging Results: positive Final report reviewed
--- NOTE | 2024-07-11 13:59 | PHARMACY PROGRESS NOTE ---
Best Possible Medication History Admit Date and Time: 07/11/24 1043 Processed by: Pharmacy (Medication reconciliation completed by pharmacy benefits coordinatorShukri) Medications reviewed in ED?: No Medication History completed: Yes Patient Interview: Pt unable to participate Secondary Source(s): Spouse/Significant other and Insurance records [facility] Statement: As the person ultimately responsible for medication therapy, providers are able to order a medication from an existing home medication list in [facility] via the "Reconcile Routine" prior to Confirmation of that medication by intelligence support officer. Such practice is discouraged except when the physician, in their clinical judgment, deems that a medical need exists for a medication without regard to previous use.
--- NOTE | 2024-07-11 17:23 | PROVIDER PROGRESS NOTE ---
Subjective General Admit Date: 07/11/24 Procedure Date: 07/11/24 Post Op Days: 0 Procedure Performed: EGD, exploratory laparotomy with control of gastric and splenic hemorrhage Impression/Plan Problem List (1) Gastric artery hemorrhage: Plan Patient seen in ICU, intubated. On propofol and fentanyl for sedation, with resultant low dose nepi. After Exlap for hemorrhage control this AM with 3U PRBC and 2U FFP, as well as TXA while transitioning from EGD to ex lap, Hgb 12 --> 12, down from 14 (2 weeks ago). Urine is clear yellow. Ngt with 200cc dark gastric/coffee ground contents out since surgery. Abdomen is soft/nondistended with mepilex AG over midline wound. Plan is to rest on ventilator overnight, given recent COPD exacerbation, with vent weaning tomorrow. Will repeat Hgb now, then again in AM if stable. Continue protonix BID. Continue NGT to ADALGISA and Jesus. IM consulted for ICU management. I spoke with the patient's during and after surgery this morning, updating him on course of events and plan of care. Nicole Smith DO, FACS General Surgeon, [facility]
[2024-07-11 18:00] LABS: ALBUMIN 3.1 g/dL (3.2-5.5); ALBUMIN/GLOBULIN RATIO 1.6 (1.0-2.2); BILIRUBIN,TOTAL 1.3 mg/dL (0.2-1.0); CALCIUM 7.9 mg/dL (8.5-10.3); CREATININE 0.7 mg/dL (0.6-1.3); POTASSIUM 3.9 mmol/L (3.5-4.5); TOTAL PROTEIN 5.1 g/dL (6.4-8.9)
[2024-07-11] MEDS: SODIUM CHLORIDE FLUSH 0.9% 10 ML SYRINGE IVP SCH (18:24)
[2024-07-11 18:25] LABS: BASOPHILS % (AUTO) 0.2 %; EOSINOPHILS % (AUTO) 0.1 %; HCT - HEMATOCRIT 39.1 % (37.0-47.0); HGB - HEMOGLOBIN 13.1 g/dL (12.0-16.0); LYMPHOCYTES % (AUTO) 5.5 %; MEAN CORPUSCULAR HEMOGLOBIN 30.8 pg (27.0-31.0); MEAN CORPUSCULAR HGB CONC 33.5 g/dL (32.0-36.0); MEAN PLATELET VOLUME 9.3 fL (7.9-10.8); MONOCYTES # (AUTO) 1.1 10^3/uL (0.0-1.0); NEUTROPHILS # (AUTO) 16.5 10^3/uL (1.5-6.6); NEUTROPHILS % (AUTO) 87.7 %; PLT - PLATELET COUNT 102 10^3/uL (130-450); RED BLOOD COUNT 4.25 10^6/uL (4.20-5.40); RED CELL DISTRIBUTION WIDTH 16.4 % (12.0-15.0); WHITE BLOOD COUNT 18.8 x10^3/uL (4.8-10.8)
[2024-07-12 05:16] LABS: BASOPHILS % (AUTO) 0.3 %; EOSINOPHILS # (AUTO) 0.1 10^3/uL (0.0-0.7); EOSINOPHILS % (AUTO) 0.3 %; HCT - HEMATOCRIT 36.8 % (37.0-47.0); LYMPHOCYTES # (AUTO) 3.4 10^3/uL (1.5-3.5); LYMPHOCYTES % (AUTO) 22.7 %; MEAN CORPUSCULAR HEMOGLOBIN 30.2 pg (27.0-31.0); MEAN CORPUSCULAR HGB CONC 32.6 g/dL (32.0-36.0); MEAN CORPUSCULAR VOLUME 92.7 fL (81.0-99.0); MEAN PLATELET VOLUME 9.2 fL (7.9-10.8); MONOCYTES % (AUTO) 6.6 %; NEUTROPHILS # (AUTO) 10.3 10^3/uL (1.5-6.6); NEUTROPHILS % (AUTO) 69.7 %; PLT - PLATELET COUNT 108 10^3/uL (130-450); RED BLOOD COUNT 3.97 10^6/uL (4.20-5.40); RED CELL DISTRIBUTION WIDTH 16.7 % (12.0-15.0); WHITE BLOOD COUNT 14.8 x10^3/uL (4.8-10.8)
[2024-07-12 05:35] LABS: MAGNESIUM 1.6 mg/dL (1.7-2.3); PHOSPHORUS 2.6 mg/dL (2.5-5.0)
[2024-07-12 05:48] LABS: CALCIUM, IONIZED 1.03 mmol/L (1.15-1.33); VBG PH 7.413 (7.31-7.41)
[2024-07-12 05:53] LABS: CALCIUM 7.9 mg/dL (8.5-10.3); CREATININE 0.7 mg/dL (0.6-1.3); POTASSIUM 3.7 mmol/L (3.5-4.5)
[2024-07-12] MEDS: CALCIUM GLUC 1,000MG/50ML-NACL 1,000 MG/50 ML BAG IV ONE (06:34)
[2024-07-12] MEDS: POTASSIUM CHLOR 10 MEQ/100 ML 10 MEQ/100 ML BAG IV SCH (06:42)
--- NOTE | 2024-07-12 08:35 | PROVIDER PROGRESS NOTE ---
Subjective Subjective Subjective: Patient is doing well this morning. Extubation occurred around 8:45 AM. She tolerated it well. Denies any difficulty breathing, cough, wheezing. She does have some abdominal pain near her surgical site. She states her mouth is really dry, but understands that she cannot eat or drink at the moment. She also denies any fevers, chills. Current Medications Current Medications Current Medications: Current Medications Generic Name Dose Route Start Last Admin Trade Name Freq PRN Reason Stop Dose Admin Norepinephrine/Sodium Chloride 8 mg in 250 mls @ 15 mls/hr 07/11/24 12:00 07/12/24 06:20 Levophed 8 Mg/250-0.9% Nacl IV 8 mcg/min .[id number] KASSY 15 mls/hr Administration Protocol 8 MCG/MIN Dexmedetomidine/Sodium Chloride 100 mls @ 3.53 mls/hr 07/11/24 12:00 07/11/24 14:30 Precedex Premix IV 0 mcg/kg/hr .[id number] KASSY 0 mls/hr Titration Protocol 0.2 MCG/KG/HR Sodium Chloride 1,000 mls @ 125 mls/hr 07/11/24 11:24 07/12/24 03:46 Normal Saline 0.9% IV 125 mls/hr .Q8H KASSY Administration Acetaminophen 1,000 mg in 100 mls @ 400 mls/hr 07/11/24 12:00 07/12/24 06:34 Acetaminophen IV Infused Q6HR KASSY Infusion Fentanyl 2,500 mcg in 250 mls @ 7.06 mls/hr 07/11/24 12:00 07/12/24 07:05 Fentanyl IV 0 mcg/kg/hr .[id number] KASSY 0 mls/hr Titration Protocol 1 MCG/KG/HR Propofol 1,000 mg in 100 mls @ 4.236 mls/hr 07/11/24 12:00 07/12/24 07:05 Diprivan IV 0 mcg/kg/min .[id number] KASSY 0 mls/hr Titration Protocol 10 MCG/KG/MIN Potassium Chloride 10 meq in 100 mls @ 100 mls/hr 07/12/24 07:00 07/12/24 08:00 Potassium Chloride IV 07/12/24 08:59 100 mls/hr Q1H KASSY Administration Protocol Magnesium Sulfate 2 gm in 50 mls @ 50 mls/hr 07/12/24 08:00 Magnesium Sulfate IV 07/12/24 08:59 ONCE ONE Protocol Morphine Sulfate 2 mg 07/11/24 11:24 Morphine 2 Mg/Ml Carpuject IVP Q2HR PRN Pain 8 to 10 Ondansetron HCl 4 mg 07/11/24 11:24 Ondansetron 4 Mg/2 Ml Vial IVP Q6HR PRN Nausea / Vomiting Pantoprazole Sodium 40 mg 07/11/24 11:24 07/11/24 22:24 Pantoprazole 40 Mg Vial IVP 40 mg BID KASSY Administration Sodium Chloride 10 ml 07/11/24 17:00 07/12/24 01:53 Sodium Chloride Flush 0.9% 10 Ml Syringe IVP 10 ml 0100,0900,1700 KASSY Administration Sodium Chloride 10 ml 07/11/24 11:24 Sodium Chloride Flush 0.9% 10 Ml Syringe IVP PRN PRN NEEDED PER PROVIDER ORDERS Objective Vital Signs/Intake & Output Reviewed Vital Signs: Yes Vital Signs: Vital Signs x48h Temp Pulse Pulse Resp BP Pulse Ox 07/12/24 08:00 88 17 135/53 H 97 07/12/24 07:22 74 07/12/24 07:00 60 16 114/48 L 99 07/12/24 06:05 65 07/12/24 06:00 63 16 121/52 L 99 07/12/24 05:00 64 16 136/56 H 99 07/12/24 04:00 98.1 F 60 16 121/54 L 98 07/12/24 03:15 65 07/12/24 03:00 63 16 109/52 L 98 07/12/24 02:00 65 16 116/47 L 97 07/12/24 01:00 65 16 107/52 L 98 Intake & Output: Intake & Output 07/10/24 07/11/24 07/12/24 07/13/24 05:59 05:59 05:59 05:59 Intake Total 8367.5 / 8367.5 608 / 608 Output Total 994 / 994 552 / 552 Balance 7373.5 / 7373.5 56 / 56 Weight (kg) 76 kg Objective General Appearance: positive Mild distress and Anxious Eyes Bilateral: positive Normal inspection, PERRL and EOMI ENT: positive Other (NG tube in place with 400cc of bloody output) Neck: positive Nml inspection, Thyroid nml and No JVD Respiratory: positive Chest non-tender, No respiratory distress, Breath sounds nml and Rhonchi (mild rhonchi bilateral lower lung cowan); negative Wheezes or Rales Cardiovascular: positive Regular rate & rhythm, No murmur and No gallop Abdomen: positive No distention, Tenderness (diffusely) and Other (midling surgical scar with bandaid places, not unwrapped); negative Guarding or Rebound Back: positive Nml inspection; negative CVA tenderness (R) or CVA tenderness (L) Skin: positive Color nml, No rash, Warm and Dry Extremities: positive Non-tender, Full ROM and No pedal edema Neurologic/Psychiatric: positive Oriented x3 and Mood/affect nml Lab Results 07/12/24 04:46 07/12/24 04:46 Other Labs: Lab Results x24hrs 07/12/24 07/12/24 07/12/24 Range/Units 05:56 04:46 00:00 WBC 14.8 H (4.8-10.8) x10^3/uL RBC 3.97 L (4.20-5.40) 10^6/uL Hgb 12.0 (12.0-16.0) g/dL Hct 36.8 L (37.0-47.0) % MCV 92.7 (81.0-99.0) fL MCH 30.2 (27.0-31.0) pg MCHC 32.6 (32.0-36.0) g/dL RDW 16.7 H (12.0-15.0) % Plt Count 108 L (130-450) 10^3/uL MPV 9.2 (7.9-10.8) fL Neut # (Auto) 10.3 H (1.5-6.6) 10^3/uL Lymph # (Auto) 3.4 (1.5-3.5) 10^3/uL [place] # (Auto) 1.0 (0.0-1.0) 10^3/uL Eos # (Auto) 0.1 (0.0-0.7) 10^3/uL Baso # (Auto) 0.0 (0.0-0.1) 10^3/uL Absolute Nucleated RBC 0.00 x10^3/uL Nucleated RBC % 0.0 /100WBC PT (9.9-12.6) secs INR (0.8-1.2) Bld Gas Analysis Time Sample Site ABG pH (7.35-7.45) ABG pCO2 (34-45) mmHg ABG pO2 (80-100) mmHg ABG HCO3 (22.0-26.0) mmol/L ABG Total CO2 (21.0-29.0) MMOL/L ABG O2 Saturation (94-98) % ABG Base Excess (-2.0-3.0) mmol/L Epifanio Test VBG pH 7.413 H (7.31-7.41) Ionized Calcium 1.03 L (1.15-1.33) mmol/L Respiration Rate b/min O2 Delivery Device Vent Mode FiO2 Tidal Volume mL PEEP cmH2O Pressure Support Vent cmH2O Sodium 142 (135-145) mmol/L Potassium 3.7 (3.5-4.5) mmol/L Chloride 114 H (101-111) mmol/L Carbon Dioxide 21 (21-32) mmol/L Anion Gap 7.0 (6-13) BUN 15 (6-20) mg/dL Creatinine 0.7 (0.6-1.3) mg/dL Estimated GFR (MDRD) 81 L (>89) Glucose 106 H (74-104) mg/dL POC Whole Bld Glucose 93 108 (70-100) mg/dL Calcium 7.9 L (8.5-10.3) mg/dL Phosphorus 2.6 (2.5-5.0) mg/dL Magnesium 1.6 L (1.7-2.3) mg/dL Total Bilirubin (0.2-1.0) mg/dL AST (10-42) IU/L ALT (10-60) IU/L Alkaline Phosphatase (42-121) IU/L Total Protein (6.4-8.9) g/dL Albumin (3.2-5.5) g/dL Globulin (2.1-4.2) g/dL Albumin/Globulin Ratio (1.0-2.2) Nasal Screen MRSA (PCR) (NEGATIVE) Blood Type Blood Type Recheck Antibody Screen Crossmatch IS Only 07/11/24 07/11/24 07/11/24 Range/Units 18:21 17:39 12:32 WBC 18.8 H (4.8-10.8) x10^3/uL RBC 4.25 (4.20-5.40) 10^6/uL Hgb 13.1 (12.0-16.0) g/dL Hct 39.1 (37.0-47.0) % MCV 92.0 (81.0-99.0) fL MCH 30.8 (27.0-31.0) pg MCHC 33.5 (32.0-36.0) g/dL RDW 16.4 H (12.0-15.0) % Plt Count 102 L (130-450) 10^3/uL MPV 9.3 (7.9-10.8) fL Neut # (Auto) 16.5 H (1.5-6.6) 10^3/uL Lymph # (Auto) 1.0 L (1.5-3.5) 10^3/uL [place] # (Auto) 1.1 H (0.0-1.0) 10^3/uL Eos # (Auto) 0.0 (0.0-0.7) 10^3/uL Baso # (Auto) 0.0 (0.0-0.1) 10^3/uL Absolute Nucleated RBC 0.00 x10^3/uL Nucleated RBC % 0.0 /100WBC PT (9.9-12.6) secs INR (0.8-1.2) Bld Gas Analysis Time 1241 Sample Site RIGHT RADIAL ABG pH 7.34 L (7.35-7.45) ABG pCO2 34 (34-45) mmHg ABG pO2 128 H (80-100) mmHg ABG HCO3 17.8 L (22.0-26.0) mmol/L ABG Total CO2 18.8 L (21.0-29.0) MMOL/L ABG O2 Saturation 98 (94-98) % ABG Base Excess -7.1 L (-2.0-3.0) mmol/L Epifanio Test POSITIVE VBG pH (7.31-7.41) Ionized Calcium (1.15-1.33) mmol/L Respiration Rate 16 b/min O2 Delivery Device VENTILATOR Vent Mode ASSIST/CONTROL FiO2 35.00 Tidal Volume 350 mL PEEP 5 cmH2O Pressure Support Vent 12 cmH2O Sodium 140 (135-145) mmol/L Potassium 3.9 (3.5-4.5) mmol/L Chloride 111 (101-111) mmol/L Carbon Dioxide 19 L (21-32) mmol/L Anion Gap 10.0 (6-13) BUN 15 (6-20) mg/dL Creatinine 0.7 (0.6-1.3) mg/dL Estimated GFR (MDRD) 81 L (>89) Glucose 154 H (74-104) mg/dL POC Whole Bld Glucose (70-100) mg/dL Calcium 7.9 L (8.5-10.3) mg/dL Phosphorus (2.5-5.0) mg/dL Magnesium (1.7-2.3) mg/dL Total Bilirubin 1.3 H (0.2-1.0) mg/dL AST 31 (10-42) IU/L ALT 21 (10-60) IU/L Alkaline Phosphatase 75 (42-121) IU/L Total Protein 5.1 L (6.4-8.9) g/dL Albumin 3.1 L (3.2-5.5) g/dL Globulin 2.0 L (2.1-4.2) g/dL Albumin/Globulin Ratio 1.6 (1.0-2.2) Nasal Screen MRSA (PCR) (NEGATIVE) Blood Type Blood Type Recheck Antibody Screen Crossmatch IS Only 07/11/24 07/11/24 07/11/24 Range/Units 11:05 10:05 10:00 WBC 8.1 (4.8-10.8) x10^3/uL RBC 4.25 (4.20-5.40) 10^6/uL Hgb 12.8 (12.0-16.0) g/dL Hct 39.8 (37.0-47.0) % MCV 93.6 (81.0-99.0) fL MCH 30.1 (27.0-31.0) pg MCHC 32.2 (32.0-36.0) g/dL RDW 15.6 H (12.0-15.0) % Plt Count 85 L (130-450) 10^3/uL MPV 9.0 (7.9-10.8) fL Neut # (Auto) 6.2 (1.5-6.6) 10^3/uL Lymph # (Auto) 1.4 L (1.5-3.5) 10^3/uL [place] # (Auto) 0.4 (0.0-1.0) 10^3/uL Eos # (Auto) 0.1 (0.0-0.7) 10^3/uL Baso # (Auto) 0.0 (0.0-0.1) 10^3/uL Absolute Nucleated RBC 0.00 x10^3/uL Nucleated RBC % 0.0 /100WBC PT (9.9-12.6) secs INR (0.8-1.2) Bld Gas Analysis Time Sample Site ABG pH (7.35-7.45) ABG pCO2 (34-45) mmHg ABG pO2 (80-100) mmHg ABG HCO3 (22.0-26.0) mmol/L ABG Total CO2 (21.0-29.0) MMOL/L ABG O2 Saturation (94-98) % ABG Base Excess (-2.0-3.0) mmol/L Epifanio Test VBG pH 7.283 L (7.31-7.41) Ionized Calcium 1.03 L (1.15-1.33) mmol/L Respiration Rate b/min O2 Delivery Device Vent Mode FiO2 Tidal Volume mL PEEP cmH2O Pressure Support Vent cmH2O Sodium 141 (135-145) mmol/L Potassium 4.0 (3.5-4.5) mmol/L Chloride 110 (101-111) mmol/L Carbon Dioxide 25 (21-32) mmol/L Anion Gap 6.0 (6-13) BUN 13 (6-20) mg/dL Creatinine 0.8 (0.6-1.3) mg/dL Estimated GFR (MDRD) 69 L (>89) Glucose 165 H (74-104) mg/dL POC Whole Bld Glucose (70-100) mg/dL Calcium 7.8 L (8.5-10.3) mg/dL Phosphorus (2.5-5.0) mg/dL Magnesium (1.7-2.3) mg/dL Total Bilirubin (0.2-1.0) mg/dL AST (10-42) IU/L ALT (10-60) IU/L Alkaline Phosphatase (42-121) IU/L Total Protein (6.4-8.9) g/dL Albumin (3.2-5.5) g/dL Globulin (2.1-4.2) g/dL Albumin/Globulin Ratio (1.0-2.2) Nasal Screen MRSA (PCR) NEGATIVE (NEGATIVE) Blood Type Blood Type Recheck Antibody Screen Crossmatch IS Only 07/11/24 07/11/24 07/11/24 Range/Units 08:40 08:30 08:23 WBC (4.8-10.8) x10^3/uL RBC (4.20-5.40) 10^6/uL Hgb (12.0-16.0) g/dL Hct (37.0-47.0) % MCV (81.0-99.0) fL MCH (27.0-31.0) pg MCHC (32.0-36.0) g/dL RDW (12.0-15.0) % Plt Count (130-450) 10^3/uL MPV (7.9-10.8) fL Neut # (Auto) (1.5-6.6) 10^3/uL Lymph # (Auto) (1.5-3.5) 10^3/uL [place] # (Auto) (0.0-1.0) 10^3/uL Eos # (Auto) (0.0-0.7) 10^3/uL Baso # (Auto) (0.0-0.1) 10^3/uL Absolute Nucleated RBC x10^3/uL Nucleated RBC % /100WBC PT 12.6 (9.9-12.6) secs INR 1.2 (0.8-1.2) Bld Gas Analysis Time Sample Site ABG pH (7.35-7.45) ABG pCO2 (34-45) mmHg ABG pO2 (80-100) mmHg ABG HCO3 (22.0-26.0) mmol/L ABG Total CO2 (21.0-29.0) MMOL/L ABG O2 Saturation (94-98) % ABG Base Excess (-2.0-3.0) mmol/L Epifanio Test VBG pH (7.31-7.41) Ionized Calcium (1.15-1.33) mmol/L Respiration Rate b/min O2 Delivery Device Vent Mode FiO2 Tidal Volume mL PEEP cmH2O Pressure Support Vent cmH2O Sodium 139 (135-145) mmol/L Potassium 5.0 H (3.5-4.5) mmol/L Chloride 107 (101-111) mmol/L Carbon Dioxide 26 (21-32) mmol/L Anion Gap 6.0 (6-13) BUN 14 (6-20) mg/dL Creatinine 0.9 (0.6-1.3) mg/dL Estimated GFR (MDRD) 60 L (>89) Glucose 143 H (74-104) mg/dL POC Whole Bld Glucose (70-100) mg/dL Calcium 9.0 (8.5-10.3) mg/dL Phosphorus (2.5-5.0) mg/dL Magnesium (1.7-2.3) mg/dL Total Bilirubin 0.8 (0.2-1.0) mg/dL AST 28 (10-42) IU/L ALT 25 (10-60) IU/L Alkaline Phosphatase 98 (42-121) IU/L Total Protein 5.7 L (6.4-8.9) g/dL Albumin 3.6 (3.2-5.5) g/dL Globulin 2.1 (2.1-4.2) g/dL Albumin/Globulin Ratio 1.7 (1.0-2.2) Nasal Screen MRSA (PCR) (NEGATIVE) Blood Type O POSITIVE Blood Type Recheck O POSITIVE Antibody Screen NEGATIVE Crossmatch IS Only See Detail 07/11/24 Range/Units 08:20 WBC 5.1 (4.8-10.8) x10^3/uL RBC 4.14 L (4.20-5.40) 10^6/uL Hgb 12.8 (12.0-16.0) g/dL Hct 40.7 (37.0-47.0) % MCV 98.3 (81.0-99.0) fL MCH 30.9 (27.0-31.0) pg MCHC 31.4 L (32.0-36.0) g/dL RDW 14.2 (12.0-15.0) % Plt Count 118 L (130-450) 10^3/uL MPV 9.4 (7.9-10.8) fL Neut # (Auto) 2.6 (1.5-6.6) 10^3/uL Lymph # (Auto) 1.8 (1.5-3.5) 10^3/uL [place] # (Auto) 0.4 (0.0-1.0) 10^3/uL Eos # (Auto) 0.2 (0.0-0.7) 10^3/uL Baso # (Auto) 0.1 (0.0-0.1) 10^3/uL Absolute Nucleated RBC 0.00 x10^3/uL Nucleated RBC % 0.0 /100WBC PT (9.9-12.6) secs INR (0.8-1.2) Bld Gas Analysis Time Sample Site ABG pH (7.35-7.45) ABG pCO2 (34-45) mmHg ABG pO2 (80-100) mmHg ABG HCO3 (22.0-26.0) mmol/L ABG Total CO2 (21.0-29.0) MMOL/L ABG O2 Saturation (94-98) % ABG Base Excess (-2.0-3.0) mmol/L Epifanio Test VBG pH (7.31-7.41) Ionized Calcium (1.15-1.33) mmol/L Respiration Rate b/min O2 Delivery Device Vent Mode FiO2 Tidal Volume mL PEEP cmH2O Pressure Support Vent cmH2O Sodium (135-145) mmol/L Potassium (3.5-4.5) mmol/L Chloride (101-111) mmol/L Carbon Dioxide (21-32) mmol/L Anion Gap (6-13) BUN (6-20) mg/dL Creatinine (0.6-1.3) mg/dL Estimated GFR (MDRD) (>89) Glucose (74-104) mg/dL POC Whole Bld Glucose (70-100) mg/dL Calcium (8.5-10.3) mg/dL Phosphorus (2.5-5.0) mg/dL Magnesium (1.7-2.3) mg/dL Total Bilirubin (0.2-1.0) mg/dL AST (10-42) IU/L ALT (10-60) IU/L Alkaline Phosphatase (42-121) IU/L Total Protein (6.4-8.9) g/dL Albumin (3.2-5.5) g/dL Globulin (2.1-4.2) g/dL Albumin/Globulin Ratio (1.0-2.2) Nasal Screen MRSA (PCR) (NEGATIVE) Blood Type Blood Type Recheck Antibody Screen Crossmatch IS Only Assessment/Plan Problem List (1) Gastric artery hemorrhage: Impression: During EGD, and subsequent biopsy, hemorrhage of gastric artery occurred. Surgery was converted to exploratory laparotomy, with cessation of bleed. 3 units of packed red blood cells, 2 units of FFP were given to the patient during surgery. 2 units of blood are on hold. Hemoglobin stable at this time. NG tube with 400 cc bloody output overnight, remains on LIS, management by surgery. Continue Protonix. (2) Hypotension: Impression: Hypotension likely due to acute blood loss. Weaning off Levophed. Continue IVF resuscitation. Qualifiers: Hypotension type: postprocedural hypotension Qualified Code(s): I95.81 - Postprocedural hypotension (3) Ventilator dependence: Impression: Resolved. Extubated to 2L nasal cannula this morning, doing well. Now off propofol, fentanyl. (4) Acute blood loss anemia: Impression: Patient with significant blood loss during surgery. 2 units PRBCs transfused, 3 needs FFP transfused. Hemoglobin stable at this time. Continue to trend. (5) COPD (chronic obstructive pulmonary disease): Impression: Patient uses albuterol inhaler as needed in the outpatient setting. Will continue DuoNebs as needed now that she's extubated. Qualifiers: COPD type: unspecified COPD Qualified Code(s): J44.9 - Chronic obstructive pulmonary disease, unspecified (6) Hyperlipidemia: Impression: Continue statin once patient is no longer NPO. Qualifiers: Hyperlipidemia type: unspecified Qualified Code(s): E78.5 - Hyperlipidemia, unspecified
[2024-07-12] MEDS: MAGNESIUM SULFATE 2 GRAM 2 GM/50 ML BAG IV ONE (09:10)
[2024-07-12] MEDS: SODIUM CHLORIDE 0.9% 500 ML IV ONE (09:30)
[2024-07-12] MEDS: MORPHINE 2 MG/ML CARPUJECT IVP PRN (10:20)
[2024-07-12] MEDS: IPRATROPIUM/ALBUTEROL 3 ML NEB INH PRN (12:37)
[2024-07-12 13:25] LABS: CALCIUM, IONIZED 1.1 mmol/L (1.15-1.33); VBG PH 7.29 (7.31-7.41)
[2024-07-12 13:36] LABS: MAGNESIUM 1.8 mg/dL (1.7-2.3); POTASSIUM 4.2 mmol/L (3.5-4.5)
--- NOTE | 2024-07-12 16:38 | PROVIDER PROGRESS NOTE ---
Subjective General Admit Date: 07/11/24 Procedure Date: 07/11/24 Post Op Days: 1 Procedure Performed: EGD, exploratory laparotomy with control of gastric and splenic hemorrhage Other Other Information/Narrative: Remained intubated overnight, extubated this AM around 830, seen on rounds ~1030am. Doing well, a little groggy but alert and conversational. No nausea or severe pain. I explained to her the bleeding that resulted during her EGD and the abdominal operation she underwent yesterday. She remained on low dose nepi this AM. UOP good, light yellow. NGT was gastric contents with rare tinge of old blood. Review of Systems Status of ROS: 10 or more systems reviewed and unremarkable except as noted in history and below Exam Constitutional no apparent distress HENMT NGT in place, gastric contents with rare blood tinge Eyes EOMs intact bilaterally and conjunctivae normal Neck/C-Spine visual inspection normal Chest inspection of chest normal Respiratory breath sounds equal bilaterally Cardiovascular normal heart rate noted Gastrointestinal abdomen soft to palpation and nondistended LUQ ttp, no peritonitis Genitourinary foster in place Extremities normal to inspection Psychiatry oriented x3 Skin skin color normal Impression/Plan Problem List (1) Gastric artery hemorrhage: Plan: 78yoF POD1 s/p EGD with biopsy complicated by hemorrhage, requiring emergent exploratory laparotomy with control of gastric and splenic hemorrhage; received TXA, 3U PRBC, 2U FFP. - scheduled IV tylenol with prn IV narcotic for pain control - Extubated this morning, wean NC as tolerated - Wean nepi as tolerated; may need steroid as she has had prednisone recently for COPD exaccerbation - Hgb stable and NGT output with gastric contents - do not suspect ongoing bleeding; NGT removed on rounds; OK for sips/chips today. If remains stable tomorrow and off nepi, will trial clears - Protonix 40mg BID - remove foster once nepi weaned - daily CBC/CMP - no abx - plan for ppx lovenox tomorrow (POD2); SCDs in place - PT/OT consults - Hospitalist following for ICU mgmt, appreciate assistance Nicole Smith DO, FACS General Surgeon, [place] (2) Hypotension: Qualifiers: Hypotension type: postprocedural hypotension Qualified Code(s): I95.81 - Postprocedural hypotension (3) Ventilator dependence: (4) Acute blood loss anemia: (5) COPD (chronic obstructive pulmonary disease): Qualifiers: COPD type: unspecified COPD Qualified Code(s): J44.9 - Chronic obstructive pulmonary disease, unspecified (6) Hyperlipidemia: Qualifiers: Hyperlipidemia type: unspecified Qualified Code(s): E78.5 - Hyperlipidemia, unspecified Plan Patient seen in ICU, intubated. On propofol and fentanyl for sedation, with resultant low dose nepi. After Exlap for hemorrhage control this AM with 3U PRBC and 2U FFP, as well as TXA while transitioning from EGD to ex lap, Hgb 12 --> 12, down from 14 (2 weeks ago). Urine is clear yellow. Ngt with 200cc dark gastric/coffee ground contents out since surgery. Abdomen is soft/nondistended with mepilex AG over midline wound. Plan is to rest on ventilator overnight, given recent COPD exacerbation, with vent weaning tomorrow. Will repeat Hgb now, then again in AM if stable. Continue protonix BID. Continue NGT to Berta. IM consulted for ICU management. I spoke with the patient's during and after surgery this morning, updating him on course of events and plan of care. Nicole Smith DO, FACS General Surgeon, [facility]
[2024-07-12] MEDS: DEXTROSE 50% ABBOJECT 25 GM/50 ML SYRINGE IVP ONE (18:05)
[2024-07-12] MEDS ORDERED: DEXTROSE 50% ABBOJECT 25 GM/50 ML SYRINGE IVP ONE (18:07)
[2024-07-12] MEDS: MORPHINE 2 MG/ML CARPUJECT IVP ONE (18:48)
[2024-07-13] MEDS: DEXTROSE 50% ABBOJECT 25 GM/50 ML SYRINGE IVP ONE (01:20)
[2024-07-13] MEDS: HYDROmorphone 0.5 MG/0.5 ML SYRINGE IVP ONE (01:22)
[2024-07-13] MEDS: DEXTROSE 5% 1,000 ML IV SCH (01:29)
[2024-07-13 05:48] LABS: CALCIUM, IONIZED 1.05 mmol/L (1.15-1.33); VBG PH 7.383 (7.31-7.41)
[2024-07-13 06:07] LABS: MAGNESIUM 1.6 mg/dL (1.7-2.3); PHOSPHORUS 2.1 mg/dL (2.5-5.0)
[2024-07-13] MEDS: CALCIUM GLUC 1,000MG/50ML-NACL 1,000 MG/50 ML BAG IV ONE (06:58)
[2024-07-13 07:49] LABS: CALCIUM 7.9 mg/dL (8.5-10.3); CREATININE 0.6 mg/dL (0.6-1.3); POTASSIUM 3.4 mmol/L (3.5-4.5)
[2024-07-13 08:08] LABS: HGB - HEMOGLOBIN 9.8 g/dL (12.0-16.0); MEAN CORPUSCULAR HEMOGLOBIN 31.1 pg (27.0-31.0); MEAN CORPUSCULAR HGB CONC 32.7 g/dL (32.0-36.0); MEAN CORPUSCULAR VOLUME 95.2 fL (81.0-99.0); MEAN PLATELET VOLUME 9.8 fL (7.9-10.8); RED BLOOD COUNT 3.15 10^6/uL (4.20-5.40); RED CELL DISTRIBUTION WIDTH 16.2 % (12.0-15.0); WHITE BLOOD COUNT 8.2 x10^3/uL (4.8-10.8)
[2024-07-13] MEDS: HYDROmorphone 0.5 MG/0.5 ML SYRINGE IVP PRN (09:29)
[2024-07-13] MEDS: POTASSIUM PHOSPHATE 15 MMOL in SODIUM CHLORIDE 0.9% 250 ML IV ONE (09:51)
[2024-07-13] MEDS: MAGNESIUM SULFATE 2 GRAM 2 GM/50 ML BAG IV ONE (10:01)
[2024-07-13] MEDS: DEXTROSE 5%-LACTATED RINGERS 1,000 ML IV SCH (10:02)
--- NOTE | 2024-07-13 10:02 | XRAY Report ---
PROCEDURE: XR Chest 1V INDICATIONS: difficulty breathing TECHNIQUE: One view of the chest was acquired. COMPARISON: Chest x-ray 07/11/2024, CT chest angiogram 06/22/2024 FINDINGS: Surgical changes and devices: Interval removal of enteric tube and endotracheal tube. Epigastric and right upper quadrant surgical clips. Surgical berry overlying the midline abdomen Lungs and pleura: No pleural effusions or pneumothorax. Low lung volumes. Minimal bibasilar subsegme ntal atelectasis. Mediastinum: Aortic arch calcifications. Mediastinal contours appear normal. Heart size is normal. Bones and chest wall: Diffuse osseous demineralization. Moderate bilateral glenohumeral osteoarthriti s with intra-articular body at the right axillary pouch. No suspicious bony lesions. Overlying soft tissues appear unremarkable. IMPRESSION: Mild bibasilar subsegmental atelectasis. Reviewed by: Hiro Zamora MD on 07/13/2024 10:00 AM PDT Approved by: Hiro Zamora MD on 07/13/2024 10:00 AM PDT Station ID: [id number]
--- NOTE | 2024-07-13 10:40 | PROVIDER PROGRESS NOTE ---
Subjective Subjective Subjective: Patient does appear to be having a lot of abdominal pain around the incision site. Anytime she moves in the bed, or tries to get up or position herself, she is having a sharp shooting pain in her epigastric region, as well as the left region. She had some difficulty with taking sips of water yesterday as well, there is some concern for possible aspiration. She also feels intermittently short of breath. She denies any fevers or chills at this time. Current Medications Current Medications Current Medications: Current Medications Generic Name Dose Route Start Last Admin Trade Name Freq PRN Reason Stop Dose Admin Albuterol/Ipratropium 3 ml 07/12/24 10:52 07/13/24 07:19 Ipratropium/Albuterol 3 Ml Neb INH 3 ml RTQID PRN Administration Shortness of Air/Wheezing Hydromorphone HCl 0.5 mg 07/13/24 07:59 07/13/24 09:29 Hydromorphone 0.5 Mg/0.5 Ml Syringe IVP 0.5 mg Q2H PRN Administration Severe Pain (Level 7-10) Norepinephrine/Sodium Chloride 8 mg in 250 mls @ 15 mls/hr 07/11/24 12:00 07/12/24 23:49 Levophed 8 Mg/250-0.9% Nacl IV Not Given .[id number] KASSY Protocol 8 MCG/MIN Acetaminophen 1,000 mg in 100 mls @ 400 mls/hr 07/11/24 12:00 07/13/24 06:19 Acetaminophen IV 400 mls/hr Q6HR KASSY Administration Potassium Phosphate 15 mmol/ 255 mls @ 63 mls/hr 07/13/24 08:00 07/13/24 09:51 Sodium Chloride IV 07/13/24 12:02 63 mls/hr ONCE ONE Administration Protocol Dextrose/Lactated Ringer's 1,000 mls @ 83.333 mls/hr 07/13/24 08:00 07/13/24 10:02 D5lr IV 83.33 mls/hr .Q12H KASSY Administration Ondansetron HCl 4 mg 07/11/24 11:24 Ondansetron 4 Mg/2 Ml Vial IVP Q6HR PRN Nausea / Vomiting Pantoprazole Sodium 40 mg 07/11/24 11:24 07/13/24 09:30 Pantoprazole 40 Mg Vial IVP 40 mg BID KASSY Administration Sodium Chloride 10 ml 07/11/24 17:00 07/13/24 09:40 Sodium Chloride Flush 0.9% 10 Ml Syringe IVP Not Given 0100,0900,1700 KASSY Sodium Chloride 10 ml 07/11/24 11:24 Sodium Chloride Flush 0.9% 10 Ml Syringe IVP PRN PRN NEEDED PER PROVIDER ORDERS Objective Vital Signs/Intake & Output Reviewed Vital Signs: Yes Vital Signs: Vital Signs x48h Temp Pulse Pulse Resp BP Pulse Ox O2 Flow Rate 07/13/24 10:00 70 22 94/67 90 L 3 07/13/24 09:00 69 23 108/50 L 94 07/13/24 08:00 98.7 F 72 14 112/76 94 07/13/24 07:19 2 07/13/24 07:19 70 20 07/13/24 07:00 71 17 94/51 L 95 2 07/13/24 06:00 98.5 F 74 24 103/57 L 95 2 07/13/24 05:00 70 15 107/51 L 95 2 07/13/24 04:00 74 13 112/50 L 95 2 07/13/24 03:10 76 21 101/50 L 93 2 Intake & Output: Intake & Output 07/11/24 07/12/24 07/13/24 07/14/24 05:59 05:59 05:59 05:59 Intake Total 8367.5 / 8367.5 4241 / 4241 0 / 0 Output Total 994 / 994 2157 / 2157 0 / 0 Balance 7373.5 / 7373.5 2084 / 2084 0 / 0 Weight (kg) 76 kg 77 kg Objective General Appearance: positive Mild distress and Anxious Eyes Bilateral: positive Normal inspection, PERRL and EOMI ENT: positive Other (NG tube in place with 400cc of bloody output) Neck: positive Nml inspection, Thyroid nml and No JVD Respiratory: positive Chest non-tender, No respiratory distress, Breath sounds nml, Rales and Rhonchi (increased rhonchi bilateral lower lung cowan) Cardiovascular: positive Regular rate & rhythm, No murmur and No gallop Abdomen: positive No distention, Tenderness (diffusely) and Other (midling surgical scar with bandaid places, not unwrapped); negative Guarding or Rebound Back: positive Nml inspection; negative CVA tenderness (R) or CVA tenderness (L) Skin: positive Color nml, No rash, Warm and Dry Extremities: positive Non-tender, Full ROM and No pedal edema Neurologic/Psychiatric: positive Oriented x3 and Mood/affect nml Lab Results 07/13/24 07:25 07/13/24 07:25 Other Labs: Lab Results x24hrs 07/13/24 07/13/24 07/13/24 Range/Units 07:25 06:39 04:54 WBC 8.2 (4.8-10.8) x10^3/uL RBC 3.15 L (4.20-5.40) 10^6/uL Hgb 9.8 L (12.0-16.0) g/dL Hct 30.0 L (37.0-47.0) % MCV 95.2 (81.0-99.0) fL MCH 31.1 H (27.0-31.0) pg MCHC 32.7 (32.0-36.0) g/dL RDW 16.2 H (12.0-15.0) % Plt Count 78 L (130-450) 10^3/uL MPV 9.8 (7.9-10.8) fL VBG pH 7.383 (7.31-7.41) Ionized Calcium 1.05 L (1.15-1.33) mmol/L Sodium 138 (135-145) mmol/L Potassium 3.4 L 3.4 L (3.5-4.5) mmol/L Chloride 111 (101-111) mmol/L Carbon Dioxide 24 (21-32) mmol/L Anion Gap 3.0 L (6-13) BUN 9 (6-20) mg/dL Creatinine 0.6 (0.6-1.3) mg/dL Estimated GFR (MDRD) 96 (>89) Glucose 79 (74-104) mg/dL POC Whole Bld Glucose 86 (70-100) mg/dL Calcium 7.9 L (8.5-10.3) mg/dL Phosphorus 2.1 L (2.5-5.0) mg/dL Magnesium 1.6 L (1.7-2.3) mg/dL 07/13/24 07/13/24 07/12/24 Range/Units 01:46 01:01 13:15 WBC (4.8-10.8) x10^3/uL RBC (4.20-5.40) 10^6/uL Hgb (12.0-16.0) g/dL Hct (37.0-47.0) % MCV (81.0-99.0) fL MCH (27.0-31.0) pg MCHC (32.0-36.0) g/dL RDW (12.0-15.0) % Plt Count (130-450) 10^3/uL MPV (7.9-10.8) fL VBG pH 7.290 L (7.31-7.41) Ionized Calcium 1.10 L (1.15-1.33) mmol/L Sodium (135-145) mmol/L Potassium (3.5-4.5) mmol/L Chloride (101-111) mmol/L Carbon Dioxide (21-32) mmol/L Anion Gap (6-13) BUN (6-20) mg/dL Creatinine (0.6-1.3) mg/dL Estimated GFR (MDRD) (>89) Glucose (74-104) mg/dL POC Whole Bld Glucose 96 62 (70-100) mg/dL Calcium (8.5-10.3) mg/dL Phosphorus (2.5-5.0) mg/dL Magnesium (1.7-2.3) mg/dL 07/12/24 Range/Units 13:13 WBC (4.8-10.8) x10^3/uL RBC (4.20-5.40) 10^6/uL Hgb (12.0-16.0) g/dL Hct (37.0-47.0) % MCV (81.0-99.0) fL MCH (27.0-31.0) pg MCHC (32.0-36.0) g/dL RDW (12.0-15.0) % Plt Count (130-450) 10^3/uL MPV (7.9-10.8) fL VBG pH (7.31-7.41) Ionized Calcium (1.15-1.33) mmol/L Sodium (135-145) mmol/L Potassium 4.2 (3.5-4.5) mmol/L Chloride (101-111) mmol/L Carbon Dioxide (21-32) mmol/L Anion Gap (6-13) BUN (6-20) mg/dL Creatinine (0.6-1.3) mg/dL Estimated GFR (MDRD) (>89) Glucose (74-104) mg/dL POC Whole Bld Glucose (70-100) mg/dL Calcium (8.5-10.3) mg/dL Phosphorus (2.5-5.0) mg/dL Magnesium 1.8 (1.7-2.3) mg/dL Assessment/Plan Problem List (1) Gastric artery hemorrhage: Impression: During EGD, and subsequent biopsy, hemorrhage of gastric artery occurred. Surgery was converted to exploratory laparotomy, with cessation of bleed. 3 units of packed red blood cells, 2 units of FFP were given to the patient during surgery. 2 units of blood are on hold. Hemoglobin decreased at this time but no active bleeding noted. No bowel movement yet. NG tube with 400 cc bloody output, removed yesterday, management by surgery. Continue Protonix. (2) Hypotension: Impression: Hypotension likely due to acute blood loss. Now weaned off Levophed. Continue IVF resuscitation. Qualifiers: Hypotension type: postprocedural hypotension Qualified Code(s): I95.81 - Postprocedural hypotension (3) Ventilator dependence: Impression: Resolved. Extubated. Now requiring 3L nasal cannula. Now off propofol, fentanyl. (4) Acute blood loss anemia: Impression: Patient with significant blood loss during surgery. 2 units PRBCs transfused, 3 needs FFP transfused. Hemoglobin decreasing but no acute blood loss noted post operatively. Will recheck in the afternoon; if okay, then will start DVT propylaxis with Lovenox. Continue to trend. Laboratory Tests 07/11/24 07/11/24 07/11/24 08:20 10:05 18:21 Hgb 12.8 12.8 13.1 07/12/24 07/13/24 04:46 07:25 Hgb 12.0 9.8 L (5) COPD (chronic obstructive pulmonary disease): Impression: Patient uses albuterol inhaler as needed in the outpatient setting. Will continue DuoNebs as needed now that she's extubated. Qualifiers: COPD type: unspecified COPD Qualified Code(s): J44.9 - Chronic obstructive pulmonary disease, unspecified (6) Hyperlipidemia: Impression: Continue statin once patient is no longer NPO. Qualifiers: Hyperlipidemia type: unspecified Qualified Code(s): E78.5 - Hyperlipidemia, unspecified
--- NOTE | 2024-07-13 14:07 | PROVIDER PROGRESS NOTE ---
Subjective General Admit Date: 07/11/24 Procedure Date: 07/11/24 Post Op Days: 2 Procedure Performed: EGD, exploratory laparotomy with control of gastric and splenic hemorrhage Other Other Information/Narrative: Extubated yesterday morning, nepi weaned in the afternoon. Lee out subsequently and patient able to void. Some sips and chips yesterday, but LUQ pain significant this AM - patient denies nausea but not hungry, no ROBF yet. On 4L NC this AM. Wound Assessment Wound/Incisions: positive Dressing dry and intact Review of Systems Status of ROS: 10 or more systems reviewed and unremarkable except as noted in history and below Exam Constitutional no apparent distress HENMT NGT in place, gastric contents with rare blood tinge Eyes EOMs intact bilaterally and conjunctivae normal Neck/C-Spine visual inspection normal Chest inspection of chest normal Respiratory breath sounds equal bilaterally Cardiovascular normal heart rate noted Gastrointestinal abdomen soft to palpation and nondistended LUQ ttp, no peritonitis Extremities normal to inspection Psychiatry oriented x3 Skin skin color normal ABX Reporting Has patient been on IV antibiotics over the past 48 hours?: No Impression/Plan Problem List (1) Gastric artery hemorrhage: Plan: 78yoF POD2 s/p EGD with biopsy complicated by hemorrhage, requiring emergent exploratory laparotomy with control of gastric and splenic hemorrhage; received TXA, 3U PRBC, 2U FFP. - scheduled IV tylenol with prn IV narcotic for pain control - on 4L NC, wean NC as tolerated - Hgb drop to 9.8 today, though did get fluid bolus yesterday while weaning nepi. HR/BP are stable, no pallor, suspect drop in hgb may be dilutional. Repeat Hgb this afternoon - continue sips/chips for now, until abd pain improves - Protonix 40mg BID - daily CBC/CMP - no abx - plan for ppx lovenox tonight (POD2) if PM hgb is stable; SCDs in place - PT/OT consults - Hospitalist following for ICU mgmt, appreciate assistance Nicole Smith DO, FACS General Surgeon, [place] (2) Hypotension: Plan: resolved Qualifiers: Hypotension type: postprocedural hypotension Qualified Code(s): I95.81 - Postprocedural hypotension (3) Ventilator dependence: Plan: resolved (4) Acute blood loss anemia: Plan: PM hgb (5) COPD (chronic obstructive pulmonary disease): Plan: duonebs as per hospitalist Qualifiers: COPD type: unspecified COPD Qualified Code(s): J44.9 - Chronic obstructive pulmonary disease, unspecified (6) Hyperlipidemia: Plan: resume home meds when tolerating PO Qualifiers: Hyperlipidemia type: unspecified Qualified Code(s): E78.5 - Hyperlipidemia, unspecified Plan Nicole Smith DO, [facility] General Surgeon, [facility]
[2024-07-13 14:35] LABS: HCT - HEMATOCRIT 31.2 % (37.0-47.0); HGB - HEMOGLOBIN 10.1 g/dL (12.0-16.0)
[2024-07-13] MEDS: traZODone 50 MG TABLET PO SCH (23:37)
[2024-07-14 05:16] LABS: HCT - HEMATOCRIT 28.9 % (37.0-47.0); HGB - HEMOGLOBIN 9.7 g/dL (12.0-16.0); MEAN CORPUSCULAR HEMOGLOBIN 31.3 pg (27.0-31.0); MEAN CORPUSCULAR HGB CONC 33.6 g/dL (32.0-36.0); MEAN CORPUSCULAR VOLUME 93.2 fL (81.0-99.0); MEAN PLATELET VOLUME 9.6 fL (7.9-10.8); RED BLOOD COUNT 3.1 10^6/uL (4.20-5.40); RED CELL DISTRIBUTION WIDTH 15.6 % (12.0-15.0)
[2024-07-14 05:33] LABS: CALCIUM, IONIZED 1.05 mmol/L (1.15-1.33); VBG PH 7.437 (7.31-7.41)
[2024-07-14 05:35] LABS: CREATININE 0.5 mg/dL (0.6-1.3); MAGNESIUM 1.7 mg/dL (1.7-2.3); POTASSIUM 3.2 mmol/L (3.5-4.5)
[2024-07-14] MEDS: POTASSIUM CHLOR 10 MEQ/100 ML 10 MEQ/100 ML BAG IV SCH (06:18)
[2024-07-14] MEDS: ENOXAPARIN 40 MG/0.4 ML SYRINGE SUBQ SCH (08:19)
--- NOTE | 2024-07-14 08:46 | PROVIDER PROGRESS NOTE ---
Subjective Subjective Subjective: Patient does appear to be having a lot of abdominal pain around the incision site. Anytime she moves in the bed, or tries to get up or position herself, she is having a sharp shooting pain in her epigastric region, as well as the left region. She also feels intermittently short of breath. She denies any fevers or chills at this time. Current Medications Current Medications Current Medications: Current Medications Generic Name Dose Route Start Last Admin Trade Name Freq PRN Reason Stop Dose Admin Albuterol/Ipratropium 3 ml 07/12/24 10:52 07/13/24 20:01 Ipratropium/Albuterol 3 Ml Neb INH 3 ml RTQID PRN Administration Shortness of Air/Wheezing Enoxaparin Sodium 40 mg 07/14/24 09:00 07/14/24 08:19 Enoxaparin 40 Mg/0.4 Ml Syringe SUBQ 40 mg DAILY KASSY Administration Hydromorphone HCl 0.5 mg 07/13/24 07:59 07/13/24 23:40 Hydromorphone 0.5 Mg/0.5 Ml Syringe IVP 0.5 mg Q2H PRN Administration Severe Pain (Level 7-10) Norepinephrine/Sodium Chloride 8 mg in 250 mls @ 15 mls/hr 07/11/24 12:00 07/14/24 06:19 Levophed 8 Mg/250-0.9% Nacl IV Not Given .[id number] KASSY Protocol 8 MCG/MIN Acetaminophen 1,000 mg in 100 mls @ 400 mls/hr 07/11/24 12:00 07/14/24 08:19 Acetaminophen IV 400 mls/hr Q6HR KASSY Administration Dextrose/Lactated Ringer's 1,000 mls @ 83.333 mls/hr 07/13/24 08:00 07/13/24 21:42 D5lr IV 83.33 mls/hr .Q12H KASSY Administration Potassium Chloride 10 meq in 100 mls @ 100 mls/hr 07/14/24 06:00 07/14/24 06:18 Potassium Chloride IV 07/14/24 09:59 100 mls/hr Q1H KASSY Administration Protocol Ondansetron HCl 4 mg 07/11/24 11:24 Ondansetron 4 Mg/2 Ml Vial IVP Q6HR PRN Nausea / Vomiting Pantoprazole Sodium 40 mg 07/11/24 11:24 07/14/24 08:21 Pantoprazole 40 Mg Vial IVP 40 mg BID KASSY Administration Sodium Chloride 10 ml 07/11/24 17:00 07/14/24 08:20 Sodium Chloride Flush 0.9% 10 Ml Syringe IVP 10 ml 0100,0900,1700 KASSY Administration Sodium Chloride 10 ml 07/11/24 11:24 Sodium Chloride Flush 0.9% 10 Ml Syringe IVP PRN PRN NEEDED PER PROVIDER ORDERS Trazodone HCl 100 mg 07/13/24 23:00 07/13/24 23:37 Trazodone 50 Mg Tablet PO 07/14/24 22:59 100 mg ONCE KASSY Administration Objective Vital Signs/Intake & Output Reviewed Vital Signs: Yes Vital Signs: Vital Signs x48h Pulse Resp BP Pulse Ox O2 Flow Rate 07/14/24 07:00 73 18 141/64 H 91 L 1 07/14/24 06:00 81 23 125/67 92 1 07/14/24 05:00 72 17 118/54 L 94 1 07/14/24 04:00 75 20 118/53 L 92 1 07/14/24 03:00 73 19 116/53 L 93 1 07/14/24 02:00 81 17 119/52 L 92 1 Intake & Output: Intake & Output 07/12/24 07/13/24 07/14/24 07/15/24 05:59 05:59 05:59 05:59 Intake Total 8367.5 / 8367.5 4241 / 4241 2865 / 2865 Output Total 994 / 994 2157 / 2157 1250 / 1250 0 / 0 Balance 7373.5 / 7373.5 2084 / 2084 1615 / 1615 0 / 0 Weight (kg) 76 kg 77 kg 7.5 kg Objective General Appearance: positive Mild distress and Anxious Eyes Bilateral: positive Normal inspection, PERRL and EOMI ENT: positive Other (NG tube in place with 400cc of bloody output) Neck: positive Nml inspection, Thyroid nml and No JVD Respiratory: positive Chest non-tender, No respiratory distress, Breath sounds nml, Rales and Rhonchi (increased rhonchi bilateral lower lung cowan) Cardiovascular: positive Regular rate & rhythm, No murmur and No gallop Abdomen: positive No distention, Tenderness (diffusely) and Other (midling surgical scar with bandaid places, not unwrapped); negative Guarding or Rebound Back: positive Nml inspection; negative CVA tenderness (R) or CVA tenderness (L) Skin: positive Color nml, No rash, Warm and Dry Extremities: positive Non-tender, Full ROM and No pedal edema Neurologic/Psychiatric: positive Oriented x3 and Mood/affect nml Lab Results 07/14/24 04:30 07/14/24 04:30 Other Labs: Lab Results x24hrs 07/14/24 07/14/24 07/13/24 Range/Units 05:27 04:30 23:18 WBC 6.0 (4.8-10.8) x10^3/uL RBC 3.10 L (4.20-5.40) 10^6/uL Hgb 9.7 L (12.0-16.0) g/dL Hct 28.9 L (37.0-47.0) % MCV 93.2 (81.0-99.0) fL MCH 31.3 H (27.0-31.0) pg MCHC 33.6 (32.0-36.0) g/dL RDW 15.6 H (12.0-15.0) % Plt Count 99 L (130-450) 10^3/uL MPV 9.6 (7.9-10.8) fL VBG pH 7.437 H (7.31-7.41) Ionized Calcium 1.05 L (1.15-1.33) mmol/L Sodium 138 (135-145) mmol/L Potassium 3.2 L (3.5-4.5) mmol/L Chloride 107 (101-111) mmol/L Carbon Dioxide 26 (21-32) mmol/L Anion Gap 5.0 L (6-13) BUN 6 (6-20) mg/dL Creatinine 0.5 L (0.6-1.3) mg/dL Estimated GFR (MDRD) 119 (>89) Glucose 99 (74-104) mg/dL POC Whole Bld Glucose 92 98 (70-100) mg/dL Calcium 8.0 L (8.5-10.3) mg/dL Phosphorus 2.7 (2.5-5.0) mg/dL Magnesium 1.7 (1.7-2.3) mg/dL 07/13/24 07/13/24 07/13/24 Range/Units 17:38 14:29 11:32 WBC (4.8-10.8) x10^3/uL RBC (4.20-5.40) 10^6/uL Hgb 10.1 L (12.0-16.0) g/dL Hct 31.2 L (37.0-47.0) % MCV (81.0-99.0) fL MCH (27.0-31.0) pg MCHC (32.0-36.0) g/dL RDW (12.0-15.0) % Plt Count (130-450) 10^3/uL MPV (7.9-10.8) fL VBG pH (7.31-7.41) Ionized Calcium (1.15-1.33) mmol/L Sodium (135-145) mmol/L Potassium (3.5-4.5) mmol/L Chloride (101-111) mmol/L Carbon Dioxide (21-32) mmol/L Anion Gap (6-13) BUN (6-20) mg/dL Creatinine (0.6-1.3) mg/dL Estimated GFR (MDRD) (>89) Glucose (74-104) mg/dL POC Whole Bld Glucose 84 79 (70-100) mg/dL Calcium (8.5-10.3) mg/dL Phosphorus (2.5-5.0) mg/dL Magnesium (1.7-2.3) mg/dL 07/12/24 07/12/24 07/12/24 Range/Units 18:31 17:55 12:05 WBC (4.8-10.8) x10^3/uL RBC (4.20-5.40) 10^6/uL Hgb (12.0-16.0) g/dL Hct (37.0-47.0) % MCV (81.0-99.0) fL MCH (27.0-31.0) pg MCHC (32.0-36.0) g/dL RDW (12.0-15.0) % Plt Count (130-450) 10^3/uL MPV (7.9-10.8) fL VBG pH (7.31-7.41) Ionized Calcium (1.15-1.33) mmol/L Sodium (135-145) mmol/L Potassium (3.5-4.5) mmol/L Chloride (101-111) mmol/L Carbon Dioxide (21-32) mmol/L Anion Gap (6-13) BUN (6-20) mg/dL Creatinine (0.6-1.3) mg/dL Estimated GFR (MDRD) (>89) Glucose (74-104) mg/dL POC Whole Bld Glucose 106 62 84 (70-100) mg/dL Calcium (8.5-10.3) mg/dL Phosphorus (2.5-5.0) mg/dL Magnesium (1.7-2.3) mg/dL 07/11/24 07/11/24 Range/Units 17:44 12:03 WBC (4.8-10.8) x10^3/uL RBC (4.20-5.40) 10^6/uL Hgb (12.0-16.0) g/dL Hct (37.0-47.0) % MCV (81.0-99.0) fL MCH (27.0-31.0) pg MCHC (32.0-36.0) g/dL RDW (12.0-15.0) % Plt Count (130-450) 10^3/uL MPV (7.9-10.8) fL VBG pH (7.31-7.41) Ionized Calcium (1.15-1.33) mmol/L Sodium (135-145) mmol/L Potassium (3.5-4.5) mmol/L Chloride (101-111) mmol/L Carbon Dioxide (21-32) mmol/L Anion Gap (6-13) BUN (6-20) mg/dL Creatinine (0.6-1.3) mg/dL Estimated GFR (MDRD) (>89) Glucose (74-104) mg/dL POC Whole Bld Glucose 131 145 (70-100) mg/dL Calcium (8.5-10.3) mg/dL Phosphorus (2.5-5.0) mg/dL Magnesium (1.7-2.3) mg/dL Assessment/Plan Problem List (1) Gastric artery hemorrhage: Impression: During EGD, and subsequent biopsy, hemorrhage of gastric artery occurred. Surgery was converted to exploratory laparotomy, with cessation of bleed. 3 units of packed red blood cells, 2 units of FFP were given to the patient during surgery. 2 units of blood are on hold. Hemoglobin decreased at this time but no active bleeding noted. No bowel movement yet. NG tube with 400 cc bloody output, removed yesterday, management by surgery. Continue Protonix. Advance diet to CLD. (2) Hypotension: Impression: Resolved. Hypotension likely due to acute blood loss. Now weaned off Levophed. Continue IVF resuscitation. Qualifiers: Hypotension type: postprocedural hypotension Qualified Code(s): I95.81 - Postprocedural hypotension (3) Ventilator dependence: Impression: Resolved. Extubated. Now requiring 1L nasal cannula. Now off propofol, fentanyl. (4) Acute blood loss anemia: Impression: Patient with significant blood loss during surgery. 2 units PRBCs transfused, 3 needs FFP transfused. Hemoglobin decreasing but no acute blood loss noted post operatively. Restarted DVT propylaxis with Lovenox today. Continue to trend. Laboratory Tests 07/11/24 07/11/24 07/11/24 08:20 10:05 18:21 Hgb 12.8 12.8 13.1 07/12/24 07/13/24 04:46 07:25 Hgb 12.0 9.8 L (5) COPD (chronic obstructive pulmonary disease): Impression: Patient uses albuterol inhaler as needed in the outpatient setting. Will continue DuoNebs as needed now that she's extubated. Qualifiers: COPD type: unspecified COPD Qualified Code(s): J44.9 - Chronic obstructive pulmonary disease, unspecified (6) Hyperlipidemia: Impression: Continue statin. Qualifiers: Hyperlipidemia type: unspecified Qualified Code(s): E78.5 - Hyperlipidemia, unspecified
--- NOTE | 2024-07-14 11:38 | PROVIDER PROGRESS NOTE ---
Subjective General Admit Date: 07/11/24 Procedure Date: 07/11/24 Post Op Days: 3 Procedure Performed: EGD, exploratory laparotomy with control of gastric and splenic hemorrhage Other Other Information/Narrative: Weaned off 4L NC yesterday. Was up to chair for a while yesterday. HDN/AF. LUQ pain comes in waves - scheduled iv tylenol and prn dilaudid x5. Tolerated some ice chips without nausea, no ROBF yet. Up to commode to void a few times, otherwise has periwick. OT in room this AM, sat on side of bed but then pain returned. Wound Assessment Wound/Incisions: positive Dressing dry and intact Review of Systems Status of ROS: 10 or more systems reviewed and unremarkable except as noted in history and below Exam Constitutional no apparent distress HENMT NGT in place, gastric contents with rare blood tinge Eyes EOMs intact bilaterally and conjunctivae normal Neck/C-Spine visual inspection normal Chest inspection of chest normal Respiratory breath sounds equal bilaterally Cardiovascular normal heart rate noted Gastrointestinal abdomen soft to palpation and nondistended LUQ ttp, no peritonitis Genitourinary foster in place Extremities normal to inspection Psychiatry oriented x3 Skin skin color normal ABX Reporting Has patient been on IV antibiotics over the past 48 hours?: No Impression/Plan Problem List (1) Gastric artery hemorrhage: Plan: 78yoF POD3 s/p EGD with biopsy complicated by hemorrhage, requiring emergent exploratory laparotomy with control of gastric and splenic hemorrhage; received TXA, 3U PRBC, 2U FFP. - scheduled IV tylenol with prn IV narcotic for pain control - possibly add toradol tomorrow, can add PO meds if tolerates clears today - duonebs prn, continue IS - Hgb stable at 9.7 today, HR/BP are stable, no pallor - start dvt ppx with lovenox today - clear liquid diet today - Protonix 40mg BID - daily CBC/CMP - no abx -- PT/OT consults - Hospitalist following, downgrade to MEDSURG today Nicole Smith DO, FACS General Surgeon, [facility] (2) Hypotension: Plan: resolved Qualifiers: Hypotension type: postprocedural hypotension Qualified Code(s): I95.81 - Postprocedural hypotension (3) Ventilator dependence: Plan: resolved (4) Acute blood loss anemia: Plan: stable (5) COPD (chronic obstructive pulmonary disease): Plan: duonebs as per hospitalist Qualifiers: COPD type: unspecified COPD Qualified Code(s): J44.9 - Chronic obstructive pulmonary disease, unspecified (6) Hyperlipidemia: Plan: resume home meds when tolerating PO Qualifiers: Hyperlipidemia type: unspecified Qualified Code(s): E78.5 - Hyperlipidemia, unspecified Plan Nicole Smith DO, [facility] General Surgeon, [facility]
[2024-07-14] MEDS: rOPINIRole 1 MG TABLET PO SCH (16:22)
[2024-07-14] MEDS: ONDANSETRON 4 MG/2 ML VIAL IVP PRN (17:06)
[2024-07-14] MEDS: ATORVASTATIN 10 MG TABLET PO SCH (20:57)
[2024-07-15 05:26] LABS: HCT - HEMATOCRIT 29.9 % (37.0-47.0); HGB - HEMOGLOBIN 9.8 g/dL (12.0-16.0); MEAN CORPUSCULAR HEMOGLOBIN 30.7 pg (27.0-31.0); MEAN CORPUSCULAR HGB CONC 32.8 g/dL (32.0-36.0); MEAN CORPUSCULAR VOLUME 93.7 fL (81.0-99.0); MEAN PLATELET VOLUME 9.3 fL (7.9-10.8); RED BLOOD COUNT 3.19 10^6/uL (4.20-5.40); RED CELL DISTRIBUTION WIDTH 15.3 % (12.0-15.0); WHITE BLOOD COUNT 4.9 x10^3/uL (4.8-10.8)
[2024-07-15 05:47] LABS: CALCIUM 8.3 mg/dL (8.5-10.3); CREATININE 0.5 mg/dL (0.6-1.3); MAGNESIUM 1.7 mg/dL (1.7-2.3); PHOSPHORUS 3.6 mg/dL (2.5-5.0); POTASSIUM 3.4 mmol/L (3.5-4.5)
[2024-07-15] MEDS ORDERED: DIATRIZOATE MEGLU/DIATRIZO SOD 30 ML BOTTLE PO ONE (09:07)
[2024-07-15] MEDS ORDERED: iohexoL-300 100 ML VIAL ONE (09:08)
--- NOTE | 2024-07-15 10:32 | PROVIDER PROGRESS NOTE ---
Subjective Subjective Subjective: Yesterday, patient was able to walk around the floor. She is having episodes of nausea and vomiting. there is no blood in the emesis. She denies any fevers, chills. She still some pain around the incision site. Current Medications Current Medications Current Medications: Current Medications Generic Name Dose Route Start Last Admin Trade Name Freq PRN Reason Stop Dose Admin Albuterol/Ipratropium 3 ml 07/12/24 10:52 07/15/24 08:58 Ipratropium/Albuterol 3 Ml Neb INH 3 ml RTQID PRN Administration Shortness of Air/Wheezing Atorvastatin Calcium 10 mg 07/14/24 21:00 07/14/24 20:57 Atorvastatin 10 Mg Tablet PO 10 mg QPM KASSY Administration Enoxaparin Sodium 40 mg 07/14/24 09:00 07/15/24 08:20 Enoxaparin 40 Mg/0.4 Ml Syringe SUBQ 40 mg DAILY KASSY Administration Hydromorphone HCl 0.5 mg 07/13/24 07:59 07/14/24 09:20 Hydromorphone 0.5 Mg/0.5 Ml Syringe IVP 0.5 mg Q2H PRN Administration Severe Pain (Level 7-10) Dextrose/Lactated Ringer's 1,000 mls @ 83.333 mls/hr 07/13/24 08:00 07/15/24 06:35 D5lr IV 83.33 mls/hr .Q12H KASSY Infusion Acetaminophen 1,000 mg in 100 mls @ 400 mls/hr 07/15/24 15:00 Acetaminophen IV Q6H KASSY Ketorolac Tromethamine 15 mg 07/15/24 12:00 Ketorolac 15 Mg/Ml Vial IVP 07/20/24 11:59 Q6HR KASSY Ondansetron HCl 4 mg 07/11/24 11:24 07/15/24 07:18 Ondansetron 4 Mg/2 Ml Vial IVP 4 mg Q6HR PRN Administration Nausea / Vomiting Pantoprazole Sodium 40 mg 07/11/24 11:24 07/15/24 08:20 Pantoprazole 40 Mg Vial IVP 40 mg BID KASSY Administration Ropinirole HCl 3 mg 07/14/24 16:06 07/14/24 20:57 Ropinirole 1 Mg Tablet PO 3 mg QPM KASSY Administration Sodium Chloride 10 ml 07/11/24 17:00 07/15/24 08:27 Sodium Chloride Flush 0.9% 10 Ml Syringe IVP 10 ml 0100,0900,1700 KASSY Administration Sodium Chloride 10 ml 07/11/24 11:24 Sodium Chloride Flush 0.9% 10 Ml Syringe IVP PRN PRN NEEDED PER PROVIDER ORDERS Objective Vital Signs/Intake & Output Reviewed Vital Signs: Yes Vital Signs: Vital Signs x48h Temp Pulse Pulse Resp BP Pulse Ox O2 Flow Rate 07/15/24 08:58 1 07/15/24 08:58 75 20 07/15/24 08:11 97.9 F 73 22 157/73 H 97 2 07/15/24 06:31 97.9 F 75 16 146/68 H 96 2 Intake & Output: Intake & Output 07/13/24 07/14/24 07/15/24 07/16/24 05:59 05:59 05:59 05:59 Intake Total 4241 / 4241 2865 / 2865 3200 / 3200 604 / 604 Output Total 2157 / 2157 1250 / 1250 950 / 950 Balance 2084 / 2084 1615 / 1615 2250 / 2250 604 / 604 Weight (kg) 77 kg 73.5 kg 73.5 kg Objective General Appearance: positive Mild distress and Anxious Eyes Bilateral: positive Normal inspection, PERRL and EOMI ENT: positive Other (NG tube in place with 400cc of bloody output) Neck: positive Nml inspection, Thyroid nml and No JVD Respiratory: positive Chest non-tender, No respiratory distress, Breath sounds nml, Rales and Rhonchi (increased rhonchi bilateral lower lung cowan) Cardiovascular: positive Regular rate & rhythm, No murmur and No gallop Abdomen: positive No distention, Tenderness (diffusely) and Other (midling surgical scar with bandaid places, not unwrapped); negative Guarding or Rebound Back: positive Nml inspection; negative CVA tenderness (R) or CVA tenderness (L) Skin: positive Color nml, No rash, Warm and Dry Extremities: positive Non-tender, Full ROM and No pedal edema Neurologic/Psychiatric: positive Oriented x3 and Mood/affect nml Lab Results 07/15/24 04:50 07/15/24 04:50 Other Labs: Lab Results x24hrs 07/15/24 07/14/24 07/14/24 Range/Units 04:50 16:38 12:18 WBC 4.9 (4.8-10.8) x10^3/uL RBC 3.19 L (4.20-5.40) 10^6/uL Hgb 9.8 L (12.0-16.0) g/dL Hct 29.9 L (37.0-47.0) % MCV 93.7 (81.0-99.0) fL MCH 30.7 (27.0-31.0) pg MCHC 32.8 (32.0-36.0) g/dL RDW 15.3 H (12.0-15.0) % Plt Count 119 L (130-450) 10^3/uL MPV 9.3 (7.9-10.8) fL Sodium 139 (135-145) mmol/L Potassium 3.4 L (3.5-4.5) mmol/L Chloride 107 (101-111) mmol/L Carbon Dioxide 28 (21-32) mmol/L Anion Gap 4.0 L (6-13) BUN 6 (6-20) mg/dL Creatinine 0.5 L (0.6-1.3) mg/dL Estimated GFR (MDRD) 119 (>89) Glucose 116 H (74-104) mg/dL POC Whole Bld Glucose 91 109 (70-100) mg/dL Calcium 8.3 L (8.5-10.3) mg/dL Phosphorus 3.6 (2.5-5.0) mg/dL Magnesium 1.7 (1.7-2.3) mg/dL Crossmatch IS Only 07/11/24 Range/Units 08:23 WBC (4.8-10.8) x10^3/uL RBC (4.20-5.40) 10^6/uL Hgb (12.0-16.0) g/dL Hct (37.0-47.0) % MCV (81.0-99.0) fL MCH (27.0-31.0) pg MCHC (32.0-36.0) g/dL RDW (12.0-15.0) % Plt Count (130-450) 10^3/uL MPV (7.9-10.8) fL Sodium (135-145) mmol/L Potassium (3.5-4.5) mmol/L Chloride (101-111) mmol/L Carbon Dioxide (21-32) mmol/L Anion Gap (6-13) BUN (6-20) mg/dL Creatinine (0.6-1.3) mg/dL Estimated GFR (MDRD) (>89) Glucose (74-104) mg/dL POC Whole Bld Glucose (70-100) mg/dL Calcium (8.5-10.3) mg/dL Phosphorus (2.5-5.0) mg/dL Magnesium (1.7-2.3) mg/dL Crossmatch IS Only See Detail Assessment/Plan Problem List (1) Gastric artery hemorrhage: Impression: During EGD, and subsequent biopsy, hemorrhage of gastric artery occurred. Surgery was converted to exploratory laparotomy, with cessation of bleed. 3 units of packed red blood cells, 2 units of FFP were given to the patient during surgery. 2 units of blood are on hold. Hemoglobin stable. NG tube with 400 cc bloody output, removed management by surgery. Continue Protonix. DVT prophylaxis with Lovenox started. (2) Nausea and vomiting: Impression: Patient with new nausea and vomiting. Continue Zofran as needed. CT abdomen/pelvis with oral and IV contrast ordered, pending. Qualifiers: Vomiting type: unspecified Qualified Code(s): R11.2 - Nausea with vomiting, unspecified (3) Hypotension: Impression: Resolved. Hypotension likely due to acute blood loss. Now weaned off Levophed. Continue IVF with D5LR as patient has had hypoglycemic episodes and is not eating very well. Qualifiers: Hypotension type: postprocedural hypotension Qualified Code(s): I95.81 - Postprocedural hypotension (4) Ventilator dependence: Impression: Resolved. Extubated. Now requiring 1L nasal cannula. Now off propofol, fentanyl. (5) Acute blood loss anemia: Impression: Patient with significant blood loss during surgery. 2 units PRBCs transfused, 3 needs FFP transfused. Hemoglobin stable. Restarted DVT propylaxis with Lovenox today. Continue to trend. Laboratory Tests 07/11/24 07/12/24 07/13/24 18:21 04:46 07:25 Hgb 13.1 12.0 9.8 L 07/13/24 07/14/24 07/15/24 14:29 04:30 04:50 Hgb 10.1 L 9.7 L 9.8 L (6) COPD (chronic obstructive pulmonary disease): Impression: Patient uses albuterol inhaler as needed in the outpatient setting. Will continue DuoNebs as needed now that she's extubated. Qualifiers: COPD type: unspecified COPD Qualified Code(s): J44.9 - Chronic obstructive pulmonary disease, unspecified (7) Hyperlipidemia: Impression: Continue statin. Qualifiers: Hyperlipidemia type: unspecified Qualified Code(s): E78.5 - Hyperlipidemia, unspecified (8) Restless leg syndrome: Impression: Continue ropinorole.
[2024-07-15] MEDS: KETOROLAC 15 MG/ML VIAL IVP SCH (12:01)
--- NOTE | 2024-07-15 15:20 | CT Report ---
PROCEDURE: CT Abdomen/Pelvis W INDICATIONS: nausea. with IV and oral contrast CONTRAST: omni 300, 100 TECHNIQUE: Oral contrast was given in this patient. After the administration of intravenous contrast, a CT scan of the abdomen and pelvis was performed. Images were recorded and evaluated at appropriate window se ttings. Reformats: coronal and sagittal. For radiation dose reduction, the following was used: automa danyelle exposure control, adjustment of mA and/or kV according to patient size. COMPARISON: Prior abdomen and pelvis CT, 11/30/2015 Correlation is made with overlapping portions of chest CT, 06/22/2024. FINDINGS: Image quality: Diagnostic. Lower chest: There is a small left-sided pleural effusion and a trace right-sided pleural effusion. T hese pleural effusions are new compared to the prior examination. Mild overlying enhancing atelectasi s can be seen. Liver: No solid mass. Gallbladder: Cholecystectomy. Biliary tree: No intrahepatic or extrahepatic dilation, accounting for age. Spleen: No splenomegaly. Pancreas: No pancreatic ductal dilation. Adrenals: No adrenal nodule. Kidneys and ureters: No hydronephrosis. No renal cystic lesion which requires follow up. No solid mas s. Stomach, bowel and peritoneum: Just posterior to the stomach, there is a focus of gas and free fluid seen, measuring 5.6 x 4 cm in greatest axial dimension, with a craniocaudal extent of 6.9 cm. No oral contrast can be seen within this region. Postoperative clips can be seen within this region. The colon demonstrates moderate wall thickening distally. The more proximal colon is within normal li mits. No dilated loops of small bowel are seen. Lymph nodes: No central or retroperitoneal adenopathy. Vessels: No infrarenal aortic aneurysm. Patent portal vein. The aorta demonstrates a mild infrarenal abdominal aortic aneurysm, measuring 3.8 cm AP. Generalized atherosclerotic irregularity can be seen, including a mild amount of mural thrombus. PELVIS Reproductive organs: Unremarkable. Bladder: No abnormal wall thickening, accounting for underdistention. Pelvic lymph nodes: No pelvic adenopathy by size criteria. Bones: No aggressive osseous abnormality. Age-appropriate degenerative changes are seen. Other: No significant ventral or inguinal hernia. Anterior abdominal wall postoperative berry are seen. IMPRESSION: Just posterior to the stomach, there is a 6.9 cm focus of gas and soft tissue density seen, and there are numerous postoperative clips also seen within this region. No extravasated oral contrast is visu alized. Therefore, perforation is considered to be unlikely. This is attributed to a benign postopera tive fluid collection. - Please consider short-term follow-up. There is a small left-sided pleural effusion and a trace right-sided pleural effusion, with overlying atelectasis. The pleural effusions are new compared to the prior recent CT examination. Moderate generalized distal colonic wall thickening is seen. Please consider colitis. There is a mild abdominal aortic aneurysm, 3.8 cm. Additional findings: Cholecystectomy Reviewed by: Devyn Louis MD on 07/15/2024 2:18 PM AKVALDEZ Approved by: Devyn Louis MD on 07/15/2024 2:18 PM [id number] Station ID: [id number]
[2024-07-15] MEDS: ACETAMINOPHEN 1,000 MG/100 ML 1,000 MG/100 ML BAG IV SCH (15:41)
[2024-07-15] MEDS: ENOXAPARIN 40 MG/0.4 ML SYRINGE SUBQ SCH (15:53)
[2024-07-15] MEDS: iohexoL-300 100 ML VIAL IVP ONE (16:22)
[2024-07-15] MEDS: DIATRIZOATE MEGLU/DIATRIZO SOD 30 ML BOTTLE PO ONE (16:23)
--- NOTE | 2024-07-15 18:59 | PROVIDER PROGRESS NOTE ---
Subjective General Admit Date: 07/11/24 Procedure Date: 07/11/24 Post Op Days: 4 Procedure Performed: EGD, exploratory laparotomy with control of gastric and splenic hemorrhage Other Other Information/Narrative: Walked in the [place] yesterday. Abdominal pain comes and goes. After walking, yesterday afternoon and overnight more significant pain and also emesis. No tachycardia, remains on RA, AF. Wound Assessment Wound/Incisions: positive Dressing dry and intact Review of Systems Status of ROS: 10 or more systems reviewed and unremarkable except as noted in history and below Exam Constitutional no apparent distress Eyes EOMs intact bilaterally and conjunctivae normal Neck/C-Spine visual inspection normal Chest inspection of chest normal Respiratory breath sounds equal bilaterally Cardiovascular normal heart rate noted Gastrointestinal abdomen soft to palpation mild distension, LUQ ttp, no peritonitis midline dressing removed, incision CDI with berry in place Genitourinary foster in place Extremities normal to inspection Psychiatry oriented x3 Skin skin color normal ABX Reporting Has patient been on IV antibiotics over the past 48 hours?: No Impression/Plan Problem List (1) Gastric artery hemorrhage: Plan: 78yoF POD4 s/p EGD with biopsy complicated by hemorrhage, requiring emergent exploratory laparotomy with control of gastric and splenic hemorrhage; received TXA, 3U PRBC, 2U FFP. Increased pain and emesis yesterday after walking in [place], remains o/w clinically stable with normal WBC, stable hgb. CT abd/pel with IV/oral contrast this morning given emesis. There is a LUQ collection with air/fluid, that is not rim enhancing and does contrain any extravasated oral contrast, interpreted by radiologist to be benign post op changes - there were several hemostatic agents used on the superior pole of the spleen, along with surgicel left in place, this likely accounts for this collection which at this time does not appear to be infected, and there is no gastric leak from the closure of the large gastrotomy. - scheduled IV tylenol with prn IV narcotic for pain control. Add toradol for pain today, as hgn stable after starting lovenox yesterday. - duonebs prn, continue IS - clears, ADAT - continue dvt ppx with lovenox today - Protonix 40mg BID - daily CBC/CMP - no abx -- PT/OT consults - Hospitalist following, continue [employer] Nicole Tulk, DO, FACS General Surgeon, [facility] (2) Nausea and vomiting: Qualifiers: Vomiting type: unspecified Qualified Code(s): R11.2 - Nausea with vomiting, unspecified (3) Hypotension: Plan: resolved Qualifiers: Hypotension type: postprocedural hypotension Qualified Code(s): I95.81 - Postprocedural hypotension (4) Ventilator dependence: Plan: resolved (5) Acute blood loss anemia: Plan: stable (6) COPD (chronic obstructive pulmonary disease): Plan: duonebs as per hospitalist Qualifiers: COPD type: unspecified COPD Qualified Code(s): J44.9 - Chronic obstructive pulmonary disease, unspecified (7) Hyperlipidemia: Plan: resume home meds when tolerating PO Qualifiers: Hyperlipidemia type: unspecified Qualified Code(s): E78.5 - Hyperlipidemia, unspecified (8) Restless leg syndrome: Plan Nicole Smith DO, FACS General Surgeon, [facility]
[2024-07-16] MEDS ORDERED: BENZOCAINE/MENTHOL LOZENGE MM PRN (01:04)
[2024-07-16 05:46] LABS: HCT - HEMATOCRIT 29.8 % (37.0-47.0); HGB - HEMOGLOBIN 9.9 g/dL (12.0-16.0); MEAN CORPUSCULAR HEMOGLOBIN 31.2 pg (27.0-31.0); MEAN CORPUSCULAR HGB CONC 33.2 g/dL (32.0-36.0); MEAN PLATELET VOLUME 9.3 fL (7.9-10.8); RED BLOOD COUNT 3.17 10^6/uL (4.20-5.40); RED CELL DISTRIBUTION WIDTH 15.2 % (12.0-15.0); WHITE BLOOD COUNT 6.4 x10^3/uL (4.8-10.8)
[2024-07-16 06:03] LABS: CALCIUM 8.4 mg/dL (8.5-10.3); CREATININE 0.6 mg/dL (0.6-1.3); MAGNESIUM 1.5 mg/dL (1.7-2.3); PHOSPHORUS 3.2 mg/dL (2.5-5.0); POTASSIUM 2.9 mmol/L (3.5-4.5)
[2024-07-16] MEDS ORDERED: POTASSIUM CHLORIDE INJ 40 MEQ in SODIUM CHLORIDE 0.9% 500 ML IV ONE (07:11)
[2024-07-16] MEDS: MAGNESIUM SULFATE 2 GRAM 2 GM/50 ML BAG IV ONE (09:21)
[2024-07-16] MEDS: POTASSIUM CHLORIDE 20 MEQ/15 ML UDC PO SCH (09:21)
--- NOTE | 2024-07-16 09:30 | PROVIDER PROGRESS NOTE ---
Subjective Subjective Subjective: Patient continues to have some episodes of nausea and non-bloody emesis. She endorses 2-3 episodes of diarrhea overnight. She denies fevers, chills, shortness of breath. Her pain is well controlled. Current Medications Current Medications Current Medications: Current Medications Generic Name Dose Route Start Last Admin Trade Name Freq PRN Reason Stop Dose Admin Albuterol/Ipratropium 3 ml 07/12/24 10:52 07/15/24 22:30 Ipratropium/Albuterol 3 Ml Neb INH 3 ml RTQID PRN Administration Shortness of Air/Wheezing Atorvastatin Calcium 10 mg 07/14/24 21:00 07/15/24 21:00 Atorvastatin 10 Mg Tablet PO 10 mg QPM KASSY Administration Enoxaparin Sodium 40 mg 07/14/24 09:00 07/16/24 09:22 Enoxaparin 40 Mg/0.4 Ml Syringe SUBQ 40 mg DAILY KASSY Administration Hydromorphone HCl 0.5 mg 07/13/24 07:59 07/16/24 07:23 Hydromorphone 0.5 Mg/0.5 Ml Syringe IVP 0.5 mg Q2H PRN Administration Severe Pain (Level 7-10) Dextrose/Lactated Ringer's 1,000 mls @ 83.333 mls/hr 07/13/24 08:00 07/16/24 07:13 D5lr IV 83.33 mls/hr .Q12H KASSY Administration Acetaminophen 1,000 mg in 100 mls @ 400 mls/hr 07/15/24 15:00 07/16/24 09:19 Acetaminophen IV 400 mls/hr Q6H KASSY Administration Potassium Chloride 10 meq in 100 mls @ 100 mls/hr 07/16/24 08:00 Potassium Chloride IV 07/16/24 11:59 Q1H KASSY Ketorolac Tromethamine 15 mg 07/15/24 12:00 07/16/24 07:04 Ketorolac 15 Mg/Ml Vial IVP 07/20/24 11:59 15 mg Q6HR KASSY Administration Ondansetron HCl 4 mg 07/11/24 11:24 07/16/24 00:54 Ondansetron 4 Mg/2 Ml Vial IVP 4 mg Q6HR PRN Administration Nausea / Vomiting Pantoprazole Sodium 40 mg 07/11/24 11:24 07/16/24 09:20 Pantoprazole 40 Mg Vial IVP 40 mg BID KASSY Administration Potassium Chloride 40 meq 07/16/24 08:00 07/16/24 09:21 Potassium Chloride 20 Meq/15 Ml Udc PO 40 meq DAILYWM KASSY Administration Ropinirole HCl 3 mg 07/14/24 16:06 07/15/24 21:00 Ropinirole 1 Mg Tablet PO 3 mg QPM KASSY Administration Sodium Chloride 10 ml 07/11/24 17:00 07/16/24 07:13 Sodium Chloride Flush 0.9% 10 Ml Syringe IVP 10 ml 0100,0900,1700 KASSY Administration Sodium Chloride 10 ml 07/11/24 11:24 Sodium Chloride Flush 0.9% 10 Ml Syringe IVP PRN PRN NEEDED PER PROVIDER ORDERS Throat Lozenges 1 lozenge 07/16/24 01:04 Benzocaine/Menthol Lozenge MM Q2HR PRN Throat pain Objective Vital Signs/Intake & Output Reviewed Vital Signs: Yes Vital Signs: Vital Signs x48h Temp Pulse Resp BP Pulse Ox O2 Flow Rate 07/16/24 07:58 98.6 F 66 18 129/61 92 07/16/24 07:30 1 Intake & Output: Intake & Output 07/14/24 07/15/24 07/16/24 07/17/24 05:59 05:59 05:59 05:59 Intake Total 2865 / 2865 3200 / 3200 2850 / 2850 Output Total 1250 / 1250 950 / 950 500 / 500 Balance 1615 / 1615 2250 / 2250 2350 / 2350 Weight (kg) 77 kg 73.5 kg 73.5 kg 74 kg Objective General Appearance: positive Mild distress; negative Anxious or Lethargic Eyes Bilateral: positive Normal inspection, PERRL and EOMI ENT: positive Other (NG tube in place with 400cc of bloody output) Neck: positive Nml inspection, Thyroid nml and No JVD Respiratory: positive Chest non-tender, No respiratory distress, Breath sounds nml, Rales and Rhonchi (increased rhonchi bilateral lower lung cowan) Cardiovascular: positive Regular rate & rhythm, No murmur and No gallop Abdomen: positive No distention, Tenderness (diffusely) and Other (midling surgical scar with bandaid places, not unwrapped); negative Guarding or Rebound Back: positive Nml inspection; negative CVA tenderness (R) or CVA tenderness (L) Skin: positive Color nml, No rash, Warm and Dry Extremities: positive Non-tender, Full ROM and No pedal edema Neurologic/Psychiatric: positive Oriented x3 and Mood/affect nml; negative Motor nml (L arm unable to extend past shoulder level) Lab Results 07/16/24 05:16 07/16/24 05:16 Other Labs: Lab Results x24hrs 07/16/24 Range/Units 05:16 WBC 6.4 (4.8-10.8) x10^3/uL RBC 3.17 L (4.20-5.40) 10^6/uL Hgb 9.9 L (12.0-16.0) g/dL Hct 29.8 L (37.0-47.0) % MCV 94.0 (81.0-99.0) fL MCH 31.2 H (27.0-31.0) pg MCHC 33.2 (32.0-36.0) g/dL RDW 15.2 H (12.0-15.0) % Plt Count 140 (130-450) 10^3/uL MPV 9.3 (7.9-10.8) fL Sodium 139 (135-145) mmol/L Potassium 2.9 L (3.5-4.5) mmol/L Chloride 105 (101-111) mmol/L Carbon Dioxide 27 (21-32) mmol/L Anion Gap 7.0 (6-13) BUN 6 (6-20) mg/dL Creatinine 0.6 (0.6-1.3) mg/dL Estimated GFR (MDRD) 96 (>89) Glucose 104 (74-104) mg/dL Calcium 8.4 L (8.5-10.3) mg/dL Phosphorus 3.2 (2.5-5.0) mg/dL Magnesium 1.5 L (1.7-2.3) mg/dL Assessment/Plan Problem List (1) Nausea and vomiting: Impression: Patient with new nausea and vomiting. Continue Zofran as needed. CT abdomen/pelvis with oral and IV contrast ordered, showed some inflammation in the large colon. Surgery, Dr. Smith, spoken with, okay to advance diet to regular diet. Qualifiers: Vomiting type: unspecified Qualified Code(s): R11.2 - Nausea with vomiting, unspecified (2) Left arm weakness: Impression: Patient with left arm weakness (unable to lift past midline). Likely adhesive capsulitis. Will rule out CVA vs TIA with CT head or CTA head/neck. (3) Gastric artery hemorrhage: Impression: During EGD, and subsequent biopsy, hemorrhage of gastric artery occurred. Surgery was converted to exploratory laparotomy, with cessation of bleed. 3 units of packed red blood cells, 2 units of FFP were given to the patient during surgery. 2 units of blood are on hold. Hemoglobin stable. NG tube with 400 cc bloody output, removed, management by surgery. Continue Protonix. DVT prophylaxis with Lovenox started. (4) Hypotension: Impression: Resolved. Hypotension likely due to acute blood loss. Now weaned off Levophed. Qualifiers: Hypotension type: postprocedural hypotension Qualified Code(s): I95.81 - Postprocedural hypotension (5) Ventilator dependence: Impression: Resolved. Extubated. Now requiring no oxygen. Now off propofol, fentanyl. (6) Acute blood loss anemia: Impression: Patient with significant blood loss during surgery. 2 units PRBCs transfused, 3 needs FFP transfused. Hemoglobin stable. Continue to trend. (7) COPD (chronic obstructive pulmonary disease): Impression: Patient uses albuterol inhaler as needed in the outpatient setting. Will continue DuoNebs as needed now that she's extubated. Qualifiers: COPD type: unspecified COPD Qualified Code(s): J44.9 - Chronic obstructive pulmonary disease, unspecified (8) Hyperlipidemia: Impression: Continue statin. Qualifiers: Hyperlipidemia type: unspecified Qualified Code(s): E78.5 - Hyperlipidemia, unspecified (9) Restless leg syndrome: Impression: Continue ropinorole.
[2024-07-16] MEDS: POTASSIUM CHLOR 10 MEQ/100 ML 10 MEQ/100 ML BAG IV SCH (10:05)
[2024-07-16] MEDS ORDERED: iohexoL-300 100 ML VIAL ONE (10:32)
--- NOTE | 2024-07-16 10:53 | POST OP PROGRESS NOTE ---
Subjective General Admit Date: 07/11/24 Procedure Date: 07/11/24 Post Op Days: 5 Procedure Performed: EGD, exploratory laparotomy with control of gastric and splenic hemorrhage Wound Assessment Wound/Incisions: positive Dressing dry and intact Surgery Impression Plan Problem List (1) Nausea and vomiting: Qualifiers: Vomiting type: unspecified Qualified Code(s): R11.2 - Nausea with vomiting, unspecified (2) Gastric artery hemorrhage: (3) Hypotension: Qualifiers: Hypotension type: postprocedural hypotension Qualified Code(s): I95.81 - Postprocedural hypotension (4) Ventilator dependence: (5) Acute blood loss anemia: (6) COPD (chronic obstructive pulmonary disease): Qualifiers: COPD type: unspecified COPD Qualified Code(s): J44.9 - Chronic obstructive pulmonary disease, unspecified (7) Hyperlipidemia: Qualifiers: Hyperlipidemia type: unspecified Qualified Code(s): E78.5 - Hyperlipidemia, unspecified (8) Restless leg syndrome: Review of Systems Status of ROS: 10 or more systems reviewed and unremarkable except as noted in history and below
--- NOTE | 2024-07-16 11:34 | CT Report ---
PROCEDURE: CT Head W/O Stroke Protocol INDICATIONS: left arm weakness, h/o TIA TECHNIQUE: Noncontrast 4.5 mm thick angled axial sections acquired from the foramen magnum to the vertex, with c oronal reformats. For radiation dose reduction, the following was used: automated exposure control, adjustment of mA and/or kV according to patient size. COMPARISON: 12/10/2021. FINDINGS: Image quality: Excellent. CSF spaces: Basal cisterns are patent. No extra-axial fluid collections. Ventricles are normal in size and shape. Brain: No midline shift. No intracranial masses or hemorrhage. Joaquin-white matter interface is norm al. Skull and face: Calvarium and visualized facial bones are intact, without suspicious lesions. Sinuses: Visualized sinuses and mastoids are clear. IMPRESSION: No acute intracranial pathology Above discussed with Gloria, the charge nurse on the patient's floor, to give to the nurse or ordering provider, at the time of dictation on 07/16/2024 and 1126 hours. This study fulfills neurological imaging criteria for inclusion or exclusion of acute stroke therapie s based on available published neurological imaging guidelines. Reviewed by: Daniel Gudino MD on 07/16/2024 11:33 AM PDT Approved by: Daniel Gudino MD on 07/16/2024 11:33 AM PDT Station ID: [id number]
[2024-07-16] MEDS: GABAPENTIN 100 MG CAPSULE PO SCH (11:43)
[2024-07-16] MEDS: METOCLOPRAMIDE 10 MG/2 ML VIAL IVP SCH (11:44)
[2024-07-16 15:18] LABS: CALCIUM 8.5 mg/dL (8.5-10.3); CREATININE 0.7 mg/dL (0.6-1.3); POTASSIUM 3.2 mmol/L (3.5-4.5)
--- NOTE | 2024-07-16 16:16 | PROVIDER PROGRESS NOTE ---
Progress Note Progress Note Progress Note: General Surgery Progress Note S: Raegan is resting comfortably in her bed. She is visiting with friends. She complains of no incisional discomfort. She is eating solids slowly despite nausea and a few episodes of emesis. She is passing liquid stool. She is concerned about loss of strength in her left upper extremity and CTA of head obtained today which did not identify an intra-cranial hemorrhage or area of ischemia. O: VSS, afeb; HEENT normal; lungs clear with good inspiratory effort; Heart NSR; Abdomen is soft, midline wound healing without bleeding, cellulitis, or drainage; Bowel sounds are present. No extremity edema Labs: WBC 6.4; H&H 9.9/29.8; K 3.2 this afternoon increased with oral supplementation earlier today; Cr 0.7; BUN 6; Glu 113 Multimodality pain control (Tylenol, Gabapentin; Ketorolac, IV Dilaudid prn) VTEP - SCD A: POD # 5 Exploratory laparotomy, gastrotomy with oversew gastric hemorrhage. Progressing well. P: Continue to support PO intake; PT/OT; Medical management of nausea/emesis at this time Jerald Ibarra MD, FACS General Surgery Service
--- NOTE | 2024-07-16 16:29 | CT Report ---
PROCEDURE: CT Angio Head/Neck INDICATIONS: rule out cva TECHNIQUE: After the administration of intravenous contrast, 1 mm thick sections acquired from the aortic arch t hrough the [place]. 3-dimensional jzxgbml-hluxwaaks-sjxxkezmhb (MIP) and/or volume renderin g reformats were acquired of the central intracranial vasculature and neck separately. For radiation dose reduction, the following was used: automated exposure control, adjustment of mA and/or kV acco rding to patient size. CONTRAST: Omni 300 80ml COMPARISON: None. FINDINGS: Image quality: Diagnostic. HEAD CT: Please refer to sinus CT of the head. HEAD CT ANGIOGRAPHY: Anterior circulation: Intracranial internal carotid arteries are normal in size and flow with athero sclerotic calcifications. The flow within the paired anterior cerebral arteries is normal and symmet nataliya. The flow within the middle cerebral arteries is normal and symmetric. The anterior communicati ng artery is seen. No aneurysms are seen. Posterior circulation: Visualized portions of the vertebral arteries demonstrate normal caliber, and join to form a normal appearing basilar artery. origin of the bilateral posterior cerebral ar teries. Flow within the posterior cerebral arteries is normal and symmetric. No aneurysms are seen. NECK CT ANGIOGRAPHY: Carotid system: The great vessels demonstrate a conventional anatomy as they arise from the aortic a rch with vascular calcifications. The origins of the common carotid arteries appear patent. The com mon carotid arteries demonstrate normal caliber and courses. The bifurcation regions demonstrate vas cular calcifications with mild, less than 50% stenosis. The internal carotid arteries demonstrate no rmal calibers and courses. Posterior circulation: The origins of the vertebral arteries both appear widely patent. The more martin perior extracranial portions of both vertebral arteries also demonstrate normal courses and calibers. They join to form a normal appearing basilar artery. Soft tissues: Calcifications within the bilateral parotid glands.. Bones: No suspicious bony lesions. Visualized cervical spine appears normally aligned. Multilevel degenerative changes of the spine. IMPRESSION: No significant intracranial arterial abnormality is seen. No significant abnormality is seen within the arteries of the neck. Calcifications in the bilateral parotid glands, nonspecific. Recommend clinical correlation for etio logies such as Sjogren's disease. The estimate of stenosis included in the report of the imaging study was calculated using the NASCET method Reviewed by: Polo Khan MD on 07/16/2024 4:28 PM PDT Approved by: Polo Khan MD on 07/16/2024 4:28 PM PDT Station ID: [id number]
[2024-07-16] MEDS: rOPINIRole 1 MG TABLET PO SCH (16:40)
--- NOTE | 2024-07-16 17:05 | PROVIDER PROGRESS NOTE ---
Subjective General Admit Date: 07/11/24 Procedure Date: 07/11/24 Post Op Days: 5 Procedure Performed: EGD, exploratory laparotomy with control of gastric and splenic hemorrhage Other Other Information/Narrative: Walked again yesterday, feels her cough is better today (remains on RA, HD normal, AF). Pain control is OK, except having twinges of pain at random places all over body at random times (this happens chronically to her as well). She had some nausea again yesterday, but also starting passing BM, albeit diarrhea thus far. Appetite is small but she says it is comparable to her home baseline. WBC still normal, hgb still stable. Wound Assessment Wound/Incisions: positive Healing well Review of Systems Status of ROS: 10 or more systems reviewed and unremarkable except as noted in history and below Exam Constitutional normal general appearance and no apparent distress Eyes EOMs intact bilaterally and conjunctivae normal Neck/C-Spine visual inspection normal Chest inspection of chest normal Respiratory breath sounds equal bilaterally Cardiovascular normal heart rate noted Gastrointestinal abdomen soft to palpation mild distension, LUQ ttp, no peritonitis midline incision CDI with berry in place Extremities normal to inspection Left arm unable to actively lift above shoulder height. Psychiatry oriented x3 Skin skin color normal Impression/Plan Problem List (1) Gastric artery hemorrhage: Plan: 78yoF POD5 s/p EGD with biopsy complicated by hemorrhage, requiring emergent exploratory laparotomy with control of gastric and splenic hemorrhage; received TXA, 3U PRBC, 2U FFP. CT 07/16 without signs of gastric leak, ongoing hemorrhage, or abscess yesterday. Remains clinically stable with normal WBC, stable hgb. Some return of bowel function albeit with diarrhea - stool studies ordered by hospitalist Rule out TIA/CVA given LUE weakness and h/o TIA with CT this AM - negative. - scheduled IV tylenol and toradol with prn IV narcotic for pain control. Add gabapentin today - duonebs prn, continue IS - regular diet as tolerated - add scheduled reglan - dvt ppx with lovenox - Protonix 40mg BID - daily CBC/CMP - no abx -- PT/OT consults - Hospitalist following, continue SIMEON Smith DO, FACS General Surgeon, [place] (2) Nausea and vomiting: Qualifiers: Vomiting type: unspecified Qualified Code(s): R11.2 - Nausea with vomiting, unspecified (3) Left arm weakness: (4) Hypotension: Plan: resolved Qualifiers: Hypotension type: postprocedural hypotension Qualified Code(s): I95.81 - Postprocedural hypotension (5) Ventilator dependence: Plan: resolved (6) Acute blood loss anemia: Plan: stable (7) COPD (chronic obstructive pulmonary disease): Plan: duonebs as per hospitalist Qualifiers: COPD type: unspecified COPD Qualified Code(s): J44.9 - Chronic obstructive pulmonary disease, unspecified (8) Hyperlipidemia: Plan: resume home meds Qualifiers: Hyperlipidemia type: unspecified Qualified Code(s): E78.5 - Hyperlipidemia, unspecified (9) Restless leg syndrome: Plan Nicole Smith DO, [facility] General Surgeon, [facility]
[2024-07-17] MEDS: traZODone 50 MG TABLET PO STA (02:24)
[2024-07-17] MEDS: MELATONIN 3 MG TABLET PO PRN (02:25)
[2024-07-17 05:37] LABS: HCT - HEMATOCRIT 32.9 % (37.0-47.0); HGB - HEMOGLOBIN 10.6 g/dL (12.0-16.0); MEAN CORPUSCULAR HEMOGLOBIN 30.2 pg (27.0-31.0); MEAN CORPUSCULAR HGB CONC 32.2 g/dL (32.0-36.0); MEAN CORPUSCULAR VOLUME 93.7 fL (81.0-99.0); MEAN PLATELET VOLUME 9.3 fL (7.9-10.8); RED BLOOD COUNT 3.51 10^6/uL (4.20-5.40); RED CELL DISTRIBUTION WIDTH 15.5 % (12.0-15.0); WHITE BLOOD COUNT 5.6 x10^3/uL (4.8-10.8)
[2024-07-17 05:55] LABS: CALCIUM 8.7 mg/dL (8.5-10.3); CREATININE 0.6 mg/dL (0.6-1.3); MAGNESIUM 1.8 mg/dL (1.7-2.3); PHOSPHORUS 2.1 mg/dL (2.5-5.0); POTASSIUM 2.9 mmol/L (3.5-4.5)
[2024-07-17] MEDS: NEUTRA-PHOS 250 MG TABLET PO ONE (09:08)
[2024-07-17] MEDS: POTASSIUM CHLORIDE 20 MEQ TABLET PO ONE (09:08)
[2024-07-17 09:19] VITALS: O2SAT 95
[2024-07-17] MEDS: METOCLOPRAMIDE 10 MG TABLET PO SCH (11:13)
--- NOTE | 2024-07-17 11:39 | PROVIDER PROGRESS NOTE ---
Progress Note Progress Note Progress Note: General Surgery Progress Note S: Raegan continues to improve. She is eating, ambulatory, passing non-bloody stool, and flatus from the rectum and her abdominal discomfort is well controlled with oral medication. Her CT yesterday did not reveal intracranial evidence of a CVA. She would like to go home O: VSS, afeb; HEENT normal; lungs clear with good inspiratory effort; Heart NSR; Abdomen is soft, midline wound healing without bleeding, cellulitis, or drainage; Bowel sounds are present. No extremity edema Labs: WBC 65.6; H&H 10.6/32.9; K 2.9; Cr 0.6; BUN 6; Glu 106 Multimodality pain control (Tylenol, Gabapentin; Ketorolac, IV Dilaudid prn) VTEP - SCD A: POD # 6 Exploratory laparotomy, gastrotomy with oversew gastric hemorrhage. Progressing well. P: Discharge to home; ANASTASIA Smith 07/24/2024, 11:00 Jerald Ibarra MD, FACS General Surgery Service
--- NOTE | 2024-07-17 11:52 | Discharge Summary ---
Discharge Summary Admit Date: 07/11/24 Discharge Date: 07/17/24 Discharging Provider: Marquez Ibarra MD Code Status: Attempt Resuscitation DIAGNOSES Admission Diagnoses: Acute blood loss anemia due to gastric hemorrhage Discharge Diagnoses with Status of Each Condition: Acute blood loss anemia due to gastric hemorrhage - Resolved Hypokalema - treated with oral supplementation HPI History of Present Illness: 78 year old female emergently admitted for operative management of rapid GI bleeding from the stomach uncontrollable with endoscopic hemostatic measures. CONSULTS | PROCEDURES Consultations: Medical Hospitalist, PT/OT, Procedures: 07/11/2024 - Exploratory laparotomy, gastrotomy, oversew of bleeding vessel, control of splenic oozing with hemostatic agents HOSPITAL COURSE Hospital Course: Uncomplicated. At the time of discharge she was ambulatory, tolerating a diet, passing non-bloody stool from the rectum and her pain was under control with oral Tylenol. Her midline wound was healing without bleeding or infection. CT scan of the abdomen on 07/15/24 an intact gastrotomy and the presence of post- operative changes in the alida-splenic region consistent with recent surgery. She developed transient "weakness" of her LUE on 07/16/29 that was evaluated with Head CT which was unremarkable. On examination today, she has normal strength in her LUE but claims to have an inability to reach above her head or move her arm laterally. With active assistance, she is able to move her arm beyond what she is capable of passively. I offered her some simple exercises to improve shoulder mobility once home. She was hypokalemic during her hospitalization and will be discharged on oral potassium supplementation. She will likely need a colon examination after she recuperates from the recent operative procedure to complete the GI evaluation. ALLERGIES Allergies Allergy/AdvReac Type Severity Reaction Status Date / Time Sulfa (Sulfonamide Allergy Mild Rash Verified 06/22/24 18:34 Antibiotics) diphenhydramine (From Allergy has no Verified 06/22/24 18:34 Benadryl) effect doxycycline Allergy Unknown Verified 06/22/24 18:34 MEDICATIONS Ambulatory Orders Medication Instructions Recorded Confirmed albuterol sulfate 90 mcg/actuation 2 inhaler inhalation Q4HR PRN 11/19/13 07/11/24 aerosol inhaler (Ventolin HFA) Wheezing trazodone 50 mg tablet 3 - 4 tab PO HS 11/19/13 07/11/24 ropinirole 1 mg tablet 3 mg PO QPM 04/17/18 07/11/24 acyclovir 400 mg tablet 400 mg PO QDAY 06/28/24 07/11/24 atorvastatin 10 mg tablet (Lipitor) 10 mg PO QPM 06/28/24 07/11/24 ipratropium 0.5 mg-albuterol 3 mg 3 ml inhalation QID PRN wheezing 06/28/24 07/11/24 (2.5 mg base)/3 mL nebulization soln acetaminophen 500 mg tablet 500 mg PO Q6H PRN pain #60 tabs 07/17/24 pantoprazole 40 mg tablet,delayed 40 mg PO BIDAC #60 tabs 07/17/24 release potassium chloride 20 mEq/15 mL 40 meq (30 mL) PO DAILYWM #60 mL 07/17/24 oral liquid PHYSICAL EXAM AT DISCHARGE General Appearance: positive No acute distress Eyes Bilateral: positive Normal inspection ENT: positive ENT inspection nml and Pharynx nml Neck: positive Nml inspection and Thyroid nml Respiratory: positive Chest non-tender, No respiratory distress and Breath sounds nml Cardiovascular: positive Regular rate & rhythm and No murmur Peripheral Pulses: positive 2+ Abdomen: positive Non-tender, Nml bowel sounds and No distention Skin: positive Color nml and No rash Extremities: positive Non-tender and Full ROM (See above) LABS 07/17/24 05:06 07/17/24 05:06 DIAGNOSTIC IMAGING Diagnostic Imaging Results: See rad report QUALITY (Female Hip Fx Only) Was patient sent home on osteoporosis medication?: No FOLLOW UP Follow Up: Dr Smith, 07/24/2024, 11:00 General Surgery [facility] TIME SPENT Time Spent in Discharge (Minutes): 30 Discharge Plan Discharge Patient Disposition: Home, Self Care Condition: Good Medically Cleared Date:: 07/17/24 Prescriptions: New potassium chloride 20 mEq/15 mL Liquid 40 meq PO DAILYWM Qty: 60 0RF acetaminophen 500 mg Tablet 500 mg PO Q6H PRN (Reason: pain) Qty: 60 0RF pantoprazole 40 mg Tablet,Delayed Release (Dr/Ec) 40 mg PO BIDAC Qty: 60 0RF Continued trazodone 50 MG tablet 3 - 4 tab PO HS albuterol sulfate [Ventolin HFA] 60 PUFFS/8 GM HFA aerosol inhaler 2 inhaler inhalation Q4HR PRN (Reason: Wheezing) ropinirole 1 MG tablet 3 mg PO QPM acyclovir 400 mg tablet 400 mg PO QDAY Patient Comments: TAKE 1 TABLET DAILY atorvastatin [Lipitor] 10 mg tablet 10 mg PO QPM ipratropium-albuterol 0.5 mg-3 mg(2.5 mg base)/3 mL solution for nebulization 3 ml inhalation QID PRN (Reason: wheezing) Activity Restrictions: Activity as Tolerated Activity Restrictions/Additional Instructions: Be active, but if it hurts to do, don't do it. May shower over the wound (OK to get berry wet) Call the clinic with questions or concerns Diet: Regular Health Concerns: Be certain to take the potassium supplementation daily. Print Language: Telugu Patient Instructions: Surgery Anesthesia After Follow-up Care: Nicole Smith DO [Provider Admit Priv/Credential] - 07/30/24 11:00 am (Staple removal)
[2024-07-17] MEDS ORDERED: POTASSIUM CHLORIDE 20 MEQ TABLET PO ONE (13:00)
[2024-07-17] MEDS ORDERED: ACETAMINOPHEN 500 MG TABLET PO SCH (15:00)
[2024-07-17] MEDS ORDERED: PANTOPRAZOLE 40 MG TABLET PO SCH (16:00)
--- NOTE | 2024-07-17 19:09 | PROVIDER PROGRESS NOTE ---
Subjective Prog Note Date Prog Note Date: 07/17/24 Prog Note Time: 11:00 Subjective Subjective: No acute events. Good po intake. No n/v. Objective Vital Signs/Intake & Output Intake & Output: Intake & Output 07/15/24 07/16/24 07/17/24 07/18/24 05:59 05:59 05:59 05:59 Intake Total 3200 / 3200 2850 / 2850 2350 / 2350 1850 / 1850 Output Total 950 / 950 500 / 500 Balance 2250 / 2250 2350 / 2350 2350 / 2350 1850 / 1850 Weight (kg) 73.5 kg 73.5 kg 74 kg Objective Comments/Other: older woman sitting in bed, NAD, sclera anicteric, MMM LCTAB, RRR, S1S2, no edema abd soft, NT, ND, BS+ surgical site with sutures ventral abd c/d/i AAOx3 Lab Results 07/17/24 05:06 07/17/24 05:06 Other Labs: Lab Results x24hrs 07/17/24 Range/Units 05:06 WBC 5.6 (4.8-10.8) x10^3/uL RBC 3.51 L (4.20-5.40) 10^6/uL Hgb 10.6 L (12.0-16.0) g/dL Hct 32.9 L (37.0-47.0) % MCV 93.7 (81.0-99.0) fL MCH 30.2 (27.0-31.0) pg MCHC 32.2 (32.0-36.0) g/dL RDW 15.5 H (12.0-15.0) % Plt Count 180 (130-450) 10^3/uL MPV 9.3 (7.9-10.8) fL Sodium 143 (135-145) mmol/L Potassium 2.9 L (3.5-4.5) mmol/L Chloride 106 (101-111) mmol/L Carbon Dioxide 30 (21-32) mmol/L Anion Gap 7.0 (6-13) BUN 6 (6-20) mg/dL Creatinine 0.6 (0.6-1.3) mg/dL Estimated GFR (MDRD) 96 (>89) Glucose 106 H (74-104) mg/dL Calcium 8.7 (8.5-10.3) mg/dL Phosphorus 2.1 L (2.5-5.0) mg/dL Magnesium 1.8 (1.7-2.3) mg/dL Assessment/Plan Problem List (1) Nausea and vomiting: Impression: Resolved. Po intake improving. Qualifiers: Vomiting type: unspecified Qualified Code(s): R11.2 - Nausea with vomiting, unspecified (2) Hypokalemia: Impression: Due to recent diarrhea, n/v. Expect to improve now that pt is eating and n/v resolved. - replete with po supp today (3) Hypophosphatemia: Impression: Due to recent diarrhea, n/v. Expect to improve now that pt is eating and n/v resolved. - replete with po supp today (4) COPD (chronic obstructive pulmonary disease): Impression: Patient uses albuterol inhaler as needed in the outpatient setting. Will continue DuoNebs as needed now that she's extubated. Qualifiers: COPD type: unspecified COPD Qualified Code(s): J44.9 - Chronic obstructive pulmonary disease, unspecified (5) Restless leg syndrome: Impression: Continue ropinorole.
--- NOTE | 2024-07-19 17:03 | OT Plan of Care ---
OT Inpatient POC Diagnosis DIAGNOSIS Diagnosis: R TKA Diagnosis: DJD R knee/failed UKA Chief Complaint: 02/26 pain R knee Onset of Chief Complaint: Pain started at 1700 MEDICAL/SURGICAL HISTORY Medical History (Updated 07/18/24 @ 00:01 by ) Left arm weakness Gastric artery hemorrhage COPD exacerbation Interstitial lung disease (11/14/19) Cough (01/31/24) Scleroderma Sjogren's syndrome (02/09/13) Dysphagia, unspecified (10/21/15) Hyperlipidemia (02/15/17) Squamous cell carcinoma of skin (01/22/10) Shingles Urinary incontinence, mixed (10/22/11) Sleep disturbance (08/01/23) Post covid-19 condition, unspecified (12/29/21) Asthma Cerebral infarction (12/14/22) TIA Concussion without loss of consciousness, initial encounter (12/10/21) Abdominal aortic aneurysm (02/09/16) GERD (gastroesophageal reflux disease) Hiatal hernia Gastritis 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) Cataracts, bilateral (09/08/12) Lichen sclerosus of vulva (07/01/23) Hypogammaglobulinemia (06/03/21) Ulcerative colitis Depression (01/13/11) Atrophic vaginitis (08/24/16) Vertigo (11/05/21) Syncope (07/21/17) Unsteady gait when walking (08/01/23) Peripheral vascular disease (04/22/09) 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, bilateral (06/23/12) Osteoarthritis of carpometacarpal joint of right thumb (05/23/14) Ganglion cyst of dorsum of right wrist (08/22/15) Trigger finger of left hand Colles' fracture of right radius, initial encounter for closed fracture (01/26/21) Surgical History (Updated 07/16/24 @ 10:47 by Nicole Smith DO) Loose right total knee arthroplasty Aftercare following joint replacement (11/13/14) History of exploratory laparotomy (~07/11/24) including: gastrotomy for control of hemorrhage in gastric lumen; control of splenic hemorrhage with hemostatic agents History of esophagogastroduodenoscopy (EGD) (~07/11/24) c/b massive hemorrhage during biopsy of submucosal mass History of repair of left rotator cuff (05/29/07) Hx of bilateral cataract extraction History of bunionectomy Hx of hammer toe correction Hx of appendectomy Hx laparoscopic cholecystectomy Hx of shoulder surgery H/O: hysterectomy Hx of colonoscopy Assessment and Goals ASSESSMENT Assessment: Pt is a 78 yo female who was refered for an OT Evaluation secondary to weakness after surgery procedure. Pt in bed on supine pos, insicion with bandages on frontal abdomen. Pt verbalized pain of 5 during resting pos, but was willing to attempt movement. Pt Required MOD A to ensure safe bed mobility, and slow bed movements to avoid increasing pain. Pt is able to verbalize intensity or worsening of pain. During bed mobility pt did not report dizziness or nausea and is able to use UE to achieve mobility with mod Assitance. Pt was able to sit on EOB for approx. 7 seconds until pt verbalized increasing pain, thus MOD A used to return to bed. Pt complained of cold on her back, pain 10/10 on incision, and neck pain. Pt was repositioned into bed and ice pack for iv previously placed was re-positioned on RUE. Pt was given medication by nurse to address pain, pt followed modeled breathing technique to regulate breathing. Pt was previously independent at home and used cane to mobilize. Pt visited by surgery merchandise flow team member at the end of Evaluation. Pt currently endures intense pain, which interferes with mobility. Pt educated on bed mobility and functional mobility using safety equipment such as walker. Pt will benefit from inpatient services at the moment to ensure continuation of functional mobility and engagement on ADL with current assitance level as patient is not able to perform as PLO. Re asses possibility of returning home with assitance once acute pain diminishes and subsequent effects of bed rest are assessed. -Activities of Daily Living Improve Upper Extremity Dressing to:: Modified Independent Improve Lower Extremity Dressing to:: Standby Assist Improve Grooming/Hygiene to:: Independent Improve Bathing to:: Standby Assist Improve Toileting to:: Standby Assist OT Inpatient Plan PLAN Treatment Frequency: 1x/day Duration: Until goals are met -Discharge Recommendations Discharge Location: Undetermined Support/Services Needed: With assist and Home Health O.T. Recommended Equipment: Grab bars and Shower/bath chair Comment: Pt will benefit from inpatient services at the moment to ensure continuation of functional mobility and engagement on ADL with current assitance level as patient is not able to perform as PLO. Re asses possibility of returning home with assitance once acute pain diminishes and subsequent effects of bed rest are assessed.
== END 2024-07-17 13:43 | disposition home or self-care (01) | DRG 920 ==
LOC: SDS 06:32 → ICU 10:43 → MS2 07-14 11:37
PROVIDERS: ADMIT Surgery; ATTEND Surgery
DX: J98.11 Atelectasis; I95.89 Other hypotension; D49.0 Neoplasm of unspecified behavior of digestive system; K21.9 Gastro-esophageal reflux disease without esophagitis; M34.9 Systemic sclerosis, unspecified; D78.02 Intraoperative hemorrhage and hematoma of the spleen complicating other procedure; Z98.890 Other specified postprocedural states; Z87.898 Personal history of other specified conditions; K92.2 Gastrointestinal hemorrhage, unspecified; Z79.899 Other long term (current) drug therapy; K91.61 Intraoperative hemorrhage and hematoma of a digestive system organ or structure complicating a digestive system procedure; Z53.31 Laparoscopic surgical procedure converted to open procedure; R29.898 Other symptoms and signs involving the musculoskeletal system; Z99.11 Dependence on respirator [ventilator] status; D12.0 Benign neoplasm of cecum; R11.2 Nausea with vomiting, unspecified; R05.9 Cough, unspecified; J44.9 Chronic obstructive pulmonary disease, unspecified; I95.81 Postprocedural hypotension; J44.89 Other specified chronic obstructive pulmonary disease; G25.81 Restless legs syndrome; Z87.19 Personal history of other diseases of the digestive system; Z87.891 Personal history of nicotine dependence; E83.39 Other disorders of phosphorus metabolism; E87.6 Hypokalemia; R19.7 Diarrhea, unspecified; Z86.0101 Personal history of adenomatous and serrated colon polyps; R13.10 Dysphagia, unspecified; E78.5 Hyperlipidemia, unspecified; D62 Acute posthemorrhagic anemia; R06.00 Dyspnea, unspecified